=== PATIENT | male | born 1970 | race Caucasian/White ===

== ENCOUNTER 2020-02-28 10:30 | Outpatient (REF) | payer MEDICAID, SELFPAY ==
--- NOTE | 2020-02-28 10:35 | CT_ITS ---
EXAMINATION: CT HEAD WITHOUT CONTRAST CLINICAL INFORMATION: Dizziness and headaches. COMPARISON: None TECHNIQUE: Contiguous axial imaging was performed from the skull base to vertex without intravenous administration of contrast. This CT examination was performed using dose optimization techniques as appropriate, variously including the following: *Automated exposure control *Adjustment of mA and/or kV according to patient size (this includes techniques or standardized protocols for targeted exams where dose is matched to indication/reason for exam; i.e. extremities or head) *Use of iterative reconstruction technique DLP: 908 mGy-cm FINDINGS: There is no evidence of acute intra-axial or extra-axial hemorrhage. There is a 9 mm hypodensity right centrum semiovale image 19/2 of indeterminate age. There is no involvement mass effect. No other areas of acute infarction seen. There is no mass defect, edema or midline shift seen. Lopez to white matter differentiation is well preserved. No extra-axial fluid collections are identified. There is anterior falx calcification. The ventricles are normal in size. There is no abnormal attenuation within the brain parenchyma. The osseous structures and soft tissues are normal. There is a small polyp or retention cyst medial wall right maxillary sinus. IMPRESSION: No acute intracranial hemorrhage seen. There is a 9 mm hypodensity right centrum semiovale likely infarction of indeterminate age. No previous exam is available for comparison.
== END 2020-02-28 10:31 | disposition home or self-care (01) ==
LOC: HO.CT 10:30
PROVIDERS: PCP Nurse Practitioner Primary Care; Visit Provider Nurse Practitioner Primary Care
DX: R42 Dizziness and giddiness (principal); R51.9 Headache, unspecified
CPT/HCPCS: 70450

== ENCOUNTER 2020-04-25 17:10 | Inpatient (IN) | payer MEDICAID, SELFPAY ==
--- NOTE | 2020-04-25 17:14 | XR_ITS ---
EXAMINATION: PORTABLE CHEST 1 VIEW CLINICAL INFORMATION: ?pneumonia . COMPARISON: No recent pertinent prior studies are available for comparison. TECHNIQUE: Portable frontal view of the chest was obtained. FINDINGS: The lungs are well expanded. No focal infiltrate, effusion, edema, or pneumothorax. Cardiac and mediastinal silhouettes are within normal limits for technique. No acute bony abnormality seen. Likely chronic bony deformity to the distal right clavicle. XR/XR chest 1V IMPRESSION: No evidence of acute disease.
--- NOTE | 2020-04-25 17:15 | ECG_ITS ---
Test Reason : GENERAL Blood Pressure : / mmHG Vent. Rate : 091 BPM Atrial Rate : 091 BPM P-R Int : 140 ms QRS Dur : 088 ms QT Int : 372 ms P-R-T Axes : 031 -21 023 degrees QTc Int : 457 ms Normal sinus rhythm Possible Left atrial enlargement Left ventricular hypertrophy Inferior infarct , age undetermined Abnormal ECG No previous ECGs available Referred By: Rafael Silvestre Electronically Signed By:Glenn Thayer
[2020-04-25 17:21] VITALS: BP 123/98; PULSE 104; RESP 20; TEMP 36.9; O2SAT 94; BMI 26.2
--- NOTE | 2020-04-25 17:30 | PC.NURSE ---
patient woke to painful stimulus, and was able to state his name, , year, president and that he was at [facility], patient then was unable to participate in the triage process after that when questions were asked. patient had purposeful movement of all 4 extremities and retracts/moves with painful stimulus such as lab draws. failed swallow due to patient inability to participate at this time, iv inserted, some labs drawn, vitals obtained/stable, pt sinus tach low 100s on advertising copywriter, ivf started per order, will continue to monitor.
[2020-04-25] MEDS: 0.9 % Sodium Chloride 1,000 ML 999 ML IVCONT ×2 (18:04→23:01)
[2020-04-25 18:13] LABS: MANUAL DIFF FLAG NO
--- NOTE | 2020-04-25 18:14 | ED_ITS ---
HPI - General Adult General Chief complaint: General Medical Stated complaint: LETHARGY,WEAKNESS X 1 WEEK Time Seen by Provider: 04/25/20 17:14 Source: EMS Mode of arrival: EMS Limitations: altered mental status History of Present Illness HPI narrative: Patient with Limited history no family available per EMS la chavez's family are alcoholic but patient does not drink and patient being on couch for last 1 week , patient refusing to answer any questions .able to answer his name and date of Onset (ago): week(s) (1) Related Data Home Medications Medication Instructions Recorded Confirmed Unobtainable 04/25/20 04/25/20 Allergies Allergy/AdvReac Type Severity Reaction Status Date / Time No Known Allergies Allergy Verified 04/25/20 17:14 Review of Systems Review of Systems: Yes Unobtainable due to mental status Neurologic: Reports confusion Psychiatric: Psychiatric: Reports confusion [facility] Social History Social History Alcohol intake: unknown Smoking Status: Unknown if ever smoked Use of substances other than those prescribed or required for medical reasons: Unknown Advance Directives: No Advance Directives Information Provided: Yes Physical Exam Vital Signs: Vital Signs: Last Vital Signs Temp 97.8 F 04/25/20 22:00 Pulse 156 H 04/25/20 22:50 Resp 16 04/25/20 22:00 BP 144/128 H 04/25/20 22:50 Pulse Ox 95 04/25/20 22:00 Body Mass Index 26.2 Const: General: comfortable, no acute distress, confusion, ill appearing and patient obtunded Nutritional Appearance: malnourished Or ientation/consciousness: confusion and patient obtunded Limitations: altered mental status HENMT: Head: Yes normal to inspection Ears: hearing grossly normal bilaterally General nose exam: Normal external nose present Mouth: Normal oral and palatal mucosa present Eyes: General: appearance normal, both eyes and all related structures Conjunctivae: conjunctivae normal Sclerae: sclerae normal Pupils: Equal, round and reactive pupils present Neck: Neck: Yes normal visual inspection, Yes full ROM, Yes no lymphadenopathy, Yes no meningeal signs, Yes trachea midline and Yes supple Chest: Chest palpation & inspection: normal inspection of the chest and normal palpation of entire chest wall Resp: Effort & Inspection: normal respiratory effort, able to speak in complete sentences and no cough Auscultation: clear to auscultation bila terally Cardio: Jugular venous distension: no JVD Rate: regular rate Rhythm: regular rhythm Heart sounds: S1 normal heart sound present and S2 normal heart sound present GI: Inspection: Yes normal to inspection Palpation (GI): Soft to palpation, nontender and No hepatosplenomegaly present Percussion: Yes normal to percussion Auscultation: normal bowel sounds Back/Spine/Pelvis: Thoracic/Lumbar Spine: thoracic and lumbar spine normal to inspection Skin: General skin exam: no rashes or lesions noted Neuro: General: moves all extremities, no meningeal signs, confusion and patient obtunded Cranial nerves: Yes Equal, round and reactive pupils present Course Course Course Narrative: Patient ambulate in the ER in steady gait but his heart rate increased to 150 will give him some more IV fluids will get crisis consult Medical Decision Making MDM Narrative Medical decision making narrative: Patient with history of marijuana abuse came in with altered sensorium patient is awake alert does want to talk to us but had food in the ER no focal deficits head CT was done which showed low-density lesion in internal capsule patient was seen in p.o. CT scan on 02/28 this density has increased in size etiology is not very clear need MRI for further evaluation. Case discussed with patient ermelinda silvestre [phone], and mykel golden mother [phone] according to them patient is behaving differently for last 1 week talking without any sense denied any substance abuse, but has history of substance abuse previously, patient is sleeping most of the times and not eating much. One week prior to this patient was behaving normal according to patient's mother also was admitted in [place] for seizure in March details not available. Plan to admit patient for further evaluation of the brain space-occupying lesions in the right internal capsule plan for MRI in the morning and neurology consult Lab Data Lab results reviewed: Yes I reviewed the patient's lab results. Result diagrams: 04/25/20 17:58 04/25/20 18:59 Labs: Lab Results 04/25/20 04/25/20 04/25/20 Range/Units 17:57 17:57 17:58 WBC 10.8 (4.8-10.8) X10*3/uL RBC 6.00 H (4.60-5.80) X10*6/uL Hgb 16.8 (14.0-18.0) g/dl Hct 53.1 H (42-52) % MCV 88.5 (80-98) fL MCH 28.0 (27.0-33.0) pg MCHC 31.6 (31.0-36.0) g/dl RDW 13.9 (11.0-16.0) % Plt Count 479 H (160-400) X10*3/uL MPV 10.6 (9.4-12.4) fL Immature Gran % (Auto) 0.4 (0.0-0.4) % Neut % (Auto) 70.1 (45-73) % Lymph % (Auto) 18.6 L (20-40) % [place] % (Auto) 10.4 (2-11) % Eos % (Auto) 0.0 (0-4) % Baso % (Auto) 0.5 (0-2) % Lymph # (Auto) 2.0 (1.2-4.9) X10*3/uL [place] # (Auto) 1.1 (0.1-1.2) X10*3/uL Eos # (Auto) 0.0 (0.0-0.4) X10*3/uL Baso # (Auto) 0.1 (0.0-0.2) X10*3/uL Abs Immat Gran (auto) 0.04 H (0.00-0.03) X10*3/uL Absolute Neuts (auto) 7.6 (2.0-8.3) X10*3/uL Absolute Nucleated RBC 0.000 (0.0-0.012) X10*3/uL Nucleated RBC % (auto) 0.0 (0.0-0.2) /100WBC PT Cancelled INR Cancelled Sodium Potassium Chloride Carbon Dioxide Anion Gap BUN Creatinine Estim Creat Clear Calc Estimated GFR Random Glucose Lactic Acid (0.5-2.0) mmol/L Calcium Magnesium Cancelled Total Bilirubin Direct Bilirubin AST ALT Alkaline Phosphatase Total Protein Albumin Urine Color Urine Appearance Urine pH (5.0-8.0) Ur Specific [place] (1.005-1.025) Urine Protein (NEG-TRACE) MG/DL Urine Glucose (UA) (NEG) MG/DL Urine Ketones (NEG) MG/DL Urine Blood (NEG) Urine Nitrite (NEG) Ur Leukocyte Esterase (NEG) Urine RBC (0) /HPF Urine WBC (0-4) /HPF Ur Squamous Epith Cells /LPF Amorphous Sediment /LPF Urine Bacteria /LPF Urine Mucus /LPF Urine Opiates Screen (Not Detect) Ur Barbiturates Screen (Not Detect) Ur Phencyclidine Scrn (Not Detect) Ur Amphetamines Screen (Not Detect) U Benzodiazepines Scrn (Not Detect) Urine Cocaine Screen (Not Detect) U Marijuana (THC) Screen (Not Detect) Ethyl Alcohol Coronavirus (PCR) (Negative) Influenza Type A (PCR) (Negative) Influenza Type B (PCR) (Negative) RSV RNA Qual (PCR) (Negative) 04/25/20 04/25/20 04/25/20 Range/Units 17:58 17:58 18:09 WBC (4.8-10.8) X10*3/uL RBC (4.60-5.80) X10*6/uL Hgb (14.0-18.0) g/dl Hct (42-52) % MCV (80-98) fL MCH (27.0-33.0) pg MCHC (31.0-36.0) g/dl RDW (11.0-16.0) % Plt Count (160-400) X10*3/uL MPV (9.4-12.4) fL Immature Gran % (Auto) (0.0-0.4) % Neut % (Auto) (45-73) % Lymph % (Auto) (20-40) % [place] % (Auto) (2-11) % Eos % (Auto) (0-4) % Baso % (Auto) (0-2) % Lymph # (Auto) (1.2-4.9) X10*3/uL [place] # (Auto) (0.1-1.2) X10*3/uL Eos # (Auto) (0.0-0.4) X10*3/uL Baso # (Auto) (0.0-0.2) X10*3/uL Abs Immat Gran (auto) (0.00-0.03) X10*3/uL Absolute Neuts (auto) (2.0-8.3) X10*3/uL Absolute Nucleated RBC (0.0-0.012) X10*3/uL Nucleated RBC % (auto) (0.0-0.2) /100WBC PT INR Sodium Cancelled Potassium Cancelled Chloride Cancelled Carbon Dioxide Cancelled Anion Gap Cancelled BUN Cancelled Creatinine Cancelled Estim Creat Clear Calc Cancelled Estimated GFR Cancelled Random Glucose Cancelled Lactic Acid 1.4 (0.5-2.0) mmol/L Calcium Cancelled Magnesium Total Bilirubin Cancelled Direct Bilirubin Cancelled AST Cancelled ALT Cancelled Alkaline Phosphatase Cancelled Total Protein Cancelled Albumin Cancelled Urine Color Urine Appearance Urine pH (5.0-8.0) Ur Specific [place] (1.005-1.025) Urine Protein (NEG-TRACE) MG/DL Urine Glucose (UA) (NEG) MG/DL Urine Ketones (NEG) MG/DL Urine Blood (NEG) Urine Nitrite (NEG) Ur Leukocyte Esterase (NEG) Urine RBC (0) /HPF Urine WBC (0-4) /HPF Ur Squamous Epith Cells /LPF Amorphous Sediment /LPF Urine Bacteria /LPF Urine Mucus /LPF Urine Opiates Screen (Not Detect) Ur Barbiturates Screen (Not Detect) Ur Phencyclidine Scrn (Not Detect) Ur Amphetamines Screen (Not Detect) U Benzodiazepines Scrn (Not Detect) Urine Cocaine Screen (Not Detect) U Marijuana (THC) Screen (Not Detect) Ethyl Alcohol Cancelled Coronavirus (PCR) (Negative) Influenza Type A (PCR) (Negative) Influenza Type B (PCR) (Negative) RSV RNA Qual (PCR) (Negative) 04/25/20 04/25/20 04/25/20 Range/Units 18:09 18:59 18:59 WBC (4.8-10.8) X10*3/uL RBC (4.60-5.80) X10*6/uL Hgb (14.0-18.0) g/dl Hct (42-52) % MCV (80-98) fL MCH (27.0-33.0) pg MCHC (31.0-36.0) g/dl RDW (11.0-16.0) % Plt Count (160-400) X10*3/uL MPV (9.4-12.4) fL Immature Gran % (Auto) (0.0-0.4) % Neut % (Auto) (45-73) % Lymph % (Auto) (20-40) % [place] % (Auto) (2-11) % Eos % (Auto) (0-4) % Baso % (Auto) (0-2) % Lymph # (Auto) (1.2-4.9) X10*3/uL [place] # (Auto) (0.1-1.2) X10*3/uL Eos # (Auto) (0.0-0.4) X10*3/uL Baso # (Auto) (0.0-0.2) X10*3/uL Abs Immat Gran (auto) (0.00-0.03) X10*3/uL Absolute Neuts (auto) (2.0-8.3) X10*3/uL Absolute Nucleated RBC (0.0-0.012) X10*3/uL Nucleated RBC % (auto) (0.0-0.2) /100WBC PT INR Sodium Potassium Chloride Carbon Dioxide Anion Gap BUN Creatinine Estim Creat Clear Calc Estimated GFR Random Glucose Lactic Acid (0.5-2.0) mmol/L Calcium Magnesium 2.7 H Total Bilirubin Direct Bilirubin AST ALT Alkaline Phosphatase Total Protein Albumin Urine Color Urine Appearance Urine pH (5.0-8.0) Ur Specific [place] (1.005-1.025) Urine Protein (NEG-TRACE) MG/DL Urine Glucose (UA) (NEG) MG/DL Urine Ketones (NEG) MG/DL Urine Blood (NEG) Urine Nitrite (NEG) Ur Leukocyte Esterase (NEG) Urine RBC (0) /HPF Urine WBC (0-4) /HPF Ur Squamous Epith Cells /LPF Amorphous Sediment /LPF Urine Bacteria /LPF Urine Mucus /LPF Urine Opiates Screen (Not Detect) Ur Barbiturates Screen (Not Detect) Ur Phencyclidine Scrn (Not Detect) Ur Amphetamines Screen (Not Detect) U Benzodiazepines Scrn (Not Detect) Urine Cocaine Screen (Not Detect) U Marijuana (THC) Screen (Not Detect) Ethyl Alcohol < 10 Coronavirus (PCR) NEGATIVE (Negative) Influenza Type A (PCR) NEGATIVE (Negative) Influenza Type B (PCR) NEGATIVE (Negative) RSV RNA Qual (PCR) NEGATIVE (Negative) 04/25/20 04/25/20 04/25/20 Range/Units 18:59 18:59 20:44 WBC (4.8-10.8) X10*3/uL RBC (4.60-5.80) X10*6/uL Hgb (14.0-18.0) g/dl Hct (42-52) % MCV (80-98) fL MCH (27.0-33.0) pg MCHC (31.0-36.0) g/dl RDW (11.0-16.0) % Plt Count (160-400) X10*3/uL MPV (9.4-12.4) fL Immature Gran % (Auto) (0.0-0.4) % Neut % (Auto) (45-73) % Lymph % (Auto) (20-40) % [place] % (Auto) (2-11) % Eos % (Auto) (0-4) % Baso % (Auto) (0-2) % Lymph # (Auto) (1.2-4.9) X10*3/uL [place] # (Auto) (0.1-1.2) X10*3/uL Eos # (Auto) (0.0-0.4) X10*3/uL Baso # (Auto) (0.0-0.2) X10*3/uL Abs Immat Gran (auto) (0.00-0.03) X10*3/uL Absolute Neuts (auto) (2.0-8.3) X10*3/uL Absolute Nucleated RBC (0.0-0.012) X10*3/uL Nucleated RBC % (auto) (0.0-0.2) /100WBC PT 15.3 H INR 1.3 H Sodium 141 Potassium 5.0 Chloride 109 H Carbon Dioxide 17 L Anion Gap 20 BUN 16 Creatinine 1.27 Estim Creat Clear Calc 77.2 Estimated GFR > 60 Random Glucose 123 H Lactic Acid (0.5-2.0) mmol/L Calcium 8.2 L Magnesium Total Bilirubin 0.9 Direct Bilirubin 0.3 AST 21 ALT 19 Alkaline Phosphatase 69 Total Protein 7.9 Albumin 4.2 Urine Color JAN Urine Appearance HAZY Urine pH 5.0 (5.0-8.0) Ur Specific [place] >= 1.030 H (1.005-1.025) Urine Protein 2+ H (NEG-TRACE) MG/DL Urine Glucose (UA) NEG (NEG) MG/DL Urine Ketones NEG (NEG) MG/DL Urine Blood 1+ H (NEG) Urine Nitrite NEG (NEG) Ur Leukocyte Esterase NEG (NEG) Urine RBC 1-4 (0) /HPF Urine WBC 0 (0-4) /HPF Ur Squamous Epith Cells NONE /LPF Amorphous Sediment 2+ /LPF Urine Bacteria NONE /LPF Urine Mucus 2+ /LPF Urine Opiates Screen (Not Detect) Ur Barbiturates Screen (Not Detect) Ur Phencyclidine Scrn (Not Detect) Ur Amphetamines Screen (Not Detect) U Benzodiazepines Scrn (Not Detect) Urine Cocaine Screen (Not Detect) U Marijuana (THC) Screen (Not Detect) Ethyl Alcohol Coronavirus (PCR) (Negative) Influenza Type A (PCR) (Negative) Influenza Type B (PCR) (Negative) RSV RNA Qual (PCR) (Negative) 04/25/20 Range/Units 20:44 WBC (4.8-10.8) X10*3/uL RBC (4.60-5.80) X10*6/uL Hgb (14.0-18.0) g/dl Hct (42-52) % MCV (80-98) fL MCH (27.0-33.0) pg MCHC (31.0-36.0) g/dl RDW (11.0-16.0) % Plt Count (160-400) X10*3/uL MPV (9.4-12.4) fL Immature Gran % (Auto) (0.0-0.4) % Neut % (Auto) (45-73) % Lymph % (Auto) (20-40) % [place] % (Auto) (2-11) % Eos % (Auto) (0-4) % Baso % (Auto) (0-2) % Lymph # (Auto) (1.2-4.9) X10*3/uL [place] # (Auto) (0.1-1.2) X10*3/uL Eos # (Auto) (0.0-0.4) X10*3/uL Baso # (Auto) (0.0-0.2) X10*3/uL Abs Immat Gran (auto) (0.00-0.03) X10*3/uL Absolute Neuts (auto) (2.0-8.3) X10*3/uL Absolute Nucleated RBC (0.0-0.012) X10*3/uL Nucleated RBC % (auto) (0.0-0.2) /100WBC PT INR Sodium Potassium Chloride Carbon Dioxide Anion Gap BUN Creatinine Estim Creat Clear Calc Estimated GFR Random Glucose Lactic Acid (0.5-2.0) mmol/L Calcium Magnesium Total Bilirubin Direct Bilirubin AST ALT Alkaline Phosphatase Total Protein Albumin Urine Color Urine Appearance Urine pH (5.0-8.0) Ur Specific [place] (1.005-1.025) Urine Protein (NEG-TRACE) MG/DL Urine Glucose (UA) (NEG) MG/DL Urine Ketones (NEG) MG/DL Urine Blood (NEG) Urine Nitrite (NEG) Ur Leukocyte Esterase (NEG) Urine RBC (0) /HPF Urine WBC (0-4) /HPF Ur Squamous Epith Cells /LPF Amorphous Sediment /LPF Urine Bacteria /LPF Urine Mucus /LPF Urine Opiates Screen Not Detected (Not Detect) Ur Barbiturates Screen Not Detected (Not Detect) Ur Phencyclidine Scrn Not Detected (Not Detect) Ur Amphetamines Screen Not Detected (Not Detect) U Benzodiazepines Scrn Not Detected (Not Detect) Urine Cocaine Screen Not Detected (Not Detect) U Marijuana (THC) Screen POSITIVE H (Not Detect) Ethyl Alcohol Coronavirus (PCR) (Negative) Influenza Type A (PCR) (Negative) Influenza Type B (PCR) (Negative) RSV RNA Qual (PCR) (Negative) Imaging Data CT scan - head: Attestation: I personally reviewed and interpreted this imaging study as follows: Radiologist's impression: CT/CT head/brain wo con IMPRESSION: There is increasing ill-defined low density centered in the genu of the internal capsule extending cephalad to the centrum semiovale and inferiorly to the right thalamus. This could reflect an underlying mass lesion. Recommend MRI of the brain with and without contrast. ECG Data Attestation: I personally reviewed and interpreted this ECG as follows: Interpretation: Normal sinus rhythm with heart rate 91 beats per minute LVH normal axis normal intervals no acute ST T wave changes impression no acute ischemia Discharge Plan Discharge Clinical Impression: Brain mass Altered mental status Qualifiers: Altered mental status type: disorientation Qualified Code(s): R41.0 - Disorientation, unspecified Patient Disposition: Admitted As Inpatient
[2020-04-25 18:15] LABS: Basophils Absolute Auto 0.1 X10*3/uL (0.0-0.2); Basophils Percent Auto 0.5 % (0-2); Hematocrit 53.1 % (42-52); Hemoglobin 16.8 g/dl (14.0-18.0); Imm Gran Abs Auto 0.04 X10*3/uL (0.00-0.03); Imm Gran Pct Auto 0.4 % (0.0-0.4); Lymphocytes Percent Auto 18.6 % (20-40); Mean Corpuscular HGB Conc 31.6 g/dl (31.0-36.0); Mean Corpuscular Volume 88.5 fL (80-98); Mean Platelet Volume 10.6 fL (9.4-12.4); Monocytes Absolute Auto 1.1 X10*3/uL (0.1-1.2); Monocytes Percent Auto 10.4 % (2-11); Neutrophils Absolute Auto 7.6 X10*3/uL (2.0-8.3); Neutrophils Percent Auto 70.1 % (45-73); Platelet Count 479 X10*3/uL (160-400); Red Cell Distribution Width 13.9 % (11.0-16.0); White Blood Count 10.8 X10*3/uL (4.8-10.8)
--- NOTE | 2020-04-25 18:15 | PC.NURSE ---
additional labs drawn, pt to ct scan
--- NOTE | 2020-04-25 18:20 | CT_ITS ---
EXAMINATION: CT HEAD WITHOUT CONTRAST CLINICAL INFORMATION: Altered mental status COMPARISON: 02/28/2020 TECHNIQUE: Contiguous axial imaging was performed from the skull base to vertex without intravenous administration of contrast. This CT examination was performed using dose optimization techniques as appropriate, variously including the following: *Automated exposure control *Adjustment of mA and/or kV according to patient size (this includes techniques or standardized protocols for targeted exams where dose is matched to indication/reason for exam; i.e. extremities or head) *Use of iterative reconstruction technique DLP: 803 mGy-cm FINDINGS: There is increasing ill-defined low density centered in the genu of the internal capsule extending cephalad to the centrum semiovale and inferiorly to the right thalamus. This could reflect an underlying mass lesion. Lopez-white differentiation is maintained without evidence of acute large vessel territory ischemia. No midline shift. Ventricles and sulci are similar in configuration to the prior study. No acute intracranial hemorrhage. No acute sinusitis. Globes and orbits are normal. Right maxillary mucous retention cyst or polyps. CT/CT head/brain wo con IMPRESSION: There is increasing ill-defined low density centered in the genu of the internal capsule extending cephalad to the centrum semiovale and inferiorly to the right thalamus. This could reflect an underlying mass lesion. Recommend MRI of the brain with and without contrast.
[2020-04-25 18:46] LABS: Lactic Acid 1.4 mmol/L (0.5-2.0)
[2020-04-25 19:00] LABS: Influenza A PCR NEGATIVE (Negative); Influenza B PCR NEGATIVE (Negative); Resp Syncy Virus RNA Qual PCR NEGATIVE (Negative); SARS COV2 PCR INHOUSE NEGATIVE (Negative)
--- NOTE | 2020-04-25 19:00 | PC.NURSE ---
vss, pt occupational hygienist nsr, pt sleeping/wakes to painful stimulus,
[2020-04-25 19:01] VITALS: BP 139/96; PULSE 88; RESP 18; TEMP 36.9; O2SAT 95
[2020-04-25 19:12] LABS: INTERNATIONAL NORM RATIO 1.3 (0.9-1.1); Prothrombin Time 15.3 SEC (10.8-13.0)
[2020-04-25 19:34] LABS: Alanine Aminotransferase 19 U/L (0-40); Albumin Level 4.2 g/dL (3.5-5.0); Alkaline Phosphatase 69 U/L (39-117); Aspartate Amino Transferase 21 U/L (5-37); Bilirubin Direct 0.3 mg/dL (0.0-0.5); Bilirubin Total 0.9 mg/dL (0.0-1.0); Magnesium 2.7 mg/dL (1.6-2.6); Total Protein 7.9 g/dL (6.5-8.0)
[2020-04-25 19:41] LABS: Ethanol < 10 mg/dL
[2020-04-25 20:20] VITALS: BP 133/90; PULSE 87; RESP 15; TEMP 37.1; O2SAT 95
--- NOTE | 2020-04-25 20:20 | PC.NURSE ---
patient woke to painful stimulus, cardiac monitor technician nsr, vss, pt straight cath for urine, will continue to monitor.
[2020-04-25 20:36] LABS: Anion Gap 20 (12-20); Blood Urea Nitrogen 16 mg/dL (9-16); Calcium 8.2 mg/dL (8.4-10.2); Carbon Dioxide 17 mmol/L (22-29); Chloride 109 mmol/L (96-108); Creatinine Clr Calc Pharmacy 77.2; Estimated Glomerular Filt Rate > 60; Glucose Random 123 mg/dL (60-115); Sodium 141 mmol/L (135-145)
[2020-04-25 20:50] LABS: Glucose Urine UA NEG (NEG); Leukocyte Esterase Urine NEG (NEG); Nitrite Urine NEG (NEG); Specific Gravity - Urine >= 1.030 (1.005-1.025); Urine Blood 1+ (NEG); Urine Ketones NEG (NEG); Urine Protein 2+ MG/DL (NEG-TRACE)
[2020-04-25 20:52] LABS: Appearance Urine HAZY; Color Urine AMBER
[2020-04-25 20:56] LABS: Amorphous Sediment Urine 2+ /LPF; Mucus Urine 2+ /LPF; WBC Urine 0 /HPF (0-4)
--- NOTE | 2020-04-25 21:09 | PC.NURSE ---
repeat swallow, pt woke to stimulus, pt passed swallow and drank glass of water, provider wishes for the patient to eat
--- NOTE | 2020-04-25 21:17 | MHC.RECOVSUP ---
I was ask by doctor in charge to talk to patient but patient did not talk or any movement at all.
[2020-04-25 21:46] LABS: Amphetamine Screen Urine Not Detected (Not Detect); Barbiturates, Urine Not Detected (Not Detect); Benzodiazepines Screen Urine Not Detected (Not Detect); Cannabinoid Screen Urine POSITIVE (Not Detect); Cocaine Screen Urine Not Detected (Not Detect); Opiate Screen Urine Not Detected (Not Detect); Phencyclidine Screen Urine Not Detected (Not Detect)
[2020-04-25 22:00] VITALS: BP 127/96; PULSE 105; RESP 16; TEMP 36.6; O2SAT 95
[2020-04-25 22:50] VITALS: BP 144/128; PULSE 156
--- NOTE | 2020-04-25 22:55 | PC.NURSE ---
patient was woken up, and asked to ambulate with assist of nursing staff, upon patient standing and taking a few steps he stated he felt dizzy, bp and hr were assessed, he was hypertensive and tachy in 150s, patient was returned back to bed and provider was notified.
--- NOTE | 2020-04-25 23:10 | PC.NURSE ---
PATIENT IS ALERT, ABLE TO ANSWER, WHO HE IS, WHERE HE IS, AND DATE OF . DR. URIOSTEGUI ASKING TO ATTEMPT TO AMBULATE PATIENT. PATIENT ABLE TO STAND AND TAKE A FEW STEPS. PATIENT BECOMING TACHYCARDIAC TO 145. MD MADE AWARE, PATIENT WAS SINUS TACH. ONCE SEATED PATIENT HEART RATE WENT BACK TO BASELINE AT 106. PATIENT STATING LOWER BACK PAIN, ONLY TAKING ONE OR TWO STEPS WITH ASSIST OF 2. PLAN OF CARE FOR 1 LITER OF FLUID AND A EVALUATION FROM CRISIS. PATIENT HAS RETURNED TO NOT ANSWERING QUESTIONS ONCE BACK IN THE BED.
[2020-04-26] VITALS (10 sets, daily range): BP systolic 104–141; BP diastolic 67–99; PULSE 69–104; RESP 15–24; TEMP 36.6–39.6; O2SAT 94–100
--- NOTE | 2020-04-26 | MR_ITS ---
EXAMINATION: MR BRAIN WITHOUT AND WITH CONTRAST CLINICAL INFORMATION: Abnormal head CT. COMPARISON: Head CT 04/25/2020. TECHNIQUE: Multiplanar, multisequence MRI of the brain was obtained before and after the intravenous administration of 8 mL Gadavist. FINDINGS: Extensive expansile T2 signal changes involving the right basal ganglia, the internal capsules bilaterally, the thalami bilaterally, and the right greater than left subthalamic regions and right cerebral peduncle exhibiting heterogeneous enhancement. There is also enhancement involving the anterior aspect of the left hippocampus with surrounding T2 signal changes at the localizer at the end there is possible leptomeningeal enhancement along the periphery of the cervicomedullary junction and within the interpedicular fossa. Mixed diffusion characteristics within the deep gomez nuclei bilaterally. Small volume blood products within the upper medial right thalamus. There is mild to moderate lateral ventriculomegaly concerning for a component of hydrocephalus with transependymal CSF effusion. There is no extra-axial surface collection, or herniation. The major flow voids at the skull base are preserved. There is no acute infarct on diffusion-weighted imaging. There is no intracranial hemorrhage on the gradient recalled echo acquisition. The midline structures are normal. The cerebellar tonsils are normally positioned. The cerebellum and brainstem are normal. The craniocervical junction is normal. Osseous marrow signal intensity is homogenous. The visualized soft tissues are unremarkable. MR/MR head/brain wo/w con IMPRESSION: - There is extensive intraparenchymal enhancement associated with expansile T2 signal changes within the right basal ganglia, the right greater than left internal capsule, the thalami bilaterally, the right greater than left subthalamic region, and the right cerebral peduncle as well as the anterior aspect of the left hippocampus. 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 Small volume blood products within the upper medial right thalamus. Differential considerations include infectious, inflammatory, and neoplastic etiologies. CSF analysis is recommended for further assessment. - There is mild to moderate lateral ventriculomegaly concerning for a component of hydrocephalus with transependymal CSF effusion. The lesions described above result in significant effacement of the central aspect of the third ventricle.
--- NOTE | 2020-04-26 | XR_ITS ---
EXAMINATION: XR ABDOMEN KUB CLINICAL INDICATION: Needs MRI with question of metallic implants COMPARISON: None TECHNIQUE: AP view of the abdomen. FINDINGS: The bowel gas pattern is normal with no evidence of ileus or obstruction. No unusual soft tissue calcifications are noted. The bones are unremarkable. No metallic implants are seen. XR/XR KUB IMPRESSION: Unremarkable examination.
--- NOTE | 2020-04-26 01:01 | P.HPHOSP_ITS ---
History of Present Illness Date of Service: 04/26/20 Chief Complaint: AMS 49 y/o male with unknown PMHx who presented from home due to acute AMS. Per history provided by EMS/Family/Ed attending, for the past several days patient has been noted not to be himself . Per family recently the patient has been acting strange, sometimes pretending that is eating without even having any food in the plate and most of the time just laying down in bed on sitting on a chair for prolong period of time. On presentation to the ED patient is found to be hemodynamically stable, at some point tachycardic which improved without any intervention. Blood work unremarkable, Utox positive for Marijuana, imaging of the head showing ill defined low density centered in the genu of the internal capsule which might represent a mass. Decision for admission given per ED. Patient seen and examined in the ED, laying down in bed in no acute distress. Patient responsive to verbal and painful stimuli but not answering to any quest ions at present. ROS unable to be obtained. Physical exam unremarkable. PMHX; unknown PSX; unknown Toxic habits: marijuana abuser Review of Systems Review of Systems: Yes Other (unable to be obtained ) Neurologic: Reports confusion Psychiatric: Psychiatric: Reports confusion PMFSH Social History Alcohol intake: unknown Smoking Status: Unknown if ever smoked Use of substances other than those prescribed or required for medical reasons: Unknown Advance Directives: No Advance Directives Information Provided: Yes Meds Allergies Allergy/AdvReac Type Severity Reaction Status Date / Time No Known Allergies Allergy Verified 04/25/20 17:14 Home Medications Medication Instructions Recorded Confirmed Type Unobtainable 04/25/20 04/25/20 History Physical Exam Vital Signs and Narrative: Vital Signs: Last Vital Signs Temp 97.8 F 04/25/20 22:00 Pulse 87 04/26/20 00:51 Resp 15 04/26/20 00:51 BP 126/88 04/26/20 00:51 Pulse Ox 100 04/26/20 00:51 Body Mass Index 26.2 Const: General: confusion Orientation/consciousness: confusion Neuro: General: confusion Results Labs CBC and Chem 7: 04/25/20 17:58 04/25/20 18:59 Labs: Laboratory Results - last 24 hr 04/25/20 04/25/20 04/25/20 17:57 17:57 17:58 MCV 88.5 MCH 28.0 MCHC 31.6 RDW 13.9 Plt Count 479 H MPV 10.6 Immature Gran % (Auto) 0.4 Neut % (Auto) 70.1 Lymph % (Auto) 18.6 L [place] % (Auto) 10.4 Eos % (Auto) 0.0 Baso % (Auto) 0.5 Lymph # (Auto) 2.0 [place] # (Auto) 1.1 Eos # (Auto) 0.0 Baso # (Auto) 0.1 Abs Immat Gran (auto) 0.04 H Absolute Neuts (auto) 7.6 Absolute Nucleated RBC 0.000 Nucleated RBC % (auto) 0.0 PT Cancelled INR Cancelled Anion Gap Estim Creat Clear Calc Estimated GFR Random Glucose Lactic Acid Calcium Magnesium Cancelled Total Bilirubin Direct Bilirubin AST ALT Alkaline Phosphatase Total Protein Albumin Urine Color Urine Appearance Urine pH Ur Specific [place] Urine Protein Urine Glucose (UA) Urine Ketones Urine Blood Urine Nitrite Ur Leukocyte Esterase Urine RBC Urine WBC Ur Squamous Epith Cells Amorphous Sediment Urine Bacteria Urine Mucus Urine Opiates Screen Ur Barbiturates Screen Ur Phencyclidine Scrn Ur Amphetamines Screen U Benzodiazepines Scrn Urine Cocaine Screen U Marijuana (THC) Screen Ethyl Alcohol Coronavirus (PCR) Influenza Type A (PCR) Influenza Type B (PCR) RSV RNA Qual (PCR) 04/25/20 04/25/20 04/25/20 17:58 17:58 18:09 MCV MCH MCHC RDW Plt Count MPV Immature Gran % (Auto) Neut % (Auto) Lymph % (Auto) [place] % (Auto) Eos % (Auto) Baso % (Auto) Lymph # (Auto) [place] # (Auto) Eos # (Auto) Baso # (Auto) Abs Immat Gran (auto) Absolute Neuts (auto) Absolute Nucleated RBC Nucleated RBC % (auto) PT INR Anion Gap Cancelled Estim Creat Clear Calc Cancelled Estimated GFR Cancelled Random Glucose Cancelled Lactic Acid 1.4 Calcium Cancelled Magnesium Total Bilirubin Cancelled Direct Bilirubin Cancelled AST Cancelled ALT Cancelled Alkaline Phosphatase Cancelled Total Protein Cancelled Albumin Cancelled Urine Color Urine Appearance Urine pH Ur Specific [place] Urine Protein Urine Glucose (UA) Urine Ketones Urine Blood Urine Nitrite Ur Leukocyte Esterase Urine RBC Urine WBC Ur Squamous Epith Cells Amorphous Sediment Urine Bacteria Urine Mucus Urine Opiates Screen Ur Barbiturates Screen Ur Phencyclidine Scrn Ur Amphetamines Screen U Benzodiazepines Scrn Urine Cocaine Screen U Marijuana (THC) Screen Ethyl Alcohol Cancelled Coronavirus (PCR) Influenza Type A (PCR) Influenza Type B (PCR) RSV RNA Qual (PCR) 04/25/20 04/25/20 04/25/20 18:09 18:59 18:59 MCV MCH MCHC RDW Plt Count MPV Immature Gran % (Auto) Neut % (Auto) Lymph % (Auto) [place] % (Auto) Eos % (Auto) Baso % (Auto) Lymph # (Auto) [place] # (Auto) Eos # (Auto) Baso # (Auto) Abs Immat Gran (auto) Absolute Neuts (auto) Absolute Nucleated RBC Nucleated RBC % (auto) PT INR Anion Gap Estim Creat Clear Calc Estimated GFR Random Glucose Lactic Acid Calcium Magnesium 2.7 H Total Bilirubin Direct Bilirubin AST ALT Alkaline Phosphatase Total Protein Albumin Urine Color Urine Appearance Urine pH Ur Specific [place] Urine Protein Urine Glucose (UA) Urine Ketones Urine Blood Urine Nitrite Ur Leukocyte Esterase Urine RBC Urine WBC Ur Squamous Epith Cells Amorphous Sediment Urine Bacteria Urine Mucus Urine Opiates Screen Ur Barbiturates Screen Ur Phencyclidine Scrn Ur Amphetamines Screen U Benzodiazepines Scrn Urine Cocaine Screen U Marijuana (THC) Screen Ethyl Alcohol < 10 Coronavirus (PCR) NEGATIVE Influenza Type A (PCR) NEGATIVE Influenza Type B (PCR) NEGATIVE RSV RNA Qual (PCR) NEGATIVE 04/25/20 04/25/20 04/25/20 18:59 18:59 20:44 MCV MCH MCHC RDW Plt Count MPV Immature Gran % (Auto) Neut % (Auto) Lymph % (Auto) [place] % (Auto) Eos % (Auto) Baso % (Auto) Lymph # (Auto) [place] # (Auto) Eos # (Auto) Baso # (Auto) Abs Immat Gran (auto) Absolute Neuts (auto) Absolute Nucleated RBC Nucleated RBC % (auto) PT 15.3 H INR 1.3 H Anion Gap 20 Estim Creat Clear Calc 77.2 Estimated GFR > 60 Random Glucose 123 H Lactic Acid Calcium 8.2 L Magnesium Total Bilirubin 0.9 Direct Bilirubin 0.3 AST 21 ALT 19 Alkaline Phosphatase 69 Total Protein 7.9 Albumin 4.2 Urine Color JAN Urine Appearance HAZY Urine pH 5.0 Ur Specific [place] >= 1.030 H Urine Protein 2+ H Urine Glucose (UA) NEG Urine Ketones NEG Urine Blood 1+ H Urine Nitrite NEG Ur Leukocyte Esterase NEG Urine RBC 1-4 Urine WBC 0 Ur Squamous Epith Cells NONE Amorphous Sediment 2+ Urine Bacteria NONE Urine Mucus 2+ Urine Opiates Screen Ur Barbiturates Screen Ur Phencyclidine Scrn Ur Amphetamines Screen U Benzodiazepines Scrn Urine Cocaine Screen U Marijuana (THC) Screen Ethyl Alcohol Coronavirus (PCR) Influenza Type A (PCR) Influenza Type B (PCR) RSV RNA Qual (PCR) 04/25/20 20:44 MCV MCH MCHC RDW Plt Count MPV Immature Gran % (Auto) Neut % (Auto) Lymph % (Auto) [place] % (Auto) Eos % (Auto) Baso % (Auto) Lymph # (Auto) [place] # (Auto) Eos # (Auto) Baso # (Auto) Abs Immat Gran (auto) Absolute Neuts (auto) Absolute Nucleated RBC Nucleated RBC % (auto) PT INR Anion Gap Estim Creat Clear Calc Estimated GFR Random Glucose Lactic Acid Calcium Magnesium Total Bilirubin Direct Bilirubin AST ALT Alkaline Phosphatase Total Protein Albumin Urine Color Urine Appearance Urine pH Ur Specific [place] Urine Protein Urine Glucose (UA) Urine Ketones Urine Blood Urine Nitrite Ur Leukocyte Esterase Urine RBC Urine WBC Ur Squamous Epith Cells Amorphous Sediment Urine Bacteria Urine Mucus Urine Opiates Screen Not Detected Ur Barbiturates Screen Not Detected Ur Phencyclidine Scrn Not Detected Ur Amphetamines Screen Not Detected U Benzodiazepines Scrn Not Detected Urine Cocaine Screen Not Detected U Marijuana (THC) Screen POSITIVE H Ethyl Alcohol Coronavirus (PCR) Influenza Type A (PCR) Influenza Type B (PCR) RSV RNA Qual (PCR) Imaging Radiologist's Impressions: Impressions Chest X-Ray 04/25/20 17:14 IMPRESSION: No evidence of acute disease. Head CT 04/25/20 18:20 IMPRESSION: There is increasing ill-defined low density centered in the genu of the internal capsule extending cephalad to the centrum semiovale and inferiorly to the right thalamus. This could reflect an underlying mass lesion. Recommend MRI of the brain with and without contrast. Assessment and Plan (1) Altered mental status: Qualifiers: Altered mental status type: disorientation Qualified Code(s): R41.0 - Disorientation, unspecified Status: Acute No evidence of any infectious process at present There is evident of a suspected mass in the internal capsule Follow up MRI of the brain Tele monitor for now Neurology evaluation in the am (2) Brain mass: Status: Acute Plan as above Medication reconciliation unable to be obtained per the ED as the patient is not cooperative.
--- NOTE | 2020-04-26 06:18 | P.EN_ITS ---
Event Note Date of Service: 04/26/20 Event Note: GIven that MRI questionnaire cannot be answer at present given pat ient is not cooperative MRI to be on hold until further hx can be obtained from patient with family in the am and upon discussion with neurology.
[2020-04-26 08:09] LABS: Basophils Absolute Auto 0.1 X10*3/uL (0.0-0.2); Basophils Percent Auto 0.4 % (0-2); Hemoglobin 14.7 g/dl (14.0-18.0); Lymphocytes Absolute Auto 3.1 X10*3/uL (1.2-4.9); MANUAL DIFF FLAG SCAN; PLT CLUMP 1; Red Cell Distribution Width 13.2 % (11.0-16.0); SCAN SMEAR FLAG 1
[2020-04-26 08:11] LABS: Eosinophils Percent Auto 0.1 % (0-4); Hematocrit 46.1 % (42-52); Imm Gran Abs Auto 0.06 X10*3/uL (0.00-0.03); Imm Gran Pct Auto 0.5 % (0.0-0.4); Lymphocytes Percent Auto 25.7 % (20-40); Mean Corpuscular HGB Conc 31.9 g/dl (31.0-36.0); Mean Corpuscular Hemoglobin 28.3 pg (27.0-33.0); Mean Corpuscular Volume 88.7 fL (80-98); Mean Platelet Volume 11.3 fL (9.4-12.4); Monocytes Absolute Auto 1.4 X10*3/uL (0.1-1.2); Monocytes Percent Auto 11.2 % (2-11); Neutrophils Absolute Auto 7.5 X10*3/uL (2.0-8.3); Neutrophils Percent Auto 62.1 % (45-73); Platelet Count 242 X10*3/uL (160-400)
--- NOTE | 2020-04-26 08:30 | MHC.CM.PN ---
Patient here with Acute AMS and CM unable to reach either contact (MOTHER NOR BROTHER). It appears that Patient was independent [employer] and may now have a Brain Mass that is causing AMS and change in functional ability. Patient will need a PT eval and dc plan is likely to be home with new VNA VS STR. CM has initiated and will follow for dc planning. NO HCP on file.
[2020-04-26] MEDS: 0.9 % Sodium Chloride Flush 3 ML SYRINGE IVFLUSH ×3 (08:56→21:03)
[2020-04-26 09:13] LABS: Anion Gap 18 (12-20); Blood Urea Nitrogen 16 mg/dL (9-16); Calcium 8.3 mg/dL (8.4-10.2); Carbon Dioxide 19 mmol/L (22-29); Chloride 109 mmol/L (96-108); Creatinine Clr Calc Pharmacy 85.2; Estimated Glomerular Filt Rate > 60; Glucose Random 96 mg/dL (60-115); Potassium 4.6 mmol/l (3.3-5.1); Sodium 141 mmol/L (135-145)
[2020-04-26 10:33] LABS: SLIDE REVIEW VERIFIED
--- NOTE | 2020-04-26 13:46 | MHC.CM.PN ---
STAN received a return call from Patient's Brother/Pasquale @ [phone]. Patient is homeless, functionally independent when using a cane. Pasquale is unsure where Patient will go at time of d/c. STAN relayed Pasquale' # to .Pasquale is not aware of there being a HCP. STAN will follow.
--- NOTE | 2020-04-26 14:00 | PM.NEUROCN ---
History of Present Illness Data of Consult Service Date: 04/26/20 Primary Care Provider: Unknown Physician 49 years old man I was asked to see for abnormal CT scan. He came to hospital with change in mental status or odd behavior but when I asked him why he was in hospital he said that he could walk for few days. When I asking when was the last time he was walking, he could not give me a straight answer. He denied any pain. He denied any bowel bladder difficulties or trauma. Apparently he was noted to be either awake or confused or with change in mental status and was brought to hospital. A CT scan of brain reveal an abnormality in this consultation was requested. Review of Systems Review of Systems: No recent cold or fever chills or flu-like illness. No seizure or trauma. Neurologic: Reports confusion Psychiatric: Psychiatric: Reports confusion [facility] Social History Social History Household Members: None Housing: Unknown / Unable to assess Alcohol intake: unknown Smoking Status: Unknown if ever smoked Use of substances other than those prescribed or required for medical reasons: Unknown Substance Use Type: Unknown Currently Displaying Signs/Symptoms of Drug Intoxication Withdrawal: No Advance Directives: No Advance Directives Information Provided: Yes Recently lost weight without trying: Unsure service: No (unsure) Current occupational status: unemployed Meds Allergies Allergy/AdvReac Type Severity Reaction Status Date / Time No Known Allergies Allergy Verified 04/25/20 17:14 Home Medications Medication Instructions Recorded Confirmed Type Unobtainable 04/25/20 04/25/20 History Physical Exam Vital Signs: Vital Signs: Last Vital Signs Temp 98.0 F 04/26/20 11:13 Pulse 72 04/26/20 11:13 Resp 18 04/26/20 11:13 BP 132/79 04/26/20 11:13 Pulse Ox 97 04/26/20 11:13 Body Mass Index 26.2 He was alert and awake somewhat wake but following commands. Spontaneity and fluency of speech were somewhat diminished but he was able to answer questions. Pupils were round reactive to light. External ocular muscles were intact. Face was symmetrical. There was no pronator drift. There was no sensory or visual extinction. Deep tendon reflexes were absent with flexor plantars. He was able to raise his legs against gravity. He stood up on his own and was little bit unsteady when walking. Speech was normal. Const: General: confusion Orientation/consciousness: confusion Neuro: General: confusion Results Labs CBC & Chem 7: 04/26/20 07:39 04/26/20 07:39 Labs: Short CBC 04/25/20 04/26/20 Range/Units 17:58 07:39 WBC 10.8 12.0 H (4.8-10.8) X10*3/uL Hgb 16.8 14.7 (14.0-18.0) g/dl Hct 53.1 H 46.1 (42-52) % Plt Count 479 H 242 D (160-400) X10*3/uL BMP 04/25/20 04/25/20 04/26/20 17:58 18:59 07:39 Sodium Cancelled 141 141 Potassium Cancelled 5.0 4.6 Chloride Cancelled 109 H 109 H Carbon Dioxide Cancelled 17 L 19 L BUN Cancelled 16 16 Creatinine Cancelled 1.27 1.15 Calcium Cancelled 8.2 L 8.3 L Liver Function 04/25/20 04/25/20 Range/Units 17:58 18:59 Total Bilirubin Cancelled 0.9 Direct Bilirubin Cancelled 0.3 AST Cancelled 21 ALT Cancelled 19 Alkaline Phosphatase Cancelled 69 Albumin Cancelled 4.2 Urine 04/25/20 Range/Units 20:44 Urine Color JAN Urine Appearance HAZY Urine pH 5.0 (5.0-8.0) Ur Specific [place] >= 1.030 H (1.005-1.025) Urine Protein 2+ H (NEG-TRACE) MG/DL Urine Glucose (UA) NEG (NEG) MG/DL His noncontrast head CT revealed a right cárdenas radiata small relatively hypodense lesion suggestive of probably subacute ischemia. Assessment and Plan (1) Altered mental status: Qualifiers: Altered mental status type: disorientation Qualified Code(s): R41.0 - Disorientation, unspecified Status: Acute 49 years old man who came to hospital with change in mental status has right cárdenas radiata lesion that seemed subacute ischemia. This would not explain his mental status and would raise possibility that they might be more lesions. I would recommend an MRI of brain to rule out possibility of multiple ischemic infarcts.
[2020-04-26] MEDS: Acetaminophen 325 MG TABLET 650 MG PO (16:20)
[2020-04-26] MEDS: cefTRIAXone sodium 2 GM in 0.9 % Sodium Chloride 50 ML IV (17:00)
[2020-04-26 17:01] LABS: Lactic Acid 1.7 mmol/L (0.5-2.0)
--- NOTE | 2020-04-26 17:08 | PM.EVENT ---
Event Note Date of Service: 04/26/20 Event Note: Day Team Note S Seen this AM, minimally responsive. Later on, waking up and answering questions some what appropriately but still confused O Vitals - last documented, Febrile up to 103.1 Gen - NAD CVS - S1S2 Lungs - no distress Abd - soft, nt Neuro - intermittently disoriented. able to obey commands. speech normal A/P 49 yo with encephalopathy of unknown etiology. Spiked fever this afternoon -- d/w the IR re: LP and given possibility of mass, recommends at this time. Will check MRI with and without. repeat cultures Start rocephin/vancomcyin and acylovir. IVF. Re discussed above with neuro -- in agreement with antibiotics / antivirals Multiple calls to the patients family members attempted by me and patients RN/MRI team -- unable to be completed. Will attempt tomorrow. Hold subcut. heparin in case LP needed tomorrow
--- NOTE | 2020-04-26 18:26 | PC.NURSE ---
1530 PATIENT SPIKED A TEMP 103.1. TYLENOL 650MG ADMINISTERED AND ICE PACKS APPLIED. MD MADE AWARE. PATIENT HAS ORDER FOR MRI, NEEDS MRI FORM COMPLETED. GIVEN THAT PATIENT IS CONFUSED AND UNABLE TO ANSWER QUESTIONS APPROPRIATELY AT THIS TIME, MULTIPLE CALLS WERE MADE TO PATIENT'S FAMILY BUT NO ONE ANSWERED. MD IS AWARE. WILL CONTINUE TO MONITOR AND ASSESS.
[2020-04-26] MEDS: LORazepam 2 MG/ML VIAL 0.5 MG IVPUSH (19:15)
--- NOTE | 2020-04-26 23:32 | PC.NURSE ---
Addendum entered by Jordyn Pimentel RN 04/27/20 06:21: Rectal temp 104.0 at 0600. notified. 650 mg rectal tylenol administered, pt on cooling blanket. Addendum entered by Jordyn Pimentel RN 04/27/20 05:06: At 0400 pt had temp 104.0. Sinus tach on tele rate 110-120s. Dr Frye notified. Cooling blanket ordered and applied. No new orders for tylenol at this. Pt continues to be lethargic, unable to tolerate po meds. Original Note: Pt continues to have increased rectal temps, at 2300 temp 103.2. All other vss. Dr Frye made aware. Another 325 mg tylenol given rectally due to pt's lethargy and inability to swallow. Ice packs applied to pt. Antibiotics administered per jul. No new orders at this time.
[2020-04-27] VITALS (14 sets, daily range): BP systolic 97–138; BP diastolic 64–93; PULSE 86–114; RESP 16–18; TEMP 36.7–40; O2SAT 94–98; BMI 26.2
--- NOTE | 2020-04-27 | FL_ITS ---
EXAMINATION: Fluoroscopy-guided LUMBAR PUNCTURE CLINICAL INFORMATION: Confusion. Meningitis versus encephalitis COMPARISON: CT brain 04/25/2020 and MR brain 04/26/2020 TECHNIQUE: Urgent consent was obtained form the hospitalist as no immediate family members were available for consent. The form was cosigned by me. Patient was placed prone on fluoroscopy table and low back area was cleaned and draped in usual sterile manner. 1% lidocaine was injected overlying the L3-L4 disc level. A 22-gauge spinal needle was then inserted from a left-sided approach intrathecally at the L3-L4 disc level. CSF was then collected in 4 test tubes. Post CSF collection stylet was reintroduced and needle withdrawn. Complete hemostasis was achieved at puncture site. Opening pressure could not be obtained as patient was moving during the entire exam. Sterile dressing was applied postprocedure. FINDINGS: PA and lateral views obtained of lumbar spine there is maintained lumbar lordosis. The vertebral heights and alignment is normal. Approximately 9.5 mL of clear CSF was collected in 4 test tubes and sent to lab. FLUOROSCOPY TIME: 1.2 minutes DOSE AREA PRODUCT: 20.922 uGy-m2 (microgray-meter squared) FL/FL guided lumbar puncture LP IMPRESSION: Successful fluoroscopy lumbar puncture performed. CSF collected was sent to lab as per physician request.
[2020-04-27] MEDS: cefTRIAXone sodium 2 GM in 0.9 % Sodium Chloride 50 ML IV ×2 (05:24→17:39)
[2020-04-27] MEDS: Acetaminophen Supp 650 MG SUPP.RECT PR (06:10)
[2020-04-27 06:58] LABS: Hematocrit 50.9 % (42-52); Hemoglobin 15.7 g/dl (14.0-18.0); Mean Corpuscular HGB Conc 30.8 g/dl (31.0-36.0); Mean Corpuscular Hemoglobin 27.7 pg (27.0-33.0); Mean Corpuscular Volume 89.9 fL (80-98); Mean Platelet Volume 10.2 fL (9.4-12.4); Platelet Count 353 X10*3/uL (160-400); Red Blood Count 5.66 X10*6/uL (4.60-5.80); Red Cell Distribution Width 13.2 % (11.0-16.0); White Blood Count 14.3 X10*3/uL (4.8-10.8)
[2020-04-27 07:12] LABS: INTERNATIONAL NORM RATIO 1.4 (0.9-1.1); Prothrombin Time 16.7 SEC (10.8-13.0)
[2020-04-27] MEDS: Lactated Ringers 1,000 ML 100 ML IVCONT ×2 (08:05→23:02)
[2020-04-27] MEDS: 0.9 % Sodium Chloride Flush 3 ML SYRINGE IVFLUSH ×3 (08:10→19:49)
[2020-04-27 08:19] LABS: Anion Gap 22 (12-20); Blood Urea Nitrogen 17 mg/dL (9-16); Calcium 8.5 mg/dL (8.4-10.2); Carbon Dioxide 17 mmol/L (22-29); Chloride 107 mmol/L (96-108); Creatinine Clr Calc Pharmacy 73.7; Estimated Glomerular Filt Rate 57; Glucose Random 85 mg/dL (60-115); Potassium 4.7 mmol/l (3.3-5.1); Sodium 141 mmol/L (135-145)
[2020-04-27] MEDS: Ketorolac Tromethamine 15 MG/ML VIAL 30 MG IV (09:46)
[2020-04-27] MEDS: LORazepam 2 MG/ML VIAL 0.5 MG IVPUSH (14:28)
[2020-04-27 15:46] LABS: CSF Appearance Clear, Colorless
[2020-04-27 15:52] LABS: Glucose CSF 34 mg/dL; Total Protein CSF 152.4 mg/dL (15-45)
[2020-04-27 15:58] LABS: CSF Tube # 3
[2020-04-27 16:39] LABS: CSF Monos 3 %; Lymphocytes CSF 13 %; Neutrophils CSF 84 %
[2020-04-27 16:44] LABS: Appearance CSF CLEAR; CSF Tube # 4; Color CSF COLORLESS; Red Blood Cell CSF 14 MM*3; White Blood Cell CSF 359 MM*3
[2020-04-27 17:07] LABS: Oligoclonal Serum Yes
--- NOTE | 2020-04-27 17:30 | HO.PM.IMPN ---
Subjective Subjective Date of Service: 04/27/20 Interval History: seen and examined this AM minimally responsive, opens eyes unable to ROS Physical Exam Vital Signs: Vital Signs: Last Vital Signs Temp 98.1 F 04/27/20 15:21 Pulse 86 04/27/20 15:21 Resp 18 04/27/20 15:21 BP 122/71 04/27/20 15:21 Pulse Ox 98 04/27/20 15:21 Body Mass Index 26.2 Const: Other: General - minimally responsive Cardiovascular - RRR Lungs - no distress Abdomen - soft, non-tender, no rebound or guarding Extremities - no edema bilaterally Neuro - opens eyes to verbal stimuli Objective Data Current Medications Generic Name Dose Route Start Last Admin Trade Name Freq PRN Reason Stop Dose Admin Acetaminophen 650 mg 04/27/20 07:51 Acetaminophen Supp 650 Mg Supp.Rect AL Q6H PRN Fever Dexamethasone Sodium Phosphate 6 mg 04/28/20 01:00 Dexamethasone Sod Phosphate 4 Mg/Ml Vial IVPUSH Q8H SHIKHA Ceftriaxone Sodium 2 gm/ 50 mls @ 100 mls/hr 04/26/20 18:00 04/27/20 05:56 Sodium Chloride IV Infused Q12H SHIKHA Infusion Vancomycin HCl 750 mg/ 275 mls @ 183.333 mls/hr 04/26/20 20:00 04/27/20 09:49 Vancomycin HCl 500 mg/ Sodium IV Infused Chloride Q12H SHIKHA Infusion Acyclovir Sodium 876 mg/ 267.52 mls @ 267.52 mls/hr 04/26/20 20:00 04/27/20 13:59 Dextrose IV Infused Q8H SHIKHA Infusion Lactated Ringer's 1,000 mls @ 100 mls/hr 04/27/20 07:45 04/27/20 08:05 Lr IVCONT 100 mls/hr .Q10H SHIKHA Administration Lorazepam 0.5 mg 04/27/20 11:30 04/27/20 14:28 Lorazepam 2 Mg/Ml Vial IVPUSH 0.5 mg ONCE PRN Administration prior to LP if needed Pharmacy Consult 1 each 04/26/20 16:28 Consult Rx Vancomycin Dosing MISCELLANE DAILY PRN Consult order Sodium Chloride 3 ml 04/26/20 08:00 04/27/20 12:54 0.9 % Sodium Chloride Flush 3 Ml Syringe IVFLUSH 3 ml QSHIFT SHIKHA Administration Labs CBC & Chem 7: 04/27/20 05:57 04/27/20 05:57 Microbiology Microbiology Results: Microbiology 04/27/20 14:30 Cerebrospinal Fluid Gram Stain - Final 04/27/20 14:30 Cerebrospinal Fluid CSF Examination - Final 04/27/20 14:30 Cerebrospinal Fluid Gross Specimen Examination - Final 04/25/20 18:10 Blood - Venous Blood Culture - Preliminary No growth after 24 hours. 04/25/20 18:09 Blood - Venous Blood Culture - Preliminary No growth after 24 hours. Assessment and Plan (1) Meningitis: Status: Acute Assessment and Plan: This is a 49-year-old male who was brought in by family for altered mentation. 1.Meningitis / Encephalitis LP done, see results meningitis / encephalitis panel sent vancomcyin / rocephin / acyclovir IV ID and Nuerology inputs appreciated will add decadron keep npo, unsafe to eat start IVF called mother/brother earlier to get consent for LP -- attempted by multiple staff members, but unfortunately went answered. emergency consent signed by me. later, attempted to call mother -- she was able to answer and I informed her of his condition.
--- NOTE | 2020-04-27 18:38 | PC.NURSE ---
Patient drowsy, lethargic, unresponsive to verbal stimuli. Eyes fluttering opening to tactile stimuli. Not following commands or directions. Twitching noted in bilateral arms and legs. same mentation noted from previous shift. Fever 102.7 rectally, patient on cooling blanket. repeat temp 98.8 rectally. Repositioned q 2hrs. Patient kept NPO due to lethargy. Oral care given. IVF started LR at 100ml/hr. BP stable, HR 80s-low 100s, sinus, sinus tach on monitor. No respiratory distress noted, RR 18. Resting comfortably in bed.
[2020-04-28] MEDS: dexAMETHasone sod phosphate 4 MG/ML VIAL 6 MG IVPUSH ×3 (00:57→17:29)
[2020-04-28 02:14] VITALS: BP 99/60; PULSE 79; RESP 14; TEMP 36.3; O2SAT 95
[2020-04-28 04:00] VITALS: BP 117/76; PULSE 78; RESP 18; O2SAT 98
[2020-04-28] MEDS: cefTRIAXone sodium 2 GM in 0.9 % Sodium Chloride 50 ML IV ×2 (05:18→18:08)
--- NOTE | 2020-04-28 06:28 | PC.NURSE ---
Addendum entered by Jordyn Pimentel RN 04/28/20 06:39: Received call from [facility] that spinal profile sent to [facility] [place] [place] resulted negative, will pass on to day team. Original Note: Pt continues to be lethargic throughout the night. Responsive to name/light pain, non verbal. Vitals stable, afebrile, hr 70-80s sinus on tele. Pt unable to void during this shift, no incontinent episodes. Bladder scanned for 350 ml. notified, order for straight cath. Output of 300 ml tina urine at 0600.
[2020-04-28 07:36] LABS: Vancomycin Trough 31.9 mcg/mL (10.0-20.0)
[2020-04-28] MEDS: 0.9 % Sodium Chloride Flush 3 ML SYRINGE IVFLUSH (07:52)
[2020-04-28] MEDS: Lactated Ringers 1,000 ML 100 ML IVCONT (07:56)
[2020-04-28 07:59] VITALS: BP 112/69; PULSE 65; RESP 16; TEMP 36.5; O2SAT 95
[2020-04-28 08:10] LABS: MANUAL DIFF FLAG NO
[2020-04-28 08:11] LABS: Basophils Percent Auto 0.1 % (0-2); Hematocrit 40.6 % (42-52); Hemoglobin 13.1 g/dl (14.0-18.0); Imm Gran Abs Auto 0.06 X10*3/uL (0.00-0.03); Imm Gran Pct Auto 0.6 % (0.0-0.4); Lymphocytes Absolute Auto 0.8 X10*3/uL (1.2-4.9); Lymphocytes Percent Auto 8.4 % (20-40); Mean Corpuscular HGB Conc 32.3 g/dl (31.0-36.0); Mean Corpuscular Hemoglobin 28.4 pg (27.0-33.0); Mean Corpuscular Volume 88.1 fL (80-98); Mean Platelet Volume 10.2 fL (9.4-12.4); Monocytes Absolute Auto 0.5 X10*3/uL (0.1-1.2); Monocytes Percent Auto 4.8 % (2-11); Neutrophils Absolute Auto 8.3 X10*3/uL (2.0-8.3); Neutrophils Percent Auto 86.1 % (45-73); Platelet Count 309 X10*3/uL (160-400); Red Blood Count 4.61 X10*6/uL (4.60-5.80); Red Cell Distribution Width 12.8 % (11.0-16.0); White Blood Count 9.7 X10*3/uL (4.8-10.8)
[2020-04-28 10:14] LABS: Anion Gap 18 (12-20); Blood Urea Nitrogen 37 mg/dL (9-16); Calcium 8.3 mg/dL (8.4-10.2); Carbon Dioxide 20 mmol/L (22-29); Chloride 105 mmol/L (96-108); Creatinine Clr Calc Pharmacy 27.4; Estimated Glomerular Filt Rate 18; Glucose Random 140 mg/dL (60-115); Potassium 4.4 mmol/l (3.3-5.1); Sodium 139 mmol/L (135-145)
[2020-04-28 11:34] VITALS: BP 115/73; PULSE 71; RESP 16; TEMP 36.4; O2SAT 96
--- NOTE | 2020-04-28 13:16 | MHC.CM.PN ---
DC plan is still TBD but likely STR based on Patient's homeless status and impaired functional mobility. CM will continue to follow.
--- NOTE | 2020-04-28 15:32 | HO.PM.IMPN ---
Subjective Subjective Date of Service: 04/28/20 Interval History: seen and examined this AM, more responsive compared to yesterday. able to whisper his name and obey some commands -- lift R arm, L leg etc unable to keep eyes open tells me hes hungry Physical Exam Vital Signs: Vital Signs: Last Vital Signs Temp 97.6 F 04/28/20 11:34 Pulse 71 04/28/20 11:34 Resp 16 04/28/20 11:34 BP 115/73 04/28/20 11:34 Pulse Ox 96 04/28/20 11:34 Body Mass Index 26.2 Const: Other: General - minimally responsive Cardiovascular - RRR Lungs - no distress Abdomen - soft, non-tender, no rebound or guarding Extremities - no edema bilaterally Neuro - opens eyes to verbal stimuli Objective Data Current Medications Generic Name Dose Route Start Last Admin Trade Name Freq PRN Reason Stop Dose Admin Acetaminophen 650 mg 04/27/20 07:51 Acetaminophen Supp 650 Mg Supp.Rect PA Q6H PRN Fever Dexamethasone Sodium Phosphate 6 mg 04/28/20 01:00 04/28/20 07:51 Dexamethasone Sod Phosphate 4 Mg/Ml Vial IVPUSH 6 mg Q8H SHIKHA Administration Ceftriaxone Sodium 2 gm/ 50 mls @ 100 mls/hr 04/26/20 18:00 04/28/20 06:04 Sodium Chloride IV Infused Q12H SHIKHA Infusion Lactated Ringer's 1,000 mls @ 100 mls/hr 04/27/20 07:45 04/28/20 07:56 Lr IVCONT 100 mls/hr .Q10H SHIKHA Administration Metronidazole 500 mg in 100 mls @ 100 mls/hr 04/28/20 15:30 Flagyl IV Q8H SHIKHA Lorazepam 0.5 mg 04/27/20 11:30 04/27/20 14:28 Lorazepam 2 Mg/Ml Vial IVPUSH 0.5 mg ONCE PRN Administration prior to LP if needed Pharmacy Consult 1 each 04/26/20 16:28 Consult Rx Vancomycin Dosing MISCELLANE DAILY PRN Consult order Sodium Chloride 3 ml 04/26/20 08:00 04/28/20 07:52 0.9 % Sodium Chloride Flush 3 Ml Syringe IVFLUSH 3 ml QSHIFT SHIKHA Administration Labs CBC & Chem 7: 04/28/20 06:41 04/28/20 06:45 Microbiology Microbiology Results: Microbiology 04/27/20 14:30 Cerebrospinal Fluid Gram Stain - Final 04/27/20 14:30 Cerebrospinal Fluid CSF Examination - Final 04/27/20 14:30 Cerebrospinal Fluid Gross Specimen Examination - Final 04/27/20 14:30 Cerebrospinal Fluid CSF Culture - Preliminary No growth. 04/25/20 18:10 Blood - Venous Blood Culture - Preliminary No growth after 48 hours. 04/25/20 18:09 Blood - Venous Blood Culture - Preliminary No growth after 48 hours. 04/26/20 16:37 Blood - Venous Blood Culture - Preliminary No growth after 24 hours. 04/26/20 16:37 Blood - Venous Blood Culture - Preliminary No growth after 24 hours. Assessment and Plan (1) Meningitis: Status: Acute Assessment and Plan: This is a 49-year-old male who was brought in by family for altered mentation. 1.Meningitis / Encephalitis vs neoplastic process d/w Dr. Wall today -- recommends to Rx as brain abscess, but strong concern over his MRI findings being neoplastic in nature as well. Recommends to discuss with Neurosurgeon. LP showing elevated protein and wbc - but panel is negative; no growth on CSF analysis thus far stop vancomcyin and acyclovir; continue rocephin and add flagyl continue decadron for now IVF 2. NICKI suspect due to meds stop vancomcyin / acyclovir renal consult IV fluids Full Code DVT pptx, mechanical Call placed to [facility] -- accepted for transfer Will update family
--- NOTE | 2020-04-28 15:56 | P.CNID_ITS ---
History of Present Illness Data of Consult Service Date: 04/28/20 Requesting physician: Kelvin Rubi Primary Care Provider: Unknown Physician HPI Reason for consult: encephalopathy He has increasing confusion over last week No one else is ill He has no fever or chills He has supple neck but eyes rolling in head Review of Systems Neurologic: Reports confusion Psychiatric: Psychiatric: Reports confusion [facility] Family History Family history: reviewed and not pertinent Social History Social History Household Members: None Housing: Unknown / Unable to assess Alcohol intake: unknown Smoking Status: Unknown if ever smoked Use of substances other than those prescribed or required for medical reasons: Unknown Substance Use Type: Unknown Currently Displaying Signs/Symptoms of Drug Intoxication Withdrawal: No Advance Directives: No Advance Directives Information Provided: Yes Do you have thoughts of harming others: None Do you have a plan to hurt others: No Plan Recently lost weight without trying: Unsure service: No (unsure) Current occupational status: unemployed Meds Allergies Allergy/AdvReac Type Severity Reaction Status Date / Time No Known Allergies Allergy Verified 04/25/20 17:14 Home Medications Medication Instructions Recorded Confirmed Type Unobtainable 04/25/20 04/25/20 History Physical Exam Vital Signs: Vital Signs: Last Vital Signs Temp 97.6 F 04/28/20 11:34 Pulse 71 04/28/20 11:34 Resp 16 04/28/20 11:34 BP 115/73 04/28/20 11:34 Pulse Ox 96 04/28/20 11:34 Body Mass Index 26.2 Const: General: cooperative and confusion Orientation/consciousness: No oriented to person, No oriented to place, No oriented to time and confusion HENMT: Head: Yes normal to inspection Eyes: General: appearance normal, both eyes and all related structures Resp: Effort & Inspection: normal respiratory effort Cardio: Rate: regular rate Rhythm: regular rhythm GI: Palpation (GI): no hepatomegaly Auscultation: normoactive bowel sounds Skin: General skin exam: no rashes or lesions noted Neuro: General: No oriented to person, No oriented to place, No oriented to time and confusion Extrem: General: Yes normal to inspection Assessment and Plan (1) Meningitis: Status: Acute (2) Altered mental status: Qualifiers: Altered mental status type: disorientation Qualified Code(s): R41.0 - Disorientation, unspecified Problem details: Concern over infection ,brain abscess Concern over glioblastoma Status: Acute Ceftriaxone and Flagyl for now Will have patient follow with Neurology,Neurosurgery ? brain biopsy (3) Brain mass: Status: Acute Results Labs CBC & Chem 7: 04/28/20 06:41 04/28/20 06:45 Labs: Short CBC 04/28/20 Range/Units 06:41 WBC 9.7 (4.8-10.8) X10*3/uL Hgb 13.1 L (14.0-18.0) g/dl Hct 40.6 L D (42-52) % Plt Count 309 (160-400) X10*3/uL BMP 04/28/20 06:45 Sodium 139 Potassium 4.4 Chloride 105 Carbon Dioxide 20 L BUN 37 H D Creatinine 3.57 H Calcium 8.3 L Microbiology Microbiology Results: Microbiology 04/27/20 14:30 Cerebrospinal Fluid Gram Stain - Final 04/27/20 14:30 Cerebrospinal Fluid CSF Examination - Final 04/27/20 14:30 Cerebrospinal Fluid Gross Specimen Examination - Final 04/27/20 14:30 Cerebrospinal Fluid CSF Culture - Preliminary No growth. 04/25/20 18:10 Blood - Venous Blood Culture - Preliminary No growth after 48 hours. 04/25/20 18:09 Blood - Venous Blood Culture - Preliminary No growth after 48 hours. 04/26/20 16:37 Blood - Venous Blood Culture - Preliminary No growth after 24 hours. 04/26/20 16:37 Blood - Venous Blood Culture - Preliminary No growth after 24 hours.
[2020-04-28 16:00] VITALS: BP 102/60; PULSE 62; RESP 16; TEMP 35.8; O2SAT 95
--- NOTE | 2020-04-28 16:04 | PM.NEUROPN ---
Subjective Subjective Date of Service: 04/28/20 Interval History: seen and examined. He is arousable occasionally will follow simple commands. Does not verbalize. He has a facial droop and a flat affect. He seems to have some right-sided weakness but can move all 4 extremities against gravity. Physical Exam Vital Signs: Vital Signs: Last Vital Signs Temp 97.6 F 04/28/20 11:34 Pulse 71 04/28/20 11:34 Resp 16 04/28/20 11:34 BP 115/73 04/28/20 11:34 Pulse Ox 96 04/28/20 11:34 Body Mass Index 26.2 Const: Other: General - minimally responsive Cardiovascular - RRR Lungs - no distress Abdomen - soft, non-tender, no rebound or guarding Extremities - no edema bilaterally Neuro - opens eyes to verbal stimuli General: comfortable, no acute distress, confusion, ill appearing and patient obtunded Nutritional Appearance: malnourished Orientation/consciousness: confusion and patient obtunded Limitations: altered mental status HENMT: Head: Yes normal to inspection Ears: hearing grossly normal bilaterally General nose exam: Normal external nose present Mouth: Normal oral and palatal mucosa present Eyes: General: appearance normal, both eyes and all related structures Conjunctivae: conjunctivae normal Sclerae: sclerae normal Pupils: Equal, round and reactive pupils present Neck: Neck: Yes normal visual inspection, Yes full ROM, Yes no lymphadenopathy, Yes no meningeal signs, Yes trachea midline and Yes supple Chest: Chest palpation & inspection: normal inspection of the chest and normal palpation of entire chest wall Resp: Effort & Inspection: normal respiratory effort, able to speak in complete sentences and no cough Auscultation: clear to auscultation bilaterally Cardio: Other: General - minimally responsive Cardiovascular - RRR Lungs - no distress Abdomen - soft, non-tender, no rebound or guarding Extremities - no edema bilaterally Neuro - opens eyes to verbal stimuli Jugular venous distension: no JVD Rate: regular rate Rhythm: regular rhythm Heart sounds: S1 normal heart sound present and S2 normal heart sound present GI: Inspection: Yes normal to inspection Palpation (GI): Soft to palpation, nontender and No hepatosplenomegaly present Percussion: Yes normal to percussion Auscultation: normal bowel sounds Back/Spine/Pelvis: Thoracic/Lumbar Spine: thoracic and lumbar spine normal to inspection Skin: General skin exam: no rashes or lesions noted Neuro: General: moves all extremities, no meningeal signs, confusion and patient obtunded Cranial nerves: Yes Equal, round and reactive pupils present Objective Data Labs CBC & Chem 7: 04/28/20 06:41 04/28/20 06:45 Labs: Laboratory Results - last 24 hr 04/27/20 04/27/20 04/27/20 14:30 14:30 14:30 WBC RBC Hgb Hct MCV MCH MCHC RDW Plt Count MPV Immature Gran % (Auto) Neut % (Auto) Lymph % (Auto) [place] % (Auto) Eos % (Auto) Baso % (Auto) Lymph # (Auto) [place] # (Auto) Eos # (Auto) Baso # (Auto) Abs Immat Gran (auto) Absolute Neuts (auto) Absolute Nucleated RBC Nucleated RBC % (auto) Sodium Potassium Chloride Carbon Dioxide Anion Gap BUN Creatinine Estim Creat Clear Calc Estimated GFR Random Glucose Calcium Fl Pathologist Review Cancelled CSF Tube Number 4 CSF Volume 3.0 CSF Appearance CLEAR CSF Color COLORLESS CSF WBC 359 H* CSF RBC 14 CSF Neutrophils 84 CSF Lymphocytes 13 CSF Monocytes % 3 CSF Herpes I DNA (PCR) Cancelled CSF Herpes II DNA (PCR) Cancelled CSF Mening/Enceph PCR SEE NOTE Vancomycin Trough Body Source Cancelled 04/27/20 04/28/20 04/28/20 14:30 06:41 06:45 WBC 9.7 RBC 4.61 Hgb 13.1 L Hct 40.6 L D MCV 88.1 MCH 28.4 MCHC 32.3 RDW 12.8 Plt Count 309 MPV 10.2 Immature Gran % (Auto) 0.6 H Neut % (Auto) 86.1 H Lymph % (Auto) 8.4 L [place] % (Auto) 4.8 Eos % (Auto) 0.0 Baso % (Auto) 0.1 Lymph # (Auto) 0.8 L [place] # (Auto) 0.5 Eos # (Auto) 0.0 Baso # (Auto) 0.0 Abs Immat Gran (auto) 0.06 H Absolute Neuts (auto) 8.3 Absolute Nucleated RBC 0.000 Nucleated RBC % (auto) 0.0 Sodium Potassium Chloride Carbon Dioxide Anion Gap BUN Creatinine Estim Creat Clear Calc Estimated GFR Random Glucose Calcium Fl Pathologist Review SEE NOTE CSF Tube Number CSF Volume CSF Appearance CSF Color CSF WBC CSF RBC CSF Neutrophils CSF Lymphocytes CSF Monocytes % CSF Herpes I DNA (PCR) CSF Herpes II DNA (PCR) CSF Mening/Enceph PCR Vancomycin Trough 31.9 H* Body Source 04/28/20 06:45 WBC RBC Hgb Hct MCV MCH MCHC RDW Plt Count MPV Immature Gran % (Auto) Neut % (Auto) Lymph % (Auto) [place] % (Auto) Eos % (Auto) Baso % (Auto) Lymph # (Auto) [place] # (Auto) Eos # (Auto) Baso # (Auto) Abs Immat Gran (auto) Absolute Neuts (auto) Absolute Nucleated RBC Nucleated RBC % (auto) Sodium 139 Potassium 4.4 Chloride 105 Carbon Dioxide 20 L Anion Gap 18 BUN 37 H D Creatinine 3.57 H Estim Creat Clear Calc 27.4 Estimated GFR 18 Random Glucose 140 H D Calcium 8.3 L Fl Pathologist Review CSF Tube Number CSF Volume CSF Appearance CSF Color CSF WBC CSF RBC CSF Neutrophils CSF Lymphocytes CSF Monocytes % CSF Herpes I DNA (PCR) CSF Herpes II DNA (PCR) CSF Mening/Enceph PCR Vancomycin Trough Body Source Microbiology Microbiology Results: Microbiology 04/27/20 14:30 Cerebrospinal Fluid Gram Stain - Final 04/27/20 14:30 Cerebrospinal Fluid CSF Examination - Final 04/27/20 14:30 Cerebrospinal Fluid Gross Specimen Examination - Final 04/27/20 14:30 Cerebrospinal Fluid CSF Culture - Preliminary No growth. 04/25/20 18:10 Blood - Venous Blood Culture - Preliminary No growth after 48 hours. 04/25/20 18:09 Blood - Venous Blood Culture - Preliminary No growth after 48 hours. 04/26/20 16:37 Blood - Venous Blood Culture - Preliminary No growth after 24 hours. 04/26/20 16:37 Blood - Venous Blood Culture - Preliminary No growth after 24 hours. Progress Note: A&P Assessment and plan (1) Meningitis: Status: Acute Assessment and Plan: This is a 49-year-old male who was brought in by family for altered mentation. 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 My recommendation would be to continue coverage with broad spectrum antibacterial for abscess and obtain a neurosurgical consultation for a needle biopsy of the lesion at [facility]. Continue dexamethasone. Prognosis is guarded. Fall Risk Details Current Medications: Current Medications Generic Name Dose Route Start Last Admin Trade Name Freq PRN Reason Stop Dose Admin Acetaminophen 650 mg 04/27/20 07:51 Acetaminophen Supp 650 Mg Supp.Rect VA Q6H PRN Fever Dexamethasone Sodium Phosphate 6 mg 04/28/20 01:00 04/28/20 07:51 Dexamethasone Sod Phosphate 4 Mg/Ml Vial IVPUSH 6 mg Q8H SHIKHA Administration Ceftriaxone Sodium 2 gm/ 50 mls @ 100 mls/hr 04/26/20 18:00 04/28/20 06:04 Sodium Chloride IV Infused Q12H SHIKHA Infusion Lactated Ringer's 1,000 mls @ 100 mls/hr 04/27/20 07:45 04/28/20 07:56 Lr IVCONT 100 mls/hr .Q10H SHIKHA Administration Metronidazole 500 mg in 100 mls @ 100 mls/hr 04/28/20 16:00 Flagyl IV Q8H SHIKHA Lorazepam 0.5 mg 04/27/20 11:30 04/27/20 14:28 Lorazepam 2 Mg/Ml Vial IVPUSH 0.5 mg ONCE PRN Administration prior to LP if needed Pharmacy Consult 1 each 04/26/20 16:28 Consult Rx Vancomycin Dosing MISCELLANE DAILY PRN Consult order Sodium Chloride 3 ml 04/26/20 08:00 04/28/20 07:52 0.9 % Sodium Chloride Flush 3 Ml Syringe IVFLUSH 3 ml QSHIFT SHIKHA Administration Time Spent With Patient Time: Total time spent is greater than 50% in coordination of care (as documented) at patient's floor/unit and/or counseling patient: Time with patient: Greater than 35 minutes
--- NOTE | 2020-04-28 16:34 | P.DS_ITS ---
DS: Providers Provider Date of admission: 04/26/20 06:18 Primary care physician: Unknown Physician Consults: 04/25/20 22:57 Consult to Crisis Stat Reason for consultation: Substance abuse Has provider been notified: Yes 04/26/20 01:00 Consult to Neurology Routine Consulting Provider: Pennie Denise Reason for consultation: AMS / brain tumor Has provider been notified: No 04/26/20 06:17 Consult to Neurology Routine Consulting Provider: Neurology Radha jeong [facility] Reason for consultation: Brain mass Has provider been notified: No 04/27/20 07:26 Consult to Infectious Diseases Routine Consulting Provider: Pricila Anthony Reason for consultation: persistant fevers, ? meningitis/encephalitis 04/28/20 12:06 Consult to Nephrology Routine Consulting Provider: Regis Lawson Reason for consultation: NICKI DS: Diagnosis Discharge Diagnosis (1) Meningitis: Status: Acute (2) Altered mental status: Status: Acute (3) Brain mass: Status: Acute (4) Acute kidney failure: Status: Acute DS: Medications Discharge Medications Home Medications: Previous Rx's Medication Instructions Recorded acetaminophen 650 mg WI Q6H PRN #1 ea 04/28/20 ceftriaxone 2 g IV Q12H #1 ea 04/28/20 dexamethasone sodium phosphate 6 mg IVPUSH Q8H #1 ml 04/28/20 metronidazole in NaCl (iso-os) 500 mg IV Q8H #1 ml 04/28/20 DS: Summary Hospital Course Hospital Course: Patient presented to the hospital with 1 week of mental status changes. He underwent a CT the brain in the emergency room which was abnormal, see report below. While in the ED, patient's mental status was waxing and waning but he did not have anything to suggest infectious process. He was subsequently admitted to the hospital where the plan was for him to undergo neurology cons ultation and a MRI of the brain. On the floor, he started having persistent fevers and so meningitis/encephalitis was entertained. He underwent an LP which showed greater than 350 wbc's and greater than 150 protein. A meningitis/encephalitis panel was sent to [facility] which returned negative. In the interim he was empirically treated with IV acyclovir, Rocephin and vancomycin. Acyclovir and vancomycin working discontinued once the panel was negative. Infectious Disease saw the patient and recommended continuing ceftriaxone with the addition of Flagyl as there was the possibility of a brain abscess. Read discussion with Neurology, Dr. Wall was held on 04/28/2020 and he felt that the patient's imaging studies and clinical picture were most concerning for neoplastic process. He recommended also to treat as if the patient had a brain abscess but most importantly to get a neurosurgical consultation. [facility] surgery was contacted and they were able to review the imaging studies and recommended patient to be transferred to [facility] for further evaluation. Patient's hospital course has been further complicated by acute kidney injury, most likely secondary to medications. He has been on acyclovir as well as vancomycin. Vancomycin trough is 31.9. He is not oliguric. He has a Story catheter placed and should have Nephrology evaluated once there. Patients mother, Corie Ya @ [phone] and sister Francois @ [phone] were infomed of his condition and his transfer to [facility] Time Spent with Patient Time attestation: Total time spent providing and/or coordinating discharge services: Physical Exam Vital Signs: Vital Signs: Last Vital Signs Temp 97.6 F 04/28/20 11:34 Pulse 71 04/28/20 11:34 Resp 16 04/28/20 11:34 BP 115/73 04/28/20 11:34 Pulse Ox 96 04/28/20 11:34 Body Mass Index 26.2 Const: Other: Gen - NAD, somnolent but easily abusable CVS - S1S2 Lungs - no respiratory distress Abd - soft, NT Neuro - awakens with verbal stimuli, able to move all 4 extremities, able to obey basic commands, whispers his name and knows hes in the hospital, unable to keep eyes open DS: Data Data Completed and Pending Labs on day of discharge: MRI Brain IMPRESSION: - There is extensive intraparenchymal enhancement associated with expansile T2 signal changes within the right basal ganglia, the right greater than left internal capsule, the thalami bilaterally, the right greater than left subthalamic region, and the right cerebral peduncle as well as the anterior aspect of the left hippocampus. 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 Small volume blood products within the upper medial right thalamus. Differential considerations include infectious, inflammatory, and neoplastic etiologies. CSF analysis is recommended for further assessment. - There is mild to moderate lateral ventriculomegaly concerning for a component of hydrocephalus with transependymal CSF effusion. The lesions described above result in significant effacement of the central aspect of the third ventricle. Laboratory Last Values WBC 9.7 X10*3/uL (4.8-10.8) 04/28/20 06:41 RBC 4.61 X10*6/uL (4.60-5.80) 04/28/20 06:41 Hgb 13.1 g/dl (14.0-18.0) L 04/28/20 06:41 Hct 40.6 % (42-52) L D 04/28/20 06:41 MCV 88.1 fL (80-98) 04/28/20 06:41 MCH 28.4 pg (27.0-33.0) 04/28/20 06:41 MCHC 32.3 g/dl (31.0-36.0) 04/28/20 06:41 RDW 12.8 % (11.0-16.0) 04/28/20 06:41 Plt Count 309 X10*3/uL (160-400) 04/28/20 06:41 MPV 10.2 fL (9.4-12.4) 04/28/20 06:41 Immature Gran % (Auto) 0.6 % (0.0-0.4) H 04/28/20 06:41 Neut % (Auto) 86.1 % (45-73) H 04/28/20 06:41 Lymph % (Auto) 8.4 % (20-40) L 04/28/20 06:41 [place] % (Auto) 4.8 % (2-11) 04/28/20 06:41 Eos % (Auto) 0.0 % (0-4) 04/28/20 06:41 Baso % (Auto) 0.1 % (0-2) 04/28/20 06:41 Lymph # (Auto) 0.8 X10*3/uL (1.2-4.9) L 04/28/20 06:41 [place] # (Auto) 0.5 X10*3/uL (0.1-1.2) 04/28/20 06:41 Eos # (Auto) 0.0 X10*3/uL (0.0-0.4) 04/28/20 06:41 Baso # (Auto) 0.0 X10*3/uL (0.0-0.2) 04/28/20 06:41 Abs Immat Gran (auto) 0.06 X10*3/uL (0.00-0.03) H 04/28/20 06:41 Absolute Neuts (auto) 8.3 X10*3/uL (2.0-8.3) 04/28/20 06:41 Absolute Nucleated RBC 0.000 X10*3/uL (0.0-0.012) 04/28/20 06:41 Nucleated RBC % (auto) 0.0 /100WBC (0.0-0.2) 04/28/20 06:41 Smear Tech's Comments VERIFIED 04/26/20 07:39 PT 16.7 SEC (10.8-13.0) H 04/27/20 05:57 INR 1.4 (0.9-1.1) H 04/27/20 05:57 Sodium 139 mmol/L (135-145) 04/28/20 06:45 Potassium 4.4 mmol/l (3.3-5.1) 04/28/20 06:45 Chloride 105 mmol/L (96-108) 04/28/20 06:45 Carbon Dioxide 20 mmol/L (22-29) L 04/28/20 06:45 Anion Gap 18 (-20) 04/28/20 06:45 BUN 37 mg/dL (9-16) H D 04/28/20 06:45 Creatinine 3.57 mg/dL (0.5-1.4) H 04/28/20 06:45 Estim Creat Clear Calc 27.4 04/28/20 06:45 Estimated GFR 18 04/28/20 06:45 Random Glucose 140 mg/dL (60-115) H D 04/28/20 06:45 Lactic Acid 1.7 mmol/L (0.5-2.0) 04/26/20 16:37 Calcium 8.3 mg/dL (8.4-10.2) L 04/28/20 06:45 Magnesium 2.7 mg/dL (1.6-2.6) H 04/25/20 18:59 Total Bilirubin 0.9 mg/dL (0.0-1.0) 04/25/20 18:59 Direct Bilirubin 0.3 mg/dL (0.0-0.5) 04/25/20 18:59 AST 21 U/L (5-37) 04/25/20 18:59 ALT 19 U/L (0-40) 04/25/20 18:59 Alkaline Phosphatase 69 U/L (39-117) 04/25/20 18:59 Total Protein 7.9 g/dL (6.5-8.0) 04/25/20 18:59 Albumin 4.2 g/dL (3.5-5.0) 04/25/20 18:59 Urine Color JAN 04/25/20 20:44 Urine Appearance HAZY 04/25/20 20:44 Urine pH 5.0 (5.0-8.0) 04/25/20 20:44 Ur Specific [place] >= 1.030 (1.005-1.025) H 04/25/20 20:44 Urine Protein 2+ MG/DL (NEG-TRACE) H 04/25/20 20:44 Urine Glucose (UA) NEG MG/DL (NEG) 04/25/20 20:44 Urine Ketones NEG MG/DL (NEG) 04/25/20 20:44 Urine Blood 1+ (NEG) H 04/25/20 20:44 Urine Nitrite NEG (NEG) 04/25/20 20:44 Ur Leukocyte Esterase NEG (NEG) 04/25/20 20:44 Urine RBC 1-4 /HPF (0) 04/25/20 20:44 Urine WBC 0 /HPF (0-4) 04/25/20 20:44 Ur Squamous Epith Cells NONE /LPF 04/25/20 20:44 Amorphous Sediment 2+ /LPF 04/25/20 20:44 Urine Bacteria NONE /LPF 04/25/20 20:44 Urine Mucus 2+ /LPF 04/25/20 20:44 Fl Pathologist Review Cancelled 04/27/20 14:30 Fl Pathologist Review SEE NOTE 04/27/20 14:30 CSF Tube Number 3 04/27/20 14:30 CSF Tube Number 4 04/27/20 14:30 CSF Volume 3.0 ML 04/27/20 14:30 CSF Appearance CLEAR 04/27/20 14:30 CSF Color COLORLESS 04/27/20 14:30 CSF WBC 359 MM*3 H* 04/27/20 14:30 CSF RBC 14 MM*3 04/27/20 14:30 CSF Neutrophils 84 % 04/27/20 14:30 CSF Lymphocytes 13 % 04/27/20 14:30 CSF Monocytes % 3 % 04/27/20 14:30 CSF Appearance (b) Clear, Colorless 04/27/20 14:30 CSF Glucose 34 mg/dL 04/27/20 14:30 CSF Total Protein 152.4 mg/dL (15-45) H 04/27/20 14:30 CSF Herpes I DNA (PCR) Cancelled 04/27/20 14:30 CSF Herpes II DNA (PCR) Cancelled 04/27/20 14:30 CSF Mening/Enceph PCR SEE NOTE 04/27/20 14:30 Vancomycin Trough 31.9 mcg/mL (10.0-20.0) H* 04/28/20 06:45 Urine Opiates Screen Not Detected (Not Detect) 04/25/20 20:44 Ur Barbiturates Screen Not Detected (Not Detect) 04/25/20 20:44 Ur Phencyclidine Scrn Not Detected (Not Detect) 04/25/20 20:44 Ur Amphetamines Screen Not Detected (Not Detect) 04/25/20 20:44 U Benzodiazepines Scrn Not Detected (Not Detect) 04/25/20 20:44 Urine Cocaine Screen Not Detected (Not Detect) 04/25/20 20:44 U Marijuana (THC) Screen POSITIVE (Not Detect) H 04/25/20 20:44 Ethyl Alcohol < 10 mg/dL 04/25/20 18:59 Coronavirus (PCR) NEGATIVE (Negative) 04/25/20 18:09 Influenza Type A (PCR) NEGATIVE (Negative) 04/25/20 18:09 Influenza Type B (PCR) NEGATIVE (Negative) 04/25/20 18:09 RSV RNA Qual (PCR) NEGATIVE (Negative) 04/25/20 18:09 Body Source Cancelled 04/27/20 14:30 Preliminary micro results at discharge 04/27/20 14:30 CSF Culture - Preliminary Cerebrospinal Fluid No growth. 04/25/20 18:10 Blood Culture - Preliminary Blood - Venous No growth after 48 hours. 04/25/20 18:09 Blood Culture - Preliminary Blood - Venous No growth after 48 hours. 04/26/20 16:37 Blood Culture - Preliminary Blood - Venous No growth after 24 hours. 04/26/20 16:37 Blood Culture - Preliminary Blood - Venous No growth after 24 hours. Discharge Plan [facility] Referrals: Physician,Unknown [Primary Care Provider] - Discharge Medications: New acetaminophen 650 mg Suppository 650 mg WI Q6H PRN (Reason: Fever) Qty: 1 RF: 0 metronidazole in NaCl (iso-os) 500 mg/100 mL Piggyback 500 mg IV Q8H Qty: 1 RF: 0 dexamethasone sodium phosphate 4 mg/mL Solution 6 mg IVPUSH Q8H Qty: 1 RF: 0 ceftriaxone 2 gram Recon Soln 2 g IV Q12H Qty: 1 RF: 0 Discharge Orders: Discharge Order (Routine); Ordered 04/28/20 Ordered By: Kelvin Rubi Diet: other Activity on Discharge: As tolerated Visit Report Forms: Patient Portal Discharge page Care Plan Goals: To stay healthy and out of the hospital. Health Concerns: Brain abscess / cancer Plan of Treatment: Transfer to [facility] [place]
[2020-04-28] MEDS: metroNIDAZOLE/NS 500 MG/100 ML PIGGYBACK 100 MG IV (17:28)
[2020-04-28 19:28] VITALS: BP 125/77; PULSE 74; RESP 16; TEMP 35.8; O2SAT 97
[2020-04-28 21:11] LABS: Vancomycin Random 28.1 mcg/mL (15-20)
[2020-04-30 16:51] LABS: VDRL Qualitative CSF Nonreactive (Nonreactive)
[2020-04-30 23:22] LABS: CMV DNA PCR Qn Source Whole Blood; CMV DNA Qn PCR <2.30 log IU/mL (<2.30); CMV DNA Qn Real Time PCR <200 IU/mL (<200)
[2020-05-01 02:03] LABS: Albumin 3.6 g/dL (3.5-5.2); Albumin, CSF 98.7 mg/dL (8.0-42.0); IgG 1270 mg/dL (600-1640); IgG Synthesis Rate 21.8 mg/24 h (-9.9-3.3); IgG, CSF 20.4 mg/dL (0.8-7.7)
[2020-05-02 22:17] LABS: Lyme IgG CSF Immunoblot NO BANDS DETECTED; Lyme IgM CSF Immunoblot NO BANDS DETECTED
[2020-05-03 11:17] LABS: Prealbumin, CSF 2.5; Total Protein, CSF 155
[2020-05-03 11:18] LABS: Albumin, CSF 53.1
[2020-05-03 11:19] LABS: Alpha-2-Globulin,CSF 8.6; Beta Globulin, CSF 19.4
[2020-05-03 11:20] LABS: Gamma Globulin 10.4
== END 2020-04-28 22:14 | disposition short-term general hospital (02) | DRG 50 ==
LOC: HO.ED 04-26 06:17 → HO.IMC 04-26 06:19
PROVIDERS: Radiology Diagnostic Radiology; Admitting Provider Internal Medicine; Emergency Provider Internal Medicine; Visit Provider Family Medicine
PROC: 009U3ZZ Drainage of Spinal Canal, Percutaneous Approach (ICD-10-PCS; CPT 62270; principal; 2020-04-27 13:30)
DX: G03.9 Meningitis, unspecified (principal); N17.9 Acute kidney failure, unspecified; C71.9 Malignant neoplasm of brain, unspecified; F12.10 Cannabis abuse, uncomplicated; Z20.828 Contact with and (suspected) exposure to other viral communicable diseases; Z79.899 Other long term (current) drug therapy
CPT/HCPCS: 0241U; 36415; 62328; 70450; 70553; 71045; 74018; 80048; 80076; 80202; 80307; 80320; 81001; 82042; 82945; 83605; 83735; 83916; 84157; 84166; 85025; 85027; 85610; 86335; 86592; 86617; 87015; 87040; 87070; 87205; 87497; 87529; 88108; 89051; 93005; 96360; 96361; 99285; A9585; C1758; J0133; J0696; J1100; J1885; J2060; J3370

== ENCOUNTER 2020-05-30 18:50 | Inpatient (IN) | payer MEDICAID, SELFPAY ==
--- NOTE | 2020-05-30 | CT_ITS ---
EXAMINATION: CT HEAD WITHOUT CONTRAST CLINICAL INFORMATION: Confusion and dizziness COMPARISON: 04/25/2020 and 04/26/2020 TECHNIQUE: Contiguous axial imaging was performed from the skull base to vertex without intravenous contrast. This CT examination was performed using dose optimization techniques as appropriate, variously including the following: * Automated exposure control * Adjustment of mA and/or kV according to patient size (this includes techniques or standardized protocols for targeted exams where dose is matched to indication/reason for exam; i.e. extremities or head) Use of iterative reconstruction technique DLP: 725 mGy-cm. FINDINGS: There is no evidence of acute intracranial hemorrhage or territorial infarction. No abnormal mass effect or midline shift is seen. Lopez to white matter differentiation is well preserved. No extra-axial fluid collections are identified. No hydrocephalus. No significant volume loss. There is progressive hypoattenuation seen in the bilateral internal capsules, right greater than left. Hypoattenuation anteriorly in the bilateral thalami. This appearance corresponds with the areas of abnormal enhancement on the previous MRI. No acute osseous or soft tissue abnormality. Right frontal harry hole noted. The mastoid air cells and visualized portions of the paranasal sinuses are well aerated. CT/CT head/brain wo con IMPRESSION: Increased hypoattenuation bilaterally in the areas of abnormal enhancement on the prior MRI. This is more prominent than on the prior head CT from 04/25/2020. This appearance is nonspecific. No intracranial hemorrhage.
--- NOTE | 2020-05-30 | ECG_ITS ---
Test Reason : confusion/dizziness Blood Pressure : / mmHG Vent. Rate : 080 BPM Atrial Rate : 080 BPM P-R Int : 150 ms QRS Dur : 098 ms QT Int : 382 ms P-R-T Axes : 020 -26 012 degrees QTc Int : 440 ms Normal sinus rhythm Voltage criteria for left ventricular hypertrophy Abnormal ECG When compared to the previous EKG of 25 apr 2020, no significant change Referred By: Generic ED Physician Electronically Signed By:ELIGIO CASTELAN
--- NOTE | 2020-05-30 | XR_ITS ---
EXAMINATION: XR CHEST CLINICAL INFORMATION: Confusion COMPARISON: Chest radiograph 04/25/2020 TECHNIQUE: Frontal view of the chest was obtained. FINDINGS: No significant abnormality is noted involving the heart, lungs, mediastinum, bony thorax or soft tissues. XR/XR chest 1V IMPRESSION: Unremarkable examination.
[2020-05-30 18:54] VITALS: BP 114/84; PULSE 83; RESP 18; TEMP 37.1; O2SAT 98; BMI 27.3
[2020-05-30 19:09] LABS: Glucose, Whole Blood 109 mg/dL (60-115)
[2020-05-30 20:00] VITALS: BP 114/63; PULSE 68; RESP 18; TEMP 36.8; O2SAT 100
[2020-05-30 20:11] LABS: MANUAL DIFF FLAG NO
[2020-05-30 20:13] LABS: Basophils Percent Auto 0.2 % (0-2); Eosinophils Absolute Auto 0.1 X10*3/uL (0.0-0.4); Eosinophils Percent Auto 2.7 % (0-4); Hematocrit 36.8 % (42-52); Imm Gran Abs Auto 0.04 X10*3/uL (0.00-0.03); Imm Gran Pct Auto 0.8 % (0.0-0.4); Lymphocytes Percent Auto 38.1 % (20-40); Mean Corpuscular HGB Conc 32.6 g/dl (31.0-36.0); Mean Corpuscular Volume 88.9 fL (80-98); Mean Platelet Volume 9.2 fL (9.4-12.4); Monocytes Absolute Auto 0.5 X10*3/uL (0.1-1.2); Monocytes Percent Auto 10.2 % (2-11); Neutrophils Absolute Auto 2.5 X10*3/uL (2.0-8.3); Platelet Count 157 X10*3/uL (160-400); Red Blood Count 4.14 X10*6/uL (4.60-5.80); White Blood Count 5.2 X10*3/uL (4.8-10.8)
[2020-05-30 20:18] LABS: Prothrombin Time 11.7 SEC (10.8-13.0)
[2020-05-30 20:33] LABS: Ammonia 38 umol/L (13-55)
[2020-05-30 20:36] LABS: Ethanol < 10 mg/dL
[2020-05-30 20:43] LABS: Alanine Aminotransferase 46 U/L (0-40); Albumin Level 3.9 g/dL (3.5-5.0); Alkaline Phosphatase 77 U/L (39-117); Anion Gap 13 (12-20); Aspartate Amino Transferase 24 U/L (5-37); Bilirubin Direct 0.2 mg/dL (0.0-0.5); Bilirubin Total 0.4 mg/dL (0.0-1.0); Blood Urea Nitrogen 9 mg/dL (9-16); Calcium 8.3 mg/dL (8.4-10.2); Carbon Dioxide 27 mmol/L (22-29); Chloride 102 mmol/L (96-108); Estimated Glomerular Filt Rate > 60; Glucose Random 98 mg/dL (60-115); Lipase 129 U/L (8-78); Potassium 3.8 mmol/l (3.3-5.1); Sodium 138 mmol/L (135-145); Total Protein 6.6 g/dL (6.5-8.0)
[2020-05-30 20:45] LABS: Troponin-I High Sensitivity 6.8 ng/L (<3.5-35.0)
--- NOTE | 2020-05-30 21:21 | ED_ITS ---
HPI - Dizziness General Chief Complaint: Dizziness Stated Complaint: DIZNESS Time Seen by Provider: 05/30/20 20:00 Source: family Mode of arrival: EMS History of Present Illness HPI Narrative: This is a 49-year-old male who is brought in by EMS after they were called by family for intermittent dizziness and confusion. Although patient is arousable he struggles with recalling information and is a poor historian. However, patient denies any current feelings of shortness of breath, chest pain/discomfort, nausea/ vomiting, headache, dizziness. Related Data Previous Rx's Medication Instructions Recorded acetaminophen 650 mg MI Q6H PRN #1 ea 04/28/20 ceftriaxone 2 g IV Q12H #1 ea 04/28/20 dexamethasone sodium phosphate 6 mg IVPUSH Q8H #1 ml 04/28/20 metronidazole in NaCl (iso-os) 500 mg IV Q8H #1 ml 04/28/20 Allergies Allergy/AdvReac Type Severity Reaction Status Date / Time No Known Allergies Allergy Verified 04/25/20 17:14 Review of Systems Review of Systems: Pertinent positives and negatives as stated in HPI and remaining review of systems is unobtainable. [facility] Past Medical History Source: nursing notes reviewed Social History Social History Household Members: None Housing: Unknown / Unable to assess Alcohol intake: unknown Smoking Status: Current every day smoker Smoked in Last 30 Days: Yes Use of substances other than those prescribed or required for medical reasons: Yes Substance Use Type: Heroin Last Used Substance: Weeks (ago) Advance Directives: No Advance Directives Information Provided: Yes service: No (unsure) Current occupational status: unemployed Physical Exam Vital Signs: Vital Signs: Last Vital Signs Temp 98.0 F 05/31/20 05:59 Pulse 58 05/31/20 05:59 Resp 14 05/31/20 05:59 BP 123/77 05/31/20 05:59 Pulse Ox 100 05/31/20 05:59 Body Mass Index 27.3 VITAL SIGNS: Reviewed. GENERAL: Well developed, well nourished, in no acute distress. HEAD: Normocephalic/atraumatic, EYES: PERRLA, EOMI EARS: Ext canals without abnormality NOSE: Nares patent bilateral OROPHARYNX: no oral lesions noted, posterior pharynx clear NECK: Supple, no adenopathy LUNGS: Normal breath sounds. SpO2<98> CARDIOVASCULAR: Regular rate and rhythm without noted murmurs. ABDOMEN: Soft, non-tender, non-distended with bowel sounds. SKIN: Inspection of the skin reveals no rashes NEUROLOGIC: Drowsy but arousable and oriented x 2. Strength and sensation to light touch were grossly intact x 4, ability to recall abnormal and thinks it is April/2020, able to state location but unable to explain why he is here in the hospital. Course Course Course Narrative: BACKGROUND: This is a 49-year-old male with a history and clinical presentation of a complex course of treatment that started in April/2020. At that time patient was brought in by EMS for patient ?being on the couch for 1 week and refusing to answer any questions but patient at that time able answer his name and date of . Patient was evaluated at [facility] and admitted under the care of the hospitalists and CT scan had shown that there was possible brain abscess and had been being treated for meningitis/encephalitis. Due to concerns regarding the b rain abscess patient was transferred to [facility]. His stay at [facility] was a complicated course that involved further imaging studies as well as MRI which were concerning for possible mass versus abscess and continue treatment with antibiotics. A brain biopsy of the thalamic region has been resulted as negative for neoplastic findings and he is currently under the care of [facility] neurology awaiting antibody results on ADEM, NMO, MOG demyelination, tumefactive MS. Patient is supposed to f/u 10 days after discharge (06/04/2020). All investigations were reviewed and only significant findings were elevated CRP with CT significant for increase hypoattenuation bilaterally in the areas of abnormal enhancement on the prior MRI, the comparison CT is from 04/25/2020 . Case discussed with inpatient hospitalist team who is agreeable for admission and will order the MRI. Reevaluation(s) Reevaluation #1: Spoke with Neurology and recommend inpatient observation with MRI today for further evaluation of CT changes. Time: 06:28 Reevaluation #2: Nursing spoke with the sister who states that she does not live with her mother who is the primary care provider for the patient. The mother is concerned because the patient is persistently ?not making sense when he talks?. Time: 06:30 MDM - Dizziness Lab Data Result diagrams: 05/30/20 20:03 05/30/20 20:02 Labs: Lab Results 05/30/20 05/30/20 05/30/20 Range/Units 19:02 20:02 20:02 WBC (4.8-10.8) X10*3/uL RBC (4.60-5.80) X10*6/uL Hgb (14.0-18.0) g/dl Hct (42-52) % MCV (80-98) fL MCH (27.0-33.0) pg MCHC (31.0-36.0) g/dl RDW (11.0-16.0) % Plt Count (160-400) X10*3/uL MPV (9.4-12.4) fL Immature Gran % (Auto) (0.0-0.4) % Neut % (Auto) (45-73) % Lymph % (Auto) (20-40) % [place] % (Auto) (2-11) % Eos % (Auto) (0-4) % Baso % (Auto) (0-2) % Lymph # (Auto) (1.2-4.9) X10*3/uL [place] # (Auto) (0.1-1.2) X10*3/uL Eos # (Auto) (0.0-0.4) X10*3/uL Baso # (Auto) (0.0-0.2) X10*3/uL Abs Immat Gran (auto) (0.00-0.03) X10*3/uL Absolute Neuts (auto) (2.0-8.3) X10*3/uL Absolute Nucleated RBC (0.0-0.012) X10*3/uL Nucleated RBC % (auto) (0.0-0.2) /100WBC PT (10.8-13.0) SEC INR (0.9-1.1) Sodium 138 (135-145) mmol/L Potassium 3.8 (3.3-5.1) mmol/l Chloride 102 (96-108) mmol/L Carbon Dioxide 27 (22-29) mmol/L Anion Gap 13 (12-20) BUN 9 D (9-16) mg/dL Creatinine 0.77 (0.5-1.4) mg/dL Estim Creat Clear Calc 116.0 Estimated GFR > 60 POC Glucose 109 (60-115) mg/dL Random Glucose 98 (60-115) mg/dL Calcium 8.3 L (8.4-10.2) mg/dL Magnesium 2.0 (1.6-2.6) mg/dL Total Bilirubin 0.4 (0.0-1.0) mg/dL Direct Bilirubin 0.2 (0.0-0.5) mg/dL AST 24 (5-37) U/L ALT 46 H (0-40) U/L Alkaline Phosphatase 77 (39-117) U/L Ammonia (13-55) umol/L Troponin I High Sens 6.8 (<3.5-35.0) ng/L C-Reactive Protein 3.76 H (< or = 0.50) mg/dL Total Protein 6.6 (6.5-8.0) g/dL Albumin 3.9 (3.5-5.0) g/dL Lipase 129 H (8-78) U/L Urine Color Urine Appearance Urine pH (5.0-8.0) Ur Specific [place] (1.005-1.025) Urine Protein (NEG-TRACE) MG/DL Urine Glucose (UA) (NEG) MG/DL Urine Ketones (NEG) MG/DL Urine Blood (NEG) Urine Nitrite (NEG) Ur Leukocyte Esterase (NEG) Urine RBC (0) /HPF Urine WBC (0-4) /HPF Ur Squamous Epith Cells /LPF Urine Bacteria /LPF Urine Opiates Screen (Not Detect) Ur Phencyclidine Scrn (Not Detect) Ur Amphetamines Screen (Not Detect) U Benzodiazepines Scrn (Not Detect) Urine Cocaine Screen (Not Detect) U Marijuana (THC) Screen (Not Detect) Ethyl Alcohol mg/dL 05/30/20 05/30/20 05/30/20 Range/Units 20:02 20:02 20:03 WBC 5.2 (4.8-10.8) X10*3/uL RBC 4.14 L (4.60-5.80) X10*6/uL Hgb 12.0 L (14.0-18.0) g/dl Hct 36.8 L (42-52) % MCV 88.9 (80-98) fL MCH 29.0 (27.0-33.0) pg MCHC 32.6 (31.0-36.0) g/dl RDW 15.0 (11.0-16.0) % Plt Count 157 L D (160-400) X10*3/uL MPV 9.2 L (9.4-12.4) fL Immature Gran % (Auto) 0.8 H (0.0-0.4) % Neut % (Auto) 48.0 (45-73) % Lymph % (Auto) 38.1 (20-40) % [place] % (Auto) 10.2 (2-11) % Eos % (Auto) 2.7 (0-4) % Baso % (Auto) 0.2 (0-2) % Lymph # (Auto) 2.0 (1.2-4.9) X10*3/uL [place] # (Auto) 0.5 (0.1-1.2) X10*3/uL Eos # (Auto) 0.1 (0.0-0.4) X10*3/uL Baso # (Auto) 0.0 (0.0-0.2) X10*3/uL Abs Immat Gran (auto) 0.04 H (0.00-0.03) X10*3/uL Absolute Neuts (auto) 2.5 (2.0-8.3) X10*3/uL Absolute Nucleated RBC 0.000 (0.0-0.012) X10*3/uL Nucleated RBC % (auto) 0.0 (0.0-0.2) /100WBC PT (10.8-13.0) SEC INR (0.9-1.1) Sodium (135-145) mmol/L Potassium (3.3-5.1) mmol/l Chloride (96-108) mmol/L Carbon Dioxide (22-29) mmol/L Anion Gap (12-20) BUN (9-16) mg/dL Creatinine (0.5-1.4) mg/dL Estim Creat Clear Calc Estimated GFR POC Glucose (60-115) mg/dL Random Glucose (60-115) mg/dL Calcium (8.4-10.2) mg/dL Magnesium (1.6-2.6) mg/dL Total Bilirubin (0.0-1.0) mg/dL Direct Bilirubin (0.0-0.5) mg/dL AST (5-37) U/L ALT (0-40) U/L Alkaline Phosphatase (39-117) U/L Ammonia 38 (13-55) umol/L Troponin I High Sens (<3.5-35.0) ng/L C-Reactive Protein (< or = 0.50) mg/dL Total Protein (6.5-8.0) g/dL Albumin (3.5-5.0) g/dL Lipase (8-78) U/L Urine Color Urine Appearance Urine pH (5.0-8.0) Ur Specific [place] (1.005-1.025) Urine Protein (NEG-TRACE) MG/DL Urine Glucose (UA) (NEG) MG/DL Urine Ketones (NEG) MG/DL Urine Blood (NEG) Urine Nitrite (NEG) Ur Leukocyte Esterase (NEG) Urine RBC (0) /HPF Urine WBC (0-4) /HPF Ur Squamous Epith Cells /LPF Urine Bacteria /LPF Urine Opiates Screen (Not Detect) Ur Phencyclidine Scrn (Not Detect) Ur Amphetamines Screen (Not Detect) U Benzodiazepines Scrn (Not Detect) Urine Cocaine Screen (Not Detect) U Marijuana (THC) Screen (Not Detect) Ethyl Alcohol < 10 mg/dL 05/30/20 05/30/20 05/31/20 Range/Units 20:03 23:19 04:02 WBC (4.8-10.8) X10*3/uL RBC (4.60-5.80) X10*6/uL Hgb (14.0-18.0) g/dl Hct (42-52) % MCV (80-98) fL MCH (27.0-33.0) pg MCHC (31.0-36.0) g/dl RDW (11.0-16.0) % Plt Count (160-400) X10*3/uL MPV (9.4-12.4) fL Immature Gran % (Auto) (0.0-0.4) % Neut % (Auto) (45-73) % Lymph % (Auto) (20-40) % [place] % (Auto) (2-11) % Eos % (Auto) (0-4) % Baso % (Auto) (0-2) % Lymph # (Auto) (1.2-4.9) X10*3/uL [place] # (Auto) (0.1-1.2) X10*3/uL Eos # (Auto) (0.0-0.4) X10*3/uL Baso # (Auto) (0.0-0.2) X10*3/uL Abs Immat Gran (auto) (0.00-0.03) X10*3/uL Absolute Neuts (auto) (2.0-8.3) X10*3/uL Absolute Nucleated RBC (0.0-0.012) X10*3/uL Nucleated RBC % (auto) (0.0-0.2) /100WBC PT 11.7 D (10.8-13.0) SEC INR 1.0 (0.9-1.1) Sodium (135-145) mmol/L Potassium (3.3-5.1) mmol/l Chloride (96-108) mmol/L Carbon Dioxide (22-29) mmol/L Anion Gap (12-20) BUN (9-16) mg/dL Creatinine (0.5-1.4) mg/dL Estim Creat Clear Calc Estimated GFR POC Glucose (60-115) mg/dL Random Glucose (60-115) mg/dL Calcium (8.4-10.2) mg/dL Magnesium (1.6-2.6) mg/dL Total Bilirubin (0.0-1.0) mg/dL Direct Bilirubin (0.0-0.5) mg/dL AST (5-37) U/L ALT (0-40) U/L Alkaline Phosphatase (39-117) U/L Ammonia (13-55) umol/L Troponin I High Sens 6.1 (<3.5-35.0) ng/L C-Reactive Protein (< or = 0.50) mg/dL Total Protein (6.5-8.0) g/dL Albumin (3.5-5.0) g/dL Lipase (8-78) U/L Urine Color YELLOW Urine Appearance CLEAR Urine pH 6.0 (5.0-8.0) Ur Specific [place] 1.020 (1.005-1.025) Urine Protein NEG (NEG-TRACE) MG/DL Urine Glucose (UA) NEG (NEG) MG/DL Urine Ketones NEG (NEG) MG/DL Urine Blood TRACE (NEG) Urine Nitrite NEG (NEG) Ur Leukocyte Esterase NEG (NEG) Urine RBC 0-2 (0) /HPF Urine WBC 1-4 (0-4) /HPF Ur Squamous Epith Cells TRACE /LPF Urine Bacteria NONE /LPF Urine Opiates Screen (Not Detect) Ur Phencyclidine Scrn (Not Detect) Ur Amphetamines Screen (Not Detect) U Benzodiazepines Scrn (Not Detect) Urine Cocaine Screen (Not Detect) U Marijuana (THC) Screen (Not Detect) Ethyl Alcohol mg/dL 05/31/20 Range/Units 04:02 WBC (4.8-10.8) X10*3/uL RBC (4.60-5.80) X10*6/uL Hgb (14.0-18.0) g/dl Hct (42-52) % MCV (80-98) fL MCH (27.0-33.0) pg MCHC (31.0-36.0) g/dl RDW (11.0-16.0) % Plt Count (160-400) X10*3/uL MPV (9.4-12.4) fL Immature Gran % (Auto) (0.0-0.4) % Neut % (Auto) (45-73) % Lymph % (Auto) (20-40) % [place] % (Auto) (2-11) % Eos % (Auto) (0-4) % Baso % (Auto) (0-2) % Lymph # (Auto) (1.2-4.9) X10*3/uL [place] # (Auto) (0.1-1.2) X10*3/uL Eos # (Auto) (0.0-0.4) X10*3/uL Baso # (Auto) (0.0-0.2) X10*3/uL Abs Immat Gran (auto) (0.00-0.03) X10*3/uL Absolute Neuts (auto) (2.0-8.3) X10*3/uL Absolute Nucleated RBC (0.0-0.012) X10*3/uL Nucleated RBC % (auto) (0.0-0.2) /100WBC PT (10.8-13.0) SEC INR (0.9-1.1) Sodium (135-145) mmol/L Potassium (3.3-5.1) mmol/l Chloride (96-108) mmol/L Carbon Dioxide (22-29) mmol/L Anion Gap (12-20) BUN (9-16) mg/dL Creatinine (0.5-1.4) mg/dL Estim Creat Clear Calc Estimated GFR POC Glucose (60-115) mg/dL Random Glucose (60-115) mg/dL Calcium (8.4-10.2) mg/dL Magnesium (1.6-2.6) mg/dL Total Bilirubin (0.0-1.0) mg/dL Direct Bilirubin (0.0-0.5) mg/dL AST (5-37) U/L ALT (0-40) U/L Alkaline Phosphatase (39-117) U/L Ammonia (13-55) umol/L Troponin I High Sens (<3.5-35.0) ng/L C-Reactive Protein (< or = 0.50) mg/dL Total Protein (6.5-8.0) g/dL Albumin (3.5-5.0) g/dL Lipase (8-78) U/L Urine Color Urine Appearance Urine pH (5.0-8.0) Ur Specific [place] (1.005-1.025) Urine Protein (NEG-TRACE) MG/DL Urine Glucose (UA) (NEG) MG/DL Urine Ketones (NEG) MG/DL Urine Blood (NEG) Urine Nitrite (NEG) Ur Leukocyte Esterase (NEG) Urine RBC (0) /HPF Urine WBC (0-4) /HPF Ur Squamous Epith Cells /LPF Urine Bacteria /LPF Urine Opiates Screen Not Detected (Not Detect) Ur Phencyclidine Scrn Not Detected (Not Detect) Ur Amphetamines Screen Not Detected (Not Detect) U Benzodiazepines Scrn Not Detected (Not Detect) Urine Cocaine Screen Not Detected (Not Detect) U Marijuana (THC) Screen Not Detected (Not Detect) Ethyl Alcohol mg/dL Discharge Plan Discharge Clinical Impression: Confusion, Abnormal brain CT Patient Disposition: Admitted As Inpatient Prescriptions: No Action acetaminophen 650 mg Suppository 650 mg MI Q6H PRN (Reason: Fever) Qty: 1 RF: 0 metronidazole in NaCl (iso-os) 500 mg/100 mL Piggyback 500 mg IV Q8H Qty: 1 RF: 0 dexamethasone sodium phosphate 4 mg/mL Solution 6 mg IVPUSH Q8H Qty: 1 RF: 0 ceftriaxone 2 gram Recon Soln 2 g IV Q12H Qty: 1 RF: 0
--- NOTE | 2020-05-30 21:32 | PC.NURSE ---
: sister family hasn't been able to care for pt. pt has had no acute change in confusion or inability to do adls since d/c from [facility]. family requesting cm/snf placment.
[2020-05-30 23:52] LABS: Troponin-I High Sensitivity 6.1 ng/L (<3.5-35.0)
[2020-05-31] VITALS (13 sets, daily range): BP systolic 101–132; BP diastolic 59–94; PULSE 58–82; RESP 12–20; TEMP 36.1–37.2; O2SAT 94–100
--- NOTE | 2020-05-31 | MR_ITS ---
EXAMINATION: MR BRAIN WITHOUT AND WITH CONTRAST CLINICAL INFORMATION: Confusion. Recent falls. Recent brain biopsy. COMPARISON: CT head from 05/30/2020. Brain MRI from 04/26/2020. TECHNIQUE: Multiplanar, multisequence MRI of the brain was obtained before and after the intravenous administration of 8.5 mL Gadavist. FINDINGS: Changes of right frontal approach biopsy in the region of the right-sided deep nuclei. Minimal enhancement along the biopsy tract. Similar to prior exam, there are patchy, amorphous mixed diffusion signal characteristics within the right greater than left deep nuclei. No overt focal restricted diffusion is demonstrated to suggest acute or subacute cerebral ischemia. Small regions of susceptibility artifact in the site of recent biopsy near the genu of the right internal capsule and superiorly in the right cárdenas radiata/body of the corpus callosum. Otherwise, no evidence of acute hemorrhagic products on heme-sensitive imaging. The previously demonstrated extensive expansile T2 FLAIR hyperintensity centered in the right greater than left deep nuclei has significantly decreased compared to 04/26/2020. Similarly, the extensive patchy enhancement within the right greater than left deep nuclei has significantly decreased. Faint patchy T2 FLAIR hyperintensity and enhancement persists in the region of the right internal capsule and thalamus. The previously demonstrated edema and enhancement within the left mesial temporal lobe appears near completely resolved. Scattered periventricular and deep white matter T2 hyperintensities suggestive of moderate underlying microangiopathy. No new parenchymal signal abnormalities. The ventricles are normal in morphology and size. Reexpansion of the third ventricle. The third ventricle now measures 0.8 cm in diameter. Resolution of the previously demonstrated minimal midline shift. No extra-axial fluid collection. Normal appearance of the pituitary gland. The cerebellar tonsils are normally positioned. Normal arterial and venous vascular flow voids are present. Normal, homogeneous marrow signal. Mild mucosal thickening of the paranasal sinuses. No signal abnormalities within the mastoids. MR/MR head/brain wo/w con IMPRESSION: Changes of prior biopsy in the region of the right-sided deep nuclei. Compared to exam from 04/26/2020, there has been significant improvement in the previously demonstrated amorphous expansile T2 FLAIR hyperintensity and patchy enhancement throughout the right greater than left deep nuclei and left mesial temporal lobe. Minimal faint patchy T2 FLAIR hyperintensity and enhancement persists in the region of the right internal capsule and thalamus. No additional acute intracranial abnormalities.
[2020-05-31 03:33] LABS: C Reactive Protein 3.76 mg/dL (< or = 0.50)
[2020-05-31 04:09] LABS: Glucose Urine UA NEG (NEG); Leukocyte Esterase Urine NEG (NEG); Nitrite Urine NEG (NEG); Urine Blood TRACE (NEG); Urine Ketones NEG (NEG); Urine Protein NEG (NEG-TRACE)
[2020-05-31 04:10] LABS: Appearance Urine CLEAR; Color Urine YELLOW
[2020-05-31 04:15] LABS: RBC Urine 0-2 /HPF (0); Squamous Epithelial Cell Urine TRACE /LPF
[2020-05-31 04:35] LABS: Amphetamine Screen Urine Not Detected (Not Detect); Benzodiazepines Screen Urine Not Detected (Not Detect); Cannabinoid Screen Urine Not Detected (Not Detect); Cocaine Screen Urine Not Detected (Not Detect); Opiate Screen Urine Not Detected (Not Detect); Phencyclidine Screen Urine Not Detected (Not Detect)
[2020-05-31 07:22] LABS: Barbiturates, Urine Not Detected (Not Detect)
--- NOTE | 2020-05-31 08:11 | PC.NURSE ---
pt a/o x 3 no sob/amado noted skin pink warm dry speaks in full sentences. pt ate 100% of breakfast
[2020-05-31 09:12] LABS: COVID-19 Test Negative (Negative)
[2020-05-31 09:13] LABS: HIV AB/AG Nonreactive (Nonreactive); HIV Num 1 0.06 S/CO (0.00-0.99); ~HepC Num1 0.08 S/CO (0.00-0.79); ~Hepatitis C Antibody Nonreactive (Nonreactive)
--- NOTE | 2020-05-31 10:01 | PC.NURSE ---
pt seen by antelmo diallo, hosp), pt aware of plan of care for admission to hosp. pt is sitting up in bed watching sports on tv.
--- NOTE | 2020-05-31 11:05 | PM.IMHP ---
History of Present Illness Date of Service: 05/31/20 <SHARAN Cormier - Last Filed: 05/31/20 13:05> Chief Complaint: confusion <SHARAN Cormier - Last Filed: 05/31/20 13:05> Joe Gibson is a 49-year-old male with history of hypertension, GERD, childhood history of meningitis and seizures who was brought in by family reportedly for confusion. He was recently admitted for abnormal brain imaging and was subsequently transferred to [facility] for further workup. Please see d/c summary from [facility] 05/25 below for details. Today workup in the emergency department his brain CT showed increased hypoattenuation bilaterally in the areas of abnormal enhancement on the prior MRI which seemed to be more prominent than on the prior head CT from 04/25/2020. For this reason neurology recommended brain MRI. d/c summary from [facility] 05/25/2020: Joe Gibson is a 49-year-old male with history of hypertension, GERD, childhood history of meningitis and seizures who presented as a transfer from an outside hospital on 04/28/2020 for 1 week of altered mental status, failure to thrive, and fevers. He was admitted to an outside hospital where he was found to have an abnormal brain mass on CT prompting an MRI of the brain which confirmed mass/abscess. He was started on IV antibiotics including ceftriaxone, vancomycin, acyclovir. LP was done for meningitis work-up and was negative. Neurosurgical evaluation was recommended which prompted transfer to [facility]. On 05/02/2020, the patient underwent right frontal harry hole thalamic biopsy which he tolerated well. He was also seen by infectious disease who recommended 4 weeks of IV antibiotics for presumed infectious etiology and if malignancy is proven on biopsy antibiotics were recommended to be discontinued. On 05/05/2020 [id number] was performed and did not reveal any epileptiform activity but was notable for mild to moderate generalized slowing of the background. Biopsy results reviewed with a second opinion from [facility]. Biopsy found foci of active demyelination and variable axonal injury, extensive macrophage/microglial reaction, lymphocytic inflammation, and focal perivascular granulocytic inflammation? The histologic findings show a complex reactive/inflammatory process characterized by the presence of discrete and confluent foci of myelin loss (demyelination) and variable axonal loss/injury, extensive macrophage infiltration, microglial activation, and the presence of CD3 positive T cells and occasional plasma cells within the lesions and around vessels. In addition small collections of granulocytic cells (neutrophils, occasional eosinophils) are present around some lesional vessels. Vasculitis not present. No microorganisms are identified. No evidence of neoplasm in the specimen submitted for review. Repeat LP was performed on 05/22/2020 with 2 WBCs, cryptococcus negative, glucose 63, CSF negative improved from previous LP. An MRA/MRV of the head and neck was also performed to rule out thrombosis and was negative. Differential at this time includes Behcet's Syndrome, ADEM, NMO,MOG demyelination, Wernicke's Encephalopathy, cancer Patient's hospitalization was complicated by an NICKI with his creatinine going from 1.2-3.5. Renal service was consulted who believed NICKI secondary to ATN in the setting of renal hypoperfusion. Creatinine peaked at 7.4 on 04/30 with associated hypernatremia w/ a peak sodium of 162 both of which have resolved (last creatinine 0.9 on 05/22/2020). Hospitalization was also complicated by patient exhibiting impulsive behavior and getting out of bed. He had 3x unwitnessed mechanical falls. CT imaging negative. For a period of time required nino vest but this was able to be taken off without further issue. Seems that patient was trying to get to the bathroom by himself and once he was on a regular routine of supervised bathroom visits he had no further incidents. Last fall 05/16/2020 <SHARAN Cormier - Last Filed: 05/31/20 13:05> Review of Systems Review of Systems: Yes all other systems are reviewed and are negative <SHARAN Cormier Last Filed: 05/31/20 13:05> Constitutional: Constitutional: Denies chills and Denies fever(s) <SHARAN Cormier Last Filed: 05/31/20 13:05> Cardiovascular: Cardiovascular: Denies chest pain <SHARAN Cormier Last Filed: 05/31/20 13:05> Respiratory: Respiratory: Denies cough <SHARAN Cormier Last Filed: 05/31/20 13:05> Gastrointestinal: Gastrointestinal: Denies abdominal pain <SHARAN Cormier Last Filed: 05/31/20 13:05> [facility] Medical History: Medical History (Updated 06/02/20 @ 11:45 by Matteo Salinas MD) Abnormal brain CT Brain mass GERD (gastroesophageal reflux disease) HTN (hypertension) <SHARAN Cormier - Last Filed: 05/31/20 13:05> Family history: reviewed and not pertinent <SHARAN Cormier - Last Filed: 05/31/20 13:05> Social History: Social History (Updated 05/31/20 @ 11:15 by SHARAN Cormier) Household Members: Family Housing: Apartment Do you presently have visiting nurse or other home services: No Alcohol intake: current Smoking Status: Current every day smoker Tobacco Type: Cigarette Packs Per Day: 1 Cigarettes Per Day: 20.0 Years Smoked: 24 Smoked in Last 30 Days: Yes Patient Interested in Nicotine Replacement: Yes Patient Given Instructions on How to Stop Smoking: Yes Date Education Initiated: 06/01/20 Second Hand Smoke Exposure: No Use of substances other than those prescribed or required for medical reasons: Yes Substance Use Type: Crack/Cocaine and Marijuana Substance Use Frequency: Occasionally Last Used Substance: Weeks (ago) Last Used Substance Other:: 1 month ago Currently Displaying Signs/Symptoms of Drug Intoxication Withdrawal: No Any prior treatment program specific to substance use: Yes Have you been hit, kicked, punched, or otherwise hurt by someone within the past year? If so, by whom?: No Do you feel safe in your current relationship?: Yes Is there a partner from a previous relationship who is making you feel unsafe now?: No Are you made to feel afraid or neglected: No Advance Directives: No Advance Directives Information Provided: Yes Do you have thoughts of harming others: None Do you have a plan to hurt others: No Plan Recently lost weight without trying: No service: No Current occupational status: unemployed <SHARAN Cormier - Last Filed: 05/31/20 13:05> Meds Allergies/Adverse reactions: Allergies Allergy/AdvReac Type Severity Reaction Status Date / Time No Known Allergies Allergy Verified 04/25/20 17:14 <SHARAN Cormier - Last Filed: 05/31/20 13:05> Home medications: Home Medications Medication Instructions Recorded Confirmed Type acetaminophen 650 mg PO Q8H PRN 05/31/20 05/31/20 History allopurinol 100 mg PO DAILY 05/31/20 05/31/20 History amitriptyline 100 mg PO BEDTIME 05/31/20 05/31/20 History atorvastatin 40 mg PO DAILY 05/31/20 05/31/20 History cholecalciferol (vitamin D3) 25 mcg PO DAILY 05/31/20 05/31/20 History dexamethasone 2 mg PO DAILY 05/31/20 05/31/20 History ferrous sulfate 325 mg PO DAILY 05/31/20 05/31/20 History fluticasone propionate [Flonase] 1 - 2 spray INTRANASAL DAILY PRN 05/31/20 05/31/20 History hydroxyzine HCl 25 mg PO TID PRN 05/31/20 05/31/20 History levetiracetam 500 mg PO BID 05/31/20 05/31/20 History lisinopril 10 mg PO DAILY 05/31/20 05/31/20 History loratadine 10 mg PO DAILY 05/31/20 05/31/20 History meclizine 25 mg PO BID PRN 05/31/20 05/31/20 History omeprazole 40 mg PO BID 05/31/20 05/31/20 History sertraline 50 mg PO DAILY 05/31/20 05/31/20 History thiamine HCl (vitamin B1) 100 mg PO DAILY 05/31/20 05/31/20 History topiramate 50 mg PO BID 05/31/20 05/31/20 History <SHARAN Cormier - Last Filed: 05/31/20 13:05> Physical Exam Vital Signs and Narrative: Vital Signs: Last Vital Signs Temp 99.0 F 05/31/20 10:00 Pulse 60 05/31/20 10:00 Resp 16 05/31/20 10:00 BP 132/85 05/31/20 10:00 Pulse Ox 94 05/31/20 10:00 Body Mass Index 27.3 <SHARAN Cormier - Last Filed: 05/31/20 13:05> Const: Nutritional Appearance: well nourished <SHARAN Cormier - Last Filed: 05/31/20 13:05> Orientation/consciousness: oriented to person and oriented to place <SHARAN Cormier - Last Filed: 05/31/20 13:05> HENMT: Head: Yes normocephalic and Yes atraumatic <SHARAN Cormier - Last Filed: 05/31/20 13:05> Eyes: Sclerae: sclerae normal <SHARAN Cormier - Last Filed: 05/31/20 13:05> Chest: Chest palpation & inspection: normal inspection of the chest <SHARAN Cormier - Last Filed: 05/31/20 13:05> Resp: Effort & Inspection: normal respiratory effort and no respiratory distress <SHARAN Cormier - Last Filed: 05/31/20 13:05> Auscultation: clear to auscultation bilaterally <SHARAN Cormier - Last Filed: 05/31/20 13:05> Cardio: Rate: regular rate <SHARAN Cormier - Last Filed: 05/31/20 13:05> Rhythm: regular rhythm <SHARAN Cormier - Last Filed: 05/31/20 13:05> GI: Palpation (GI): Soft to palpation and nontender <SHARAN Cormier - Last Filed: 05/31/20 13:05> Skin: General skin exam: no rashes or lesions noted <SHARAN Cormier - Last Filed: 05/31/20 13:05> Neuro: Other: Awake, alert, able to follow commands. <SHARAN Cormier - Last Filed: 05/31/20 13:05> General: oriented to person and oriented to place <SHARAN Cormier - Last Filed: 05/31/20 13:05> Cranial nerves: Yes CN's II-XII intact bilaterally and Yes Bilaterally intact EOM present <SHARAN Cormier - Last Filed: 05/31/20 13:05> Extrem: General: Yes normal to inspection <SHARAN Cormier - Last Filed: 05/31/20 13:05> Results Labs CBC and Chem 7: : 06/01/20 06:14 06/01/20 06:14 <SHARAN Cormier - Last Filed: 05/31/20 13:05> Labs: Laboratory Results - last 24 hr 05/30/20 05/30/20 05/30/20 19:02 20:02 20:02 MCV MCH MCHC RDW Plt Count MPV Immature Gran % (Auto) Neut % (Auto) Lymph % (Auto) [place] % (Auto) Eos % (Auto) Baso % (Auto) Lymph # (Auto) [place] # (Auto) Eos # (Auto) Baso # (Auto) Abs Immat Gran (auto) Absolute Neuts (auto) Absolute Nucleated RBC Nucleated RBC % (auto) PT INR Anion Gap 13 Estim Creat Clear Calc 116.0 Estimated GFR > 60 POC Glucose 109 Random Glucose 98 Calcium 8.3 L Magnesium 2.0 Total Bilirubin 0.4 Direct Bilirubin 0.2 AST 24 ALT 46 H Alkaline Phosphatase 77 Ammonia Troponin I High Sens 6.8 C-Reactive Protein 3.76 H Total Protein 6.6 Albumin 3.9 Lipase 129 H Urine Color Urine Appearance Urine pH Ur Specific [place] Urine Protein Urine Glucose (UA) Urine Ketones Urine Blood Urine Nitrite Ur Leukocyte Esterase Urine RBC Urine WBC Ur Squamous Epith Cells Urine Bacteria Urine Opiates Screen Ur Barbiturates Screen Ur Phencyclidine Scrn Ur Amphetamines Screen U Benzodiazepines Scrn Urine Cocaine Screen U Marijuana (THC) Screen Ethyl Alcohol COVID-19 (MALINDA) COVID-19 Clin Com Hepatitis C Ab (EIA) HIV 1&2 Ab/P24 Ag 4thGn 05/30/20 05/30/20 05/30/20 20:02 20:02 20:03 MCV 88.9 MCH 29.0 MCHC 32.6 RDW 15.0 Plt Count 157 L D MPV 9.2 L Immature Gran % (Auto) 0.8 H Neut % (Auto) 48.0 Lymph % (Auto) 38.1 [place] % (Auto) 10.2 Eos % (Auto) 2.7 Baso % (Auto) 0.2 Lymph # (Auto) 2.0 [place] # (Auto) 0.5 Eos # (Auto) 0.1 Baso # (Auto) 0.0 Abs Immat Gran (auto) 0.04 H Absolute Neuts (auto) 2.5 Absolute Nucleated RBC 0.000 Nucleated RBC % (auto) 0.0 PT INR Anion Gap Estim Creat Clear Calc Estimated GFR POC Glucose Random Glucose Calcium Magnesium Total Bilirubin Direct Bilirubin AST ALT Alkaline Phosphatase Ammonia 38 Troponin I High Sens C-Reactive Protein Total Protein Albumin Lipase Urine Color Urine Appearance Urine pH Ur Specific [place] Urine Protein Urine Glucose (UA) Urine Ketones Urine Blood Urine Nitrite Ur Leukocyte Esterase Urine RBC Urine WBC Ur Squamous Epith Cells Urine Bacteria Urine Opiates Screen Ur Barbiturates Screen Ur Phencyclidine Scrn Ur Amphetamines Screen U Benzodiazepines Scrn Urine Cocaine Screen U Marijuana (THC) Screen Ethyl Alcohol < 10 COVID-19 (MALINDA) COVID-19 Clin Com Hepatitis C Ab (EIA) HIV 1&2 Ab/P24 Ag 4thGn 05/30/20 05/30/20 05/30/20 20:03 20:03 23:19 MCV MCH MCHC RDW Plt Count MPV Immature Gran % (Auto) Neut % (Auto) Lymph % (Auto) [place] % (Auto) Eos % (Auto) Baso % (Auto) Lymph # (Auto) [place] # (Auto) Eos # (Auto) Baso # (Auto) Abs Immat Gran (auto) Absolute Neuts (auto) Absolute Nucleated RBC Nucleated RBC % (auto) PT 11.7 D INR 1.0 Anion Gap Estim Creat Clear Calc Estimated GFR POC Glucose Random Glucose Calcium Magnesium Total Bilirubin Direct Bilirubin AST ALT Alkaline Phosphatase Ammonia Troponin I High Sens 6.1 C-Reactive Protein Total Protein Albumin Lipase Urine Color Urine Appearance Urine pH Ur Specific [place] Urine Protein Urine Glucose (UA) Urine Ketones Urine Blood Urine Nitrite Ur Leukocyte Esterase Urine RBC Urine WBC Ur Squamous Epith Cells Urine Bacteria Urine Opiates Screen Ur Barbiturates Screen Ur Phencyclidine Scrn Ur Amphetamines Screen U Benzodiazepines Scrn Urine Cocaine Screen U Marijuana (THC) Screen Ethyl Alcohol COVID-19 (MALINDA) COVID-19 Clin Com Hepatitis C Ab (EIA) Nonreactive HIV 1&2 Ab/P24 Ag 4thGn Nonreactive 05/31/20 05/31/20 05/31/20 04:02 04:02 08:44 MCV MCH MCHC RDW Plt Count MPV Immature Gran % (Auto) Neut % (Auto) Lymph % (Auto) [place] % (Auto) Eos % (Auto) Baso % (Auto) Lymph # (Auto) [place] # (Auto) Eos # (Auto) Baso # (Auto) Abs Immat Gran (auto) Absolute Neuts (auto) Absolute Nucleated RBC Nucleated RBC % (auto) PT INR Anion Gap Estim Creat Clear Calc Estimated GFR POC Glucose Random Glucose Calcium Magnesium Total Bilirubin Direct Bilirubin AST ALT Alkaline Phosphatase Ammonia Troponin I High Sens C-Reactive Protein Total Protein Albumin Lipase Urine Color YELLOW Urine Appearance CLEAR Urine pH 6.0 Ur Specific [place] 1.020 Urine Protein NEG Urine Glucose (UA) NEG Urine Ketones NEG Urine Blood TRACE Urine Nitrite NEG Ur Leukocyte Esterase NEG Urine RBC 0-2 Urine WBC 1-4 Ur Squamous Epith Cells TRACE Urine Bacteria NONE Urine Opiates Screen Not Detected Ur Barbiturates Screen Not Detected Ur Phencyclidine Scrn Not Detected Ur Amphetamines Screen Not Detected U Benzodiazepines Scrn Not Detected Urine Cocaine Screen Not Detected U Marijuana (THC) Screen Not Detected Ethyl Alcohol COVID-19 (MALINDA) Negative COVID-19 Clin Com See Note Hepatitis C Ab (EIA) HIV 1&2 Ab/P24 Ag 4thGn <SHARAN Cormier - Last Filed: 05/31/20 13:05> Imaging Radiologist's Impressions: Impressions Chest X-Ray 05/30/20 00:00 IMPRESSION: Unremarkable examination. Head CT 05/30/20 00:00 IMPRESSION: Increased hypoattenuation bilaterally in the areas of abnormal enhancement on the prior MRI. This is more prominent than on the prior head CT from 04/25/2020. This appearance is nonspecific. No intracranial hemorrhage. <SHARAN Cormier - Last Filed: 05/31/20 13:05> Assessment and Plan (1) Confusion: Status: Acute <SHARAN Cormier - Last Filed: 05/31/20 13:05> (2) Abnormal brain CT: Status: Acute <SHARAN Cormier - Last Filed: 05/31/20 13:05> Brain mass suspected demyelinating/ inflammatory process History of seizure disorder Pathology reviewed on 05/19 revealed brain with foci of active demyelination and variable axonal injury, extensive macrophage/microglial reaction, lymphocytic inflammation, and focal perivascular granulocytic inflammation Differential dx from [facility]: ADEM vs. NMO vs. MOG demyelination vs Wernicke's Encephalopathy....NMO/AQP4 FACS <1.5, MOG FACS negative -Continue levetiracetam 500 mg every 12 hours -Dexamethasone 2 mg daily indefinitely -Thiamine 100 mg daily -neurology consult, brain MRI Hypertension Lisinopril discontinued at [facility] Unclear patient taking at home Hold for now and continue to follow blood pressure Thrombocytopenia Follow CBC Mechanical falls-documented at [facility] -PT eval for safe disposition GERD-continue omeprazole Hyperlipidemia-continue statin Mood-hold sertraline, amitriptyline h/o seizures-topiramate d/c at [facility], continue Keppra; seizure precautions Dispo-discharge summary from [facility], however patient went home with PT/OT. Will likely need rehab placement code status - full This case was discussed with Dr. Cooper <SHARAN Cormier - Last Filed: 05/31/20 13:05>
[2020-05-31] MEDS: levETIRAcetam 500 MG TABLET PO ×2 (11:27→20:50)
[2020-05-31] MEDS: dexAMETHasone 2 MG TABLET PO (11:27)
--- NOTE | 2020-05-31 12:00 | PC.NURSE ---
pt at mri via stretcher.
--- NOTE | 2020-05-31 14:06 | PC.NURSE ---
pt ate 100% of lunch. pt was found oob at the foot of bed trying to amb to bathroom. pt amb (I) with slight unsteady to br. pt was incontinent of urine. pt void small amt of yellow urine in the toilet. hosp garment changed and pt assisted to bed/room.
--- NOTE | 2020-05-31 17:52 | PM.EVENT ---
Event Note Date of Service: 05/31/20 Event Note: Patient seen examined case discussed with APC [facility] discharge summary reviewed 49-year-old gentleman with history of hypertension GERD chart would history of meningitis in seizure was recently discharged from [facility] after undergoing brain a biopsy that was concerning for demyelination and inflammatory process patient was treated with IV antibiotics and was subsequently discharged home patient has been continued on dexamethasone 2 mg daily independently has been on Keppra 500 b.i.d. thiamine 100 mg daily patient was brought into [facility] today due to confusion Patient is resting comfortably unable to provide a detailed history awake and alert following commands Assessment and plan Brain mass suspected for demyelinating and inflammatory process with persistent confusion unsteady gait and fall case discussed with Dr. Wall he recommended an MRI study with and without gadolinium and to continue current medication Due to recurrent fall will obtain a PT evaluation Agree with assessment and plan as per APC
--- NOTE | 2020-05-31 19:08 | PC.NURSE ---
Report taken from karely Chandler RN at bedside. Per previous RN, plan for admission due to recent confusion and unsteady gait following a brain biopsy due to brain abscess, brain mass and meningitis. Pt found to be sleeping in bed at this time, dinner at bedside when pt wakes. VSS. Continue to monitor.
[2020-05-31] MEDS: 0.9 % Sodium Chloride Flush 3 ML SYRINGE IVFLUSH (19:54)
--- NOTE | 2020-05-31 20:00 | PC.NURSE ---
Pt found standing in room without clothes, urinating on the floor. Pt awake and alert to baseline, assisted back into bed. Pt ate 100% of his dinner, offers no complaints. VSS. Pt medicated per MAR. Continue to monitor.
[2020-05-31] MEDS: Omeprazole 40 MG CAPSULE.DR PO (20:50)
--- NOTE | 2020-05-31 21:34 | MHC.CM.PN ---
CM attempted to meet with pt and unable to wake. Will try again
--- NOTE | 2020-05-31 21:35 | MHC.CM.PN ---
Pt awake. Met with pt. Pt cooperative but seems confused at times and is unsure why he is in the hospital. Does remember falling. Told CM he lived with his mother and then told CM he lives with his Veronica and his 5 children. Medical record states he lives with mother and she is his primary caregiver. Pt thinks his PCP is at [facility], but cannot remember the name. Thinks he has a HCP and it is his mother, but unsure. Will need to reach out to family in am. Pt denies any drugs or ETOH, but medical record states crack cocaine. Family states unable to care for him and he needs STR. PT evaluation pending in am. Pt pending transfer to [facility]. No referrals placed at this time. Will follow for d/c needs
[2020-06-01] VITALS (9 sets, daily range): BP systolic 96–130; BP diastolic 56–80; PULSE 52–76; RESP 10–19; TEMP 36.2–37.1; O2SAT 96–98
[2020-06-01 00:10] LABS: Glucose, Whole Blood 109 mg/dL (60-115)
[2020-06-01] MEDS: 0.9 % Sodium Chloride Flush 3 ML SYRINGE IVFLUSH ×4 (00:35→23:39)
--- NOTE | 2020-06-01 01:45 | PC.NURSE ---
Pt asleep in bed at this time, VSS. Continue to monitor.
[2020-06-01 06:19] LABS: MANUAL DIFF FLAG NO
[2020-06-01 06:19] LABS: Glucose, Whole Blood 120 mg/dL (60-115)
[2020-06-01 06:26] LABS: Eosinophils Percent Auto 0.4 % (0-4); Hematocrit 34.9 % (42-52); Hemoglobin 11.1 g/dl (14.0-18.0); Imm Gran Abs Auto 0.06 X10*3/uL (0.00-0.03); Imm Gran Pct Auto 1.1 % (0.0-0.4); Lymphocytes Absolute Auto 1.5 X10*3/uL (1.2-4.9); Lymphocytes Percent Auto 27.3 % (20-40); Mean Corpuscular HGB Conc 31.8 g/dl (31.0-36.0); Mean Corpuscular Hemoglobin 28.4 pg (27.0-33.0); Mean Corpuscular Volume 89.3 fL (80-98); Mean Platelet Volume 9.2 fL (9.4-12.4); Monocytes Absolute Auto 0.5 X10*3/uL (0.1-1.2); Monocytes Percent Auto 9.5 % (2-11); Neutrophils Absolute Auto 3.5 X10*3/uL (2.0-8.3); Neutrophils Percent Auto 61.7 % (45-73); Platelet Count 168 X10*3/uL (160-400); Red Blood Count 3.91 X10*6/uL (4.60-5.80); Red Cell Distribution Width 14.9 % (11.0-16.0); White Blood Count 5.6 X10*3/uL (4.8-10.8)
[2020-06-01 06:50] LABS: Anion Gap 15 (12-20); Blood Urea Nitrogen 13 mg/dL (9-16); Calcium 8.9 mg/dL (8.4-10.2); Carbon Dioxide 23 mmol/L (22-29); Chloride 104 mmol/L (96-108); Creatinine Clr Calc Pharmacy 120.7; Estimated Glomerular Filt Rate > 60; Glucose Random 118 mg/dL (60-115); Potassium 3.8 mmol/l (3.3-5.1); Sodium 138 mmol/L (135-145)
[2020-06-01] MEDS: Atorvastatin Calcium 40 MG TABLET PO (10:25)
[2020-06-01] MEDS: Loratadine 10 MG TABLET PO (10:25)
[2020-06-01] MEDS: levETIRAcetam 500 MG TABLET PO ×2 (10:25→22:14)
[2020-06-01] MEDS: Thiamine HCL 100 MG TABLET PO (10:25)
[2020-06-01] MEDS: allopurinoL 100 MG TABLET PO (10:25)
[2020-06-01] MEDS: dexAMETHasone 2 MG TABLET PO (10:26)
[2020-06-01] MEDS: Cholecalciferol (Vitamin D3) 25 MCG TABLET PO (10:26)
[2020-06-01] MEDS: Omeprazole 40 MG CAPSULE.DR PO ×2 (10:26→22:14)
[2020-06-01] MEDS: Ferrous Sulfate 324 MG TABLET.DR PO (10:26)
--- NOTE | 2020-06-01 10:41 | PC.NURSE ---
Pt seen by PT and given morning medications. He was found to be urinating on the floor by PT. He was cleaned up at that time. He is cooperative with care and follows directions. Alert and oriented x3.
--- NOTE | 2020-06-01 11:31 | PC.NURSE ---
Spoke with sister with permission from patient for an update on his care/treatment.
--- NOTE | 2020-06-01 12:33 | HO.PM.IMPN ---
Subjective Subjective Date of Service: 06/01/20 Interval History: Patient admitted for confusion and falls, at present patient is awake alert denies any headache, no dizziness, denies any visual symptoms had an uneventful night. Review of Systems General no headache, no dizziness, no fever chills. CVS no chest pain, no palpitation. Respiratory no cough, no shortness of breath Gastrointestinal no nausea, no vomiting, no abdominal pain Physical Exam Vital Signs: Vital Signs: Last Vital Signs Temp 97.1 F 06/01/20 10:32 Pulse 60 06/01/20 11:27 Resp 12 06/01/20 10:32 BP 106/78 06/01/20 11:27 Pulse Ox 96 06/01/20 11:27 Body Mass Index 27.3 Const: Other: General patient resting comfortably in no acute distress. Neck supple CVS regular rate rhythm, Respiratory lungs clear to auscultation, no respiratory distress Gastrointestinal abdomen soft, nontender, bowel sounds audible Extremities no edema. Neuro speech clear, responding appropriately, aware of place and person, gait not assessed. Skin no rash Objective Data Current Medications Generic Name Dose Route Start Last Admin Trade Name Freq PRN Reason Stop Dose Admin Acetaminophen 650 mg 05/31/20 19:47 Acetaminophen 325 Mg Tablet PO Q6H PRN Pain, Mild (Pain Scale 1-3) Allopurinol 100 mg 06/01/20 09:00 06/01/20 10:25 Allopurinol 100 Mg Tablet PO 100 mg DAILY SHIKHA Administration Allopurinol 300 mg 06/01/20 09:00 06/01/20 10:28 Allopurinol 300 Mg Tablet PO Not Given DAILY SHIKHA Atorvastatin Calcium 40 mg 06/01/20 09:00 06/01/20 10:25 Atorvastatin Calcium 40 Mg Tablet PO 40 mg DAILY SHIKHA Administration Dexamethasone 2 mg 05/31/20 10:56 06/01/20 10:26 Dexamethasone 2 Mg Tablet PO 2 mg DAILY SHIKHA Administration Docusate Sodium 100 mg 05/31/20 19:47 Docusate Sodium 100 Mg Capsule PO DAILY PRN Constipation Ferrous Sulfate 324 mg 06/01/20 09:00 06/01/20 10:26 Ferrous Sulfate 324 Mg Tablet.Dr PO 324 mg DAILY SHIKHA Administration Hydroxyzine HCl 25 mg 05/31/20 10:56 Hydroxyzine Hcl 25 Mg Tablet PO TID PRN Itching Levetiracetam 500 mg 05/31/20 10:56 06/01/20 10:25 Levetiracetam 500 Mg Tablet PO 500 mg BID SHIKHA Administration Loratadine 10 mg 06/01/20 09:00 06/01/20 10:25 Loratadine 10 Mg Tablet PO 10 mg DAILY SHIKHA Administration Omeprazole 40 mg 05/31/20 21:00 06/01/20 10:26 Omeprazole 40 Mg Capsule. PO 40 mg BID SHIKHA Administration Ondansetron HCl 4 mg 05/31/20 19:47 Ondansetron Hcl 4 Mg/2 Ml Vial IVPUSH Q8H PRN Nausea and Vomiting Pharmacy Consult 1 each 05/31/20 06:43 Consult Rx Perform Med Rec MISCELLANE ONCE PRN Consult order Sodium Chloride 3 ml 05/31/20 19:47 06/01/20 10:29 0.9 % Sodium Chloride Flush 3 Ml Syringe IVFLUSH 3 ml QSHIFT SHIKHA Administration Thiamine HCl 100 mg 06/01/20 09:00 06/01/20 10:25 Thiamine Hcl 100 Mg Tablet PO 100 mg DAILY SHIKHA Administration Vitamin D 25 mcg 06/01/20 09:00 06/01/20 10:26 Cholecalciferol (Vitamin D3) 25 Mcg Tablet PO 25 mcg DAILY SHIKHA Administration Labs CBC & Chem 7: 06/01/20 06:14 06/01/20 06:14 Assessment and Plan (1) Abnormal brain CT: Status: Acute (2) Confusion: Status: Acute (3) Unsteady gait: Status: Acute Assessment and Plan: Brain mass suspected demyelinating/ inflammatory process/History of seizure disorder Patient due to confusion and fall, patient is answering questions appropriately, offers no acute complaints noted to be dizzy with sitting and standing A repeat MRI study shows significant improvement in the previously demonstrated amorphous hyperintensity and patchy enhancement throughout the right greater than left deep nuclei and left temporal lobe, persistent abnormality in the region of right internal capsule and thalamus. Case discussed with Dr. Wall he he does not recommend any further treatment,await PT eval for safe discharge Reviewed old records from [facility] where patient underwent brain biopsy Pathology revealed brain with foci of active demyelination and variable axonal injury, extensive macrophage/microglial reaction, lymphocytic inflammation, and focal perivascular granulocytic inflammation Differential dx from [facility]: ADEM vs. NMO vs. MOG demyelination vs Wernicke's Encephalopathy....NMO/AQP4 FACS <1.5, MOG FACS negative Continue levetiracetam 500 mg every 12 hours Dexamethasone 2 mg daily indefinitely Thiamine 100 mg daily Hypertension Blood pressure is stable, Lisinopril discontinued at [facility] continue to follow blood pressure Thrombocytopenia Repeat CBC shows stable platelet count Mechanical falls-documented at [facility] Patient seen by Physical therapy, need to assess gait prior to decision of home versus rehab GERD-continue omeprazole Hyperlipidemia-continue statin Mood-hold sertraline, amitriptyline h/o seizures-topiramate d/c at [facility] [place], continue Keppra and seizure precautions
--- NOTE | 2020-06-01 13:57 | MHC.CM.PN ---
Dr Cooper is looking to discharge patient today. Physical therapy is recommending home therapy. Per mother on , patient can't safely return home to her. Referrals broadcasted in [employer]. However, patient had behavior issues while admitting at [facility]. No bed offers have been made yet. Dr Cooper is aware. Continue to monitor for d/c needs.
--- NOTE | 2020-06-01 16:05 | PC.NURSE ---
Pt cleaned of urine incontinence. He had the call perez in reach and a urinal in reach as well. He was asked why he did not call or use the urinal and told me that it was not urine and that it was food. The patient smelled of urine and was wet in the groin area and the linens below. He was cleaned and new linens were replaced.
--- NOTE | 2020-06-01 21:26 | MHC.CM.ED ---
Spoke with sister/HCP, Mckayla ([phone]) with update of pt condition and STR. Explained that referrals have gone out in 20 mile radius without bed offer. Will refer out 30 miles. No bed acceptances yet. Sister is aware that CM will keep trying to find a safe placement for her brother. She states her mother cannot care for him the way he is, very confused. States the doctors told her he had some kind of inflammation in his brain at [facility]. Pt will remain in ED. Has been quiet and cooperative, watching TV. Will follow for d/c needs
--- NOTE | 2020-06-01 22:00 | MHC.CM.PN ---
Pt has been transferred to room 443. CM will continue to follow for d/c needs
[2020-06-02] VITALS (7 sets, daily range): BP systolic 112–133; BP diastolic 68–79; PULSE 52–76; RESP 14–20; TEMP 36.6–36.8; O2SAT 94–99
[2020-06-02] MEDS: dexAMETHasone 2 MG TABLET PO (08:25)
[2020-06-02] MEDS: allopurinoL 300 MG TABLET PO (08:25)
[2020-06-02] MEDS: Thiamine HCL 100 MG TABLET PO (08:25)
[2020-06-02] MEDS: Omeprazole 40 MG CAPSULE.DR PO ×2 (08:25→20:08)
[2020-06-02] MEDS: levETIRAcetam 500 MG TABLET PO ×2 (08:25→20:08)
[2020-06-02] MEDS: Atorvastatin Calcium 40 MG TABLET PO (08:25)
[2020-06-02] MEDS: Ferrous Sulfate 324 MG TABLET.DR PO (08:25)
[2020-06-02] MEDS: 0.9 % Sodium Chloride Flush 3 ML SYRINGE IVFLUSH ×2 (08:25→17:50)
[2020-06-02] MEDS: Cholecalciferol (Vitamin D3) 25 MCG TABLET PO (08:25)
[2020-06-02] MEDS: Loratadine 10 MG TABLET PO (08:25)
--- NOTE | 2020-06-02 11:13 | P.CDIC_ITS ---
CDI Concurrent Query Service Date: 06/02/20 Documentation Clarification: Please clarify if you are treating a proba ble/suspected/likely or confirmed: Wernicke's encephalopathy, POA, txt, rule out Please specify if known Provider Response: Other Other Diagnosis: not wernickes PLEASE DO NOT DELETE/MODIFY EXISTING CONTENT Additional information is needed in order to code to the highest accuracy and appropriate Severity of Illness (SOI). Please clarify the information noted below in your progress notes and discharge summary. Risk Factors/Clinical Indicators/Treatments H&P: DD: ADEM vs NMO vs MOG demyelination vs. Wernicke's encephalopathy. Confusion, dizzy, struggling with recalling information, not making sense when talking, abnormal brain CT, substance abuse. CDS: Sylvia Garcia CCS, CDIS Contact Number: [phone] Please Review the information above and exercise your independent professional judgment in responding to the query. If you concur, pleas document in the PROGRESS NOTES and DISCHARGE SUMMARY. If you do not agree with the query, please document in the query above. THIS QUERY IS PART OF THE PERMANENT MEDICAL RECORD
--- NOTE | 2020-06-02 11:41 | PM.NEUROCN ---
History of Present Illness Data of Consult Service Date: 06/02/20 Primary Care Provider: Unknown Physician 49 years old man with significant brain pathology I was asked to see. He was seen by my partner during last hospitalization. Details of that as well documented in HPI. In brief, he presented with extensive bilateral subcortical pathology diagnosed on MRI of brain with enhancement suggestive of an inflammatory/infectious process. He was treated with multiple antibiotics with suspicion of infection as his lumbar puncture reveal significantly high to white cell count with low blood glucose. At this time use complaining of moderate headache. There was no evidence of seizure. There was no complaint of double vision or blurred vision or loss of vision. There was no change in his speech or language. There was no focal weakness. Review of Systems Review of Systems: Complain of moderate left-sided headache. [facility] Past Medical History Medical History (Updated 06/02/20 @ 11:45 by Matteo Salinas MD) Abnormal brain CT Brain mass GERD (gastroesophageal reflux disease) HTN (hypertension) Family History Family history: reviewed and not pertinent Social History Social History (Updated 05/31/20 @ 11:15 by SHARAN Cormier) Household Members: Family Housing: Apartment Do you presently have visiting nurse or other home services: No Alcohol intake: current Smoking Status: Current every day smoker Tobacco Type: Cigarette Packs Per Day: 1 Cigarettes Per Day: 20.0 Years Smoked: 24 Smoked in Last 30 Days: Yes Patient Interested in Nicotine Replacement: Yes Patient Given Instructions on How to Stop Smoking: Yes Date Education Initiated: 06/01/20 Second Hand Smoke Exposure: No Use of substances other than those prescribed or required for medical reasons: Yes Substance Use Type: Crack/Cocaine and Marijuana Substance Use Frequency: Occasionally Last Used Substance: Weeks (ago) Last Used Substance Other:: 1 month ago Currently Displaying Signs/Symptoms of Drug Intoxication Withdrawal: No Any prior treatment program specific to substance use: Yes Have you been hit, kicked, punched, or otherwise hurt by someone within the past year? If so, by whom?: No Do you feel safe in your current relationship?: Yes Is there a partner from a previous relationship who is making you feel unsafe now?: No Are you made to feel afraid or neglected: No Advance Directives: No Advance Directives Information Provided: Yes Do you have thoughts of harming others: None Do you have a plan to hurt others: No Plan Recently lost weight without trying: No service: No Current occupational status: unemployed Meds Allergies Allergy/AdvReac Type Severity Reaction Status Date / Time No Known Allergies Allergy Verified 04/25/20 17:14 Home Medications Medication Instructions Recorded Confirmed Type acetaminophen 650 mg PO Q8H PRN 05/31/20 05/31/20 History allopurinol 100 mg PO DAILY 05/31/20 05/31/20 History amitriptyline 100 mg PO BEDTIME 05/31/20 05/31/20 History atorvastatin 40 mg PO DAILY 05/31/20 05/31/20 History cholecalciferol (vitamin D3) 25 mcg PO DAILY 05/31/20 05/31/20 History dexamethasone 2 mg PO DAILY 05/31/20 05/31/20 History ferrous sulfate 325 mg PO DAILY 05/31/20 05/31/20 History fluticasone propionate [Flonase] 1 - 2 spray INTRANASAL DAILY PRN 05/31/20 05/31/20 History hydroxyzine HCl 25 mg PO TID PRN 05/31/20 05/31/20 History levetiracetam 500 mg PO BID 05/31/20 05/31/20 History lisinopril 10 mg PO DAILY 05/31/20 05/31/20 History loratadine 10 mg PO DAILY 05/31/20 05/31/20 History meclizine 25 mg PO BID PRN 05/31/20 05/31/20 History omeprazole 40 mg PO BID 05/31/20 05/31/20 History sertraline 50 mg PO DAILY 05/31/20 05/31/20 History thiamine HCl (vitamin B1) 100 mg PO DAILY 05/31/20 05/31/20 History topiramate 50 mg PO BID 05/31/20 05/31/20 History Physical Exam Vital Signs: Vital Signs: Last Vital Signs Temp 97.8 F 06/02/20 11:00 Pulse 52 06/02/20 11:00 Resp 18 06/02/20 11:00 BP 133/70 06/02/20 11:00 Pulse Ox 96 06/02/20 11:00 Body Mass Index 27.3 He was drowsy but was able to open eyes and make a conversation. He told me his name. He knew where he was. He was following simple commands. Spontaneity and fluency of speech were intact. Comprehension was intact. Pupils were round reactive to light. External ocular muscles were intact. Visual hardy are full to confrontation. Face was symmetrical. There was no focal weakness. Deep tendon reflexes were flexor. Results Labs CBC & Chem 7: 06/01/20 06:14 06/01/20 06:14 Labs: His MRI of brain done last time and this time reviewed. There was significant improvement with evidence of a stereotactic biopsy. No abnormality in the orbits or optic nerve was noted. No definite brainstem pathology was noted. Assessment and Plan (1) Encephalitis: Status: Acute His overall presentation was suggestive more of an infectious process affecting his brain, mostly subcortical structures but not brainstem or optic nerves. With antibiotic treatment he was significantly better though he still had some headache. There was no focal finding on his neuro exam. His brain MRI was much better than last time. As for his possibility of Behect's disease, there was no significant brainstem lesion, which typically happen in this condition. Lack of optic nerve pathology suggest against possibility of neuromyelitis optica type of pathology. His spinal fluid picture was very remarkable and would not be explained based upon malignancy. It was also atypical for vasculitis and beside no vasculitic process was noted on biopsy. Most likely etiology was an infectious process for which she was already significantly better. My recommendation is conservative management at this time. As far as headache is concerned, I would consider starting him on Depakote 250 mg once or twice a day for headache control. Otherwise PT OT consultation and rehab are recommended.
--- NOTE | 2020-06-02 13:27 | MHC.CM.PN ---
per multi dis rounds pt ready for dc additional referrals made
--- NOTE | 2020-06-02 15:38 | P.PNIM_ITS ---
Subjective Subjective Date of Service: 06/02/20 Interval History: Patient admitted for confusion and falls, at present patient is awake alert denies any headache, no dizziness, denies any visual symptoms had an uneventful night. Review of Systems General no headache, no dizziness, no fever chills. CVS no chest pain, no palpitation. Respiratory no cough, no shortness of breath Gastrointestinal no nausea, no vomiting, no abdominal pain Physical Exam Vital Signs: Vital Signs: Last Vital Signs Temp 98.2 F 06/02/20 15:27 Pulse 59 06/02/20 15:27 Resp 18 06/02/20 15:27 BP 120/74 06/02/20 15:27 Pulse Ox 98 06/02/20 15:27 Body Mass Index 27.3 Const: Other: General resting comfortably no acute distress. Neck supple CVS regular rate rhythm, Respiratory lungs clear to auscultation, no respiratory distress Gastrointestinal abdomen soft, nontender, bowel sounds audible Extremities no edema. Neuro speech clear, responding appropriately, good motor strength, unsteady gait Skin no rash Objective Data Current Medications Generic Name Dose Route Start Last Admin Trade Name Freq PRN Reason Stop Dose Admin Acetaminophen 650 mg 05/31/20 19:47 Acetaminophen 325 Mg Tablet PO Q6H PRN Pain, Mild (Pain Scale 1-3) Allopurinol 300 mg 06/01/20 09:00 06/02/20 08:25 Allopurinol 300 Mg Tablet PO 300 mg DAILY SHIKHA Administration Atorvastatin Calcium 40 mg 06/01/20 09:00 06/02/20 08:25 Atorvastatin Calcium 40 Mg Tablet PO 40 mg DAILY SHIKHA Administration Dexamethasone 2 mg 05/31/20 10:56 06/02/20 08:25 Dexamethasone 2 Mg Tablet PO 2 mg DAILY SHIKHA Administration Docusate Sodium 100 mg 05/31/20 19:47 Docusate Sodium 100 Mg Capsule PO DAILY PRN Constipation Ferrous Sulfate 324 mg 06/01/20 09:00 06/02/20 08:25 Ferrous Sulfate 324 Mg Tablet. PO 324 mg DAILY SHIKHA Administration Hydroxyzine HCl 25 mg 05/31/20 10:56 Hydroxyzine Hcl 25 Mg Tablet PO TID PRN Itching Levetiracetam 500 mg 05/31/20 10:56 06/02/20 08:25 Levetiracetam 500 Mg Tablet PO 500 mg BID SHIKHA Administration Loratadine 10 mg 06/01/20 09:00 06/02/20 08:25 Loratadine 10 Mg Tablet PO 10 mg DAILY SHIKHA Administration Omeprazole 40 mg 05/31/20 21:00 06/02/20 08:25 Omeprazole 40 Mg Capsule. PO 40 mg BID SHIKHA Administration Ondansetron HCl 4 mg 05/31/20 19:47 Ondansetron Hcl 4 Mg/2 Ml Vial IVPUSH Q8H PRN Nausea and Vomiting Pharmacy Consult 1 each 05/31/20 06:43 Consult Rx Perform Med Rec MISCELLANE ONCE PRN Consult order Sodium Chloride 3 ml 05/31/20 19:47 06/02/20 08:25 0.9 % Sodium Chloride Flush 3 Ml Syringe IVFLUSH 3 ml QSHIFT SHIKHA Administration Thiamine HCl 100 mg 06/01/20 09:00 06/02/20 08:25 Thiamine Hcl 100 Mg Tablet PO 100 mg DAILY SHIKHA Administration Vitamin D 25 mcg 06/01/20 09:00 06/02/20 08:25 Cholecalciferol (Vitamin D3) 25 Mcg Tablet PO 25 mcg DAILY SHIKHA Administration Labs CBC & Chem 7: 06/01/20 06:14 06/01/20 06:14 Assessment and Plan (1) Abnormal brain CT: Status: Acute (2) Confusion: Status: Acute (3) Unsteady gait: Status: Acute Assessment and Plan: Brain mass suspected demyelinating/ inflammatory process/History of seizure disorder no acute complaints , denies headache or dizziness repeat MRI study shows significant improvement in the previously demonstrated amorphous hyperintensity and patchy enhancement throughout the right greater than left deep nuclei and left temporal lobe, persistent abnormality in the region of right internal capsule and thalamus. Patient seen by Dr. Salinas he feels patient's symptoms were related to infection for which she has already been treated at [facility], he recommend no further treatment He recommend Depakote 250 mg by mouth once with twice a day for headache Reviewed old records from [facility] where patient underwent brain biopsy Pathology revealed brain with foci of active demyelination and variable axonal injury, extensive macrophage/microglial reaction, lymphocytic inflammation, and focal perivascular granulocytic inflammation Differential dx from [facility]: ADEM vs. NMO vs. MOG demyelination vs Wernicke's Encephalopathy....NMO/AQP4 FACS <1.5, MOG FACS negative Dr. Salinas feels patient does not have best that is disease, no vasculitis and no definite diagnosis of Wernicke's encephalopathy. Plan Continue levetiracetam 500 mg every 12 hours Dexamethasone 2 mg daily indefinitely Thiamine 100 mg daily Patient seen by Physical therapy and they are recommending short-term rehab due to unsteady gait, since patient has no headache will hold off on Depakote Hypertension Blood pressure is stable, not on any antihypertensives Thrombocytopenia Repeat CBC shows stable platelet count Mechanical falls-documented at [facility] Patient seen by Physical therapy, and they are recommending short-term rehab awaiting placement. GERD-continue omeprazole Hyperlipidemia-continue statin Mood-hold sertraline, amitriptyline since patient is not taking these medications at home and does not wish to take them. h/o seizures-topiramate d/c at [facility] [place], continue Keppra and seizure precautions
[2020-06-03] MEDS: 0.9 % Sodium Chloride Flush 3 ML SYRINGE IVFLUSH ×3 (00:03→17:16)
[2020-06-03 03:18] VITALS: BP 122/65; PULSE 58; RESP 16; TEMP 36.7; O2SAT 94
[2020-06-03 07:22] VITALS: BP 107/62; PULSE 58; RESP 17; TEMP 36.6; O2SAT 98
--- NOTE | 2020-06-03 07:54 | PC.NURSE ---
pt wandering in hallway. Directed pt back to room, he used bathroom and is having breakfast. Camera at bedside, bed alarm on.
[2020-06-03] MEDS: Atorvastatin Calcium 40 MG TABLET PO (09:36)
[2020-06-03] MEDS: Loratadine 10 MG TABLET PO (09:36)
[2020-06-03] MEDS: dexAMETHasone 2 MG TABLET PO (09:36)
[2020-06-03] MEDS: levETIRAcetam 500 MG TABLET PO ×2 (09:36→20:57)
[2020-06-03] MEDS: Omeprazole 40 MG CAPSULE.DR PO ×2 (09:36→20:57)
[2020-06-03] MEDS: Thiamine HCL 100 MG TABLET PO (09:36)
[2020-06-03] MEDS: Cholecalciferol (Vitamin D3) 25 MCG TABLET PO (09:36)
[2020-06-03] MEDS: allopurinoL 300 MG TABLET PO (09:36)
[2020-06-03] MEDS: Ferrous Sulfate 324 MG TABLET.DR PO (09:36)
[2020-06-03 11:25] VITALS: BP 101/55; PULSE 63; RESP 18; TEMP 36.7; O2SAT 95
[2020-06-03 15:26] VITALS: BP 93/61; PULSE 89; RESP 18; TEMP 36.9; O2SAT 98
--- NOTE | 2020-06-03 15:35 | HO.PM.IMPN ---
Subjective Subjective Date of Service: 06/03/20 Interval History: Patient this morning was noted to be walking out of the room, while looking for the bathroom and was a little confused, but at present patient is awake alert answering questions appropriately denies any headache, denies any weakness no speech or visual impairment. Review of Systems General no headache, no dizziness, no fever chills. CVS no chest pain, no palpitation. Respiratory no cough, no shortness of breath Gastrointestinal no nausea, no vomiting, no abdominal pain Physical Exam Vital Signs: Vital Signs: Last Vital Signs Temp 98.4 F 06/03/20 15:26 Pulse 89 06/03/20 15:26 Resp 18 06/03/20 15:26 BP 93/61 06/03/20 15:26 Pulse Ox 98 06/03/20 15:26 Body Mass Index 27.3 General resting comfortably no acute distress. Neck supple CVS regular rate rhythm, Respiratory lungs clear to auscultation, no respiratory distress Gastrointestinal abdomen soft, nontender, bowel sounds audible Extremities no edema. Neuro speech clear, responding appropriately, good motor strength, unsteady gait Skin no rash Objective Data Current Medications Generic Name Dose Route Start Last Admin Trade Name Freq PRN Reason Stop Dose Admin Acetaminophen 650 mg 05/31/20 19:47 Acetaminophen 325 Mg Tablet PO Q6H PRN Pain, Mild (Pain Scale 1-3) Allopurinol 300 mg 06/01/20 09:00 06/03/20 09:36 Allopurinol 300 Mg Tablet PO 300 mg DAILY SHIKHA Administration Atorvastatin Calcium 40 mg 06/01/20 09:00 06/03/20 09:36 Atorvastatin Calcium 40 Mg Tablet PO 40 mg DAILY SHIKHA Administration Dexamethasone 2 mg 05/31/20 10:56 06/03/20 09:36 Dexamethasone 2 Mg Tablet PO 2 mg DAILY SHIKHA Administration Docusate Sodium 100 mg 05/31/20 19:47 Docusate Sodium 100 Mg Capsule PO DAILY PRN Constipation Ferrous Sulfate 324 mg 06/01/20 09:00 06/03/20 09:36 Ferrous Sulfate 324 Mg Tablet.Dr PO 324 mg DAILY SHIKHA Administration Hydroxyzine HCl 25 mg 05/31/20 10:56 Hydroxyzine Hcl 25 Mg Tablet PO TID PRN Itching Levetiracetam 500 mg 05/31/20 10:56 06/03/20 09:36 Levetiracetam 500 Mg Tablet PO 500 mg BID SHIKHA Administration Loratadine 10 mg 06/01/20 09:00 06/03/20 09:36 Loratadine 10 Mg Tablet PO 10 mg DAILY SHIKHA Administration Omeprazole 40 mg 05/31/20 21:00 06/03/20 09:36 Omeprazole 40 Mg Capsule. PO 40 mg BID SHIKHA Administration Ondansetron HCl 4 mg 05/31/20 19:47 Ondansetron Hcl 4 Mg/2 Ml Vial IVPUSH Q8H PRN Nausea and Vomiting Pharmacy Consult 1 each 05/31/20 06:43 Consult Rx Perform Med Rec MISCELLANE ONCE PRN Consult order Sodium Chloride 3 ml 05/31/20 19:47 06/03/20 07:53 0.9 % Sodium Chloride Flush 3 Ml Syringe IVFLUSH 3 ml QSHIFT SHIKHA Administration Thiamine HCl 100 mg 06/01/20 09:00 06/03/20 09:36 Thiamine Hcl 100 Mg Tablet PO 100 mg DAILY SHIKHA Administration Vitamin D 25 mcg 06/01/20 09:00 06/03/20 09:36 Cholecalciferol (Vitamin D3) 25 Mcg Tablet PO 25 mcg DAILY SHIKHA Administration Labs CBC & Chem 7: 06/01/20 06:14 06/01/20 06:14 Assessment and Plan (1) Abnormal brain CT: Status: Acute (2) Confusion: Status: Acute (3) Unsteady gait: Status: Acute Assessment and Plan: Brain mass suspected demyelinating/ inflammatory process/History of seizure disorder Noted to be confused this morning since just woke up, at present seems to be at baseline answering questions appropriately no acute complaints , denies headache or dizziness repeat MRI study shows significant improvement in the previously demonstrated amorphous hyperintensity and patchy enhancement throughout the right greater than left deep nuclei and left temporal lobe, persistent abnormality in the region of right internal capsule and thalamus. Patient seen by Dr. Salinas he feels patient's symptoms were related to infection for which she has already been treated at [facility], he recommend no further treatment He recommend Depakote 250 mg by mouth once with twice a day for headache Reviewed old records from [facility] where patient underwent brain biopsy Pathology revealed brain with foci of active demyelination and variable axonal injury, extensive macrophage/microglial reaction, lymphocytic inflammation, and focal perivascular granulocytic inflammation Differential dx from [facility]: ADEM vs. NMO vs. MOG demyelination vs Wernicke's Encephalopathy....NMO/AQP4 FACS <1.5, MOG FACS negative Dr. Salinas feels patient does not have best that is disease, no vasculitis and no definite diagnosis of Wernicke's encephalopathy. Plan Continue levetiracetam 500 mg every 12 hours Dexamethasone 2 mg daily indefinitely Thiamine 100 mg daily Patient seen by Physical therapy and they are recommending short-term rehab due to unsteady gait, since patient has no headache will hold off on Depakote Hypertension Blood pressure is stable, not on any antihypertensives Thrombocytopenia Repeat CBC shows stable platelet count Mechanical falls-documented at [facility] Patient seen by Physical therapy, and they are recommending short-term rehab awaiting placement. GERD-continue omeprazole Hyperlipidemia-continue statin Mood-hold sertraline, amitriptyline since patient is not taking these medications at home and does not wish to take them. h/o seizures-continue Keppra and seizure precautions
--- NOTE | 2020-06-03 15:58 | PC.NURSE ---
pt removed his monitor. Staff has been unable to lacate the monitor, it was not in the bathroom, in the bed or in any drawers in the room. Pt states he does not know where it went. New monitor applied.
[2020-06-03 18:56] VITALS: BP 114/73; PULSE 66; RESP 21; TEMP 36.8; O2SAT 98
[2020-06-03 23:35] VITALS: BP 121/71; PULSE 61; RESP 18; TEMP 530; TEMP 986; O2SAT 95
[2020-06-04] MEDS: 0.9 % Sodium Chloride Flush 3 ML SYRINGE IVFLUSH ×3 (00:24→15:31)
[2020-06-04 03:06] VITALS: BP 100/52; PULSE 50; RESP 18; TEMP 36.2; O2SAT 97
[2020-06-04 07:11] VITALS: BP 142/75; PULSE 59; RESP 17; TEMP 36.6; O2SAT 100
[2020-06-04] MEDS: Thiamine HCL 100 MG TABLET PO (08:43)
[2020-06-04] MEDS: Cholecalciferol (Vitamin D3) 25 MCG TABLET PO (08:43)
[2020-06-04] MEDS: Ferrous Sulfate 324 MG TABLET.DR PO (08:43)
[2020-06-04] MEDS: levETIRAcetam 500 MG TABLET PO ×2 (08:43→21:33)
[2020-06-04] MEDS: allopurinoL 300 MG TABLET PO (08:43)
[2020-06-04] MEDS: Atorvastatin Calcium 40 MG TABLET PO (08:43)
[2020-06-04] MEDS: Loratadine 10 MG TABLET PO (08:43)
[2020-06-04] MEDS: Omeprazole 40 MG CAPSULE.DR PO ×2 (08:43→21:33)
[2020-06-04] MEDS: dexAMETHasone 2 MG TABLET PO (08:44)
[2020-06-04 12:00] VITALS: BP 94/62; PULSE 55; RESP 17; TEMP 36.6; O2SAT 100
--- NOTE | 2020-06-04 13:36 | HO.PM.IMPN ---
Subjective Subjective Date of Service: 06/05/20 Interval History: Patient resting in bed comfortably complaining of headache but refusing medications, patient was found on the floor next to his bed in his own urine this morning with no head injury no loss of consciousness vitals was stable, patient able to answer simple questions . Review of Systems General headache, no dizziness, no fever chills. CVS no chest pain, no palpitation. Respiratory no cough, no shortness of breath Gastrointestinal no nausea, no vomiting, no abdominal pain Physical Exam Vital Signs: Vital Signs: Last Vital Signs Temp 98 F 06/04/20 07:11 Pulse 59 06/04/20 07:11 Resp 17 06/04/20 07:11 BP 142/75 H 06/04/20 07:11 Pulse Ox 100 06/04/20 07:11 Body Mass Index 27.3 General resting comfortably, no acute distress. Neck supple CVS regular rate rhythm, Respiratory lungs clear to auscultation, no respiratory distress Gastrointestinal abdomen soft, nontender, bowel sounds audible Extremities no edema. Neuro speech clear, responding appropriately, good motor strength, unsteady gait Skin no rash Objective Data Current Medications Generic Name Dose Route Start Last Admin Trade Name Freq PRN Reason Stop Dose Admin Acetaminophen 650 mg 05/31/20 19:47 Acetaminophen 325 Mg Tablet PO Q6H PRN Pain, Mild (Pain Scale 1-3) Allopurinol 300 mg 06/01/20 09:00 06/04/20 08:43 Allopurinol 300 Mg Tablet PO 300 mg DAILY SHIKHA Administration Atorvastatin Calcium 40 mg 06/01/20 09:00 06/04/20 08:43 Atorvastatin Calcium 40 Mg Tablet PO 40 mg DAILY SHIKHA Administration Dexamethasone 2 mg 05/31/20 10:56 06/04/20 08:44 Dexamethasone 2 Mg Tablet PO 2 mg DAILY SHIKHA Administration Docusate Sodium 100 mg 05/31/20 19:47 Docusate Sodium 100 Mg Capsule PO DAILY PRN Constipation Ferrous Sulfate 324 mg 06/01/20 09:00 06/04/20 08:43 Ferrous Sulfate 324 Mg Tablet.Dr PO 324 mg DAILY SHIKHA Administration Hydroxyzine HCl 25 mg 05/31/20 10:56 Hydroxyzine Hcl 25 Mg Tablet PO TID PRN Itching Levetiracetam 500 mg 05/31/20 10:56 06/04/20 08:43 Levetiracetam 500 Mg Tablet PO 500 mg BID SHIKHA Administration Loratadine 10 mg 06/01/20 09:00 06/04/20 08:43 Loratadine 10 Mg Tablet PO 10 mg DAILY SHIKHA Administration Omeprazole 40 mg 05/31/20 21:00 06/04/20 08:43 Omeprazole 40 Mg Capsule. PO 40 mg BID SHIKHA Administration Ondansetron HCl 4 mg 05/31/20 19:47 Ondansetron Hcl 4 Mg/2 Ml Vial IVPUSH Q8H PRN Nausea and Vomiting Pharmacy Consult 1 each 05/31/20 06:43 Consult Rx Perform Med Rec MISCELLANE ONCE PRN Consult order Sodium Chloride 3 ml 05/31/20 19:47 06/04/20 08:49 0.9 % Sodium Chloride Flush 3 Ml Syringe IVFLUSH 3 ml QSHIFT SHIKHA Administration Thiamine HCl 100 mg 06/01/20 09:00 06/04/20 08:43 Thiamine Hcl 100 Mg Tablet PO 100 mg DAILY SHIKHA Administration Vitamin D 25 mcg 06/01/20 09:00 06/04/20 08:43 Cholecalciferol (Vitamin D3) 25 Mcg Tablet PO 25 mcg DAILY SHIKHA Administration Labs CBC & Chem 7: 06/01/20 06:14 06/01/20 06:14 Assessment and Plan (1) Unsteady gait: Status: Acute (2) Abnormal brain CT: Status: Acute (3) Confusion: Status: Acute (4) Acute kidney failure: Status: Acute (5) Meningitis: Status: Acute (6) Altered mental status: Status: Acute Assessment and Plan: Unsteady gait/confusion Patient had a fall this morning likely due to unsteady gait and confusion, able to answer simple questions appropriately. Brain mass s/p biopsy that showed suspected demyelinating/ inflammatory process/History of seizure disorder no acute complaints , gets on and off headache no dizziness repeat MRI study shows significant improvement in the previously demonstrated amorphous hyperintensity and patchy enhancement throughout the right greater than left deep nuclei and left temporal lobe, persistent abnormality in the region of right internal capsule and thalamus. Patient seen by Dr. Salinas he feels patient's symptoms were related to infection for which he has already been treated at [facility], he recommend no further treatment He recommend Depakote 250 mg by mouth once with twice a day for headache Reviewed old records from [facility] where patient underwent brain biopsy Pathology revealed brain with foci of active demyelination and variable axonal injury, extensive macrophage/microglial reaction, lymphocytic inflammation, and focal perivascular granulocytic inflammation Differential dx from [facility]: ADEM vs. NMO vs. MOG demyelination vs Wernicke's Encephalopathy....NMO/AQP4 FACS <1.5, MOG FACS negative Dr. Salinas feels patient does not have behcets disease, no vasculitis and no definite diagnosis of Wernicke's encephalopathy. Plan Continue levetiracetam 500 mg every 12 hours Dexamethasone 2 mg daily indefinitely Thiamine 100 mg daily Patient seen by Physical therapy and they are recommending short-term rehab due to unsteady gait, due to headache will start Depakote 250 mg bid as per neuro recommendation Patient will require close outpatient neurological follow-up upon discharge. Hypertension Blood pressure is stable, not on any antihypertensives Thrombocytopenia Repeat CBC shows stable platelet count GERD-continue omeprazole Hyperlipidemia-continue statin Mood-hold sertraline, amitriptyline since patient is not taking these medications at home and does not wish to take them. h/o seizures-continue Keppra and seizure precautions
[2020-06-04 15:58] VITALS: BP 103/53; PULSE 50; RESP 18; TEMP 36.6; O2SAT 99
--- NOTE | 2020-06-04 16:38 | PC.NURSE ---
telesitter stat alarm this am during shift change. found on floor by supervisor electronics processing next to bed in a large puddle of urine. pt was still urinating. did not appear to hit head. was sitting on floor.right knee with previous scarred abrasion noted to have some skin peeling without any bleeding present. pt assisted into a standing positon and placed back in bed and washed up per two rns. vss. nursing residential supervisor made aware. hospitalist also made aware. incident report filed.pt moved to other room and assigned a sitter present at the bedside to assist with need for frequent redirection.
[2020-06-04 19:46] VITALS: BP 100/58; PULSE 72; RESP 11; TEMP 36.8; O2SAT 97
[2020-06-04] MEDS: Divalproex Sodium 250 MG TABLET.DR PO (21:33)
[2020-06-05] VITALS (7 sets, daily range): BP systolic 102–119; BP diastolic 56–84; PULSE 53–83; RESP 13–20; TEMP 36.2–37.2; O2SAT 93–100
[2020-06-05] MEDS: dexAMETHasone 2 MG TABLET PO (09:45)
[2020-06-05] MEDS: Divalproex Sodium 250 MG TABLET.DR PO ×2 (09:45→20:37)
[2020-06-05] MEDS: Thiamine HCL 100 MG TABLET PO (09:45)
[2020-06-05] MEDS: Loratadine 10 MG TABLET PO (09:45)
[2020-06-05] MEDS: Atorvastatin Calcium 40 MG TABLET PO (09:45)
[2020-06-05] MEDS: allopurinoL 300 MG TABLET PO (09:45)
[2020-06-05] MEDS: Cholecalciferol (Vitamin D3) 25 MCG TABLET PO (09:45)
[2020-06-05] MEDS: Omeprazole 40 MG CAPSULE.DR PO ×2 (09:45→20:37)
[2020-06-05] MEDS: 0.9 % Sodium Chloride Flush 3 ML SYRINGE IVFLUSH ×4 (09:45→20:37)
[2020-06-05] MEDS: Ferrous Sulfate 324 MG TABLET.DR PO (09:45)
[2020-06-05] MEDS: levETIRAcetam 500 MG TABLET PO ×2 (09:46→20:37)
--- NOTE | 2020-06-05 15:16 | P.PNIM_ITS ---
Subjective Subjective Date of Service: 06/05/20 Interval History: Patient sitting on edge of bed eating breakfast, has sitter in room due to 2 recent falls, patient denies headache today, offers no acute complaints but unable to answer name of current president, or place. Review of Systems General no headache, no dizziness, no fever chills. CVS no chest pain, no palpitation. Respiratory no cough, no shortness of breath Gastrointestinal no nausea, no vomiting, no abdominal pain Physical Exam Vital Signs: Vital Signs: Last Vital Signs Temp 98.1 F 06/05/20 14:56 Pulse 76 06/05/20 14:56 Resp 20 06/05/20 14:56 BP 102/56 L 06/05/20 14:56 Pulse Ox 98 06/05/20 14:56 Body Mass Index 27.3 General resting comfortably, no acute distress. Neck supple CVS regular rate rhythm, Respiratory lungs clear to auscultation, no respiratory distress Gastrointestinal abdomen soft, nontender, bowel sounds audible Extremities no edema. Neuro speech clear, responding appropriately, good motor strength, unsteady gait Skin no rash Objective Data Current Medications Generic Name Dose Route Start Last Admin Trade Name Freq PRN Reason Stop Dose Admin Acetaminophen 650 mg 05/31/20 19:47 Acetaminophen 325 Mg Tablet PO Q6H PRN Pain, Mild (Pain Scale 1-3) Allopurinol 300 mg 06/01/20 09:00 06/05/20 09:45 Allopurinol 300 Mg Tablet PO 300 mg DAILY SHIKHA Administration Atorvastatin Calcium 40 mg 06/01/20 09:00 06/05/20 09:45 Atorvastatin Calcium 40 Mg Tablet PO 40 mg DAILY SHIKHA Administration Dexamethasone 2 mg 05/31/20 10:56 06/05/20 09:45 Dexamethasone 2 Mg Tablet PO 2 mg DAILY SHIKHA Administration Divalproex Sodium 250 mg 06/04/20 21:00 06/05/20 09:45 Divalproex Sodium 250 Mg Tablet. PO 250 mg BID SHIKHA Administration Docusate Sodium 100 mg 05/31/20 19:47 Docusate Sodium 100 Mg Capsule PO DAILY PRN Constipation Ferrous Sulfate 324 mg 06/01/20 09:00 06/05/20 09:45 Ferrous Sulfate 324 Mg Tablet. PO 324 mg DAILY SHIKHA Administration Hydroxyzine HCl 25 mg 05/31/20 10:56 Hydroxyzine Hcl 25 Mg Tablet PO TID PRN Itching Levetiracetam 500 mg 05/31/20 10:56 06/05/20 09:46 Levetiracetam 500 Mg Tablet PO 500 mg BID SHIKHA Administration Loratadine 10 mg 06/01/20 09:00 06/05/20 09:45 Loratadine 10 Mg Tablet PO 10 mg DAILY SHIKHA Administration Omeprazole 40 mg 05/31/20 21:00 06/05/20 09:45 Omeprazole 40 Mg Capsule. PO 40 mg BID SHIKHA Administration Ondansetron HCl 4 mg 05/31/20 19:47 Ondansetron Hcl 4 Mg/2 Ml Vial IVPUSH Q8H PRN Nausea and Vomiting Pharmacy Consult 1 each 05/31/20 06:43 Consult Rx Perform Med Rec MISCELLANE ONCE PRN Consult order Sodium Chloride 3 ml 05/31/20 19:47 06/05/20 09:45 0.9 % Sodium Chloride Flush 3 Ml Syringe IVFLUSH 3 ml QSHIFT SHIKHA Administration Thiamine HCl 100 mg 06/01/20 09:00 06/05/20 09:45 Thiamine Hcl 100 Mg Tablet PO 100 mg DAILY SHIKHA Administration Vitamin D 25 mcg 06/01/20 09:00 06/05/20 09:45 Cholecalciferol (Vitamin D3) 25 Mcg Tablet PO 25 mcg DAILY SHIKHA Administration Labs CBC & Chem 7: 06/01/20 06:14 06/01/20 06:14 Assessment and Plan (1) Abnormal brain CT: Status: Acute (2) Confusion: Status: Acute (3) Unsteady gait: Status: Acute (4) Seizure disorder: Status: Acute Assessment and Plan: Unsteady gait/confusion awake alert, able to answer simple questions appropriately, is forgetful but when given clues able to answer appropriately, sitter at bedside noted to have persistent unsteady gait. Brain mass s/p biopsy that showed suspected demyelinating/ inflammatory process/History of seizure disorder no acute complaints , gets on and off headache, no dizziness repeat MRI study shows significant improvement in the previously demonstrated amorphous hyperintensity and patchy enhancement throughout the right greater than left deep nuclei and left temporal lobe, persistent abnormality in the region of right internal capsule and thalamus. Patient seen by Dr. Salinas he feels patient's symptoms were related to infection for which he has already been treated at [facility], he recommend no further treatment He recommend Depakote 250 mg by mouth once with twice a day for headache Reviewed old records from [facility] where patient underwent brain biopsy Pathology revealed brain with foci of active demyelination and variable axonal injury, extensive macrophage/microglial reaction, lymphocytic inflammation, and focal perivascular granulocytic inflammation Differential dx from [facility]: ADEM vs. NMO vs. MOG demyelination vs Wernicke's Encep halopathy....NMO/AQP4 FACS <1.5, MOG FACS negative Dr. Salinas feels patient does not have behcets disease, no vasculitis and no definite diagnosis of Wernicke's encephalopathy. Plan Continue levetiracetam 500 mg every 12 hours Dexamethasone 2 mg daily indefinitely Thiamine 100 mg daily Started on Depakote 250mg bid due to headache Patient seen by Physical therapy and they are recommending short-term rehab due to unsteady gait, Patient will require close outpatient neurological follow-up upon discharge. Hypertension Blood pressure is stable, not on any antihypertensives Thrombocytopenia Repeat CBC shows stable platelet count GERD-continue omeprazole Hyperlipidemia-continue statin Mood-hold sertraline, amitriptyline since patient is not taking these medications at home and does not wish to take them. h/o seizures-continue Keppra and seizure precautions Disposition awaiting placement
[2020-06-05 17:02] LABS: COVID-19 Test Negative (Negative); IDNOW Serial# 9DD0AD1C
[2020-06-06 05:39] VITALS: BP 107/66; PULSE 60; RESP 18; TEMP 36.7; O2SAT 97
[2020-06-06 08:00] VITALS: BP 130/72; PULSE 53; RESP 19; TEMP 36.6; O2SAT 98
[2020-06-06] MEDS: 0.9 % Sodium Chloride Flush 3 ML SYRINGE IVFLUSH ×3 (09:10→21:20)
[2020-06-06] MEDS: Omeprazole 40 MG CAPSULE.DR PO ×2 (09:11→21:19)
[2020-06-06] MEDS: Thiamine HCL 100 MG TABLET PO (09:12)
[2020-06-06] MEDS: Atorvastatin Calcium 40 MG TABLET PO (09:12)
[2020-06-06] MEDS: Cholecalciferol (Vitamin D3) 25 MCG TABLET PO (09:12)
[2020-06-06] MEDS: dexAMETHasone 2 MG TABLET PO (09:12)
[2020-06-06] MEDS: levETIRAcetam 500 MG TABLET PO ×2 (09:12→21:19)
[2020-06-06] MEDS: allopurinoL 300 MG TABLET PO (09:12)
[2020-06-06] MEDS: Divalproex Sodium 250 MG TABLET.DR PO ×2 (09:12→21:19)
[2020-06-06] MEDS: Ferrous Sulfate 324 MG TABLET.DR PO (09:12)
[2020-06-06] MEDS: Loratadine 10 MG TABLET PO (09:12)
[2020-06-06 12:00] VITALS: BP 111/53; PULSE 81; RESP 18; TEMP 36.5; O2SAT 99
--- NOTE | 2020-06-06 14:52 | P.PNIM_ITS ---
Subjective Subjective Date of Service: 06/06/20 Interval History: Patient awake alert remains pleasantly confused no behavioral issues noted. No GI bleeding noted no nausea , no vomiting Review of Systems General no headache, no dizziness, no fever chills. CVS no chest pain, no palpitation. Respiratory no cough, no shortness of breath Gastrointestinal no nausea, no vomiting, no abdominal pain Physical Exam Vital Signs: Vital Signs: Last Vital Signs Temp 97.7 F 06/06/20 12:00 Pulse 81 06/06/20 12:00 Resp 18 06/06/20 12:00 BP 111/53 L 06/06/20 12:00 Pulse Ox 99 06/06/20 12:00 Body Mass Index 27.3 General resting comfortably, no acute distress. Neck supple CVS regular rate rhythm, Respiratory lungs clear to auscultation, no respiratory distress Gastrointestinal abdomen soft, nontender, bowel sounds audible Extremities no edema. Neuro speech clear, responding appropriately, good motor strength, unsteady gait, poor short-term memory Skin no rash Objective Data Current Medications Generic Name Dose Route Start Last Admin Trade Name Freq PRN Reason Stop Dose Admin Acetaminophen 650 mg 05/31/20 19:47 Acetaminophen 325 Mg Tablet PO Q6H PRN Pain, Mild (Pain Scale 1-3) Allopurinol 300 mg 06/01/20 09:00 06/06/20 09:12 Allopurinol 300 Mg Tablet PO 300 mg DAILY SHIKHA Administration Atorvastatin Calcium 40 mg 06/01/20 09:00 06/06/20 09:12 Atorvastatin Calcium 40 Mg Tablet PO 40 mg DAILY SHIKHA Administration Dexamethasone 2 mg 05/31/20 10:56 06/06/20 09:12 Dexamethasone 2 Mg Tablet PO 2 mg DAILY SHIKHA Administration Divalproex Sodium 250 mg 06/04/20 21:00 06/06/20 09:12 Divalproex Sodium 250 Mg Tablet. PO 250 mg BID SHIKHA Administration Docusate Sodium 100 mg 05/31/20 19:47 Docusate Sodium 100 Mg Capsule PO DAILY PRN Constipation Ferrous Sulfate 324 mg 06/01/20 09:00 06/06/20 09:12 Ferrous Sulfate 324 Mg Tablet. PO 324 mg DAILY SHIKHA Administration Hydroxyzine HCl 25 mg 05/31/20 10:56 Hydroxyzine Hcl 25 Mg Tablet PO TID PRN Itching Levetiracetam 500 mg 05/31/20 10:56 06/06/20 09:12 Levetiracetam 500 Mg Tablet PO 500 mg BID SHIKHA Administration Loratadine 10 mg 06/01/20 09:00 06/06/20 09:12 Loratadine 10 Mg Tablet PO 10 mg DAILY SHIKHA Administration Omeprazole 40 mg 05/31/20 21:00 06/06/20 09:11 Omeprazole 40 Mg Capsule. PO 40 mg BID SHIKHA Administration Ondansetron HCl 4 mg 05/31/20 19:47 Ondansetron Hcl 4 Mg/2 Ml Vial IVPUSH Q8H PRN Nausea and Vomiting Pharmacy Consult 1 each 05/31/20 06:43 Consult Rx Perform Med Rec MISCELLANE ONCE PRN Consult order Sodium Chloride 3 ml 05/31/20 19:47 06/06/20 09:10 0.9 % Sodium Chloride Flush 3 Ml Syringe IVFLUSH 3 ml QSHIFT SHIKHA Administration Thiamine HCl 100 mg 06/01/20 09:00 06/06/20 09:12 Thiamine Hcl 100 Mg Tablet PO 100 mg DAILY SHIKHA Administration Vitamin D 25 mcg 06/01/20 09:00 06/06/20 09:12 Cholecalciferol (Vitamin D3) 25 Mcg Tablet PO 25 mcg DAILY SHIKHA Administration Labs CBC & Chem 7: 06/01/20 06:14 06/01/20 06:14 Assessment and Plan (1) Seizure disorder: Status: Acute (2) Unsteady gait: Status: Acute (3) Abnormal brain CT: Status: Acute (4) Confusion: Status: Acute (5) Acute kidney failure: Status: Acute Assessment and Plan: Unsteady gait/confusion due to abnormal MRI awake alert, able to answer simple questions appropriately, is forgetful poor short-term memory but when given clues able to answer some questions appropriately, sitter at bedside noted to have persistent unsteady gait. No headache this morning Brain mass s/p biopsy that showed suspected demyelinating/ inflammatory process/History of seizure disorder no acute complaints , gets on and off headache, no dizziness repeat MRI study shows significant improvement in the previously demonstrated amorphous hyperintensity and patchy enhancement throughout the right greater than left deep nuclei and left temporal lobe, persistent abnormality in the region of right internal capsule and thalamus. Patient seen by Dr. Salinas he feels patient's symptoms were related to infection for which he has already been treated at [facility], he recommend no further treatment He recommend Depakote 250 mg by mouth once with twice a day for headache Reviewed old records from [facility] where patient underwent brain biopsy Pathology revealed brain with foci of active demyelination and variable axonal injury, extensive macrophage/microglial reaction, lymphocytic inflammation, and focal perivascular granulocytic inflammation Differential dx from [facility]: ADEM vs. NMO vs. MOG demyelination vs Wernicke's Encephalopathy....NMO/AQP4 FACS <1.5, MOG FACS negative Dr. Salinas feels patient does not have behcets disease, no vasculitis and no definite diagnosis of Wernicke's encephalopathy. Plan Continue levetiracetam 500 mg every 12 hours Dexamethasone 2 mg daily indefinitely Thiamine 100 mg daily Started on Depakote 250mg bid due to headache Patient seen by Physical therapy and they are recommending short-term rehab due to unsteady gait, Patient will require close outpatient neurological follow-up upon discharge, patient's confusion is related to abnormal brain process. Anemia Hematocrit 34.9, no active bleeding noted will repeat hematocrit Hypertension Blood pressure is stable, not on any antihypertensives Thrombocytopenia stable platelet count GERD-continue omeprazole Hyperlipidemia-continue statin Mood-hold sertraline, amitriptyline since patient is not taking these medications at home and does not wish to take them. h/o seizures-continue Keppra and seizure precautions Disposition awaiting placement
[2020-06-06 15:44] VITALS: BP 113/73; PULSE 77; RESP 17; TEMP 36.7; O2SAT 97
--- NOTE | 2020-06-06 18:03 | PC.NURSE ---
Patient has been OOB and amb to BR frequently today with standby assist from sitter and RN. Continues to be occasionally impulsive with actions; with frequent falls and moderate weakness, still requires sitter in my opinion. Enc C+DB frequently. Good appetite-ate 100% of meals today. Skin intact with no breakdown. +PPx3 krupa with no edema. Patient alert and occasionally disoriented to time/place. Plan for patient to go to rehab/[facility] tomorrow at 11am. Reaet CBC w/ Diff tomm. Will continue to monitor.
[2020-06-06 19:52] VITALS: BP 120/64; PULSE 90; RESP 18; TEMP 36.9; O2SAT 95
[2020-06-06 23:35] VITALS: BP 149/59; PULSE 68; RESP 18; TEMP 36.8; O2SAT 94
[2020-06-07 04:00] VITALS: BP 110/64; PULSE 64; RESP 18; TEMP 36.8; O2SAT 97
[2020-06-07 06:26] LABS: MANUAL DIFF FLAG NO
[2020-06-07 06:54] LABS: Basophils Percent Auto 0.2 % (0-2); Eosinophils Percent Auto 0.2 % (0-4); Hematocrit 34.3 % (42-52); Hemoglobin 10.9 g/dl (14.0-18.0); Imm Gran Abs Auto 0.18 X10*3/uL (0.00-0.03); Lymphocytes Absolute Auto 1.9 X10*3/uL (1.2-4.9); Lymphocytes Percent Auto 31.7 % (20-40); Mean Corpuscular HGB Conc 31.8 g/dl (31.0-36.0); Mean Corpuscular Hemoglobin 28.5 pg (27.0-33.0); Mean Corpuscular Volume 89.6 fL (80-98); Mean Platelet Volume 9.4 fL (9.4-12.4); Monocytes Absolute Auto 0.7 X10*3/uL (0.1-1.2); Monocytes Percent Auto 12.2 % (2-11); Neutrophils Absolute Auto 3.2 X10*3/uL (2.0-8.3); Neutrophils Percent Auto 52.7 % (45-73); Platelet Count 200 X10*3/uL (160-400); Red Blood Count 3.83 X10*6/uL (4.60-5.80); Red Cell Distribution Width 15.9 % (11.0-16.0); White Blood Count 6.1 X10*3/uL (4.8-10.8)
[2020-06-07 07:33] VITALS: BP 118/66; PULSE 68; RESP 18; TEMP 36.7; O2SAT 98
--- NOTE | 2020-06-07 08:35 | PM.DS ---
DS: Providers Provider Date of Service: 06/07/20 Date of admission: 05/31/20 10:56 Primary care physician: Unknown Physician Consults: 05/31/20 10:12 Consult to Neurology Routine Consulting Provider: [facility] Reason for consultation: confusion; recent brain [place] [facility] DS: Diagnosis Discharge Diagnosis (1) Seizure disorder: Status: Acute (2) Unsteady gait: Status: Acute (3) Abnormal brain CT: Status: Acute (4) Confusion: Status: Acute (5) Acute kidney failure: Status: Acute DS: Medications Discharge Medications Home Medications: Home Medications Medication Instructions Recorded Confirmed acetaminophen 650 mg PO Q8H PRN 05/31/20 05/31/20 allopurinol 100 mg PO DAILY 05/31/20 05/31/20 amitriptyline 100 mg PO BEDTIME 05/31/20 05/31/20 atorvastatin 40 mg PO DAILY 05/31/20 05/31/20 cholecalciferol (vitamin D3) 25 mcg PO DAILY 05/31/20 05/31/20 dexamethasone 2 mg PO DAILY 05/31/20 05/31/20 ferrous sulfate 325 mg PO DAILY 05/31/20 05/31/20 fluticasone propionate [Flonase] 1 - 2 spray INTRANASAL DAILY PRN 05/31/20 05/31/20 hydroxyzine HCl 25 mg PO TID PRN 05/31/20 05/31/20 levetiracetam 500 mg PO BID 05/31/20 05/31/20 lisinopril 10 mg PO DAILY 05/31/20 05/31/20 loratadine 10 mg PO DAILY 05/31/20 05/31/20 meclizine 25 mg PO BID PRN 05/31/20 05/31/20 omeprazole 40 mg PO BID 05/31/20 05/31/20 sertraline 50 mg PO DAILY 05/31/20 05/31/20 thiamine HCl (vitamin B1) 100 mg PO DAILY 05/31/20 05/31/20 topiramate 50 mg PO BID 05/31/20 05/31/20 DS: Summary Hospital Course Hospital Course: History of presenting illness Chief complaint confusion Joe Gibson is a 49-year-old male with history of hypertension, GERD, childhood history of meningitis and seizures who was brought in by family reportedly for confusion and falls. He was recently admitted for abnormal brain imaging and was subsequently transferred to [facility] for further workup. Please see d/c summary from [facility]/[place] below for details. Today workup in the emergency department his brain CT showed increased hypoattenuation bilaterally in the areas of abnormal enhancement on the prior MRI which seemed to be more prominent than on the prior head CT from 04/25/2020. For this reason neurology recommended brain MRI. d/c summary from [facility]/2020: Joe Gibson is a 49-year-old male with history of hypertension, GERD, childhood history of meningitis and seizures who presented as a transfer from an outside hospital on 04/28/2020 for 1 week of altered mental status, failure to thrive, and fevers. He was admitted to an outside hospital where he was found to have an abnormal brain mass on CT prompting an MRI of the brain which confirmed mass/abscess. He was started on IV antibiotics including ceftriaxone, vancomycin, acyclovir. LP was done for meningitis work-up and was negative. Neurosurgical evaluation was recommended which prompted transfer to [facility]. On 05/02/2020, the patient underwent right frontal harry hole thalamic biopsy which he tolerated well. He was also seen by infectious disease who recommended 4 weeks of IV antibiotics for presumed infectious etiology and if malignancy is proven on biopsy antibiotics were recommended to be discontinued. On 05/05/2020 [id number] was performed and did not reveal any epileptiform activity but was notable for mild to moderate generalized slowing of the background. Biopsy results reviewed with a second opinion from [facility]. Biopsy found foci of active demyelination and variable axonal injury, extensive macrophage/microglial reaction, lymphocytic inflammation, and focal perivascular granulocytic inflammation? The histologic findings show a complex reactive/inflammatory process characterized by the presence of discrete and confluent foci of myelin loss (demyelination) and variable axonal loss/injury, extensive macrophage infiltration, microglial activation, and the presence of CD3 positive T cells and occasional plasma cells within the lesions and around vessels. In addition small collections of granulocytic cells (neutrophils, occasional eosinophils) are present around some lesional vessels. Vasculitis not present. No microorganisms are identified. No evidence of neoplasm in the specimen submitted for review. Repeat LP was performed on 05/22/2020 with 2 WBCs, cryptococcus negative, glucose 63, CSF negative improved from previous LP. An MRA/MRV of the head and neck was also performed to rule out thrombosis and was negative. Differential at this time includes Behcet's Syndrome, ADEM, NMO,MOG demyelination, Wernicke's Encephalopathy, cancer Patient's hospitalization was complicated by an NICKI with his creatinine going from 1.2-3.5. Renal service was consulted who believed NICKI secondary to ATN in the setting of renal hypoperfusion. Creatinine peaked at 7.4 on 04/30 with associated hypernatremia w/ a peak sodium of 162 both of which have resolved (last creatinine 0.9 on 05/22/2020). Hospitalization was also complicated by patient exhibiting impulsive behavior and getting out of bed. He had 3x unwitnessed mechanical falls. CT imaging negative. For a period of time required nino vest but this was able to be taken off without further issue. Seems that patient was trying to get to the bathroom by himself and once he was on a regular routine of supervised bathroom visits he had no further incidents. Last fall 05/16/2020 Past medical history Abnormal brain CT Brain mass GERD (gastroesophageal reflux disease) HTN (hypertension) Unsteady gait/confusion due to abnormal MRI and recent bout of infection, no acute encephalopathy awake alert, able to answer simple questions appropriately, is forgetful, poor short-term memory but when given clues able to answer some questions appropriately, due to unsteady gait and confusion patient is being transferred to rehab facility, a repeat MRI brain showed significant improvement in the previously demonstrated amorphous hyperintensity and patchy enhancement throughout the right greater than left deep nuclei and left temporal lobe, persistent abnormality in the region of right internal capsule and thalamus was noted. During the course of hospitalization patient had no acute complaints , except for on and off front headache, no dizziness no fever no chills Patient seen by Dr. Salinas from Neurology he feels patient's symptoms in April were related to infection for which he has already been treated at [facility], he recommend no further treatment at this time, but recommend Depakote 250 mg b.i.d. due to headaches. Will continue levetiracetam 500 mg every 12 hours,Dexamethasone 2 mg daily indefinitely,Thiamine 100 mg daily Patient seen by Physical therapy and they are recommending short-term rehab due to unsteady gait,Patient will require close outpatient neurological follow-up upon discharge. Anemia Hematocrit 34.3, no active bleeding noted , hematocrit remains stable. Hypertension Blood pressure is stable, not on any antihypertensives. Thrombocytopenia stable platelet count GERD-continue omeprazole Hyperlipidemia-continue statin Mood-hold sertraline, amitriptyline since patient is not taking these medications at home and does not wish to take them. h/o seizures-continue Keppra and seizure precautions Time Spent with Patient Time attestation: Total time spent providing and/or coordinating discharge services: Discharge coordination time: Greater than 30 minutes Physical Exam Vital Signs: Vital Signs: Last Vital Signs Temp 98.1 F 06/07/20 07:33 Pulse 68 06/07/20 07:33 Resp 18 06/07/20 07:33 BP 118/66 06/07/20 07:33 Pulse Ox 98 06/07/20 07:33 Body Mass Index 27.3 General resting comfortably, no acute distress. Neck supple CVS regular rate rhythm, Respiratory lungs clear to auscultation, no respiratory distress Gastrointestinal abdomen soft, nontender, bowel sounds audible Extremities no edema. Neuro speech clear, responding appropriately, good motor strength, unsteady gait, poor short-term memory Skin no rash DS: Data Data Completed and Pending Completed studies during hospitalization [Text1]: Procedures Drainage of Spinal Canal, Percutaneous Approach, Diagnostic (04/26/20) Labs on day of discharge: Laboratory Tests 05/30/20 05/30/20 05/30/20 19:02 20:02 20:02 WBC RBC Hgb Hct MCV MCH MCHC RDW Plt Count MPV Immature Gran % (Auto) Neut % (Auto) Lymph % (Auto) Gentry % (Auto) Eos % (Auto) Baso % (Auto) Lymph # (Auto) Gentry # (Auto) Eos # (Auto) Baso # (Auto) Abs Immat Gran (auto) Absolute Neuts (auto) Absolute Nucleated RBC Nucleated RBC % (auto) PT INR Sodium 138 Potassium 3.8 Chloride 102 Carbon Dioxide 27 Anion Gap 13 BUN 9 D Creatinine 0.77 Estim Creat Clear Calc 116.0 Estimated GFR > 60 POC Glucose 109 Random Glucose 98 Calcium 8.3 L Magnesium 2.0 Total Bilirubin 0.4 Direct Bilirubin 0.2 AST 24 ALT 46 H Alkaline Phosphatase 77 Ammonia Troponin I High Sens 6.8 C-Reactive Protein 3.76 H Total Protein 6.6 Albumin 3.9 Lipase 129 H Urine Color Urine Appearance Urine pH Ur Specific [place] Urine Protein Urine Glucose (UA) Urine Ketones Urine Blood Urine Nitrite Ur Leukocyte Esterase Urine RBC Urine WBC Ur Squamous Epith Cells Urine Bacteria Urine Opiates Screen Ur Barbiturates Screen Ur Phencyclidine Scrn Ur Amphetamines Screen U Benzodiazepines Scrn Urine Cocaine Screen U Marijuana (THC) Screen Ethyl Alcohol COVID-19 (MALINDA) COVID-19 Clin Com Hepatitis C Ab (EIA) HIV 1&2 Ab/P24 Ag 4thGn 05/30/20 05/30/20 05/30/20 20:02 20:02 20:03 WBC 5.2 RBC 4.14 L Hgb 12.0 L Hct 36.8 L MCV 88.9 MCH 29.0 MCHC 32.6 RDW 15.0 Plt Count 157 L D MPV 9.2 L Immature Gran % (Auto) 0.8 H Neut % (Auto) 48.0 Lymph % (Auto) 38.1 Gentry % (Auto) 10.2 Eos % (Auto) 2.7 Baso % (Auto) 0.2 Lymph # (Auto) 2.0 Gentry # (Auto) 0.5 Eos # (Auto) 0.1 Baso # (Auto) 0.0 Abs Immat Gran (auto) 0.04 H Absolute Neuts (auto) 2.5 Absolute Nucleated RBC 0.000 Nucleated RBC % (auto) 0.0 PT INR Sodium Potassium Chloride Carbon Dioxide Anion Gap BUN Creatinine Estim Creat Clear Calc Estimated GFR POC Glucose Random Glucose Calcium Magnesium Total Bilirubin Direct Bilirubin AST ALT Alkaline Phosphatase Ammonia 38 Troponin I High Sens C-Reactive Protein Total Protein Albumin Lipase Urine Color Urine Appearance Urine pH Ur Specific [place] Urine Protein Urine Glucose (UA) Urine Ketones Urine Blood Urine Nitrite Ur Leukocyte Esterase Urine RBC Urine WBC Ur Squamous Epith Cells Urine Bacteria Urine Opiates Screen Ur Barbiturates Screen Ur Phencyclidine Scrn Ur Amphetamines Screen U Benzodiazepines Scrn Urine Cocaine Screen U Marijuana (THC) Screen Ethyl Alcohol < 10 COVID-19 (MALINDA) COVID-19 Clin Com Hepatitis C Ab (EIA) HIV 1&2 Ab/P24 Ag 4thGn 05/30/20 05/30/20 05/30/20 20:03 20:03 23:19 WBC RBC Hgb Hct MCV MCH MCHC RDW Plt Count MPV Immature Gran % (Auto) Neut % (Auto) Lymph % (Auto) Gentry % (Auto) Eos % (Auto) Baso % (Auto) Lymph # (Auto) Gentry # (Auto) Eos # (Auto) Baso # (Auto) Abs Immat Gran (auto) Absolute Neuts (auto) Absolute Nucleated RBC Nucleated RBC % (auto) PT 11.7 D INR 1.0 Sodium Potassium Chloride Carbon Dioxide Anion Gap BUN Creatinine Estim Creat Clear Calc Estimated GFR POC Glucose Random Glucose Calcium Magnesium Total Bilirubin Direct Bilirubin AST ALT Alkaline Phosphatase Ammonia Troponin I High Sens 6.1 C-Reactive Protein Total Protein Albumin Lipase Urine Color Urine Appearance Urine pH Ur Specific [place] Urine Protein Urine Glucose (UA) Urine Ketones Urine Blood Urine Nitrite Ur Leukocyte Esterase Urine RBC Urine WBC Ur Squamous Epith Cells Urine Bacteria Urine Opiates Screen Ur Barbiturates Screen Ur Phencyclidine Scrn Ur Amphetamines Screen U Benzodiazepines Scrn Urine Cocaine Screen U Marijuana (THC) Screen Ethyl Alcohol COVID-19 (MALINDA) COVID-19 Clin Com Hepatitis C Ab (EIA) Nonreactive HIV 1&2 Ab/P24 Ag 4thGn Nonreactive 05/31/20 05/31/20 05/31/20 04:02 04:02 08:44 WBC RBC Hgb Hct MCV MCH MCHC RDW Plt Count MPV Immature Gran % (Auto) Neut % (Auto) Lymph % (Auto) Gentry % (Auto) Eos % (Auto) Baso % (Auto) Lymph # (Auto) Gentry # (Auto) Eos # (Auto) Baso # (Auto) Abs Immat Gran (auto) Absolute Neuts (auto) Absolute Nucleated RBC Nucleated RBC % (auto) PT INR Sodium Potassium Chloride Carbon Dioxide Anion Gap BUN Creatinine Estim Creat Clear Calc Estimated GFR POC Glucose Random Glucose Calcium Magnesium Total Bilirubin Direct Bilirubin AST ALT Alkaline Phosphatase Ammonia Troponin I High Sens C-Reactive Protein Total Protein Albumin Lipase Urine Color YELLOW Urine Appearance CLEAR Urine pH 6.0 Ur Specific [place] 1.020 Urine Protein NEG Urine Glucose (UA) NEG Urine Ketones NEG Urine Blood TRACE Urine Nitrite NEG Ur Leukocyte Esterase NEG Urine RBC 0-2 Urine WBC 1-4 Ur Squamous Epith Cells TRACE Urine Bacteria NONE Urine Opiates Screen Not Detected Ur Barbiturates Screen Not Detected Ur Phencyclidine Scrn Not Detected Ur Amphetamines Screen Not Detected U Benzodiazepines Scrn Not Detected Urine Cocaine Screen Not Detected U Marijuana (THC) Screen Not Detected Ethyl Alcohol COVID-19 (MALINDA) Negative COVID-19 Clin Com See Note Hepatitis C Ab (EIA) HIV 1&2 Ab/P24 Ag 4thGn 05/31/20 06/01/20 06/01/20 23:54 06:01 06:14 WBC 5.6 RBC 3.91 L Hgb 11.1 L Hct 34.9 L MCV 89.3 MCH 28.4 MCHC 31.8 RDW 14.9 Plt Count 168 MPV 9.2 L Immature Gran % (Auto) 1.1 H Neut % (Auto) 61.7 Lymph % (Auto) 27.3 Gentry % (Auto) 9.5 Eos % (Auto) 0.4 Baso % (Auto) 0.0 Lymph # (Auto) 1.5 Gentry # (Auto) 0.5 Eos # (Auto) 0.0 Baso # (Auto) 0.0 Abs Immat Gran (auto) 0.06 H Absolute Neuts (auto) 3.5 Absolute Nucleated RBC 0.000 Nucleated RBC % (auto) 0.0 PT INR Sodium Potassium Chloride Carbon Dioxide Anion Gap BUN Creatinine Estim Creat Clear Calc Estimated GFR POC Glucose 109 120 H Random Glucose Calcium Magnesium Total Bilirubin Direct Bilirubin AST ALT Alkaline Phosphatase Ammonia Troponin I High Sens C-Reactive Protein Total Protein Albumin Lipase Urine Color Urine Appearance Urine pH Ur Specific [place] Urine Protein Urine Glucose (UA) Urine Ketones Urine Blood Urine Nitrite Ur Leukocyte Esterase Urine RBC Urine WBC Ur Squamous Epith Cells Urine Bacteria Urine Opiates Screen Ur Barbiturates Screen Ur Phencyclidine Scrn Ur Amphetamines Screen U Benzodiazepines Scrn Urine Cocaine Screen U Marijuana (THC) Screen Ethyl Alcohol COVID-19 (MALINDA) COVID-19 Clin Com Hepatitis C Ab (EIA) HIV 1&2 Ab/P24 Ag 4thGn 06/01/20 06/05/20 06/07/20 06:14 16:30 05:17 WBC 6.1 RBC 3.83 L Hgb 10.9 L Hct 34.3 L MCV 89.6 MCH 28.5 MCHC 31.8 RDW 15.9 Plt Count 200 MPV 9.4 Immature Gran % (Auto) 3.0 H Neut % (Auto) 52.7 Lymph % (Auto) 31.7 Gentry % (Auto) 12.2 H Eos % (Auto) 0.2 Baso % (Auto) 0.2 Lymph # (Auto) 1.9 Gentry # (Auto) 0.7 Eos # (Auto) 0.0 Baso # (Auto) 0.0 Abs Immat Gran (auto) 0.18 H Absolute Neuts (auto) 3.2 Absolute Nucleated RBC 0.000 Nucleated RBC % (auto) 0.0 PT INR Sodium 138 Potassium 3.8 Chloride 104 Carbon Dioxide 23 Anion Gap 15 BUN 13 Creatinine 0.74 Estim Creat Clear Calc 120.7 Estimated GFR > 60 POC Glucose Random Glucose 118 H Calcium 8.9 D Magnesium Total Bilirubin Direct Bilirubin AST ALT Alkaline Phosphatase Ammonia Troponin I High Sens C-Reactive Protein Total Protein Albumin Lipase Urine Color Urine Appearance Urine pH Ur Specific [place] Urine Protein Urine Glucose (UA) Urine Ketones Urine Blood Urine Nitrite Ur Leukocyte Esterase Urine RBC Urine WBC Ur Squamous Epith Cells Urine Bacteria Urine Opiates Screen Ur Barbiturates Screen Ur Phencyclidine Scrn Ur Amphetamines Screen U Benzodiazepines Scrn Urine Cocaine Screen U Marijuana (THC) Screen Ethyl Alcohol COVID-19 (MALINDA) Negative COVID-19 Clin Com See Note Hepatitis C Ab (EIA) HIV 1&2 Ab/P24 Ag 4thGn Discharge Plan Discharge Patient Disposition: Xfer SNF Referrals: [facility] [Outside] Asad Steiner MD [Physician] - Discharge Medications: New divalproex 250 mg Tablet,Delayed Release (Dr/Ec) 250 mg PO BID Qty: 60 RF: 0 Continued atorvastatin 40 mg Tablet 40 mg PO DAILY RF: 0 ferrous sulfate 325 mg (65 mg iron) Tablet 325 mg PO DAILY RF: 0 cholecalciferol (vitamin D3) 25 mcg (1,000 unit) Tablet 25 mcg PO DAILY RF: 0 omeprazole 40 mg Capsule,Delayed Release(Dr/Ec) 40 mg PO BID RF: 0 hydroxyzine HCl 25 mg Tablet 25 mg PO TID PRN (Reason: Itching) RF: 0 loratadine 10 mg Tablet 10 mg PO DAILY RF: 0 levetiracetam 500 mg Tablet 500 mg PO BID RF: 0 dexamethasone 2 mg Tablet 2 mg PO DAILY RF: 0 thiamine HCl (vitamin B1) 100 mg Tablet 100 mg PO DAILY RF: 0 acetaminophen 325 mg Tablet 650 mg PO Q8H PRN (Reason: Pain) RF: 0 fluticasone propionate 50 mcg/actuation [place],Suspension 1 - 2 spray INTRANASAL DAILY PRN (Reason: Allergy Symptoms) RF: 0 Changed allopurinol 100 mg Tablet 300 mg PO DAILY Qty: 0 RF: 0 Discontinued meclizine 25 mg Tablet 25 mg PO BID PRN (Reason: Dizziness) RF: 0 lisinopril 10 mg Tablet 10 mg PO DAILY RF: 0 sertraline 50 mg Tablet 50 mg PO DAILY RF: 0 amitriptyline 100 mg Tablet 100 mg PO BEDTIME RF: 0 topiramate 50 mg Tablet 50 mg PO BID RF: 0 Discharge Orders: Discharge Order (Routine); Ordered 06/07/20 Ordered By: Douglas Cooper Diet: low fat, low cholesterol Activity on Discharge: As tolerated Stand Alone Forms: Patient Portal Discharge page Care Plan Goals: Continue physical therapy Health Concerns: Steady gait and confusion Plan of Treatment: Patient follow-up with primary care physician and Neurology in 2 weeks
--- NOTE | 2020-06-07 08:37 | MHC.CM.PN ---
Patient has been medically cleared for dc to SNF today. Patient will be dc to the only accepting SNF-[facility] today at 11:00 AM, via [facility]. With the assistance of the Health Associate, over the phone, STAN has informed Patient's Mother/Corie @ [phone] of the details of the dc plan, via leaving a detailed message that includes this CM contact information should there be any questions.
--- NOTE | 2020-06-07 11:20 | PM.DS ---
DS: Providers Provider Date of Service: 06/07/20 Date of admission: 05/31/20 10:56 Primary care physician: Unknown Physician Consults: 05/31/20 10:12 Consult to Neurology Routine Consulting Provider: [facility] Reason for consultation: confusion; recent brain bx at [facility] DS: Diagnosis Discharge Diagnosis (1) Seizure disorder: Status: Acute (2) Unsteady gait: Status: Acute (3) Abnormal brain CT: Status: Acute (4) Confusion: Status: Acute (5) Acute kidney failure: Status: Acute DS: Medications Discharge Medications Home Medications: Home Medications Medication Instructions Recorded Confirmed acetaminophen 650 mg PO Q8H PRN 05/31/20 05/31/20 atorvastatin 40 mg PO DAILY 05/31/20 05/31/20 cholecalciferol (vitamin D3) 25 mcg PO DAILY 05/31/20 05/31/20 dexamethasone 2 mg PO DAILY 05/31/20 05/31/20 ferrous sulfate 325 mg PO DAILY 05/31/20 05/31/20 fluticasone propionate 1 - 2 spray INTRANASAL DAILY PRN 05/31/20 05/31/20 hydroxyzine HCl 25 mg PO TID PRN 05/31/20 05/31/20 levetiracetam 500 mg PO BID 05/31/20 05/31/20 loratadine 10 mg PO DAILY 05/31/20 05/31/20 omeprazole 40 mg PO BID 05/31/20 05/31/20 thiamine HCl (vitamin B1) 100 mg PO DAILY 05/31/20 05/31/20 Previous Rx's Medication Instructions Recorded allopurinol 300 mg PO DAILY #0 tab 06/07/20 divalproex 250 mg PO BID #60 tab 06/07/20 DS: Summary Hospital Course Hospital Course: History of presenting illness Chief complaint confusion Joe Gibson is a 49-year-old male with history of hypertension, GERD, childhood history of meningitis and seizures who was brought in by family reportedly for confusion and falls. He was recently admitted for abnormal brain imaging and was subsequently transferred to [facility] for further workup. Please see d/c summary from [facility] 05/25 below for details. Today workup in the emergency department his brain CT showed increased hypoattenuation bilaterally in the areas of abnormal enhancement on the prior MRI which seemed to be more prominent than on the prior head CT from 04/25/2020. For this reason neurology recommended brain MRI. d/c summary from [facility] 05/25/2020: Joe Gibson is a 49-year-old male with history of hypertension, GERD, childhood history of meningitis and seizures who presented as a transfer from an outside hospital on 04/28/2020 for 1 week of altered mental status, failure to thrive, and fevers. He was admitted to an outside hospital where he was found to have an abnormal brain mass on CT prompting an MRI of the brain which confirmed mass/abscess. He was started on IV antibiotics including ceftriaxone, vancomycin, acyclovir. LP was done for meningitis work-up and was negative. Neurosurgical evaluation was recommended which prompted transfer to [facility]. On 05/02/2020, the patient underwent right frontal harry hole thalamic biopsy which he tolerated well. He was also seen by infectious disease who recommended 4 weeks of IV antibiotics for presumed infectious etiology and if malignancy is proven on biopsy antibiotics were recommended to be discontinued. On 05/05/2020 [id number] was performed and did not reveal any epileptiform activity but was notable for mild to moderate generalized slowing of the background. Biopsy results reviewed with a second opinion from [facility]. Biopsy found foci of active demyelination and variable axonal injury, extensive macrophage/microglial reaction, lymphocytic inflammation, and focal perivascular granulocytic inflammation? The histologic findings show a complex reactive/inflammatory process characterized by the presence of discrete and confluent foci of myelin loss (demyelination) and variable axonal loss/injury, extensive macrophage infiltration, microglial activation, and the presence of CD3 positive T cells and occasional plasma cells within the lesions and around vessels. In addition small collections of granulocytic cells (neutrophils, occasional eosinophils) are present around some lesional vessels. Vasculitis not present. No microorganisms are identified. No evidence of neoplasm in the specimen submitted for review. Repeat LP was performed on 05/22/2020 with 2 WBCs, cryptococcus negative, glucose 63, CSF negative improved from previous LP. An MRA/MRV of the head and neck was also performed to rule out thrombosis and was negative. Differential at this time includes Behcet's Syndrome, ADEM, NMO,MOG demyelination, Wernicke's Encephalopathy, cancer Patient's hospitalization was complicated by an NICKI with his creatinine going from 1.2-3.5. Renal service was consulted who believed NICKI secondary to ATN in the setting of renal hypoperfusion. Creatinine peaked at 7.4 on 04/30 with associated hypernatremia w/ a peak sodium of 162 both of which have resolved (last creatinine 0.9 on 05/22/2020). Hospitalization was also complicated by patient exhibiting impulsive behavior and getting out of bed. He had 3x unwitnessed mechanical falls. CT imaging negative. For a period of time required nino vest but this was able to be taken off without further issue. Seems that patient was trying to get to the bathroom by himself and once he was on a regular routine of supervised bathroom visits he had no further incidents. Last fall 05/16/2020 Past medical history Abnormal brain CT Brain mass GERD (gastroesophageal reflux disease) HTN (hypertension) Unsteady gait/confusion due to abnormal MRI and recent bout of infection, no acute encephalopathy awake alert, able to answer simple questions appropriately, is forgetful, poor short-term memory but when given clues able to answer some questions appropriately, due to unsteady gait and confusion patient is being transferred to rehab facility, a repeat MRI brain showed significant improvement in the previously demonstrated amorphous hyperintensity and patchy enhancement throughout the right greater than left deep nuclei and left temporal lobe, persistent abnormality in the region of right internal capsule and thalamus was noted. During the course of hospitalization patient had no acute complaints , except for on and off front headache, no dizziness no fever no chills Patient seen by Dr. Salinas from Neurology he feels patient's symptoms in April were related to infection for which he has already been treated at [facility], he recommend no further treatment at this time, but recommend Depakote 250 mg b.i.d. due to headaches. Will continue levetiracetam 500 mg every 12 hours,Dexamethasone 2 mg daily indefinitely,Thiamine 100 mg daily Patient seen by Physical therapy and they are recommending short-term rehab due to unsteady gait,Patient will require close outpatient neurological follow-up upon discharge. Anemia Hematocrit 34.3, no active bleeding noted , hematocrit remains stable. Hypertension Blood pressure is stable, not on any antihypertensives. Thrombocytopenia stable platelet count GERD-continue omeprazole Hyperlipidemia-continue statin Mood-hold sertraline, amitriptyline since patient is not taking these medications at home and does not wish to take them. h/o seizures-continue Keppra and seizure precautions Patient being discharged to rehab for less than 30 days Time Spent with Patient Time attestation: Total time spent providing and/or coordinating discharge services: Discharge coordination time: Greater than 30 minutes Physical Exam Vital Signs: Vital Signs: Last Vital Signs Temp 98.1 F 06/07/20 07:33 Pulse 68 06/07/20 07:33 Resp 18 06/07/20 07:33 BP 118/66 06/07/20 07:33 Pulse Ox 98 06/07/20 07:33 Body Mass Index 27.3 DS: Data Data Completed and Pending Completed studies during hospitalization [Text1]: Procedures Drainage of Spinal Canal, Percutaneous Approach, Diagnostic (04/26/20) Labs on day of discharge: Laboratory Tests 05/30/20 05/30/20 05/30/20 19:02 20:02 20:02 WBC RBC Hgb Hct MCV MCH MCHC RDW Plt Count MPV Immature Gran % (Auto) Neut % (Auto) Lymph % (Auto) [place] % (Auto) Eos % (Auto) Baso % (Auto) Lymph # (Auto) [place] # (Auto) Eos # (Auto) Baso # (Auto) Abs Immat Gran (auto) Absolute Neuts (auto) Absolute Nucleated RBC Nucleated RBC % (auto) PT INR Sodium 138 Potassium 3.8 Chloride 102 Carbon Dioxide 27 Anion Gap 13 BUN 9 D Creatinine 0.77 Estim Creat Clear Calc 116.0 Estimated GFR > 60 POC Glucose 109 Random Glucose 98 Calcium 8.3 L Magnesium 2.0 Total Bilirubin 0.4 Direct Bilirubin 0.2 AST 24 ALT 46 H Alkaline Phosphatase 77 Ammonia Troponin I High Sens 6.8 C-Reactive Protein 3.76 H Total Protein 6.6 Albumin 3.9 Lipase 129 H Urine Color Urine Appearance Urine pH Ur Specific [place] Urine Protein Urine Glucose (UA) Urine Ketones Urine Blood Urine Nitrite Ur Leukocyte Esterase Urine RBC Urine WBC Ur Squamous Epith Cells Urine Bacteria Urine Opiates Screen Ur Barbiturates Screen Ur Phencyclidine Scrn Ur Amphetamines Screen U Benzodiazepines Scrn Urine Cocaine Screen U Marijuana (THC) Screen Ethyl Alcohol COVID-19 (MALINDA) COVID-19 Clin Com Hepatitis C Ab (EIA) HIV 1&2 Ab/P24 Ag 4thGn 05/30/20 05/30/20 05/30/20 20:02 20:02 20:03 WBC 5.2 RBC 4.14 L Hgb 12.0 L Hct 36.8 L MCV 88.9 MCH 29.0 MCHC 32.6 RDW 15.0 Plt Count 157 L D MPV 9.2 L Immature Gran % (Auto) 0.8 H Neut % (Auto) 48.0 Lymph % (Auto) 38.1 [place] % (Auto) 10.2 Eos % (Auto) 2.7 Baso % (Auto) 0.2 Lymph # (Auto) 2.0 [place] # (Auto) 0.5 Eos # (Auto) 0.1 Baso # (Auto) 0.0 Abs Immat Gran (auto) 0.04 H Absolute Neuts (auto) 2.5 Absolute Nucleated RBC 0.000 Nucleated RBC % (auto) 0.0 PT INR Sodium Potassium Chloride Carbon Dioxide Anion Gap BUN Creatinine Estim Creat Clear Calc Estimated GFR POC Glucose Random Glucose Calcium Magnesium Total Bilirubin Direct Bilirubin AST ALT Alkaline Phosphatase Ammonia 38 Troponin I High Sens C-Reactive Protein Total Protein Albumin Lipase Urine Color Urine Appearance Urine pH Ur Specific [place] Urine Protein Urine Glucose (UA) Urine Ketones Urine Blood Urine Nitrite Ur Leukocyte Esterase Urine RBC Urine WBC Ur Squamous Epith Cells Urine Bacteria Urine Opiates Screen Ur Barbiturates Screen Ur Phencyclidine Scrn Ur Amphetamines Screen U Benzodiazepines Scrn Urine Cocaine Screen U Marijuana (THC) Screen Ethyl Alcohol < 10 COVID-19 (MALINDA) COVID-19 Clin Com Hepatitis C Ab (EIA) HIV 1&2 Ab/P24 Ag 4thGn 05/30/20 05/30/20 05/30/20 20:03 20:03 23:19 WBC RBC Hgb Hct MCV MCH MCHC RDW Plt Count MPV Immature Gran % (Auto) Neut % (Auto) Lymph % (Auto) [place] % (Auto) Eos % (Auto) Baso % (Auto) Lymph # (Auto) [place] # (Auto) Eos # (Auto) Baso # (Auto) Abs Immat Gran (auto) Absolute Neuts (auto) Absolute Nucleated RBC Nucleated RBC % (auto) PT 11.7 D INR 1.0 Sodium Potassium Chloride Carbon Dioxide Anion Gap BUN Creatinine Estim Creat Clear Calc Estimated GFR POC Glucose Random Glucose Calcium Magnesium Total Bilirubin Direct Bilirubin AST ALT Alkaline Phosphatase Ammonia Troponin I High Sens 6.1 C-Reactive Protein Total Protein Albumin Lipase Urine Color Urine Appearance Urine pH Ur Specific [place] Urine Protein Urine Glucose (UA) Urine Ketones Urine Blood Urine Nitrite Ur Leukocyte Esterase Urine RBC Urine WBC Ur Squamous Epith Cells Urine Bacteria Urine Opiates Screen Ur Barbiturates Screen Ur Phencyclidine Scrn Ur Amphetamines Screen U Benzodiazepines Scrn Urine Cocaine Screen U Marijuana (THC) Screen Ethyl Alcohol COVID-19 (MALINDA) COVID-19 Clin Com Hepatitis C Ab (EIA) Nonreactive HIV 1&2 Ab/P24 Ag 4thGn Nonreactive 05/31/20 05/31/20 05/31/20 04:02 04:02 08:44 WBC RBC Hgb Hct MCV MCH MCHC RDW Plt Count MPV Immature Gran % (Auto) Neut % (Auto) Lymph % (Auto) [place] % (Auto) Eos % (Auto) Baso % (Auto) Lymph # (Auto) [place] # (Auto) Eos # (Auto) Baso # (Auto) Abs Immat Gran (auto) Absolute Neuts (auto) Absolute Nucleated RBC Nucleated RBC % (auto) PT INR Sodium Potassium Chloride Carbon Dioxide Anion Gap BUN Creatinine Estim Creat Clear Calc Estimated GFR POC Glucose Random Glucose Calcium Magnesium Total Bilirubin Direct Bilirubin AST ALT Alkaline Phosphatase Ammonia Troponin I High Sens C-Reactive Protein Total Protein Albumin Lipase Urine Color YELLOW Urine Appearance CLEAR Urine pH 6.0 Ur Specific [place] 1.020 Urine Protein NEG Urine Glucose (UA) NEG Urine Ketones NEG Urine Blood TRACE Urine Nitrite NEG Ur Leukocyte Esterase NEG Urine RBC 0-2 Urine WBC 1-4 Ur Squamous Epith Cells TRACE Urine Bacteria NONE Urine Opiates Screen Not Detected Ur Barbiturates Screen Not Detected Ur Phencyclidine Scrn Not Detected Ur Amphetamines Screen Not Detected U Benzodiazepines Scrn Not Detected Urine Cocaine Screen Not Detected U Marijuana (THC) Screen Not Detected Ethyl Alcohol COVID-19 (MALINDA) Negative COVID-19 Clin Com See Note Hepatitis C Ab (EIA) HIV 1&2 Ab/P24 Ag 4thGn 05/31/20 06/01/20 06/01/20 23:54 06:01 06:14 WBC 5.6 RBC 3.91 L Hgb 11.1 L Hct 34.9 L MCV 89.3 MCH 28.4 MCHC 31.8 RDW 14.9 Plt Count 168 MPV 9.2 L Immature Gran % (Auto) 1.1 H Neut % (Auto) 61.7 Lymph % (Auto) 27.3 [place] % (Auto) 9.5 Eos % (Auto) 0.4 Baso % (Auto) 0.0 Lymph # (Auto) 1.5 [place] # (Auto) 0.5 Eos # (Auto) 0.0 Baso # (Auto) 0.0 Abs Immat Gran (auto) 0.06 H Absolute Neuts (auto) 3.5 Absolute Nucleated RBC 0.000 Nucleated RBC % (auto) 0.0 PT INR Sodium Potassium Chloride Carbon Dioxide Anion Gap BUN Creatinine Estim Creat Clear Calc Estimated GFR POC Glucose 109 120 H Random Glucose Calcium Magnesium Total Bilirubin Direct Bilirubin AST ALT Alkaline Phosphatase Ammonia Troponin I High Sens C-Reactive Protein Total Protein Albumin Lipase Urine Color Urine Appearance Urine pH Ur Specific [place] Urine Protein Urine Glucose (UA) Urine Ketones Urine Blood Urine Nitrite Ur Leukocyte Esterase Urine RBC Urine WBC Ur Squamous Epith Cells Urine Bacteria Urine Opiates Screen Ur Barbiturates Screen Ur Phencyclidine Scrn Ur Amphetamines Screen U Benzodiazepines Scrn Urine Cocaine Screen U Marijuana (THC) Screen Ethyl Alcohol COVID-19 (MALINDA) COVID-19 Clin Com Hepatitis C Ab (EIA) HIV 1&2 Ab/P24 Ag 4thGn 06/01/20 06/05/20 06/07/20 06:14 16:30 05:17 WBC 6.1 RBC 3.83 L Hgb 10.9 L Hct 34.3 L MCV 89.6 MCH 28.5 MCHC 31.8 RDW 15.9 Plt Count 200 MPV 9.4 Immature Gran % (Auto) 3.0 H Neut % (Auto) 52.7 Lymph % (Auto) 31.7 [place] % (Auto) 12.2 H Eos % (Auto) 0.2 Baso % (Auto) 0.2 Lymph # (Auto) 1.9 [place] # (Auto) 0.7 Eos # (Auto) 0.0 Baso # (Auto) 0.0 Abs Immat Gran (auto) 0.18 H Absolute Neuts (auto) 3.2 Absolute Nucleated RBC 0.000 Nucleated RBC % (auto) 0.0 PT INR Sodium 138 Potassium 3.8 Chloride 104 Carbon Dioxide 23 Anion Gap 15 BUN 13 Creatinine 0.74 Estim Creat Clear Calc 120.7 Estimated GFR > 60 POC Glucose Random Glucose 118 H Calcium 8.9 D Magnesium Total Bilirubin Direct Bilirubin AST ALT Alkaline Phosphatase Ammonia Troponin I High Sens C-Reactive Protein Total Protein Albumin Lipase Urine Color Urine Appearance Urine pH Ur Specific [place] Urine Protein Urine Glucose (UA) Urine Ketones Urine Blood Urine Nitrite Ur Leukocyte Esterase Urine RBC Urine WBC Ur Squamous Epith Cells Urine Bacteria Urine Opiates Screen Ur Barbiturates Screen Ur Phencyclidine Scrn Ur Amphetamines Screen U Benzodiazepines Scrn Urine Cocaine Screen U Marijuana (THC) Screen Ethyl Alcohol COVID-19 (MALINDA) Negative COVID-19 Clin Com See Note Hepatitis C Ab (EIA) HIV 1&2 Ab/P24 Ag 4thGn Discharge Plan Discharge Patient Disposition: Xfer SNF Referrals: [facility] [Outside] Asad Steiner MD [Physician] - Discharge Medications: New divalproex 250 mg Tablet,Delayed Release (Dr/Ec) 250 mg PO BID Qty: 60 RF: 0 Continued atorvastatin 40 mg Tablet 40 mg PO DAILY RF: 0 ferrous sulfate 325 mg (65 mg iron) Tablet 325 mg PO DAILY RF: 0 cholecalciferol (vitamin D3) 25 mcg (1,000 unit) Tablet 25 mcg PO DAILY RF: 0 omeprazole 40 mg Capsule,Delayed Release(Dr/Ec) 40 mg PO BID RF: 0 hydroxyzine HCl 25 mg Tablet 25 mg PO TID PRN (Reason: Itching) RF: 0 loratadine 10 mg Tablet 10 mg PO DAILY RF: 0 levetiracetam 500 mg Tablet 500 mg PO BID RF: 0 dexamethasone 2 mg Tablet 2 mg PO DAILY RF: 0 thiamine HCl (vitamin B1) 100 mg Tablet 100 mg PO DAILY RF: 0 acetaminophen 325 mg Tablet 650 mg PO Q8H PRN (Reason: Pain) RF: 0 fluticasone propionate 50 mcg/actuation [place],Suspension 1 - 2 spray INTRANASAL DAILY PRN (Reason: Allergy Symptoms) RF: 0 Changed allopurinol 100 mg Tablet 300 mg PO DAILY Qty: 0 RF: 0 Discontinued meclizine 25 mg Tablet 25 mg PO BID PRN (Reason: Dizziness) RF: 0 lisinopril 10 mg Tablet 10 mg PO DAILY RF: 0 sertraline 50 mg Tablet 50 mg PO DAILY RF: 0 amitriptyline 100 mg Tablet 100 mg PO BEDTIME RF: 0 topiramate 50 mg Tablet 50 mg PO BID RF: 0 Discharge Orders: Discharge Order (Routine); Ordered 06/07/20 Ordered By: Douglas Cooper Diet: low fat, low cholesterol Activity on Discharge: As tolerated Stand Alone Forms: Patient Portal Discharge page Care Plan Goals: Continue physical therapy Health Concerns: Steady gait and confusion Plan of Treatment: Patient follow-up with primary care physician and Neurology in 2 weeks
--- NOTE | 2020-06-07 12:28 | MHC.CM.PN ---
Per [facility], Patient will be returning to [facility]; [facility] is now not able to accept Patient r/t pending criminal investigation.CM MANAGEMENT is aware of this situation.
== END 2020-06-07 11:31 | disposition skilled nursing facility (03) | DRG 469 ==
LOC: HO.ED 05-31 08:33 → HO.EDOVER 05-31 21:53 → HO.IMC 06-01 19:19
PROVIDERS: Emergency Medicine; Physician Assistant Medical; Admitting Provider Hospitalist; Emergency Provider Student in an Organized Health Care Education/Training Program; PCP Internal Medicine; Visit Provider Hospitalist
DX: N17.0 Acute kidney failure with tubular necrosis (principal); D69.6 Thrombocytopenia, unspecified; D64.9 Anemia, unspecified; K21.9 Gastro-esophageal reflux disease without esophagitis; R29.6 Repeated falls; E78.5 Hyperlipidemia, unspecified; Z91.81 History of falling; Z20.822 Contact with and (suspected) exposure to COVID-19; Z79.899 Other long term (current) drug therapy
CPT/HCPCS: 36415; 70450; 70553; 71045; 80048; 80053; 80076; 80307; 80320; 81001; 82140; 82947; 83690; 83735; 84484; 85025; 85610; 86140; 86803; 87389; 87635; 93005; 97116; 97162; 99285; A9585; J3411; J8540

== ENCOUNTER 2020-06-07 13:00 | Emergency (ER) | payer MEDICAID, SELFPAY ==
--- NOTE | ~2020-06-07 | XR_ITS ---
EXAMINATION: XR HIP, LEFT CLINICAL INFORMATION: Fall with hip pain COMPARISON: None TECHNIQUE: Single view pelvis with 2 additional views left hip of the left hip. FINDINGS: Bones and soft tissues are normal. No fracture. Alignment is anatomic. Hip joint space is maintained. XR/XR hip LT w PEL1V IMPRESSION: Normal left hip.
--- NOTE | ~2020-06-07 | MR_ITS ---
MR BRAIN WITHOUT AND WITH CONTRAST CLINICAL INFORMATION: Brain mass, unsteady gait. COMPARISON: Brain MRI 05/31/2020. TECHNIQUE: Multiplanar, multisequence MRI of the brain was obtained before and after the intravenous administration of 8.5 mL Gadavist. FINDINGS: There is chronic encephalomalacia and gliosis as well as intrinsic T1 shortening without true enhancement within the deep gomez nuclei bilaterally at sites of previously seen heterogeneous enhancement. There is volume loss in these areas without expansion. Mild nonspecific T2 signal changes within the background supratentorial white matter. Biopsy tract again noted. Chronic hemosiderin staining within the right deep gomez nuclei. There is no hydrocephalus, extra-axial surface collection, or herniation. The major flow voids at the skull base are preserved. There is no acute infarct on diffusion-weighted imaging. There is no intracranial hemorrhage on the gradient recalled echo acquisition. The midline structures are normal. The cerebellar tonsils are normally positioned. The cerebellum and brainstem are normal. The craniocervical junction is normal. Osseous marrow signal intensity is homogenous. The visualized soft tissues are unremarkable. Retention cysts within the maxillary sinuses bilaterally. MR/MR head/brain wo/w con IMPRESSION: - No acute findings. There is chronic encephalomalacia and gliosis as well as intrinsic T1 shortening without true enhancement within the deep gomez nuclei bilaterally at sites of previously seen heterogeneous enhancement. There is volume loss in these areas without expansion. Biopsy tract again noted. Chronic hemosiderin staining within the right deep gomez nuclei. - Mild nonspecific T2 signal changes within the background supratentorial white matter. - No definite pathologic enhancement intracranially though assessment is limited by the degree of motion artifact.
[2020-06-07 13:25] VITALS: BP 105/78; BP 118/76; PULSE 72; PULSE 74; RESP 18; TEMP 36.3; O2SAT 94; BMI 26.5
--- NOTE | 2020-06-07 13:33 | PC.NURSE ---
patient a&o, returned to facility by ems due to placement issue upon getting to facility, case management aware, pt awaiting new placement, will continue to monitor.
--- NOTE | 2020-06-07 13:50 | ED_ITS ---
HPI - General Adult General Chief complaint: General Medical <SHARAN Red - Last Filed: 06/07/20 17:07> Stated complaint: MEDICAL CLEARANCE <SHARAN Red - Last Filed: 06/07/20 17:07> Time Seen by Provider: 06/07/20 13:17 <SHARAN Red - Last Filed: 06/07/20 17:07> Source: patient <SHARAN Red - Last Filed: 06/07/20 17:07> Mode of arrival: ambulatory <SHARAN Red - Last Filed: 06/07/20 17:07> Limitations: altered mental status <SHARAN Red - Last Filed: 06/07/20 17:07> History of Present Illness HPI narrative: 49 y/o male presenting by ambulance after he was denied admission to [facility] due to records showing he is a level 2 sex offender. He was admitted here on 05/31 - today for unsteady gait and confusion due to brain mass. He had extensive workup earlier this month at [facility] including biopsy on 05/19 revealed brain with foci of active demyelination and variable axonal injury, extensive macrophage/microglial reaction, lymphocytic inflammation, and focal perivascular granulocytic inflammation. He was started on Decadron 2 mg daily & Keppra. He was under the observation of EMS the entire time upon discharge. He arrives confused and states he was at a hospital in [place]. He states he did cocaine at his house earlier today. <SHARAN Red - Last Filed: 06/07/20 17:07> MD complaint: placement to SNF <SHARAN Red - Last Filed: 06/07/20 17:07> Onset (ago): minute(s) <SHARAN Red - Last Filed: 06/07/20 17:07> Related Data Home medications: Home Medications Medication Instructions Recorded Confirmed acetaminophen 650 mg PO Q8H PRN 05/31/20 06/07/20 atorvastatin 40 mg PO DAILY 05/31/20 06/07/20 cholecalciferol (vitamin D3) 25 mcg PO DAILY 05/31/20 06/07/20 ferrous sulfate 325 mg PO DAILY 05/31/20 06/07/20 fluticasone propionate 1 - 2 spray INTRANASAL DAILY PRN 05/31/20 06/07/20 hydroxyzine HCl 25 mg PO TID PRN 05/31/20 06/07/20 loratadine 10 mg PO DAILY 05/31/20 06/07/20 omeprazole 40 mg PO BID 05/31/20 06/07/20 amitriptyline 100 mg PO BEDTIME 06/07/20 06/07/20 lisinopril 10 mg PO DAILY 06/07/20 06/07/20 meclizine 25 mg PO BID PRN 06/07/20 06/07/20 nicotine (polacrilex) 2 mg BUCCAL Q2H PRN 06/07/20 06/07/20 ondansetron HCl [Zofran] 4 mg PO BID PRN 06/07/20 06/07/20 sertraline [Zoloft] 150 mg PO DAILY 06/07/20 06/07/20 topiramate 50 mg PO BID 06/07/20 06/07/20 Previous Rx's Medication Instructions Recorded allopurinol 300 mg PO DAILY #0 tab 06/07/20 <SHARAN Red - Last Filed: 06/07/20 17:07> Allergies/adverse reactions: Allergies Allergy/AdvReac Type Severity Reaction Status Date / Time No Known Allergies Allergy Verified 04/25/20 17:14 <SHARAN Red - Last Filed: 06/07/20 17:07> Review of Systems Review of Systems: Yes all other systems are reviewed and are negative <SHARAN Red - Last Filed: 06/07/20 17:07> [facility] Past Medical History Attestation statement: The following information was validated with the patient. <SHARAN Red - Last Filed: 06/07/20 17:07> Medical History: Medical History Abnormal brain CT Brain mass GERD (gastroesophageal reflux disease) HTN (hypertension) <SHARAN Red - Last Filed: 06/07/20 17:07> Social History Social History: Social History (Updated 05/31/20 @ 11:15 by SHARAN Cormier) Household Members: Family Housing: Apartment Alcohol intake: current Alcohol type: beer Smoking Status: Current every day smoker Tobacco Type: Cigarette Packs Per Day: 1 Cigarettes Per Day: 20.0 Years Smoked: 24 Smoked in Last 30 Days: Yes Second Hand Smoke Exposure: No Use of substances other than those prescribed or required for medical reasons: Yes Substance Use Type: Crack/Cocaine Advance Directives: No Advance Directives Information Provided: Yes service: No Current occupational status: unemployed <SHARAN Red - Last Filed: 06/07/20 17:07> Physical Exam Vital Signs: Vital Signs: Last Vital Signs Temp 98.4 F 06/13/20 20:04 Pulse 85 06/14/20 00:00 Resp 16 06/14/20 00:00 BP 99/65 06/14/20 00:00 Pulse Ox 97 06/14/20 00:00 Body Mass Index 26.5 Appearance: Alert. Oriented X2. No acute distress. Confused, slow to respond at times. Eyes: Pupils equal, round and reactive to light. ENT: Pharynx normal. Neck: Normal inspection. Neck supple. CVS: Normal heart rate and rhythm. Pulses normal. Respiratory: No respiratory distress. Breath sounds normal. Abdomen: Soft and nontender. +BS x4 Skin: Skin warm and dry. Normal skin color. Normal skin turgor. No rashes. Extremities: No lower extremity edema. Neuro: Oriented X 2. Can answer simple questions, forgetful. Gait not tested. <SHARAN Red - Last Filed: 06/07/20 17:07> Vital Signs: Last Vital Signs Temp 98.4 F 06/13/20 20:04 Pulse 85 06/14/20 00:00 Resp 06/14/20 00:00 BP 99/65 06/14/20 00:00 Pulse Ox 97 06/14/20 00:00 Body Mass Index 26.5 <Theresa Modi DO - Last Filed: 06/13/20 06:36> Vital Signs: Last Vital Signs Temp 98.4 F 06/13/20 20:04 Pulse 85 06/14/20 00:00 Resp 06/14/20 00:00 BP 99/65 06/14/20 00:00 Pulse Ox 97 06/14/20 00:00 Body Mass Index 26.5 <La Castrejon MD - Last Filed: 06/10/20 06:04> Vital Signs: Last Vital Signs Temp 98.4 F 06/13/20 20:04 Pulse 85 06/14/20 00:00 Resp 16 06/14/20 00:00 BP 99/65 06/14/20 00:00 Pulse Ox 97 06/14/20 00:00 Body Mass Index 26.5 <Barry Briceño MD - Last Filed: 06/14/20 07:11> Course Course Course Narrative: 49 y/o male with history of a brain mass causing confusion and unsteady gait brought back to the ER when rehab facility would now accept due to sex offender status. CM consulted for placement to SNF that will accept his status. <SHARAN Red - Last Filed: 06/07/20 17:07> still awaiting placement had an uneventful night. <Barry Briceño MD - Last Filed: 06/14/20 07:11> Reevaluation(s) Reevaluation #1: Patient reportedly had a COVID positive roommate while hospitalized - rapid COVID sent and found to be POSITIVE. CM informed. He will be moved to [facility] <SHARAN Red - Last Filed: 06/07/20 17:07> Notified that patient was found sitting on his buttocks at the end of his bed, unwitnessed, but concern for possible fall. Physical exam from head to toe was negative for any evidence of pain on palpation, deformities, abrasions, or ecchymoses. There is no evidence of acute injury or indication for CT/XR. Nursing will be obtaining a hospital bed and utilizing the bed alarm for further control of incidence. Of note, patient has been known to climb out of bed and sit at the end of it prior to this event. <La Castrejon MD - Last Filed: 06/10/20 06:04> Time: 06:00 <La Castrejon MD - Last Filed: 06/10/20 06:04> Medical Decision Making Lab Data Labs: Lab Results 06/07/20 Range/Units 15:21 COVID-19 (MALINDA) Positive A (Negative) COVID-19 Clin Com See Note <SHARAN Red - Last Filed: 06/07/20 17:07> Lab Results 01/27/21 Range/Units 15:21 COVID-19 (MALINDA) Positive A (Negative) COVID-19 Clin Com See Note <Theresa Modi DO - Last Filed: 06/13/20 06:36> Lab Results 06/07/20 Range/Units 15:21 COVID-19 (MALINDA) Positive A (Negative) COVID-19 Clin Com See Note <La Castrejon MD - Last Filed: 06/10/20 06:04> Lab Results 06/07/20 Range/Units 15:21 COVID-19 (MALINDA) Positive A (Negative) COVID-19 Clin Com See Note <Barry Briceño MD - Last Filed: 06/14/20 07:11> Discharge Plan Discharge Clinical Impression: COVID-19, Brain mass <SHARAN Red - Last Filed: 06/07/20 17:07> Prescriptions: No Action atorvastatin 40 mg Tablet 40 mg PO DAILY RF: 0 ferrous sulfate 325 mg (65 mg iron) Tablet 325 mg PO DAILY RF: 0 cholecalciferol (vitamin D3) 25 mcg (1,000 unit) Tablet 25 mcg PO DAILY RF: 0 omeprazole 40 mg Capsule,Delayed Release(Dr/Ec) 40 mg PO BID RF: 0 hydroxyzine HCl 25 mg Tablet 25 mg PO TID PRN (Reason: Itching) RF: 0 loratadine 10 mg Tablet 10 mg PO DAILY RF: 0 acetaminophen 325 mg Tablet 650 mg PO Q8H PRN (Reason: Pain) RF: 0 fluticasone propionate 50 mcg/actuation [place],Suspension 1 - 2 spray INTRANASAL DAILY PRN (Reason: Allergy Symptoms) RF: 0 allopurinol 100 mg Tablet 300 mg PO DAILY Qty: 0 RF: 0 nicotine (polacrilex) 2 mg Gum 2 mg BUCCAL Q2H PRN (Reason: Nicotine Cravings) RF: 0 ondansetron HCl [Zofran] 4 mg Tablet 4 mg PO BID PRN (Reason: Nausea) RF: 0 meclizine 25 mg Tablet 25 mg PO BID PRN (Reason: nausea/dizziness) RF: 0 lisinopril 10 mg Tablet 10 mg PO DAILY RF: 0 sertraline [Zoloft] 50 mg Tablet 150 mg PO DAILY RF: 0 amitriptyline 100 mg Tablet 100 mg PO BEDTIME RF: 0 topiramate 50 mg Tablet 50 mg PO BID RF: 0 <Awa Renschler, PA - Last Filed: 06/07/20 17:07>
--- NOTE | 2020-06-07 14:25 | MHC.CM.ED ---
Patient was discharged from [facility] today to [facility]. Patient [facility] from [facility] after they were not able to accept him. Referral broadcasted to all facilities in the [facility] that are contracted with [employer]. 219 referrals were made. Continue to monitor for d/c needs.
--- NOTE | 2020-06-07 15:19 | MHC.CM.ED ---
Spoke with Freya at [facility] via telephone at [phone]. Demographic information provided via telephone. Clinical info faxed to [phone]. Freya will forward this info to the returned case inspector. assistant food service manager should reach out to [facility] case management tomorrow, . Continue to monitor for d/c needs.
--- NOTE | 2020-06-07 15:24 | PC.NURSE ---
COVID SWAB OBTAINED
[2020-06-07 15:37] VITALS: BP 109/76; PULSE 74; RESP 18; TEMP 36.6; O2SAT 94
--- NOTE | 2020-06-07 15:38 | PC.NURSE ---
patient a&ox3, calm/compliant, awaiting placement, vss, will continue to monitor.
[2020-06-07 15:46] LABS: COVID-19 Test Positive (Negative); IDNOW Serial# 9DD0AD1C
--- NOTE | 2020-06-07 16:12 | PC.NURSE ---
patient transferred to EM due to the patient being covid positive, case management aware.
--- NOTE | 2020-06-07 17:39 | PC.NURSE ---
PT CONFUSED HE HAS VOIDED AND HAD A BM ON THE FLOOR HE IS ATTEMPTING TO LOG ON TO THE COMPUTER IN HIS ROOM
[2020-06-07 18:00] VITALS: BP 111/74; PULSE 64; RESP 16; TEMP 36.6; O2SAT 99
--- NOTE | 2020-06-07 21:27 | PC.NURSE ---
PATIENT CONTINUE TO URINATE AND DEFICATED OF FLOOR .
[2020-06-07 21:49] VITALS: BP 115/72; PULSE 74; RESP 16; TEMP 36.9; O2SAT 99
[2020-06-07] MEDS: Omeprazole 40 MG CAPSULE.DR PO (21:50)
[2020-06-07] MEDS: Topiramate 25 MG TABLET 50 MG PO (21:59)
--- NOTE | 2020-06-07 22:01 | PC.NURSE ---
pharmacy called for amitriptyline 100mg not available in pyxis
[2020-06-07] MEDS: Amitriptyline HCl 50 MG TABLET 100 MG PO (22:07)
--- NOTE | 2020-06-07 22:58 | MHC.CM.ED ---
Per nursing, pt remains confused and is urinating and defecating on the floor. Covid positive. Pending placement. CM following for d/c needs
[2020-06-08] VITALS (9 sets, daily range): BP systolic 83–121; BP diastolic 51–73; PULSE 67–86; RESP 14–20; TEMP 36.7–37.6; O2SAT 94–99
--- NOTE | 2020-06-08 05:11 | PC.NURSE ---
pt bp 90/53 manual. pt encouraged to drink water given at bedside. pt has had no beverages in his room through the night, pt was incon a large amount of urine. pt changed bed linen changed.
--- NOTE | 2020-06-08 05:15 | PC.NURSE ---
provider made aware of soft bp and no po intack thur the night plan is to treat with po fluids and monitor bp closly
[2020-06-08] MEDS: 0.9 % Sodium Chloride 1,000 ML 999 ML IVCONT (09:16)
[2020-06-08] MEDS: Sertraline HCL 50 MG TABLET 150 MG PO (11:37)
[2020-06-08] MEDS: Cholecalciferol (Vitamin D3) 25 MCG TABLET PO (11:38)
[2020-06-08] MEDS: allopurinoL 100 MG TABLET 300 MG PO (11:38)
[2020-06-08] MEDS: Loratadine 10 MG TABLET PO (11:38)
[2020-06-08] MEDS: Topiramate 25 MG TABLET 50 MG PO ×2 (11:38→22:06)
[2020-06-08] MEDS: Omeprazole 40 MG CAPSULE.DR PO ×2 (11:38→22:05)
[2020-06-08] MEDS: Atorvastatin Calcium 40 MG TABLET PO (11:38)
[2020-06-08] MEDS: Ferrous Sulfate 324 MG TABLET.DR PO (11:39)
--- NOTE | 2020-06-08 11:42 | PC.NURSE ---
patient sleeping, woke to verbal stimulus, pt medicated per order, cardiac exercise physiologist nsr 80s, will continue to monitor
--- NOTE | 2020-06-08 12:23 | MHC.CM.ED ---
Patient remains in ER. Received message from Freya at [facility] that they can accept positive covid patients. Freya has sent clinicals to the rn case manager hospice. Their rn case manager hospice will reach out to our case management. Continue to monitor for d/c needs.
--- NOTE | 2020-06-08 16:04 | PC.NURSE ---
patient wakes to verbal stimulus, pt was offered lunch but refused, bp has been soft, provider is aware, bleacher lard has been nsr 60s, pt offers no c/o pain or discomfort, will continue to monitor.
--- NOTE | 2020-06-08 17:03 | PC.NURSE ---
patient incontinent of large amount of urine- complete bed change performed, pt currently eating his dinner
--- NOTE | 2020-06-08 20:21 | PC.NURSE ---
patient a&o, patient continues to get oob and urinate/defecate on the floor despite being re-educated on the use of the call perez as well as education on use of the urinal at bedside, vitals continue to be stable, patient is nsr 60s-70s on monitor, will continue to monitor.
--- NOTE | 2020-06-08 21:02 | PC.NURSE ---
patient currently sleeping, air sampling and monitoring nsr 70s, will continue to monitor.
--- NOTE | 2020-06-08 21:33 | PC.NURSE ---
called pharmacy for missing meds
[2020-06-08] MEDS: Amitriptyline HCl 50 MG TABLET 100 MG PO (22:06)
--- NOTE | 2020-06-08 22:08 | PC.NURSE ---
patient sleeping, woke to verbal stimulus, medicated per order, vss, registered nurse cardiac nsr 80s, will continue to monitor.
[2020-06-09 02:20] VITALS: BP 121/58; PULSE 68; RESP 14; TEMP 36.8; O2SAT 98
--- NOTE | 2020-06-09 09:20 | MHC.CM.ED ---
Patient remains in ER. Spoke with Chuckie at [facility]. She needs positive Covid result and a new physical therapy note. Covid faxed to [phone]. Dr Modi will order a physical therapy eval. Continue to monitor for d/c needs.
[2020-06-09 10:27] VITALS: BP 103/70; PULSE 63; RESP 18; O2SAT 99
[2020-06-09] MEDS: Topiramate 25 MG TABLET 50 MG PO ×2 (10:31→20:43)
[2020-06-09] MEDS: Atorvastatin Calcium 40 MG TABLET PO (10:31)
[2020-06-09] MEDS: Ferrous Sulfate 324 MG TABLET.DR PO (10:31)
[2020-06-09] MEDS: allopurinoL 100 MG TABLET 300 MG PO (10:31)
[2020-06-09] MEDS: Loratadine 10 MG TABLET PO (10:31)
[2020-06-09] MEDS: Cholecalciferol (Vitamin D3) 25 MCG TABLET PO (10:32)
[2020-06-09] MEDS: Sertraline HCL 50 MG TABLET 150 MG PO (10:32)
[2020-06-09] MEDS: Omeprazole 40 MG CAPSULE.DR PO ×2 (10:32→20:43)
[2020-06-09 10:33] VITALS: BP 103/70; PULSE 63; O2SAT 99
--- NOTE | 2020-06-09 10:35 | MHC.MBSS ---
Pt offers no complaints, resting quietly. Medicated with morning meds, and seen by PT. Awaiting snf placement.
--- NOTE | 2020-06-09 12:36 | MHC.CM.ED ---
Physical therapy eval faxed to [facility] as reqeusted. Continue to monitor for discharge needs.
--- NOTE | 2020-06-09 12:38 | MHC.CM.PN ---
Attempted to meet with patient in regards to discharge planning. Nursing care currently being provided to patient. Will attempt to meet again. Continue to monitor for d/c needs.
[2020-06-09 14:16] VITALS: BP 90/63; PULSE 81; RESP 11; O2SAT 98
[2020-06-09 17:18] VITALS: BP 105/71; PULSE 66; RESP 20; O2SAT 97
--- NOTE | 2020-06-09 20:07 | PC.NURSE ---
Pt found to be urinating on floor at bedside. Pt assisted back to bed, changed linen/ gown/socks, floor cleaned. Pt requested and given sandwich and gingerale.
[2020-06-09] MEDS: Amitriptyline HCl 50 MG TABLET 100 MG PO (20:43)
[2020-06-09 20:44] VITALS: BP 99/61; PULSE 88; RESP 16; TEMP 37.2; O2SAT 98
--- NOTE | 2020-06-09 22:10 | MHC.CM.ED ---
Pt remains confused but cooperative per nurses. Continues to urinate on the floor and himself. Attempted to meet with pt. Pt was sleeping. Did not wake. Placement pending. [facility] interested. CM at follow for d/c needs
[2020-06-10] VITALS (7 sets, daily range): BP systolic 91–145; BP diastolic 50–86; PULSE 58–75; RESP 16–18; TEMP 36.5–36.8; O2SAT 96–99
--- NOTE | 2020-06-10 | PC.NURSE ---
Pt able to cue rn for bathroom needs. patient still urine incontinent. patient curtain left open in view of desk. call perez in reach. plan to obtain hospital bed when floor acuity dies down.
--- NOTE | 2020-06-10 06:29 | PC.NURSE ---
patient rounded on q 1hr with open curtain. Patient resting through out night. patient denies needs. call perez in reach. at approximately 0550, this writer technical publications was in another room. Patient called out I fell . patient found sitting on buttocks; urine incontinent. Patient assisted to standing and back to bed. Clothing and socks changed. Patient orientated to baseline of a and o x 1. No injuries (DCAP-BTLS, bleeding, or pain) noted. Neuros intact.MD and rn charge to bedside. patient found to be hemodynamically stable.Neuros intact. Per md no need for radiological studies or lab work. Nursing supervisor housecleaner contacted. Pt moved to alarmed hospital bed. call perez in reach. patient denies injuries to this writer technical publications or any needs such as toileting, pain management or oral intake. pt lying on left side. sleeping.
--- NOTE | 2020-06-10 08:15 | PC.NURSE ---
pt eat breakfast at this time
[2020-06-10] MEDS: Cholecalciferol (Vitamin D3) 25 MCG TABLET PO (09:09)
[2020-06-10] MEDS: Ferrous Sulfate 324 MG TABLET.DR PO (09:09)
[2020-06-10] MEDS: Topiramate 25 MG TABLET 50 MG PO ×2 (09:09→21:27)
[2020-06-10] MEDS: Atorvastatin Calcium 40 MG TABLET PO (09:09)
[2020-06-10] MEDS: Omeprazole 40 MG CAPSULE.DR PO ×2 (09:09→21:27)
[2020-06-10] MEDS: Loratadine 10 MG TABLET PO (09:09)
[2020-06-10] MEDS: Sertraline HCL 50 MG TABLET 150 MG PO (09:10)
[2020-06-10] MEDS: allopurinoL 100 MG TABLET 300 MG PO (09:40)
--- NOTE | 2020-06-10 13:21 | PC.NURSE ---
pt calm and cooperative pt provided with lunch kenny, vs stable
--- NOTE | 2020-06-10 15:20 | PC.NURSE ---
pt ambulated to the bathroom with steady gait, voided small amount of urine,
[2020-06-10] MEDS: Amitriptyline HCl 50 MG TABLET 100 MG PO (21:26)
[2020-06-10] MEDS: hydrOXYzine HCL 25 MG TABLET PO (22:36)
[2020-06-11 06:25] VITALS: BP 93/61; PULSE 60; RESP 14; O2SAT 98
--- NOTE | 2020-06-11 06:35 | PC.NURSE ---
PT SLEPT MOST OF THE OVERNIGHT. PT WAS AMBULATORY TO BATHROOM 2-3 TIMES. PT HYDRATING WELL, JUICE WATER AND JELLO. PT HAS BEEN COOPERATIVE. BED ALARM ON FOR SAFETY, PT IS A FALL RISK.
[2020-06-11 07:37] VITALS: BP 92/57; PULSE 63; RESP 16; TEMP 36.8; O2SAT 96
--- NOTE | 2020-06-11 08:21 | PC.NURSE ---
Report taken from Laura Rn this morning. pt sleeping upon assessment. vitals updated. pt got up from bed by himself to use urinal, not steady on his feet. redirected pt back to bed. pt again got up from bed and stated he needed to use bathroom. rn walked with pt, unsteady gait and walked with pt back to bed. pt resting at this time. will call to case management today for update.
[2020-06-11] MEDS: Loratadine 10 MG TABLET PO (08:32)
[2020-06-11] MEDS: Omeprazole 40 MG CAPSULE.DR PO ×2 (08:32→20:46)
[2020-06-11] MEDS: Ferrous Sulfate 324 MG TABLET.DR PO (08:32)
[2020-06-11] MEDS: Atorvastatin Calcium 40 MG TABLET PO (08:32)
[2020-06-11] MEDS: Cholecalciferol (Vitamin D3) 25 MCG TABLET PO (08:32)
[2020-06-11] MEDS: Topiramate 25 MG TABLET 50 MG PO ×2 (08:32→20:46)
[2020-06-11] MEDS: allopurinoL 100 MG TABLET 300 MG PO (08:32)
[2020-06-11] MEDS: Sertraline HCL 50 MG TABLET 150 MG PO (08:32)
[2020-06-11 08:33] VITALS: BP 137/84; PULSE 62
--- NOTE | 2020-06-11 10:17 | MHC.CM.ED ---
Review of RN notes: pt has been cooperative and pleasant: ambulating with impaired balance and unsteady gait. SNF search updated and extended to include 40+ additional COVID + / Medicaid accepting facilities: (of note, pt has a hx of Level 2 sex offender status which will likely be the barrier for placement denial) Msg left with admissions dept at [facility] at [phone] inquiring about admission status and offering new clinical updates. Admissions office is open M-F 8am - 6pm. CM will follow up on 06/12.
[2020-06-11 15:54] VITALS: BP 120/83; PULSE 61; RESP 18; TEMP 36.8; O2SAT 98
[2020-06-11 19:45] VITALS: BP 112/85; PULSE 83; RESP 16; TEMP 36.7; O2SAT 99
--- NOTE | 2020-06-11 19:48 | PC.NURSE ---
PATEINT AMBULATED BACK FROM BATHROOM. UNSTEADY ON FEET. GRABBED ONTO WALL. REPORTS FEELING DIZZY. ASSISTED BACK TO BED. VITALS TAKEN. BED ALARM ON.
[2020-06-11] MEDS: Amitriptyline HCl 50 MG TABLET 100 MG PO (20:46)
--- NOTE | 2020-06-11 21:08 | PC.NURSE ---
PATIENT CONTINUES TO GET OUT OF BED DESPITE REQUESTING HIM NOT TO DO SO. BED ALARM ON. PATIENT HAS RED SOCKS. USES BED AND WALL FOR SUPPORT WHEN OUT OF BED.
--- NOTE | 2020-06-11 23:56 | PC.NURSE ---
CONTINUES TO GET OUT OF BED WITHOUT USING CALL JAMISON. REDIRECTED BACK TO BED. ARGUED WITH THIS NURSE FOR 5 MINUTE THAT HE HAD A PACK OF CHOCOLATE COOKIES HE BOUGHT AT THE STORE TODAY. PATIENT AGREED TO HAVE [employer] INSTEAD. IN BED WITH BED ALARM ON.
--- NOTE | 2020-06-12 01:57 | PC.NURSE ---
SLEEPING IN BED A THIS TIME. BREATHING EVEN, NON-LABORED. NO APPARENT DISTRESS. BED ALARM ON.
[2020-06-12 08:30] VITALS: BP 111/73; PULSE 65; RESP 16; TEMP 36.7; O2SAT 97
--- NOTE | 2020-06-12 08:35 | MHC.CM.ED ---
Patient remains in ER. Left voicemail for bruna at [facility]. Continue to monitor for d/c needs.
--- NOTE | 2020-06-12 10:13 | MHC.CM.ED ---
Per Flower at [facility], they do not have a neurologist on site and will not be able to accept patient. Clinical information faxed to [facility] at [phone]. Kellie Saravia aware and will file [facility] escalation. Continue to monitor for d/c needs.
[2020-06-12] MEDS: Omeprazole 40 MG CAPSULE.DR PO ×2 (11:27→21:12)
[2020-06-12] MEDS: Atorvastatin Calcium 40 MG TABLET PO (11:27)
[2020-06-12] MEDS: Sertraline HCL 50 MG TABLET 150 MG PO (11:27)
[2020-06-12] MEDS: Topiramate 25 MG TABLET 50 MG PO ×2 (11:28→21:12)
[2020-06-12] MEDS: Cholecalciferol (Vitamin D3) 25 MCG TABLET PO (11:28)
[2020-06-12] MEDS: Loratadine 10 MG TABLET PO (11:28)
[2020-06-12] MEDS: Ferrous Sulfate 324 MG TABLET.DR PO (11:28)
[2020-06-12] MEDS: allopurinoL 100 MG TABLET 300 MG PO (11:28)
--- NOTE | 2020-06-12 13:56 | PC.NURSE ---
sleeping. sitter states that patient should be left sleeping. This rn will assess when awake. Skin pwd. Good chest rise.
--- NOTE | 2020-06-12 14:12 | MHC.CM.ED ---
Called [facility] at [phone]. The admission screener is out today but will review clinical tomorrow. Continue to monitor for d/c needs.
--- NOTE | 2020-06-12 18:12 | PC.NURSE ---
woke for dinner, urinated on floor
--- NOTE | 2020-06-12 20:17 | MHC.CM.ED ---
RN spoke with CM requesting PT while pt on bed hold. Spoke with MD. PT ordered daily. CM following for d/c needs
--- NOTE | 2020-06-12 20:18 | PC.NURSE ---
resting in bed. has needed frequent redirection to stay in his room. does usually keep a mask on. unlabored resp. slightly unsteady on feet but seems able to manage. bed alarm is set. pt last urinated in toilet across from his room. pt is confusedas to place and time. oriented to person.
[2020-06-12] MEDS: Amitriptyline HCl 50 MG TABLET 100 MG PO (21:12)
[2020-06-12 21:13] VITALS: BP 95/80; PULSE 76; RESP 16; TEMP 36.8; O2SAT 97
--- NOTE | 2020-06-12 21:44 | PC.NURSE ---
20g R AC removed for pt comfort.
--- NOTE | 2020-06-12 22:15 | PC.NURSE ---
Pt up and walking - slightly unsteady gait, pt walked with this rn for a short amount of time and re directed back into bed.
[2020-06-13 01:05] VITALS: RESP 16
[2020-06-13] MEDS: Atorvastatin Calcium 40 MG TABLET PO (09:16)
[2020-06-13] MEDS: Topiramate 25 MG TABLET 50 MG PO ×2 (09:16→20:47)
[2020-06-13] MEDS: Sertraline HCL 50 MG TABLET 150 MG PO (09:16)
[2020-06-13] MEDS: Loratadine 10 MG TABLET PO (09:16)
[2020-06-13] MEDS: Ferrous Sulfate 324 MG TABLET.DR PO (09:16)
[2020-06-13] MEDS: Cholecalciferol (Vitamin D3) 25 MCG TABLET PO (09:16)
[2020-06-13] MEDS: Omeprazole 40 MG CAPSULE.DR PO ×2 (09:16→20:47)
[2020-06-13] MEDS: allopurinoL 100 MG TABLET 300 MG PO (09:16)
--- NOTE | 2020-06-13 09:17 | MHC.CM.ED ---
Patient remains in ER. Clinical info faxed to [facility] on 06/12. Attempted to call La in admissions via telephone at [phone] Ext [phone]. Left voicemail for return call. Continue to monitor for d/c needs.
--- NOTE | 2020-06-13 11:55 | MHC.CM.ED ---
[facility] has a waiting list. So they will not have a bed for patient. Kellie Saravia, director of case management aware.
[2020-06-13 14:25] VITALS: BP 103/59; PULSE 62; RESP 12; O2SAT 98
--- NOTE | 2020-06-13 14:26 | PC.NURSE ---
Pt in nad, sleeping at this time. Continues to await case management snf placement.
[2020-06-13 20:04] VITALS: BP 100/65; PULSE 78; RESP 18; TEMP 36.9; O2SAT 97
[2020-06-13] MEDS: Amitriptyline HCl 50 MG TABLET 100 MG PO (20:47)
[2020-06-14] VITALS: BP 99/65; PULSE 85; RESP 16; O2SAT 97
--- NOTE | 2020-06-14 08:55 | MHC.CM.ED ---
Patient remains in ER. 220 [facility]ci facility referrals made. No bed offers. 7 Acute rehab referrals made. No bed offers. 8 LTAC referrals made this morning. Kellie Saravia has already escalated patient's placement issue with [facility]. Continue to monitor for d/c needs.
[2020-06-14 09:26] VITALS: BP 116/80; PULSE 95; RESP 17; O2SAT 97
[2020-06-14 10:05] VITALS: TEMP 37
[2020-06-14] MEDS: Loratadine 10 MG TABLET PO (10:05)
[2020-06-14] MEDS: Cholecalciferol (Vitamin D3) 25 MCG TABLET PO (10:05)
[2020-06-14] MEDS: Omeprazole 40 MG CAPSULE.DR PO ×2 (10:05→20:07)
[2020-06-14] MEDS: allopurinoL 100 MG TABLET 300 MG PO (10:06)
[2020-06-14] MEDS: Topiramate 25 MG TABLET 50 MG PO ×2 (10:07→20:07)
[2020-06-14] MEDS: Atorvastatin Calcium 40 MG TABLET PO (10:07)
[2020-06-14] MEDS: Sertraline HCL 50 MG TABLET 150 MG PO (10:07)
[2020-06-14] MEDS: Ferrous Sulfate 324 MG TABLET.DR PO (10:07)
--- NOTE | 2020-06-14 10:11 | PC.NURSE ---
At 0925 pt was found sitting on the floor near his bed. I t is unclear if the patient had a fall or sat on the ground. Due to confusion and hallucinations at times he is unable to provide a reliable history. He had no apparent injuries and denies pain. VSS at that time and and monorail charger operator aware. Bed alarm on and sitter now at bedside.
[2020-06-14 12:20] VITALS: BP 91/58; PULSE 95; RESP 12; TEMP 37.1
[2020-06-14 19:21] VITALS: BP 104/73; PULSE 85; RESP 18; O2SAT 98
[2020-06-14] MEDS: Amitriptyline HCl 50 MG TABLET 100 MG PO (20:07)
[2020-06-15] VITALS (8 sets, daily range): BP systolic 89–140; BP diastolic 53–93; PULSE 68–92; RESP 16–18; TEMP 36.5–37.1; O2SAT 92–98
[2020-06-15] MEDS: Loratadine 10 MG TABLET PO (08:40)
[2020-06-15] MEDS: Cholecalciferol (Vitamin D3) 25 MCG TABLET PO (08:40)
[2020-06-15] MEDS: Sertraline HCL 50 MG TABLET 150 MG PO (08:40)
[2020-06-15] MEDS: Ferrous Sulfate 324 MG TABLET.DR PO (08:40)
[2020-06-15] MEDS: allopurinoL 100 MG TABLET 300 MG PO (08:40)
[2020-06-15] MEDS: Atorvastatin Calcium 40 MG TABLET PO (08:41)
[2020-06-15] MEDS: Omeprazole 40 MG CAPSULE.DR PO ×2 (08:41→20:31)
[2020-06-15] MEDS: Topiramate 25 MG TABLET 50 MG PO ×2 (09:15→20:31)
--- NOTE | 2020-06-15 09:28 | MHC.CM.ED ---
Patient remains in ER. No intermediate, acute rehab or shelter acute care beds have been offered. Kellie Saravia, director of case management is aware and has escalated his placement with [facility]. Continue to monitor for discharge needs.
--- NOTE | 2020-06-15 15:00 | MHC.CM.PN ---
Placed call to pt's HCP (Deirdre-sister) and provided update regarding placement. She had questions regarding medical treatment plan. This sports writer sent message to SHARAN Billings who will place call and update HCP.
--- NOTE | 2020-06-15 19:31 | PC.NURSE ---
Report taken from karely Valentin RN resuming care. Pt found laying in bed watching TV in NAD. Sitter at bedside as pt has been found sitting upright on the floor multiple times throughout the last week. Continue to monitor.
[2020-06-15] MEDS: Amitriptyline HCl 50 MG TABLET 100 MG PO (20:30)
[2020-06-15] MEDS: hydrOXYzine HCL 25 MG TABLET PO (20:31)
--- NOTE | 2020-06-15 20:43 | PC.NURSE ---
Pt medicated with PM medications. Pt anxious, pulling at all cords and wires within room. Pt medicated with PRN Hydroxyzine. Pt assisted back into bed into POC. Lights dim for comfort. VSS. Sitter at bedside. Continue to monitor.
[2020-06-16] MEDS: LORazepam 1 MG TABLET 2 MG PO (01:45)
--- NOTE | 2020-06-16 01:48 | PC.NURSE ---
Pt wakes in bed, found standing in room, puling at all computers cords, trying to pull labels out of printer. This RN and sitter at bedside explaining to pt that he cannot play with the computer cords. Pt states I just have to finish what I was doing! Pt medicated with PO Ativan per JUL. Pt provided with a sandwich and gingerale. Continue to monitor.
[2020-06-16 01:51] VITALS: RESP 20
--- NOTE | 2020-06-16 02:37 | PC.NURSE ---
Repeat Covid swab obtained and sent.
--- NOTE | 2020-06-16 03:00 | PC.NURSE ---
Addendum entered by Carolina Morris 06/16/20 03:06: manager organizational aware. Original Note: As this RN was walking by pts room @ 0250. Pt found on floor, sitter assisting pt upright and into bed. Per sitter at bedside, pt was sitting on the edge of the bed pulling up his hospital pants when he slowly slipped downward, sitting on the floor. Per sitter, pt did not hurt himself or hit his head. Pt was assisted up and into bed into POC, lights dim, provided with warm blankets for comfort. Bed alarm on.
[2020-06-16 03:22] LABS: Influenza A PCR NEGATIVE (Negative); Influenza B PCR NEGATIVE (Negative); Resp Syncy Virus RNA Qual PCR NEGATIVE (Negative)
[2020-06-16 03:27] LABS: SARS COV2 PCR INHOUSE POSITIVE (Negative)
--- NOTE | 2020-06-16 04:01 | PC.NURSE ---
Pt medicated with PO Ativan for restlessness. No relief noted with Ativan. Pt having a difficult time remaining in room, constantly in and out of bed. Pt requesting to use the bathroom repeatedly. Pt unable to follow commands when advised by this RN and sitter to remain in room and/or in bed with mask on. Bed alarm remains activated at this time.
[2020-06-16 06:00] VITALS: BP 136/67; PULSE 78; RESP 19; O2SAT 96
--- NOTE | 2020-06-16 06:22 | PC.NURSE ---
Pt ambulating to the bathroom with an unsteady gait, assisted back into bed into POC. Pt resting in bed at this time, sitter at bedside. Continue to monitor.
--- NOTE | 2020-06-16 10:54 | PC.NURSE ---
pt has been sleeping, he has not been woken for AM meds.
--- NOTE | 2020-06-16 13:03 | MHC.CM.ED ---
Received telephone call from Ivana at [address] [place] [address]. It is a detention facility in [place], [place]. Ivana can be reached via telephone at [phone]. Ivana received the referral from [facility]. Clinical information faxed to [phone]. Kellie lindsey. Continue to monitor for d/c neds.
--- NOTE | 2020-06-16 14:10 | PC.NURSE ---
pt has been sleeping. Meds and VS deferred until pt awake.
[2020-06-16] MEDS: Omeprazole 40 MG CAPSULE.DR PO (22:28)
[2020-06-16] MEDS: Topiramate 25 MG TABLET 50 MG PO (22:28)
[2020-06-16] MEDS: Amitriptyline HCl 50 MG TABLET 100 MG PO (22:29)
[2020-06-17] VITALS: BP 108/65; PULSE 93; RESP 16; TEMP 36.8; O2SAT 96
[2020-06-17 05:00] VITALS: BP 110/64; PULSE 91; RESP 16; O2SAT 96
--- NOTE | 2020-06-17 07:09 | PC.NURSE ---
report taken from michael harmon pt here for case mgmt snf placement, bed search continuing through case mgmt. pt appears to be sleeping in hospital bed at this time, rr even/unlabored. bed alarm set, 1:1 sitter maintained for safety. vee.
--- NOTE | 2020-06-17 11:08 | PC.NURSE ---
allowing pt to continue sleeping, rr even/unlabored. 1:1 sitter maintained for safety.
[2020-06-17] MEDS: allopurinoL 100 MG TABLET 300 MG PO (12:14)
[2020-06-17] MEDS: Sertraline HCL 50 MG TABLET 150 MG PO (12:15)
[2020-06-17] MEDS: Omeprazole 40 MG CAPSULE.DR PO ×2 (12:15→22:58)
[2020-06-17] MEDS: Topiramate 25 MG TABLET 50 MG PO ×2 (12:15→22:58)
[2020-06-17] MEDS: Atorvastatin Calcium 40 MG TABLET PO (12:15)
[2020-06-17] MEDS: Loratadine 10 MG TABLET PO (12:16)
[2020-06-17] MEDS: Ferrous Sulfate 324 MG TABLET.DR PO (12:16)
[2020-06-17] MEDS: Cholecalciferol (Vitamin D3) 25 MCG TABLET PO (12:16)
--- NOTE | 2020-06-17 12:19 | PC.NURSE ---
pt now awake, eating breakfast. took all of morning medications. wctm.
[2020-06-17 12:20] VITALS: BP 114/77; PULSE 83; RESP 16; TEMP 37.1; O2SAT 98
[2020-06-17 16:18] VITALS: BP 122/81; PULSE 74; RESP 18; TEMP 36.8; O2SAT 97
--- NOTE | 2020-06-17 19:29 | PC.NURSE ---
PATIENT AMBULATES WITH STEADY GAIT AT THIS TIME WITHIN ROOM. REPORT RECEIVED FROM PREVIOUS RN (JOON Andersen. SITTER AT BEDSIDE. PT ABLE TO MAKE NEEDS KNOWN AT THIS TIME, WILL CONTINUE TO MONITOR. PT/CASE MANAGEMENT, AWAITING NEW PLACEMENT STATED IN RN TO RN REPORT.
--- NOTE | 2020-06-17 22:39 | PC.NURSE ---
PATIENT IS CALM/COOPERATIVE AT THIS TIME. SITTER REMAINS AT BEDSIDE. PT ABLE TO MAKE NEEDS KNOWN, PREVIOUSLY GIVEN VANILLA ICE CREAM REQUESTED. AMBULATES WITH STEADY GAIT IN ROOM. WATCHING TV AT THIS TIME. WILL CONTINUE TO MONITOR.
[2020-06-17] MEDS: Amitriptyline HCl 50 MG TABLET 100 MG PO (22:58)
--- NOTE | 2020-06-18 00:45 | PC.NURSE ---
REPORT TAKEN FROM CASSIDY VIVAR, FIRST CONTACT WITH PT. RESTING IN BED EYES CLOSED, SKIN PWD RESPIRATIONS EVEN UNLABORED. CONTINUED CM BEDSERACH. WILL CONTINUE TO MONITOR.
--- NOTE | 2020-06-18 04:52 | PC.NURSE ---
PT SLEEPING, APPEARS COMFORTABLE NO DISTRESS NOTED. CM BEDSEARCH CONTINUES.
[2020-06-18] MEDS: Topiramate 25 MG TABLET 50 MG PO ×2 (08:32→23:10)
[2020-06-18] MEDS: Cholecalciferol (Vitamin D3) 25 MCG TABLET PO (08:32)
[2020-06-18] MEDS: Loratadine 10 MG TABLET PO (08:33)
[2020-06-18] MEDS: Atorvastatin Calcium 40 MG TABLET PO (08:33)
[2020-06-18] MEDS: Omeprazole 40 MG CAPSULE.DR PO ×2 (08:33→23:10)
[2020-06-18] MEDS: allopurinoL 100 MG TABLET 300 MG PO (08:33)
[2020-06-18] MEDS: Sertraline HCL 50 MG TABLET 150 MG PO (08:33)
[2020-06-18] MEDS: Ferrous Sulfate 324 MG TABLET.DR PO (08:33)
--- NOTE | 2020-06-18 14:08 | PC.NURSE ---
up out of bed to uriniate. has been incontient of urine x 3 according to sitter/pct. pt upright eating lunch. confused but behaviour controlled.
--- NOTE | 2020-06-18 16:14 | PC.NURSE ---
resting in bed. sitter remains outside of door. nad.
[2020-06-18 16:39] VITALS: BP 140/88; PULSE 69; RESP 18; TEMP 36.6; O2SAT 99
--- NOTE | 2020-06-18 16:40 | PC.NURSE ---
sleeping soundly. opens eyes for vs but back to sleep. still awaits placement
[2020-06-18 22:32] VITALS: BP 148/90; PULSE 72; RESP 20; TEMP 36.4; O2SAT 97
[2020-06-18] MEDS: Amitriptyline HCl 50 MG TABLET 100 MG PO (23:09)
--- NOTE | 2020-06-18 23:11 | PC.NURSE ---
awake, alert, skin pwd. oriented to person only. redirectable.
--- NOTE | 2020-06-19 06:08 | PC.NURSE ---
pt resting quietly in bed at thsi time, nad. Awaiting case management placement.
[2020-06-19 08:43] LABS: COVID-19 Test Positive (Negative); IDNOW Serial# 9DD0AD1C
[2020-06-19 09:09] VITALS: BP 114/84; PULSE 68; RESP 18; O2SAT 96
[2020-06-19] MEDS: Topiramate 25 MG TABLET 50 MG PO ×2 (09:10→23:28)
[2020-06-19] MEDS: Loratadine 10 MG TABLET PO (09:10)
[2020-06-19] MEDS: Cholecalciferol (Vitamin D3) 25 MCG TABLET PO (09:10)
[2020-06-19] MEDS: Omeprazole 40 MG CAPSULE.DR PO ×2 (09:10→23:29)
[2020-06-19] MEDS: Sertraline HCL 50 MG TABLET 150 MG PO (09:10)
--- NOTE | 2020-06-19 09:10 | PC.NURSE ---
PT RESTING IN THE STRETCHER, PT INCONTINENT OF URINE, CHANGED OVER INTO CLEAN HOSPITAL ATTIRE, AND BEDDING CHANGED OVER. PT DENIES PAIN, MEDICATED WITH HIS MORNING MEDS AND GIVEN HIS BREAKFAST.
[2020-06-19] MEDS: Ferrous Sulfate 324 MG TABLET.DR PO (09:11)
[2020-06-19] MEDS: allopurinoL 100 MG TABLET 300 MG PO (09:11)
[2020-06-19] MEDS: Atorvastatin Calcium 40 MG TABLET PO (09:11)
[2020-06-19 12:00] VITALS: BP 130/77; PULSE 78; RESP 18; O2SAT 97
--- NOTE | 2020-06-19 12:18 | MHC.CM.PN ---
Patient remains in ER. SPoke with Ivana of [facility]. Patient would need to be sitter free to 7-10 days in order for their facility to accept. Also, none of their rooms are private. Patient will not be accepted if he is exhibiting any behaviors, including urinating and deficating on the floor. Clinical updates faxed as promsied. T/W will call [facility] tomorrow to discuss clinical information that was sent today. Kellie Saravia aware. Continue to monitor for d/c needs.
--- NOTE | 2020-06-19 13:59 | PC.NURSE ---
PT IS CURRENTLY EATING LUNCH, IN NO APPARENT DISTRESS AT THIS TIME
--- NOTE | 2020-06-19 14:59 | PC.NURSE ---
PT KEEPS WANDERING OUT OF HIS ROOM, CONFUSED AT TIMES THINKS THAT SOMEONE STOLE HIS SHOES AND WAS TRYING TO FIND THEM, BUT RE-DIRECTABLE
--- NOTE | 2020-06-19 20:26 | PC.NURSE ---
PATIENT WANTING TO GO HOME AND CLOTHES. EXPLAINED THIS ISN'T POSSIBLE. GIVEN NEW KEN AND WARM BLANKET. CONTENT WITH THIS OPTION AT THIS TIME.
[2020-06-19 22:14] VITALS: BP 147/87; PULSE 77; RESP 18; TEMP 36.8; O2SAT 99
--- NOTE | 2020-06-19 22:59 | MHC.CM.ED ---
CM attempted to meet with patient, but he was sleeping. According to nurses notes, he has been confused at times, but re-directable. No sitter. Continuing to wait on placement. [facility] involved. CM continuing to follow for d/c needs.
[2020-06-19 23:18] VITALS: RESP 18
[2020-06-19] MEDS: Amitriptyline HCl 50 MG TABLET 100 MG PO (23:28)
--- NOTE | 2020-06-20 00:06 | PC.NURSE ---
PATIENT PEED ON THE FLOOR, STRIPPED CLOTHES AND WALKING AROUND ROOM NAKED. GIVEN NEW KEN, PANTS AND SOCKS. OFFERED TEA TO HELP RELAX HIM TO SLEEP. PREFERS [facility]. GIVEN GINGERALE. ENVIRONMENTAL CLEANING FLOOR AT THIS TIME.
[2020-06-20 02:00] VITALS: BP 135/81; PULSE 69; RESP 18; TEMP 37; O2SAT 98
--- NOTE | 2020-06-20 02:25 | PC.NURSE ---
LAYING IN BED, AWAKE, WATCHING TV. NO APPARENT DISTRESS. CLOTHES ARE ON AT THIS TIME. BREATHING EVEN, NON-LABORED.
[2020-06-20 05:45] VITALS: RESP 18
--- NOTE | 2020-06-20 08:30 | PC.NURSE ---
PT SLEEPING AT PRESENT. PLACEMENT SEARCH CONTINUES
[2020-06-20] MEDS: Sertraline HCL 50 MG TABLET 150 MG PO (09:38)
[2020-06-20] MEDS: Cholecalciferol (Vitamin D3) 25 MCG TABLET PO (09:38)
[2020-06-20] MEDS: Omeprazole 40 MG CAPSULE.DR PO ×2 (09:38→21:14)
[2020-06-20] MEDS: allopurinoL 100 MG TABLET 300 MG PO (09:38)
[2020-06-20] MEDS: Atorvastatin Calcium 40 MG TABLET PO (09:38)
[2020-06-20] MEDS: Topiramate 25 MG TABLET 50 MG PO ×2 (09:38→21:14)
[2020-06-20] MEDS: Ferrous Sulfate 324 MG TABLET.DR PO (09:38)
[2020-06-20] MEDS: Loratadine 10 MG TABLET PO (09:38)
--- NOTE | 2020-06-20 13:11 | MHC.CM.ED ---
Patient remains in ER. Per ESE Villanueva, it is now 14 days since patient tested positive for Covid. He could be moved to the behavioral health pod if needed for wandering. CB Masters aware and will transfer him if there is a bed available. Spoke with Ernestina via telephone at [phone] [place] [address] in [facility]. She has received the updated clinical but has not been able to review it. Continue to monitor for d/c needs.
--- NOTE | 2020-06-20 13:16 | PC.NURSE ---
PT ATE LUNCH. COOPERATIVE AT THIS TIME. FORGETFUL BUT REDIRECTABLE. WATCHING TV
[2020-06-20] MEDS: Amitriptyline HCl 50 MG TABLET 100 MG PO (21:14)
[2020-06-21] VITALS: RESP 18
[2020-06-21 01:58] VITALS: BP 123/81; PULSE 99; RESP 18; O2SAT 98
--- NOTE | 2020-06-21 05:10 | PC.NURSE ---
Patient just got transferred from main ED, per report patient wandering behavior but [id number] at time, patient is a case management patient pending bed search, currently in his sitting in his chair, will continue to monitor.
[2020-06-21 05:59] VITALS: BP 103/84; PULSE 112; RESP 20; TEMP 36.3; O2SAT 99
[2020-06-21 09:16] VITALS: BP 115/72; PULSE 90; TEMP 36.3; O2SAT 98
[2020-06-21] MEDS: Topiramate 25 MG TABLET 50 MG PO ×2 (09:39→20:08)
[2020-06-21] MEDS: Omeprazole 40 MG CAPSULE.DR PO ×2 (09:39→20:08)
[2020-06-21] MEDS: allopurinoL 100 MG TABLET 300 MG PO (09:40)
[2020-06-21] MEDS: Ferrous Sulfate 324 MG TABLET.DR PO (09:40)
[2020-06-21] MEDS: Sertraline HCL 50 MG TABLET 150 MG PO (09:40)
[2020-06-21] MEDS: Cholecalciferol (Vitamin D3) 25 MCG TABLET PO (09:41)
[2020-06-21] MEDS: Loratadine 10 MG TABLET PO (09:41)
[2020-06-21] MEDS: Atorvastatin Calcium 40 MG TABLET PO (09:42)
--- NOTE | 2020-06-21 10:03 | MHC.CM.CNN ---
Patient remains in ER. Was transferred to behavioral health pod, only because of wandering risk. Spoke with Ivana at [facility]. She is requesting clinical information be sent on 06/28 for review. Their facility will require patient be sitter free for 7 days and not exhibit behaviors. Kellie Saravia aware. Continue to monitor for d/c needs.
--- NOTE | 2020-06-21 10:39 | PC.NURSE ---
resting quietly in bed, took morning meds
--- NOTE | 2020-06-21 17:08 | PC.NURSE ---
Pt currently standing at the nurses station, no complaints at this time, calm and cooperative.
[2020-06-21] MEDS: Amitriptyline HCl 50 MG TABLET 100 MG PO (20:08)
--- NOTE | 2020-06-21 20:15 | PC.NURSE ---
Patient in bed resting, compliant with HS PO medication, no distress reported, will continue to monitor.
[2020-06-22 06:00] VITALS: BP 124/81; PULSE 98; RESP 20; TEMP 36.5; O2SAT 100
--- NOTE | 2020-06-22 06:54 | PC.NURSE ---
Report received. PT currently watching tv, calm and cooperative. PT is case management bedsearch.
[2020-06-22 09:00] VITALS: BP 100/51; PULSE 86; RESP 15; TEMP 36.5; O2SAT 95
[2020-06-22] MEDS: Cholecalciferol (Vitamin D3) 25 MCG TABLET PO (09:42)
[2020-06-22] MEDS: Loratadine 10 MG TABLET PO (09:42)
[2020-06-22] MEDS: Atorvastatin Calcium 40 MG TABLET PO (09:42)
[2020-06-22] MEDS: Sertraline HCL 50 MG TABLET 150 MG PO (09:42)
[2020-06-22] MEDS: allopurinoL 100 MG TABLET 300 MG PO (09:42)
[2020-06-22] MEDS: Topiramate 25 MG TABLET 50 MG PO ×2 (09:42→20:03)
[2020-06-22] MEDS: Omeprazole 40 MG CAPSULE.DR PO ×2 (09:43→20:00)
[2020-06-22] MEDS: Ferrous Sulfate 324 MG TABLET.DR PO (09:43)
[2020-06-22 10:17] LABS: Basophils Percent Auto 0.2 % (0-2); Eosinophils Absolute Auto 0.1 X10*3/uL (0.0-0.4); Eosinophils Percent Auto 0.9 % (0-4); Hematocrit 30.2 % (42-52); Hemoglobin 9.8 g/dl (14.0-18.0); Imm Gran Abs Auto 0.08 X10*3/uL (0.00-0.03); Imm Gran Pct Auto 1.3 % (0.0-0.4); Lymphocytes Absolute Auto 2.2 X10*3/uL (1.2-4.9); Lymphocytes Percent Auto 33.9 % (20-40); Mean Corpuscular HGB Conc 32.5 g/dl (31.0-36.0); Mean Corpuscular Hemoglobin 29.5 pg (27.0-33.0); Mean Platelet Volume 9.8 fL (9.4-12.4); Monocytes Absolute Auto 0.7 X10*3/uL (0.1-1.2); Monocytes Percent Auto 10.7 % (2-11); Neutrophils Absolute Auto 3.4 X10*3/uL (2.0-8.3); Platelet Count 215 X10*3/uL (160-400); Red Blood Count 3.32 X10*6/uL (4.60-5.80); Red Cell Distribution Width 15.9 % (11.0-16.0); White Blood Count 6.3 X10*3/uL (4.8-10.8)
[2020-06-22 10:22] LABS: Alanine Aminotransferase 18 U/L (0-40); Albumin Level 3.5 g/dL (3.5-5.0); Alkaline Phosphatase 93 U/L (39-117); Anion Gap 11 (12-20); Aspartate Amino Transferase 17 U/L (5-37); Bilirubin Total 0.3 mg/dL (0.0-1.0); Blood Urea Nitrogen 15 mg/dL (9-16); Calcium 8.2 mg/dL (8.4-10.2); Carbon Dioxide 24 mmol/L (22-29); Chloride 114 mmol/L (96-108); Creatinine Clr Calc Pharmacy 119.8; Estimated Glomerular Filt Rate > 60; Glucose Random 107 mg/dL (60-115); Potassium 3.7 mmol/L (3.3-5.1); Sodium 145 mmol/L (135-145)
[2020-06-22 14:19] LABS: MANUAL DIFF FLAG NO
--- NOTE | 2020-06-22 16:28 | PC.NURSE ---
Pt currently resting, calm and cooperative. Some confusion, pt asking to leave, pt reoriented, plan of care explained.
--- NOTE | 2020-06-22 19:03 | PC.NURSE ---
Report received. PT is sleeping in bed. Respirations are even and unlabored. PT is being helped by case management.
[2020-06-22] MEDS: Amitriptyline HCl 50 MG TABLET 100 MG PO (20:03)
[2020-06-22 20:33] VITALS: BP 112/76; PULSE 112; RESP 18; TEMP 36.3; O2SAT 98
--- NOTE | 2020-06-23 01:38 | PC.NURSE ---
PT is coming out of his room without a mask on and trying to enter other PT rooms. PT can be redirected to his own room but he continues to come back out and exhibit the same behavior. PT is being monitored on a one to one.
[2020-06-23] MEDS: hydrOXYzine HCL 25 MG TABLET PO (01:54)
[2020-06-23] MEDS: Acetaminophen 325 MG TABLET 650 MG PO (01:54)
--- NOTE | 2020-06-23 06:54 | PC.NURSE ---
Report received. Pt currently sleeping, respirations even and unlabored, in no apparent distress. PT is case management bedsearch.
[2020-06-23 06:56] VITALS: RESP 16
[2020-06-23] MEDS: allopurinoL 100 MG TABLET 300 MG PO (09:06)
[2020-06-23] MEDS: Topiramate 25 MG TABLET 50 MG PO ×2 (09:06→20:19)
[2020-06-23] MEDS: Omeprazole 40 MG CAPSULE.DR PO ×2 (09:06→20:19)
[2020-06-23] MEDS: Cholecalciferol (Vitamin D3) 25 MCG TABLET PO (09:06)
[2020-06-23] MEDS: Ferrous Sulfate 324 MG TABLET.DR PO (09:06)
[2020-06-23] MEDS: Atorvastatin Calcium 40 MG TABLET PO (09:06)
[2020-06-23] MEDS: Loratadine 10 MG TABLET PO (09:06)
[2020-06-23] MEDS: Sertraline HCL 50 MG TABLET 150 MG PO (09:06)
[2020-06-23 09:57] VITALS: BP 126/78; PULSE 87; RESP 18; TEMP 35.7; O2SAT 99
--- NOTE | 2020-06-23 13:42 | MHC.CM.ED ---
Patient remains in ER. [facility] in [address] is following patient. They will need updated clinical faxed on 06/28. Patient must be sitter and behavior free. Kellie Saravia aware. Continue to monitor for d/c needs.
[2020-06-23 16:54] VITALS: BP 130/85; PULSE 92; RESP 17; TEMP 36.6; O2SAT 100
--- NOTE | 2020-06-23 17:43 | PC.NURSE ---
PT wandering around unit, asking frequently to go upstairs , confused, redirectible.
[2020-06-23] MEDS: Amitriptyline HCl 50 MG TABLET 100 MG PO (20:19)
--- NOTE | 2020-06-23 21:22 | PC.NURSE ---
Patient in bed appears sleeping, no distress observed/reported, compliant with his HS PO medication Will continue to monitor.
[2020-06-23 22:20] VITALS: BP 122/86; PULSE 104; RESP 17; TEMP 36.6; O2SAT 99
[2020-06-24 07:03] LABS: COVID-19 Test Negative (Negative)
--- NOTE | 2020-06-24 07:16 | PC.NURSE ---
Report received from CB Mcmillan. Pt awake, affect eating. Pt eating breakfast.
[2020-06-24] MEDS: Omeprazole 40 MG CAPSULE.DR PO ×2 (08:06→20:01)
[2020-06-24] MEDS: allopurinoL 100 MG TABLET 300 MG PO (08:06)
[2020-06-24] MEDS: Atorvastatin Calcium 40 MG TABLET PO (08:06)
[2020-06-24] MEDS: Cholecalciferol (Vitamin D3) 25 MCG TABLET PO (08:06)
[2020-06-24] MEDS: Topiramate 25 MG TABLET 50 MG PO ×2 (08:07→20:01)
[2020-06-24] MEDS: Loratadine 10 MG TABLET PO (08:07)
[2020-06-24] MEDS: Sertraline HCL 50 MG TABLET 150 MG PO (08:07)
[2020-06-24] MEDS: Ferrous Sulfate 324 MG TABLET.DR PO (08:07)
--- NOTE | 2020-06-24 08:16 | PC.NURSE ---
Pt awake, resting in bed, cooperative with meds. Pt denies any symptoms at this time, oriented to place but not time, thinking it is 2019. No concerns reported.
--- NOTE | 2020-06-24 08:51 | PC.NURSE ---
reviewed current medications w/ provider and search status.
--- NOTE | 2020-06-24 09:47 | PC.NURSE ---
[facility] in to evaluate. Per provider, pt is being followed by neurology, medications are up to date. Pt voided in room x1, unable to state why he continues to void in room.
[2020-06-24 09:55] VITALS: BP 126/74; PULSE 74; TEMP 36.1
--- NOTE | 2020-06-24 12:19 | PC.NURSE ---
Pt currently in room. Required redirection x 2 to remind him of where his room is- pt accepted redirection easily. Pt incontinent of urine x2 requiring assistance with cleaning.
--- NOTE | 2020-06-24 13:22 | PC.NURSE ---
active in department. calm. easily redirected to wear mask, leave space. watching tv.
[2020-06-24 14:00] VITALS: RESP 20
--- NOTE | 2020-06-24 14:10 | PC.NURSE ---
Pt awake, restless, believes he ''needs to go upstairs' - pt re-oriented to place and situation and redirected. Pt able to accept re-direction.
[2020-06-24 16:52] VITALS: BP 123/82; PULSE 96; RESP 18; TEMP 36.4; O2SAT 99
--- NOTE | 2020-06-24 17:18 | PC.NURSE ---
Pt continues to be restless, disoriented, attempting to leave, pushing on doors. Pt requiring redirection, continues to take redirection but appears increasingly impatient, stating he needs to go home now, to see his mother.
--- NOTE | 2020-06-24 18:22 | PC.NURSE ---
Pt out on unit without pants. Redirected to room, given pants to put on- did so. Intercepted pt before he attempted to defecate in room. pt directed to bathroom which he used appropriately.
[2020-06-24] MEDS: Amitriptyline HCl 50 MG TABLET 100 MG PO (20:02)
[2020-06-24] MEDS: LORazepam 1 MG TABLET PO (20:02)
--- NOTE | 2020-06-24 20:33 | PC.NURSE ---
Patient compliant with HS PO medication, patient needs constant redirection d/t confusion from brain pathology, intrusive, denied distress at this time, will continue to monitor.
[2020-06-25 05:23] VITALS: BP 156/97; PULSE 90; RESP 17; TEMP 36.8; O2SAT 98
[2020-06-25 07:20] VITALS: BP 137/93; PULSE 103; RESP 20; O2SAT 99
--- NOTE | 2020-06-25 07:30 | PC.NURSE ---
called general house worker to notify that the pt had a fall and for pt's safety this pt requires a one to one sitter, and currently this rn does not have the staff on the ed floor to be able to provided that. this rn spoke to gina general house worker and requested a sitter to be sent down.
--- NOTE | 2020-06-25 07:46 | PC.NURSE ---
Late entry: 714- per shift engineer report from CB Mcmillan pt has been reporting dizziness through the night and has fallen once. On arrival, 1:1 assigned by this RN, pt went to thr bathroom, gait unsteady, then while in the bathroom pt fell on the toilet, striking his head. No injury noted, pt denies pain. notified, in to evaluate. canvas goods maker notified, supervisor offset plate preparation notified. Pt now on 1:1 status after fall x2.
--- NOTE | 2020-06-25 07:55 | PC.NURSE ---
Late entry: 714- after the fall, pt reported continued dizziness, which he states has been happening all night. Pt continues to be confused, not oriented to place or time.
[2020-06-25] MEDS: Ferrous Sulfate 324 MG TABLET.DR PO (08:16)
[2020-06-25] MEDS: Omeprazole 40 MG CAPSULE.DR PO ×2 (08:16→21:00)
[2020-06-25] MEDS: Topiramate 25 MG TABLET 50 MG PO ×2 (08:16→21:00)
[2020-06-25] MEDS: Sertraline HCL 50 MG TABLET 150 MG PO (08:17)
[2020-06-25] MEDS: Loratadine 10 MG TABLET PO (08:18)
[2020-06-25] MEDS: Atorvastatin Calcium 40 MG TABLET PO (08:19)
[2020-06-25] MEDS: Cholecalciferol (Vitamin D3) 25 MCG TABLET PO (08:19)
[2020-06-25] MEDS: allopurinoL 100 MG TABLET 300 MG PO (08:19)
--- NOTE | 2020-06-25 08:57 | PC.NURSE ---
Pt resting in room, 1:1 monitoring pt.
[2020-06-25 09:01] VITALS: BP 123/72; PULSE 88; RESP 18; TEMP 36.6; O2SAT 98
--- NOTE | 2020-06-25 10:35 | PC.NURSE ---
Pt awake, restless briefly, offered toileting, pt declined. Offered warm blanket, now resting. 1:1 w/ pt.
--- NOTE | 2020-06-25 10:59 | PC.NURSE ---
Pt resting, resp unlabored
--- NOTE | 2020-06-25 12:52 | PC.NURSE ---
Pt awoke, was incontinent of urine. Pt had been offered toileting previously and declined. Pt now ambulated to bathroom - gait unsteady, requiring assistance ambulating.
[2020-06-25 14:00] VITALS: RESP 20
--- NOTE | 2020-06-25 15:16 | PC.NURSE ---
Pt resting, resp unlabored
--- NOTE | 2020-06-25 15:18 | PC.NURSE ---
Report received from Joanna. Pt remains on 1:1. In the bathroom at current.
[2020-06-25 16:07] VITALS: BP 136/93; PULSE 89; RESP 20; TEMP 36.6; O2SAT 99
--- NOTE | 2020-06-25 16:36 | PC.NURSE ---
Increasing agitation, attempting to go into another pt's room, my sneakers are in there', posturing at 1:1, redirected back to room with much encouragement.
--- NOTE | 2020-06-25 17:28 | PC.NURSE ---
Pt resting in room at current, calm, redirectable. Continues to be on 1:1.
--- NOTE | 2020-06-25 18:26 | PC.NURSE ---
Pt attempting to enter another pt's room, agitating the other pt, increasing agitation, loose stool coming from pant legs. Security called to assist.
[2020-06-25] MEDS: Amitriptyline HCl 50 MG TABLET 100 MG PO (21:00)
--- NOTE | 2020-06-26 06:55 | PC.NURSE ---
Report received. Pt currently sleeping, respirations even and unlabored, in no apparent distress. Pt is case management bedsearch.
[2020-06-26 09:04] VITALS: BP 136/89; PULSE 92; RESP 18; TEMP 35.8; O2SAT 98
[2020-06-26] MEDS: Sertraline HCL 50 MG TABLET 150 MG PO (09:27)
[2020-06-26] MEDS: Cholecalciferol (Vitamin D3) 25 MCG TABLET PO (09:27)
[2020-06-26] MEDS: Topiramate 25 MG TABLET 50 MG PO ×2 (09:27→20:15)
[2020-06-26] MEDS: Omeprazole 40 MG CAPSULE.DR PO ×2 (09:27→20:15)
[2020-06-26] MEDS: Atorvastatin Calcium 40 MG TABLET PO (09:27)
[2020-06-26] MEDS: allopurinoL 100 MG TABLET 300 MG PO (09:27)
[2020-06-26] MEDS: Ferrous Sulfate 324 MG TABLET.DR PO (09:27)
[2020-06-26] MEDS: Loratadine 10 MG TABLET PO (09:27)
[2020-06-26] MEDS: hydrOXYzine HCL 25 MG TABLET PO ×2 (13:27→22:53)
[2020-06-26 16:22] VITALS: BP 106/71; PULSE 118; RESP 18; TEMP 36.8; O2SAT 95
--- NOTE | 2020-06-26 19:05 | PC.NURSE ---
Report received. PT is in his room watching TV. Calm and cooperative. Being supervised on a 1:1. Case management is taking care of this PT.
[2020-06-26] MEDS: Amitriptyline HCl 50 MG TABLET 100 MG PO (20:16)
[2020-06-27 06:00] VITALS: BP 115/74; PULSE 99; RESP 18; TEMP 36.9; O2SAT 96
--- NOTE | 2020-06-27 06:58 | PC.NURSE ---
Report received. Pt currently walking around the unit, calm and cooperative. Pt is case management bedsearch.
[2020-06-27] MEDS: Ferrous Sulfate 324 MG TABLET.DR PO (08:43)
[2020-06-27] MEDS: Cholecalciferol (Vitamin D3) 25 MCG TABLET PO (08:43)
[2020-06-27] MEDS: Atorvastatin Calcium 40 MG TABLET PO (08:43)
[2020-06-27] MEDS: Omeprazole 40 MG CAPSULE.DR PO ×2 (08:43→20:00)
[2020-06-27] MEDS: allopurinoL 100 MG TABLET 300 MG PO (08:43)
[2020-06-27] MEDS: Sertraline HCL 50 MG TABLET 150 MG PO (08:43)
[2020-06-27] MEDS: Topiramate 25 MG TABLET 50 MG PO ×2 (08:43→20:00)
[2020-06-27] MEDS: Loratadine 10 MG TABLET PO (08:43)
[2020-06-27 09:07] VITALS: BP 105/87; PULSE 98; RESP 14; TEMP 36.2; O2SAT 97
--- NOTE | 2020-06-27 10:27 | MHC.CM.ED ---
Patient remains in ER. [facility] will want updated clinicals sent on 06/28. They will want patient to be sitter free and behavior free. Kellie Saravia aware. She has escalated case with [facility] and [place], [facility] medical officer. Continue to monitor for d/c needs.
[2020-06-27] MEDS: hydrOXYzine HCL 25 MG TABLET PO (14:33)
[2020-06-27 17:49] VITALS: BP 121/80; PULSE 80; RESP 16; TEMP 36.6; O2SAT 97
--- NOTE | 2020-06-27 18:19 | PC.NURSE ---
When PT woke up he was noted to urinate on the floor. Pt assisted to clean up, was given new clothes and linens. Pt encouraged to use the urinal or the bathroom. PT unsteady on his feet upon waking, 1:[address] due to fall risk.
[2020-06-27] MEDS: traZODone HCL 25 MG HALFTAB 12.5 MG PO (19:57)
[2020-06-27] MEDS: Amitriptyline HCl 50 MG TABLET 100 MG PO (20:00)
--- NOTE | 2020-06-27 23:41 | PC.NURSE ---
Patient in bed appears sleeping, no distress observed/reported, will continue to monitor.
[2020-06-28 06:00] VITALS: RESP 16
--- NOTE | 2020-06-28 07:04 | PC.NURSE ---
Report received from CB Mcmillan. Pt asleep at current. No signs of distress. Respirations even and unlabored.
--- NOTE | 2020-06-28 07:54 | PC.NURSE ---
Pt in the shower, refusing to sit in the shower chair, and fell to the floor, landing on buttock. Assisted to feet by RN and MHT, no complaints of pain, no apparent injuries. Refused vital signs. Pt dressed on own, and walked back to room. Pt currently sitting in his chair in room. Remains on 1:1. ingrid Raymond RN and SHARAN Bocanegra aware.
[2020-06-28] MEDS: Atorvastatin Calcium 40 MG TABLET PO (09:43)
[2020-06-28] MEDS: Topiramate 25 MG TABLET 50 MG PO ×2 (09:43→21:28)
[2020-06-28] MEDS: Sertraline HCL 50 MG TABLET 150 MG PO (09:43)
[2020-06-28] MEDS: Cholecalciferol (Vitamin D3) 25 MCG TABLET PO (09:43)
[2020-06-28] MEDS: allopurinoL 100 MG TABLET 300 MG PO (09:43)
[2020-06-28] MEDS: Omeprazole 40 MG CAPSULE.DR PO ×2 (09:43→21:28)
[2020-06-28] MEDS: Loratadine 10 MG TABLET PO (09:44)
[2020-06-28] MEDS: Ferrous Sulfate 324 MG TABLET.DR PO (09:44)
--- NOTE | 2020-06-28 11:37 | MHC.CM.ED ---
Patient remains in ER. Updated clinical sent to [address] [place] [address] in [place], [place]. Continue to monitor for d/c needs.
[2020-06-28 18:03] VITALS: PULSE 80; RESP 20; TEMP 37.2; O2SAT 95
[2020-06-28] MEDS: traZODone HCL 25 MG HALFTAB 12.5 MG PO (21:28)
[2020-06-28] MEDS: Amitriptyline HCl 50 MG TABLET 100 MG PO (21:28)
--- NOTE | 2020-06-28 21:30 | PC.NURSE ---
Patient is in his room, compliant with HS PO medication, will continue to monitor.
[2020-06-29 00:19] VITALS: BP 110/86; PULSE 101; RESP 17; TEMP 37.1; O2SAT 98
--- NOTE | 2020-06-29 07:10 | PC.NURSE ---
Report received from CB Mcmillan. Pt resting, resp unlabored.
[2020-06-29 08:51] VITALS: BP 127/86; PULSE 105; TEMP 36.4; O2SAT 100
[2020-06-29] MEDS: Sertraline HCL 50 MG TABLET 150 MG PO (09:25)
[2020-06-29] MEDS: Cholecalciferol (Vitamin D3) 25 MCG TABLET PO (09:26)
[2020-06-29] MEDS: Ferrous Sulfate 324 MG TABLET.DR PO (09:27)
[2020-06-29] MEDS: Loratadine 10 MG TABLET PO (09:27)
[2020-06-29] MEDS: Omeprazole 40 MG CAPSULE.DR PO ×2 (09:27→21:34)
[2020-06-29] MEDS: allopurinoL 100 MG TABLET 300 MG PO (09:27)
[2020-06-29] MEDS: Atorvastatin Calcium 40 MG TABLET PO (09:27)
[2020-06-29] MEDS: Topiramate 25 MG TABLET 50 MG PO ×2 (09:28→21:34)
--- NOTE | 2020-06-29 09:54 | PC.NURSE ---
Pt alert, sitting in chair in room. No concerns reported, affect even
--- NOTE | 2020-06-29 10:33 | PC.NURSE ---
Pt in room, watching television- pt offered opportunity to toilet but declined.
--- NOTE | 2020-06-29 12:07 | PC.NURSE ---
Pt resting, resp unlabored.
--- NOTE | 2020-06-29 14:00 | PC.NURSE ---
Pt alert, restless, redirectable at this time.
--- NOTE | 2020-06-29 15:06 | MHC.CM.ED ---
Clinical updates faxed to [address] [place] [address] on 06/28. Attempted to call Ivana at [facility]. She is out of the office today. Will attempt to call again tomorrow. Continue to monitor for d/c needs.
--- NOTE | 2020-06-29 15:25 | PC.NURSE ---
Pt awake, alert, sitting on bed in room.
--- NOTE | 2020-06-29 16:53 | PC.NURSE ---
Late entry: pt out of room after 1500, began to attempt to leave, attempted to drink his own urine. Pt on 1:1 as ordered.
[2020-06-29 17:44] VITALS: BP 121/92; PULSE 94; RESP 20; TEMP 36.6; O2SAT 95
[2020-06-29] MEDS: traZODone HCL 25 MG HALFTAB 12.5 MG PO (18:05)
--- NOTE | 2020-06-29 18:06 | PC.NURSE ---
Pt increasingly loud, agitated, attempting to leave, raising voice to 1:1. Medicated for agitation as ordered.
--- NOTE | 2020-06-29 18:15 | PC.NURSE ---
Pt in behavioral control at this time watching television in common area. 1:1 maintained.
--- NOTE | 2020-06-29 19:18 | PC.NURSE ---
Patient wandering, often standing in front of doors requesting to let him go to his own room, confused, alert, no distress reported, patient observed on 1:1 for safety and fall, will continue to monitor.
[2020-06-29 21:33] VITALS: BP 140/82; PULSE 90; RESP 17; TEMP 36.6; O2SAT 98
[2020-06-29] MEDS: Amitriptyline HCl 50 MG TABLET 100 MG PO (21:35)
[2020-06-30] MEDS: traZODone HCL 25 MG HALFTAB 12.5 MG PO ×3 (02:22→20:55)
[2020-06-30] MEDS: hydrOXYzine HCL 25 MG TABLET PO (02:22)
[2020-06-30 05:15] VITALS: BP 143/101; PULSE 98; RESP 17; TEMP 36.9; O2SAT 100
--- NOTE | 2020-06-30 07:16 | PC.NURSE ---
Report received from CB Mcmillan. Pt awake, agitated. supervisor files aware pt is 1:1, awaiting staffing.
--- NOTE | 2020-06-30 07:50 | PC.NURSE ---
Pt continues to wander into other people's rooms, requiring re-direction. Then began tilt furniture, looking for shoes under the chair though there are no shoes on the unit. Unable to convince pt otherwise, pt confused, not oriented to place or time, [facility].
--- NOTE | 2020-06-30 08:27 | PC.NURSE ---
Pt currently less restless, sitting in room, 1:[address] to monitor behavior. Toileting offered previously.
[2020-06-30] MEDS: Omeprazole 40 MG CAPSULE.DR PO ×2 (08:35→20:56)
[2020-06-30] MEDS: Sertraline HCL 50 MG TABLET 150 MG PO (08:35)
[2020-06-30] MEDS: allopurinoL 100 MG TABLET 300 MG PO (08:36)
[2020-06-30] MEDS: Ferrous Sulfate 324 MG TABLET.DR PO (08:36)
[2020-06-30] MEDS: Cholecalciferol (Vitamin D3) 25 MCG TABLET PO (08:36)
[2020-06-30] MEDS: Topiramate 25 MG TABLET 50 MG PO ×2 (08:37→20:55)
[2020-06-30] MEDS: Atorvastatin Calcium 40 MG TABLET PO (08:37)
[2020-06-30] MEDS: Loratadine 10 MG TABLET PO (08:37)
[2020-06-30 08:51] VITALS: BP 125/73; PULSE 92; TEMP 36.4; O2SAT 98
--- NOTE | 2020-06-30 10:22 | PC.NURSE ---
Pt resting in room, resp unlabored.
--- NOTE | 2020-06-30 11:24 | PC.NURSE ---
Pt resting, resp unlabored
--- NOTE | 2020-06-30 12:53 | PC.NURSE ---
Pt awake, restless, 1:[address] w/ pt.
[2020-06-30 14:00] VITALS: RESP 20
--- NOTE | 2020-06-30 14:26 | PC.NURSE ---
Pt resting, resp unlabored
--- NOTE | 2020-06-30 15:16 | PC.NURSE ---
Pt resting, resp unlabored
[2020-06-30 17:12] VITALS: BP 120/82; PULSE 94; TEMP 37.2; O2SAT 97
--- NOTE | 2020-06-30 17:17 | PC.NURSE ---
Pt awakened, was incontinent of urine in his room. Pt escorted to bathroom, briefly unsteady of his feet reporting dizziness but then appeared to recover. Pt toileted, cleaned himself, now in room conversing w/ 1:1.
--- NOTE | 2020-06-30 19:03 | PC.NURSE ---
Report received. PT is watching TV in his room. Calm and cooperative. Case management is looking for placement.
[2020-06-30] MEDS: Amitriptyline HCl 50 MG TABLET 100 MG PO (20:56)
[2020-06-30 23:54] VITALS: RESP 18
[2020-07-01 06:57] VITALS: BP 137/83; PULSE 83; RESP 18; TEMP 37.2; O2SAT 98
--- NOTE | 2020-07-01 07:14 | PC.NURSE ---
Report received. Pt currently laying in bed, calm and cooperative. Pt ambulated to bathroom with steady gait. PT is case management bedsearch.
[2020-07-01 08:57] VITALS: RESP 18
[2020-07-01] MEDS: Cholecalciferol (Vitamin D3) 25 MCG TABLET PO (09:34)
[2020-07-01] MEDS: Ferrous Sulfate 324 MG TABLET.DR PO (09:34)
[2020-07-01] MEDS: allopurinoL 100 MG TABLET 300 MG PO (09:34)
[2020-07-01] MEDS: Atorvastatin Calcium 40 MG TABLET PO (09:34)
[2020-07-01] MEDS: Topiramate 25 MG TABLET 50 MG PO ×2 (09:34→21:01)
[2020-07-01] MEDS: Loratadine 10 MG TABLET PO (09:34)
[2020-07-01] MEDS: Omeprazole 40 MG CAPSULE.DR PO ×2 (09:34→21:01)
[2020-07-01] MEDS: Sertraline HCL 50 MG TABLET 150 MG PO (09:34)
[2020-07-01 09:45] VITALS: BP 132/94; PULSE 77; RESP 20; TEMP 37.1; O2SAT 96
[2020-07-01] MEDS: traZODone HCL 25 MG HALFTAB 12.5 MG PO ×2 (10:37→21:02)
[2020-07-01 17:41] VITALS: BP 122/77; PULSE 99; RESP 20; TEMP 36.9; O2SAT 100
--- NOTE | 2020-07-01 19:43 | PC.NURSE ---
Report received. When this nurse came on shift the PT was using the bathroom after an episode of incontinence. This nurse then assisted the PT to the shower to help him clean up and get changed. PT is now sitting in the common area watching TV. Calm and cooperative. Case management is working to find placement.
[2020-07-01] MEDS: Amitriptyline HCl 50 MG TABLET 100 MG PO (21:01)
[2020-07-02 00:24] VITALS: RESP 16
[2020-07-02 06:00] VITALS: RESP 16
--- NOTE | 2020-07-02 07:13 | PC.NURSE ---
Report received. PT currently sleeping, respirations even and unlabored, in no apparent distress. PT is case management bedsearch.
[2020-07-02] MEDS: Loratadine 10 MG TABLET PO (09:33)
[2020-07-02] MEDS: Omeprazole 40 MG CAPSULE.DR PO ×2 (09:33→21:09)
[2020-07-02] MEDS: allopurinoL 100 MG TABLET 300 MG PO (09:33)
[2020-07-02] MEDS: Atorvastatin Calcium 40 MG TABLET PO (09:34)
[2020-07-02] MEDS: Cholecalciferol (Vitamin D3) 25 MCG TABLET PO (09:34)
[2020-07-02] MEDS: Sertraline HCL 50 MG TABLET 150 MG PO (09:34)
[2020-07-02] MEDS: Ferrous Sulfate 324 MG TABLET.DR PO (09:34)
[2020-07-02] MEDS: Topiramate 25 MG TABLET 50 MG PO ×2 (09:34→21:09)
[2020-07-02 09:38] VITALS: RESP 17
--- NOTE | 2020-07-02 14:02 | PC.NURSE ---
PT has been resting throughout the morning, denies complaints, calm and cooperative.
[2020-07-02 14:43] VITALS: BP 141/88; PULSE 97; RESP 20; TEMP 36.5; O2SAT 99
[2020-07-02 20:44] VITALS: BP 99/59; PULSE 96; RESP 20; TEMP 36.9; O2SAT 97
[2020-07-02] MEDS: Amitriptyline HCl 50 MG TABLET 100 MG PO (21:09)
[2020-07-02 22:00] VITALS: RESP 14
[2020-07-03 06:00] VITALS: BP 107/65; PULSE 84; RESP 16; TEMP 36.4; O2SAT 97
--- NOTE | 2020-07-03 07:39 | PC.NURSE ---
Report received from CB Dutta. Pt awake, alert. No concerns reported. Pt maintained on 1:1.
[2020-07-03 09:13] VITALS: BP 106/57; PULSE 80; RESP 20; TEMP 36.9; O2SAT 97
[2020-07-03] MEDS: Topiramate 25 MG TABLET 50 MG PO ×2 (09:21→20:23)
[2020-07-03] MEDS: Atorvastatin Calcium 40 MG TABLET PO (09:21)
[2020-07-03] MEDS: Cholecalciferol (Vitamin D3) 25 MCG TABLET PO (09:21)
[2020-07-03] MEDS: Omeprazole 40 MG CAPSULE.DR PO ×2 (09:21→20:23)
[2020-07-03] MEDS: Ferrous Sulfate 324 MG TABLET.DR PO (09:22)
[2020-07-03] MEDS: Loratadine 10 MG TABLET PO (09:22)
[2020-07-03] MEDS: allopurinoL 100 MG TABLET 300 MG PO (09:22)
[2020-07-03] MEDS: Sertraline HCL 50 MG TABLET 150 MG PO (09:23)
--- NOTE | 2020-07-03 09:26 | PC.NURSE ---
Pt resting, awakened for medications, cooperative w/ care at this time. No concerns reported.
--- NOTE | 2020-07-03 09:28 | MHC.CM.ED ---
Patient remains in ER. Attempted to call Ivana at [facility] in [place]. There was no answer. Will attempt to contact again. Continue to monitor for d/c needs.
[2020-07-03] MEDS: traZODone HCL 25 MG HALFTAB 12.5 MG PO ×2 (10:12→20:23)
[2020-07-03] MEDS: Meclizine HCl 25 MG TABLET PO (10:12)
--- NOTE | 2020-07-03 10:17 | MHC.CM.ED ---
Spoke with Ivana at [address] [place] [address] in [facility]. She does not feel that their facility can accept patient because he is too high risk due to falls and having a sitter. Kellie Saravia aware. Continue to monitor for d/c needs.
--- NOTE | 2020-07-03 10:27 | PC.NURSE ---
Pt toileted, then became irritable, angry- attempted to eave. Pt then requested medication for dizziness- pt medicated as requested, and for agitation.
--- NOTE | 2020-07-03 11:15 | PC.NURSE ---
Pt out in common area, sitting with staff, assisting w/ puzzle.
--- NOTE | 2020-07-03 12:06 | PC.NURSE ---
Pt continues to be restless, irritable at times. No further report of dizziness. 1:1 w/ pt.
[2020-07-03 14:00] VITALS: RESP 18
--- NOTE | 2020-07-03 14:25 | PC.NURSE ---
Pt out in common area, w/ 1:1- currently calm though when he nicholas he was incontinent of significant amount of stool, which he smeared over the toilet and on his hands. Pt became irritable, initially refused to shower, but then agreed to.
--- NOTE | 2020-07-03 15:29 | PC.NURSE ---
1:1 w/ pt. Pt continues to be restless, difficult to redirect at times.
--- NOTE | 2020-07-03 16:41 | PC.NURSE ---
Pt resting, resp unlabored.
--- NOTE | 2020-07-03 18:07 | PC.NURSE ---
Pt awake, toileted, now eating supper
[2020-07-03] MEDS: hydrOXYzine HCL 25 MG TABLET PO (20:23)
[2020-07-03] MEDS: Amitriptyline HCl 50 MG TABLET 100 MG PO (20:23)
--- NOTE | 2020-07-03 20:48 | PC.NURSE ---
Patient in his room lying in hid bed watching TV and talking to 1:1 assigned staff member, patient compliant with his HS Po medication, will continue to monitor.
[2020-07-04 06:01] VITALS: BP 129/85; PULSE 85; RESP 17; TEMP 36.9; O2SAT 98
--- NOTE | 2020-07-04 07:16 | PC.NURSE ---
Report received from CB Mcmillan. Pt resting, resp unlabored, 1:[address]
[2020-07-04] MEDS: Topiramate 25 MG TABLET 50 MG PO ×2 (08:07→20:43)
[2020-07-04] MEDS: Sertraline HCL 50 MG TABLET 150 MG PO (08:07)
[2020-07-04] MEDS: allopurinoL 100 MG TABLET 300 MG PO (08:08)
[2020-07-04] MEDS: Ferrous Sulfate 324 MG TABLET.DR PO (08:08)
[2020-07-04] MEDS: Loratadine 10 MG TABLET PO (08:09)
[2020-07-04] MEDS: Cholecalciferol (Vitamin D3) 25 MCG TABLET PO (08:09)
[2020-07-04] MEDS: Atorvastatin Calcium 40 MG TABLET PO (08:09)
[2020-07-04] MEDS: Omeprazole 40 MG CAPSULE.DR PO ×2 (08:10→20:43)
[2020-07-04 09:32] VITALS: RESP 16
--- NOTE | 2020-07-04 10:56 | PC.NURSE ---
Pt awake, pacing through unit, toileted x1. No concerns reported at this time. Continues to be disoriented. Pt oriented to [facility], states he is in a hospital but not aware of which one, believes the year is 2020.
[2020-07-04 11:19] VITALS: BP 105/75; PULSE 89; RESP 20; TEMP 36.6; O2SAT 100
--- NOTE | 2020-07-04 12:12 | PC.NURSE ---
Pt resting in room, no concerns reported at this time.
--- NOTE | 2020-07-04 13:48 | PC.NURSE ---
Pt resting, resp unlabored, 1:[address]
[2020-07-04 14:00] VITALS: RESP 20
--- NOTE | 2020-07-04 15:46 | PC.NURSE ---
Pt resting, resp unlabored, 1:1 maintained.
--- NOTE | 2020-07-04 18:25 | PC.NURSE ---
Pt awoke, easily directed to the bathroom but unable to hold urine in route. Pt changed clothes, cleaned self without significant prompting.
[2020-07-04 19:00] VITALS: BP 111/62; PULSE 88; RESP 16; TEMP 36.8; O2SAT 97
--- NOTE | 2020-07-04 19:13 | PC.NURSE ---
Per report patient was in bed whole day, check in with patient, patient awake, alert and responsive, vital signs assessed were WNL, patient denied distress, mood pleasant, continue on 1:1 for safety, will continue to monitor.
[2020-07-04 20:39] LABS: MANUAL DIFF FLAG NO
[2020-07-04 20:41] LABS: Basophils Percent Auto 0.2 % (0-2); Eosinophils Absolute Auto 0.2 X10*3/uL (0.0-0.4); Eosinophils Percent Auto 3.1 % (0-4); Hemoglobin 10.7 g/dl (14.0-18.0); Imm Gran Abs Auto 0.04 X10*3/uL (0.00-0.03); Imm Gran Pct Auto 0.7 % (0.0-0.4); Lymphocytes Absolute Auto 1.9 X10*3/uL (1.2-4.9); Lymphocytes Percent Auto 34.7 % (20-40); Mean Corpuscular HGB Conc 31.5 g/dl (31.0-36.0); Mean Corpuscular Hemoglobin 29.7 pg (27.0-33.0); Mean Corpuscular Volume 94.4 fL (80-98); Mean Platelet Volume 9.7 fL (9.4-12.4); Monocytes Absolute Auto 0.7 X10*3/uL (0.1-1.2); Monocytes Percent Auto 12.2 % (2-11); NRBC Pct Auto 0.4 /100WBC (0.0-0.2); Neutrophils Absolute Auto 2.7 X10*3/uL (2.0-8.3); Neutrophils Percent Auto 49.1 % (45-73); Platelet Count 312 X10*3/uL (160-400); Red Cell Distribution Width 18.9 % (11.0-16.0); White Blood Count 5.6 X10*3/uL (4.8-10.8)
[2020-07-04 20:42] LABS: COVID-19 Test Negative (Negative)
[2020-07-04] MEDS: Acetaminophen 325 MG TABLET 650 MG PO (20:43)
[2020-07-04] MEDS: hydrOXYzine HCL 25 MG TABLET PO (20:43)
[2020-07-04] MEDS: Amitriptyline HCl 50 MG TABLET 100 MG PO (20:43)
[2020-07-04 20:46] LABS: INTERNATIONAL NORM RATIO 1.1 (0.9-1.1); Prothrombin Time 12.9 SEC (10.8-13.0)
[2020-07-04 20:49] LABS: Partial Thromboplastin Time 34.5 SEC (24.1-38.0)
[2020-07-04 21:03] LABS: Alanine Aminotransferase 25 U/L (0-40); Albumin Level 3.9 g/dL (3.5-5.0); Alkaline Phosphatase 97 U/L (39-117); Anion Gap 13 (12-20); Aspartate Amino Transferase 22 U/L (5-37); Bilirubin Direct < 0.2 mg/dL (0.0-0.5); Bilirubin Total 0.3 mg/dL (0.0-1.0); Blood Urea Nitrogen 13 mg/dL (9-16); Calcium 8.7 mg/dL (8.4-10.2); Carbon Dioxide 24 mmol/L (22-29); Chloride 112 mmol/L (96-108); Creatinine Clr Calc Pharmacy 112.5; Estimated Glomerular Filt Rate > 60; Glucose Random 111 mg/dL (60-115); Lipase 38 U/L (8-78); Magnesium 1.8 mg/dL (1.6-2.6); Sodium 145 mmol/L (135-145); Total Protein 6.5 g/dL (6.5-8.0)
[2020-07-04 21:54] VITALS: BP 138/87; PULSE 86; RESP 17; TEMP 36.9; O2SAT 99
[2020-07-04 22:14] LABS: Glucose Urine UA NEG (NEG); Leukocyte Esterase Urine NEG (NEG); Nitrite Urine NEG (NEG); Urine Blood NEG (NEG); Urine Ketones NEG (NEG); Urine Protein NEG (NEG-TRACE)
[2020-07-04 22:16] LABS: Appearance Urine CLEAR; Color Urine YELLOW
--- NOTE | 2020-07-05 07:16 | PC.NURSE ---
report from gabe harmon PT RESTING QUIETLY IN BED AT THSI TIME, PROVIDED BREAKFAST TRAY
--- NOTE | 2020-07-05 07:59 | MHC.CM.ED ---
Patient remains in ER. No facility has offered a bed for patient as of yet. Kellie Saravia aware and has escalated patient placement with [facility]. Continue to monitor for d/c needs.
[2020-07-05] MEDS: Atorvastatin Calcium 40 MG TABLET PO (09:25)
[2020-07-05] MEDS: Ferrous Sulfate 324 MG TABLET.DR PO (09:25)
[2020-07-05] MEDS: Omeprazole 40 MG CAPSULE.DR PO ×2 (09:25→20:01)
[2020-07-05] MEDS: Cholecalciferol (Vitamin D3) 25 MCG TABLET PO (09:28)
[2020-07-05] MEDS: Sertraline HCL 50 MG TABLET 150 MG PO (09:28)
[2020-07-05] MEDS: Topiramate 25 MG TABLET 50 MG PO ×2 (09:28→20:01)
[2020-07-05] MEDS: allopurinoL 100 MG TABLET 300 MG PO (09:28)
[2020-07-05] MEDS: Loratadine 10 MG TABLET PO (09:28)
[2020-07-05 09:32] VITALS: BP 147/82; PULSE 78; RESP 16; TEMP 36.7; O2SAT 97
--- NOTE | 2020-07-05 10:17 | PM.NEUROCN ---
History of Present Illness Data of Consult Service Date: 07/05/20 Primary Care Provider: [facility] 49 years old man I was asked to see from emergency room for behavioral change. I have seen in the past for possible encephalitis of unknown nature, probably bacterial. He was admitted and was on psych side of emergency room. He was behaving in an odd way and was urinating in his room, which was new type of behavior. There was no sign of any epilepsy or focal weakness or any distress or pain. [facility] Past Medical History Medical History Abnormal brain CT Brain mass GERD (gastroesophageal reflux disease) HTN (hypertension) Social History Social History (Updated 05/31/20 @ 11:15 by SHARAN Cormier) Household Members: Family Housing: Apartment Alcohol intake: current Alcohol type: beer Smoking Status: Current every day smoker Tobacco Type: Cigarette Packs Per Day: 1 Cigarettes Per Day: 20.0 Years Smoked: 24 Smoked in Last 30 Days: Yes Second Hand Smoke Exposure: No Use of substances other than those prescribed or required for medical reasons: Yes Substance Use Type: Crack/Cocaine Advance Directives: No Advance Directives Information Provided: Yes service: No Current occupational status: unemployed Meds Allergies Allergy/AdvReac Type Severity Reaction Status Date / Time No Known Allergies Allergy Verified 04/25/20 17:14 Active Medications: Current Medications Generic Name Dose Route Start Last Admin Trade Name Freq PRN Reason Stop Dose Admin Acetaminophen 650 mg 06/07/20 17:42 07/04/20 20:43 Acetaminophen 325 Mg Tablet PO 650 mg Q8H PRN Administration Pain Allopurinol 300 mg 06/08/20 09:00 07/05/20 09:28 Allopurinol 100 Mg Tablet PO 300 mg DAILY SHIKHA Administration Amitriptyline HCl 100 mg 06/07/20 21:00 07/04/20 20:43 Amitriptyline Hcl 50 Mg Tablet PO 100 mg BEDTIME SHIKHA Administration Atorvastatin Calcium 40 mg 06/08/20 09:00 07/05/20 09:25 Atorvastatin Calcium 40 Mg Tablet PO 40 mg DAILY SHIKHA Administration Ferrous Sulfate 324 mg 06/08/20 09:00 07/05/20 09:25 Ferrous Sulfate 324 Mg Tablet. PO 324 mg DAILY SHIKHA Administration Fluticasone Propionate 1 - 2 spray 06/07/20 17:42 Fluticasone Propionate Nasal 16 Gm [place] NOSTRIL-B DAILY PRN Allergy Symptoms Hydroxyzine HCl 25 mg 06/07/20 17:42 07/04/20 20:43 Hydroxyzine Hcl 25 Mg Tablet PO 25 mg TID PRN Administration Itching Loratadine 10 mg 06/08/20 09:00 07/05/20 09:28 Loratadine 10 Mg Tablet PO 10 mg DAILY SHIKHA Administration Meclizine HCl 25 mg 06/07/20 17:42 07/03/20 10:12 Meclizine Hcl 25 Mg Tablet PO 25 mg BID PRN Administration nausea/dizziness Nicotine Polacrilex 2 mg 06/07/20 17:42 Nicotine Polacrilex 2 Mg Gum BUCCAL Q2H PRN Nicotine Cravings Omeprazole 40 mg 06/07/20 21:00 07/05/20 09:25 Omeprazole 40 Mg Capsule.Dr PO 40 mg BID SHIKHA Administration Ondansetron HCl 4 mg 06/07/20 17:42 Ondansetron Odt 4 Mg Tab.Rapdis TRANSLINGU BID PRN Nausea Pharmacy Consult 1 each 06/07/20 14:09 Consult Rx Perform Med Rec MISCELLANE ONCE PRN Consult order Sertraline HCl 150 mg 06/08/20 09:00 07/05/20 09:28 Sertraline Hcl 50 Mg Tablet PO 150 mg DAILY SHIKHA Administration Topiramate 50 mg 06/07/20 21:00 07/05/20 09:28 Topiramate 25 Mg Tablet PO 50 mg BID SHIKHA Administration Trazodone HCl 12.5 mg 06/25/20 07:37 07/03/20 20:23 Trazodone Hcl 25 Mg Halftab PO 12.5 mg QID PRN Administration Anxiety, agitation Vitamin D 25 mcg 06/08/20 09:00 07/05/20 09:28 Cholecalciferol (Vitamin D3) 25 Mcg Tablet PO 25 mcg DAILY SHIKHA Administration Home Medications Medication Instructions Recorded Confirmed Last Taken Type acetaminophen 650 mg PO Q8H PRN 05/31/20 06/07/20 Unknown History atorvastatin 40 mg PO DAILY 05/31/20 06/07/20 Unknown History cholecalciferol (vitamin D3) 25 mcg PO DAILY 05/31/20 06/07/20 Unknown History ferrous sulfate 325 mg PO DAILY 05/31/20 06/07/20 Unknown History fluticasone propionate 1 - 2 spray INTRANASAL DAILY PRN 05/31/20 06/07/20 Unknown History hydroxyzine HCl 25 mg PO TID PRN 05/31/20 06/07/20 Unknown History loratadine 10 mg PO DAILY 05/31/20 06/07/20 Unknown History omeprazole 40 mg PO BID 05/31/20 06/07/20 Unknown History amitriptyline 100 mg PO BEDTIME 06/07/20 06/07/20 Unknown History lisinopril 10 mg PO DAILY 06/07/20 06/07/20 Unknown History meclizine 25 mg PO BID PRN 06/07/20 06/07/20 Unknown History nicotine (polacrilex) 2 mg BUCCAL Q2H PRN 06/07/20 06/07/20 Unknown History ondansetron HCl [Zofran] 4 mg PO BID PRN 06/07/20 06/07/20 Unknown History sertraline [Zoloft] 150 mg PO DAILY 06/07/20 06/07/20 Unknown History topiramate 50 mg PO BID 06/07/20 06/07/20 Unknown History Physical Exam Vital Signs: Vital Signs: Last Vital Signs Temp 98.1 F 07/05/20 09:32 Pulse 78 07/05/20 09:32 Resp 16 07/05/20 09:32 BP 147/82 H 07/05/20 09:32 Pulse Ox 97 07/05/20 09:32 Body Mass Index 26.5 he was alert and awake with normal spontaneity of speech fluency comprehension and wake affect. External ocular muscles were intact. Visual hardy are full. There was mild left-sided facial flatness. There was no pronator drift. Deep tendon reflexes were trace to 1+ with flexor plantars. He was able to get up and walk around without difficulty. Results Labs CBC & Chem 7: 07/04/20 20:34 07/04/20 20:33 Labs: Short CBC 07/04/20 Range/Units 20:34 WBC 5.6 (4.8-10.8) X10*3/uL Hgb 10.7 L (14.0-18.0) g/dl Hct 34.0 L (42-52) % Plt Count 312 D (160-400) X10*3/uL BMP 07/04/20 20:33 Sodium 145 Potassium 4.0 Chloride 112 H Carbon Dioxide 24 BUN 13 Creatinine 0.82 Calcium 8.7 D Liver Function 07/04/20 Range/Units 20:33 Total Bilirubin 0.3 (0.0-1.0) mg/dL Direct Bilirubin < 0.2 (0.0-0.5) mg/dL AST 22 (5-37) U/L ALT 25 (0-40) U/L Alkaline Phosphatase 97 (39-117) U/L Albumin 3.9 (3.5-5.0) g/dL Urine 07/04/20 Range/Units 22:04 Urine Color YELLOW Urine Appearance CLEAR Urine pH 8.0 (5.0-8.0) Ur Specific [place] 1.020 (1.005-1.025) Urine Protein NEG (NEG-TRACE) MG/DL Urine Glucose (UA) NEG (NEG) MG/DL Assessment and Plan (1) Confusion: Status: Acute 49 years old man with recent admissions for complex brain condition 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 Multiple tests to define nature of the inciting agent or pathogen were negative. He was in emergency room with behavioral symptomatology that was difficult to explain. My recommendation would be to obtain an MRI of brain again to see if there was any change or especially if there was any problem with his frontal lobes. MRI of brain should be done with and without contrast. Procedures Date of Service Date of Service: 07/05/20
--- NOTE | 2020-07-05 10:45 | MHC.CM.ED ---
Patient seen by neurology. MRI with and without contrast of the brain is recommended. Awa TSANG aware and will order. Continue to monitor for d/c needs.
--- NOTE | 2020-07-05 15:26 | MHC.CM.ED ---
Patient has been found to be stable from Neuro's perspective. T/W spoke with intake at [facility]. Clinical information faxed to [phone]. They will forward it to the facility screener. Continue to monitor for d/c needs.
--- NOTE | 2020-07-05 15:37 | PC.NURSE ---
Patient remains in a one to one watch. Easily redirected. No distress. Will monitor for changes.
[2020-07-05 17:04] VITALS: BP 118/79; PULSE 103; RESP 18; TEMP 36.8; O2SAT 99
--- NOTE | 2020-07-05 19:28 | PC.NURSE ---
Patient in his room, socializing with staff member, confused, ate his supper, no distress reported, per MRI report patient has no organic changes to his brain, will continue to monitor on 1:1 level for safety.
[2020-07-05] MEDS: hydrOXYzine HCL 25 MG TABLET PO (20:01)
[2020-07-05] MEDS: Amitriptyline HCl 50 MG TABLET 100 MG PO (20:01)
[2020-07-06] MEDS: traZODone HCL 25 MG HALFTAB 12.5 MG PO ×3 (01:35→21:37)
[2020-07-06 06:00] VITALS: BP 132/83; PULSE 85; RESP 18; TEMP 36.2
--- NOTE | 2020-07-06 06:58 | PC.NURSE ---
Report received. PT currently in his room, calm and cooperative. PT is case management bedsearch.
--- NOTE | 2020-07-06 08:15 | MHC.CM.ED ---
Patient remains in the ER. Received request to return Brenda's call at [facility]. Attempted to reach Brenda via telephone at [phone]. Left message requesting return telephone call. Continue to monitor for d/c needs.
[2020-07-06 09:14] VITALS: BP 157/93; PULSE 81; RESP 16; TEMP 36.9; O2SAT 100
[2020-07-06] MEDS: Sertraline HCL 50 MG TABLET 150 MG PO (09:36)
[2020-07-06] MEDS: Cholecalciferol (Vitamin D3) 25 MCG TABLET PO (09:36)
[2020-07-06] MEDS: Ferrous Sulfate 324 MG TABLET.DR PO (09:37)
[2020-07-06] MEDS: Omeprazole 40 MG CAPSULE.DR PO ×2 (09:37→21:35)
[2020-07-06] MEDS: Atorvastatin Calcium 40 MG TABLET PO (09:37)
[2020-07-06] MEDS: allopurinoL 100 MG TABLET 300 MG PO (09:37)
[2020-07-06] MEDS: Loratadine 10 MG TABLET PO (09:37)
[2020-07-06] MEDS: Topiramate 25 MG TABLET 50 MG PO ×2 (09:37→21:35)
--- NOTE | 2020-07-06 09:47 | MHC.CM.ED ---
Received telephone call from Brenda at [facility]. Clinicall information is under review by their therapeutic case manager. Kellie lindsey. Continue to monitor for d/c needs.
--- NOTE | 2020-07-06 10:05 | PC.NURSE ---
PT noted to have soiled linen and was naked in his room. PT given new clothing, room cleaned. PT irritable with staff, easily redirected.
--- NOTE | 2020-07-06 14:21 | MHC.CM.ED ---
Received telephone call from Rekha at [facility]. They are unable to offer a bed because he doesn't appear to have a medical need. He has behavior needs that they will not be able to provide for. Kellie Saravia aware. Continue to monitor for discharge needs.
--- NOTE | 2020-07-06 14:35 | MHC.CM.ED ---
Spoke with Sabrina Pinedo at [facility]. They still have a waiting list but will be willing to review clinicals. It must be faxed to [phone] and can't be more than 20 pages. Sabrina Pinedo requesting fax wait until Psych consult is complete.
--- NOTE | 2020-07-06 17:12 | P.CNPS_ITS ---
History of Present Illness Date of Service: 07/06/2020 Chief Complaint: MEDICAL CLEARANCE Reason for Consult: medication recommendations Requesting physician: Awa Huston Discussed with referring provider: No Sources of Information: patient interviewed and chart reviewed HPI Narrative: Patient is a 49 year old male with history of brain mass awaiting SNF placement. Consult requested as patient has reportedly been increasingly confused and urinating in his room. Chart reviewed, patient has been seen by neurology. Documentation shows that patient has been in behavioral control during his entire stay in the ED. He has been consistently confused about where he is or why he is here, but he has been very overall pleasant and easily redirectable. Frequently thinks he needs to leave and be somewhere else, but once reminded by staff that he has to stay, he is agreeable. When seen by this telegraphic typewriter operator, patient was napping, but woke easily. Pleasant and willing to engage with this telegraphic typewriter operator. No meaningful history gathered from patient as he is disoriented to place, date, or situation. Main issue identified by clinical team is that patient continuously uses the bathroom in his room, but once redirected by staff he willfully walks to the bathroom. Currently prescribed Trazodone 12.5mg 4x per day for anxiety, which has been helpful. [facility] Medical History Abnormal brain CT Brain mass GERD (gastroesophageal reflux disease) HTN (hypertension) Diagnostics Vital Signs (24Hr): Vital Signs - 24 hr 07/06/20 06:00 07/06/20 09:14 Temperature 97.2 F 98.4 F Pulse Rate 85 81 Respiratory Rate 18 16 Blood Pressure 132/83 157/93 H Pulse Oximetry 100 Body Mass Index 26.5 Labs Results: 07/04/20 20:34 07/04/20 20:33 Labs: Laboratory Results - last 48 hr 07/04/20 07/04/20 07/04/20 20:15 20:33 20:34 WBC 5.6 RBC 3.60 L Hgb 10.7 L Hct 34.0 L MCV 94.4 MCH 29.7 MCHC 31.5 RDW 18.9 H Plt Count 312 D MPV 9.7 Immature Gran % (Auto) 0.7 H Neut % (Auto) 49.1 Lymph % (Auto) 34.7 Lake % (Auto) 12.2 H Eos % (Auto) 3.1 Baso % (Auto) 0.2 Lymph # (Auto) 1.9 Lake # (Auto) 0.7 Eos # (Auto) 0.2 Baso # (Auto) 0.0 Abs Immat Gran (auto) 0.04 H Absolute Neuts (auto) 2.7 Absolute Nucleated RBC 0.020 H Nucleated RBC % (auto) 0.4 H PT INR APTT Sodium 145 Potassium 4.0 Chloride 112 H Carbon Dioxide 24 Anion Gap 13 BUN 13 Creatinine 0.82 Estim Creat Clear Calc 112.5 Estimated GFR > 60 Random Glucose 111 Calcium 8.7 D Magnesium 1.8 Total Bilirubin 0.3 Direct Bilirubin < 0.2 AST 22 ALT 25 Alkaline Phosphatase 97 Total Protein 6.5 Albumin 3.9 Lipase 38 Urine Color Urine Appearance Urine pH Ur Specific [place] Urine Protein Urine Glucose (UA) Urine Ketones Urine Blood Urine Nitrite Ur Leukocyte Esterase COVID-19 (MALINDA) Negative COVID-19 Clin Com See Note 07/04/20 07/04/20 20:34 22:04 WBC RBC Hgb Hct MCV MCH MCHC RDW Plt Count MPV Immature Gran % (Auto) Neut % (Auto) Lymph % (Auto) Lake % (Auto) Eos % (Auto) Baso % (Auto) Lymph # (Auto) Lake # (Auto) Eos # (Auto) Baso # (Auto) Abs Immat Gran (auto) Absolute Neuts (auto) Absolute Nucleated RBC Nucleated RBC % (auto) PT 12.9 INR 1.1 APTT 34.5 Sodium Potassium Chloride Carbon Dioxide Anion Gap BUN Creatinine Estim Creat Clear Calc Estimated GFR Random Glucose Calcium Magnesium Total Bilirubin Direct Bilirubin AST ALT Alkaline Phosphatase Total Protein Albumin Lipase Urine Color YELLOW Urine Appearance CLEAR Urine pH 8.0 Ur Specific [place] 1.020 Urine Protein NEG Urine Glucose (UA) NEG Urine Ketones NEG Urine Blood NEG Urine Nitrite NEG Ur Leukocyte Esterase NEG COVID-19 (MALINDA) COVID-19 Clin Com Imaging Radiology Impressions: ITS Impressions Hip/Pelvis X-Ray 06/21/20 00:20 IMPRESSION: Normal left hip. Brain MRI 07/05/20 11:00 IMPRESSION: - No acute findings. There is chronic encephalomalacia and gliosis as well as intrinsic T1 shortening without true enhancement within the deep gomez nuclei bilaterally at sites of previously seen heterogeneous enhancement. There is volume loss in these areas without expansion. Biopsy tract again noted. Chronic hemosiderin staining within the right deep gomez nuclei. - Mild nonspecific T2 signal changes within the background supratentorial white matter. - No definite pathologic enhancement intracranially though assessment is limited by the degree of motion artifact. Mental Status Exam Mental Status Exam Patient Appearance: Disheveled and Appropriate Patient Orientation: Person Level of Consciousness: Awake, Appropriate and Disoriented Patient Behavior: Cooperative, Wandering and Confused Mood Description: Apprehensive Affect Description: Apprehensive Patient Cognition Impaired: Yes Ability to Follow Directions: Good Speech Pattern: Clear Memory Description: Immediate Impaired Thought Process: Disoriented Thought Content: positive for Disoriented and positive for [place] Judgement: Poor Medications Medications Current Medications Generic Name Dose Route Start Last Admin Trade Name Freq PRN Reason Stop Dose Admin Acetaminophen 650 mg 06/07/20 17:42 07/04/20 20:43 Acetaminophen 325 Mg Tablet PO 650 mg Q8H PRN Administration Pain Allopurinol 300 mg 06/08/20 09:00 07/06/20 09:37 Allopurinol 100 Mg Tablet PO 300 mg DAILY SHIKHA Administration Amitriptyline HCl 100 mg 06/07/20 21:00 07/05/20 20:01 Amitriptyline Hcl 50 Mg Tablet PO 100 mg BEDTIME SHIKHA Administration Atorvastatin Calcium 40 mg 06/08/20 09:00 07/06/20 09:37 Atorvastatin Calcium 40 Mg Tablet PO 40 mg DAILY SHIKHA Administration Ferrous Sulfate 324 mg 06/08/20 09:00 07/06/20 09:37 Ferrous Sulfate 324 Mg Tablet.Dr PO 324 mg DAILY SHIKHA Administration Fluticasone Propionate 1 - 2 spray 06/07/20 17:42 Fluticasone Propionate Nasal 16 Gm [place] NOSTRIL-B DAILY PRN Allergy Symptoms Hydroxyzine HCl 25 mg 06/07/20 17:42 07/05/20 20:01 Hydroxyzine Hcl 25 Mg Tablet PO 25 mg TID PRN Administration Itching Loratadine 10 mg 06/08/20 09:00 07/06/20 09:37 Loratadine 10 Mg Tablet PO 10 mg DAILY SHIKHA Administration Meclizine HCl 25 mg 06/07/20 17:42 07/03/20 10:12 Meclizine Hcl 25 Mg Tablet PO 25 mg BID PRN Administration nausea/dizziness Nicotine Polacrilex 2 mg 06/07/20 17:42 Nicotine Polacrilex 2 Mg Gum BUCCAL Q2H PRN Nicotine Cravings Omeprazole 40 mg 06/07/20 21:00 07/06/20 09:37 Omeprazole 40 Mg Capsule.Dr PO 40 mg BID SHIKHA Administration Ondansetron HCl 4 mg 06/07/20 17:42 Ondansetron Odt 4 Mg Tab.Rapdis TRANSLINGU BID PRN Nausea Pharmacy Consult 1 each 06/07/20 14:09 Consult Rx Perform Med Rec MISCELLANE ONCE PRN Consult order Sertraline HCl 150 mg 06/08/20 09:00 07/06/20 09:36 Sertraline Hcl 50 Mg Tablet PO 150 mg DAILY SHIKHA Administration Topiramate 50 mg 06/07/20 21:00 07/06/20 09:37 Topiramate 25 Mg Tablet PO 50 mg BID SHIKHA Administration Trazodone HCl 12.5 mg 06/25/20 07:37 07/06/20 09:37 Trazodone Hcl 25 Mg Halftab PO 12.5 mg QID PRN Administration Anxiety, agitation Vitamin D 25 mcg 06/08/20 09:00 07/06/20 09:36 Cholecalciferol (Vitamin D3) 25 Mcg Tablet PO 25 mcg DAILY SHIKHA Administration Allergies Allergies Allergy/AdvReac Type Severity Reaction Status Date / Time No Known Allergies Allergy Verified 04/25/20 17:14 Assessment & Plan Assessment & Plan (1) Confusion: Status: Acute Code(s): R41.0 - Disorientation, unspecified Recommendations: no additional medication recommendations at this time continue to remind patient to use the bathroom, if possible try and encourage briefs or regular bathroom breaks. continue to use trazodone as necessary for anxiety or agitation Greater than 50% of the session was spent on counseling and/or coordination of care
--- NOTE | 2020-07-06 19:01 | PC.NURSE ---
Report received. PT is using the shower after and episode of incontinence. Calm and cooperative. Case management is working to find placement.
[2020-07-06] MEDS: Amitriptyline HCl 50 MG TABLET 100 MG PO (21:36)
[2020-07-06 23:57] VITALS: BP 138/77; PULSE 77; RESP 18; TEMP 37.1; O2SAT 100
--- NOTE | 2020-07-07 07:02 | PC.NURSE ---
Report received. Pt currently resting, calm and cooperative. PT is case management bedsearch.
[2020-07-07 07:35] VITALS: BP 145/90; PULSE 78; RESP 16; TEMP 36.4; O2SAT 100
[2020-07-07] MEDS: allopurinoL 100 MG TABLET 300 MG PO (09:34)
[2020-07-07] MEDS: Omeprazole 40 MG CAPSULE.DR PO ×2 (09:34→20:13)
[2020-07-07] MEDS: Cholecalciferol (Vitamin D3) 25 MCG TABLET PO (09:34)
[2020-07-07] MEDS: Loratadine 10 MG TABLET PO (09:34)
[2020-07-07] MEDS: Ferrous Sulfate 324 MG TABLET.DR PO (09:34)
[2020-07-07] MEDS: Topiramate 25 MG TABLET 50 MG PO ×2 (09:34→20:13)
[2020-07-07] MEDS: Atorvastatin Calcium 40 MG TABLET PO (09:34)
[2020-07-07] MEDS: Sertraline HCL 50 MG TABLET 150 MG PO (09:34)
--- NOTE | 2020-07-07 13:59 | PC.NURSE ---
Upon waking PT immediately stood up and urinated in his room, pt stated he didn't mean to urinate. Pt redirected into the shower, pt cooperative with shower.
[2020-07-07 14:03] VITALS: RESP 16
[2020-07-07] MEDS: traZODone HCL 25 MG HALFTAB 12.5 MG PO (15:28)
--- NOTE | 2020-07-07 17:43 | PC.NURSE ---
PT currently resting, calm and cooperative.
--- NOTE | 2020-07-07 19:32 | PC.NURSE ---
Patient in bed appears sleeping currently, no distress observed at this time, will continue to monitor.
[2020-07-07] MEDS: hydrOXYzine HCL 25 MG TABLET PO (20:13)
[2020-07-07] MEDS: Amitriptyline HCl 50 MG TABLET 100 MG PO (20:13)
[2020-07-07 22:00] VITALS: BP 126/91; PULSE 101; RESP 18; TEMP 36.6; O2SAT 99
--- NOTE | 2020-07-08 07:29 | PC.NURSE ---
Report received from CB Mcmillan. Pt resting, resp unlabored.
--- NOTE | 2020-07-08 08:52 | MHC.CM.ED ---
Patient remains in ER. Clinical information faxed to [facility]. They still have a waiting list but are willing to review patient for admission. Continue to monitor for d/c needs.
[2020-07-08] MEDS: Topiramate 25 MG TABLET 50 MG PO ×2 (10:31→20:51)
[2020-07-08] MEDS: Cholecalciferol (Vitamin D3) 25 MCG TABLET PO (10:33)
[2020-07-08] MEDS: Loratadine 10 MG TABLET PO (10:33)
[2020-07-08] MEDS: allopurinoL 100 MG TABLET 300 MG PO (10:33)
[2020-07-08] MEDS: Ferrous Sulfate 324 MG TABLET.DR PO (10:34)
[2020-07-08] MEDS: Sertraline HCL 50 MG TABLET 150 MG PO (10:34)
[2020-07-08] MEDS: Omeprazole 40 MG CAPSULE.DR PO ×2 (10:34→20:51)
[2020-07-08] MEDS: Atorvastatin Calcium 40 MG TABLET PO (10:35)
--- NOTE | 2020-07-08 11:23 | PC.NURSE ---
Pt resting in room, cooperative w/ medications, pleasant, using bathroom appropriately when reminded.
[2020-07-08 11:26] VITALS: BP 108/60; PULSE 95; RESP 16; TEMP 36.3; O2SAT 95
[2020-07-08 14:00] VITALS: RESP 20
--- NOTE | 2020-07-08 14:21 | PC.NURSE ---
Pt resting, resp unlabored. Pt maintained on 1:1
--- NOTE | 2020-07-08 14:49 | PC.NURSE ---
Pt resting, resp unlabored
--- NOTE | 2020-07-08 16:25 | PC.NURSE ---
Pt awake, directed to toilet, pleasant w/ staff; ate lunch, no concerns reported.
[2020-07-08 16:53] VITALS: BP 112/75; PULSE 96; RESP 16; TEMP 36.3; O2SAT 99
--- NOTE | 2020-07-08 18:11 | PC.NURSE ---
Pt lying in room, watching television, affect even.
[2020-07-08] MEDS: hydrOXYzine HCL 25 MG TABLET PO (20:51)
[2020-07-08] MEDS: Amitriptyline HCl 50 MG TABLET 100 MG PO (20:51)
[2020-07-09 06:41] VITALS: BP 131/84; PULSE 86; RESP 17; TEMP 37; O2SAT 100
--- NOTE | 2020-07-09 07:19 | PC.NURSE ---
Report receieved from CB Mcmillan. Pt laying in bed at current, calm and cooperative.
[2020-07-09] MEDS: Atorvastatin Calcium 40 MG TABLET PO (09:10)
[2020-07-09] MEDS: Cholecalciferol (Vitamin D3) 25 MCG TABLET PO (09:10)
[2020-07-09] MEDS: traZODone HCL 25 MG HALFTAB 12.5 MG PO (09:10)
[2020-07-09] MEDS: Omeprazole 40 MG CAPSULE.DR PO ×3 (09:11→20:33)
[2020-07-09] MEDS: Topiramate 25 MG TABLET 50 MG PO ×2 (09:11→20:34)
[2020-07-09] MEDS: allopurinoL 100 MG TABLET 300 MG PO (09:11)
[2020-07-09] MEDS: Ferrous Sulfate 324 MG TABLET.DR PO (09:11)
[2020-07-09] MEDS: Sertraline HCL 50 MG TABLET 150 MG PO (09:11)
[2020-07-09] MEDS: Loratadine 10 MG TABLET PO (09:11)
[2020-07-09 09:12] VITALS: BP 119/79; PULSE 84; RESP 20; TEMP 37.1; O2SAT 98
--- NOTE | 2020-07-09 09:27 | MHC.CM.ED ---
Patient remains in ER. Still attempting to find placement for patient. Continue to monitor for d/c needs.
--- NOTE | 2020-07-09 10:14 | PC.NURSE ---
Pt asleep at current. No signs of distress. Respirations even and unlabored.
--- NOTE | 2020-07-09 11:51 | PC.NURSE ---
Pt sleeping at current. No signs of distress. Respirations even and unlabored.
--- NOTE | 2020-07-09 16:23 | PC.NURSE ---
Pt resting, resp unlabored.
--- NOTE | 2020-07-09 18:06 | PC.NURSE ---
Pt resting, resp unlabored, 1:1 at bedside.
[2020-07-09] MEDS: hydrOXYzine HCL 25 MG TABLET PO (20:33)
[2020-07-09] MEDS: Amitriptyline HCl 50 MG TABLET 100 MG PO (20:34)
--- NOTE | 2020-07-09 21:54 | PC.NURSE ---
Patient in bed lying, eyes closed, resting quietly, compliant with HS PO medication, will continue to monitor on 1:1 for safety.
[2020-07-10 06:00] VITALS: BP 145/91; PULSE 85; RESP 18; TEMP 36.2; O2SAT 99
--- NOTE | 2020-07-10 06:51 | PC.NURSE ---
Report received. PT currently sitting in bed, calm and cooperative, pleasantly confused. PT is case management bedsearch.
[2020-07-10 09:03] VITALS: BP 112/73; PULSE 85; RESP 16; TEMP 36.6; O2SAT 100
[2020-07-10] MEDS: Cholecalciferol (Vitamin D3) 25 MCG TABLET PO (09:28)
[2020-07-10] MEDS: Loratadine 10 MG TABLET PO (09:28)
[2020-07-10] MEDS: Sertraline HCL 50 MG TABLET 150 MG PO (09:28)
[2020-07-10] MEDS: Topiramate 25 MG TABLET 50 MG PO ×2 (09:28→21:04)
[2020-07-10] MEDS: allopurinoL 100 MG TABLET 300 MG PO (09:28)
[2020-07-10] MEDS: Ferrous Sulfate 324 MG TABLET.DR PO (09:28)
[2020-07-10] MEDS: Atorvastatin Calcium 40 MG TABLET PO (09:29)
[2020-07-10 16:45] VITALS: BP 136/88; PULSE 110; RESP 18; TEMP 36.8; O2SAT 97
--- NOTE | 2020-07-10 19:11 | PC.NURSE ---
Report received. PT is resting in bed quietly. Calm and cooperative. Case management working to find placement.
[2020-07-10] MEDS: Omeprazole 40 MG CAPSULE.DR PO (21:04)
[2020-07-10] MEDS: Amitriptyline HCl 50 MG TABLET 100 MG PO (21:04)
--- NOTE | 2020-07-11 07:03 | PC.NURSE ---
Report received. PT just out of the shower, calm and cooperative, pleasantly confused. PT remains case management bedsearch.
[2020-07-11] MEDS: Loratadine 10 MG TABLET PO (08:35)
[2020-07-11] MEDS: Ferrous Sulfate 324 MG TABLET.DR PO (08:35)
[2020-07-11] MEDS: Sertraline HCL 50 MG TABLET 150 MG PO (08:35)
[2020-07-11] MEDS: Cholecalciferol (Vitamin D3) 25 MCG TABLET PO (08:35)
[2020-07-11] MEDS: Omeprazole 40 MG CAPSULE.DR PO ×2 (08:35→22:04)
[2020-07-11] MEDS: Atorvastatin Calcium 40 MG TABLET PO (08:35)
[2020-07-11] MEDS: allopurinoL 100 MG TABLET 300 MG PO (08:35)
[2020-07-11] MEDS: Topiramate 25 MG TABLET 50 MG PO ×2 (08:36→22:04)
[2020-07-11 08:58] VITALS: BP 137/92; PULSE 84; RESP 16; TEMP 36.8; O2SAT 100
--- NOTE | 2020-07-11 09:44 | MHC.CM.ED ---
Patient remains in ER. Clinical info faxed to [facility] over the weekend. They have received the clinical but still have a waiting list. They are not sure when a bed will be available. Kellie Saravia aware. Continue to monitor for d/c needs.
[2020-07-11 18:13] VITALS: PULSE 76; RESP 20; O2SAT 97
--- NOTE | 2020-07-11 19:53 | PC.NURSE ---
Report received. PT is sleeping in his room. Respirations even and unlabored. Case management is looking for placement.
[2020-07-11] MEDS: Amitriptyline HCl 50 MG TABLET 100 MG PO (22:05)
[2020-07-11 23:31] VITALS: BP 108/70; PULSE 94; RESP 17; TEMP 36.9; O2SAT 99
[2020-07-12] MEDS: Atorvastatin Calcium 40 MG TABLET PO (08:09)
[2020-07-12] MEDS: Cholecalciferol (Vitamin D3) 25 MCG TABLET PO (08:09)
[2020-07-12] MEDS: Omeprazole 40 MG CAPSULE.DR PO ×2 (08:09→20:37)
[2020-07-12] MEDS: Ferrous Sulfate 324 MG TABLET.DR PO (08:09)
[2020-07-12] MEDS: Sertraline HCL 50 MG TABLET 150 MG PO (08:09)
[2020-07-12] MEDS: allopurinoL 100 MG TABLET 300 MG PO (08:10)
[2020-07-12] MEDS: Topiramate 25 MG TABLET 50 MG PO ×2 (08:10→20:37)
[2020-07-12] MEDS: Loratadine 10 MG TABLET PO (08:10)
[2020-07-12 08:30] VITALS: BP 117/84; PULSE 91; RESP 17; TEMP 36.8; O2SAT 100
--- NOTE | 2020-07-12 09:45 | MHC.CM.ED ---
Patient remains in ER. [facility] received clinical info, but they currently have a wait list. Kellie Saravia aware. Continue to monitor for d/c needs.
--- NOTE | 2020-07-12 15:00 | PC.NURSE ---
Report received. Pt sitting in chair in room, calm, no complaints at this time.
--- NOTE | 2020-07-12 17:13 | PC.NURSE ---
Pt defecated on floor in room. Cooperative with self care.
[2020-07-12] MEDS: Amitriptyline HCl 50 MG TABLET 100 MG PO (20:37)
--- NOTE | 2020-07-12 21:48 | PC.NURSE ---
Patient compliant with his HS po medication, calm and quiet, watching TV, no distress reported, will continue to monitor.
[2020-07-13 02:21] VITALS: BP 146/91; PULSE 93; RESP 17; TEMP 36.7; O2SAT 99
--- NOTE | 2020-07-13 07:11 | PC.NURSE ---
Report received from BC Mcmillan. Pt resting, resp unlabored.
[2020-07-13] MEDS: allopurinoL 100 MG TABLET 300 MG PO (08:56)
[2020-07-13] MEDS: Cholecalciferol (Vitamin D3) 25 MCG TABLET PO (08:56)
[2020-07-13] MEDS: Atorvastatin Calcium 40 MG TABLET PO (08:57)
[2020-07-13] MEDS: Omeprazole 40 MG CAPSULE.DR PO ×2 (08:57→21:08)
[2020-07-13] MEDS: Ferrous Sulfate 324 MG TABLET.DR PO (08:57)
[2020-07-13] MEDS: Loratadine 10 MG TABLET PO (08:57)
[2020-07-13] MEDS: Topiramate 25 MG TABLET 50 MG PO ×2 (08:58→21:09)
[2020-07-13] MEDS: Sertraline HCL 50 MG TABLET 150 MG PO (08:58)
[2020-07-13 09:27] VITALS: BP 134/88; PULSE 87; RESP 18; TEMP 36.8; O2SAT 98
--- NOTE | 2020-07-13 10:19 | PC.NURSE ---
Pt awake, ate breakfast, denies any concerns at this time. 1:[address], pt accepted direction to bathroom, continent at this time.
--- NOTE | 2020-07-13 11:58 | PC.NURSE ---
Pt resting, resp unlabored.
--- NOTE | 2020-07-13 12:59 | MHC.CM.ED ---
Patient remains in ER. Finding placement has been difficult. Continue to monitor for d/c needs.
[2020-07-13 14:00] VITALS: RESP 18
--- NOTE | 2020-07-13 18:32 | PC.NURSE ---
Pt resting, resp unlabored
[2020-07-13 20:35] VITALS: BP 122/84; PULSE 95; RESP 17; TEMP 36.8; O2SAT 100
[2020-07-13] MEDS: hydrOXYzine HCL 25 MG TABLET PO (21:09)
[2020-07-13] MEDS: Amitriptyline HCl 50 MG TABLET 100 MG PO (21:09)
--- NOTE | 2020-07-14 07:10 | PC.NURSE ---
Report received from CB Mcmillan. Pt resting, resp unlabored.
[2020-07-14 08:00] VITALS: BP 128/72; PULSE 85; RESP 20; TEMP 36.6; O2SAT 98
[2020-07-14] MEDS: Sertraline HCL 50 MG TABLET 150 MG PO (08:22)
[2020-07-14] MEDS: Cholecalciferol (Vitamin D3) 25 MCG TABLET PO (08:22)
[2020-07-14] MEDS: allopurinoL 100 MG TABLET 300 MG PO (08:22)
[2020-07-14] MEDS: Omeprazole 40 MG CAPSULE.DR PO ×2 (08:23→20:22)
[2020-07-14] MEDS: Loratadine 10 MG TABLET PO (08:23)
[2020-07-14] MEDS: Topiramate 25 MG TABLET 50 MG PO ×2 (08:24→20:23)
[2020-07-14] MEDS: Ferrous Sulfate 324 MG TABLET.DR PO (08:24)
[2020-07-14] MEDS: Atorvastatin Calcium 40 MG TABLET PO (08:24)
--- NOTE | 2020-07-14 10:52 | PC.NURSE ---
Pt awake briefly currently resting in room, 1:1 w/ pt; pt redirectable, prompted to use bathroom as needed.
--- NOTE | 2020-07-14 12:09 | PC.NURSE ---
Pt resting, watching television.
--- NOTE | 2020-07-14 12:41 | PC.NURSE ---
Pt resting, resp unlabored.
[2020-07-14 14:00] VITALS: RESP 20
--- NOTE | 2020-07-14 15:55 | PC.NURSE ---
Late entry:1430- pt resting, resp unlabored
--- NOTE | 2020-07-14 16:40 | PC.NURSE ---
Pt asleep at current. No signs of distress. Respirations even and unlabored.
--- NOTE | 2020-07-14 18:25 | PC.NURSE ---
Pt watching TV in room at current. Calm and cooperative. No complaints at this time.
--- NOTE | 2020-07-14 19:04 | PC.NURSE ---
Report received. PT is resting quietly in bed. Calm and cooperative. Case management is looking for placement.
[2020-07-14] MEDS: Amitriptyline HCl 50 MG TABLET 100 MG PO (20:22)
[2020-07-15 00:47] VITALS: RESP 18
[2020-07-15] MEDS: Acetaminophen 325 MG TABLET 650 MG PO (01:37)
[2020-07-15 06:20] VITALS: BP 126/93; PULSE 94; RESP 17; TEMP 36.8; O2SAT 95
--- NOTE | 2020-07-15 06:53 | PC.NURSE ---
Report received. PT currently eating breakfast, calm and cooperative. Pt is case management bedsearch.
[2020-07-15] MEDS: Loratadine 10 MG TABLET PO (08:39)
[2020-07-15] MEDS: Topiramate 25 MG TABLET 50 MG PO ×2 (08:39→21:06)
[2020-07-15] MEDS: Ferrous Sulfate 324 MG TABLET.DR PO (08:39)
[2020-07-15] MEDS: Atorvastatin Calcium 40 MG TABLET PO (08:39)
[2020-07-15] MEDS: Cholecalciferol (Vitamin D3) 25 MCG TABLET PO (08:39)
[2020-07-15] MEDS: allopurinoL 100 MG TABLET 300 MG PO (08:39)
[2020-07-15] MEDS: Omeprazole 40 MG CAPSULE.DR PO ×2 (08:39→21:06)
[2020-07-15] MEDS: Sertraline HCL 50 MG TABLET 150 MG PO (08:39)
[2020-07-15 08:41] VITALS: BP 119/80; PULSE 92; RESP 18; TEMP 36.7; O2SAT 98
--- NOTE | 2020-07-15 10:56 | PC.NURSE ---
Report received. Pt resting in bed at current, calm and cooperative, no complaints at this time.
--- NOTE | 2020-07-15 12:55 | PC.NURSE ---
Pt asleep at current. No signs of distress. Respirations even and unlabored.
--- NOTE | 2020-07-15 15:05 | PC.NURSE ---
Pt sleeping at current. No signs of distress. Respirations even and unlabored.
--- NOTE | 2020-07-15 16:54 | PC.NURSE ---
Pt resting in bed at current. Calm and cooperative. No complaints at this time.
--- NOTE | 2020-07-15 18:40 | PC.NURSE ---
Pt currently using the bathroom. Calm and cooperative. No complaints at this time.
[2020-07-15 20:00] VITALS: BP 118/74; PULSE 98; RESP 16; O2SAT 99
[2020-07-15] MEDS: Amitriptyline HCl 50 MG TABLET 100 MG PO (21:06)
[2020-07-16 06:00] VITALS: BP 117/85; PULSE 99; RESP 18; TEMP 37.2; O2SAT 100
--- NOTE | 2020-07-16 07:02 | PC.NURSE ---
Report received. PT currently watching tv, calm and cooperative. PT is case management bedsearch.
[2020-07-16 09:00] VITALS: RESP 16
[2020-07-16] MEDS: Omeprazole 40 MG CAPSULE.DR PO ×2 (09:00→20:16)
[2020-07-16] MEDS: Sertraline HCL 50 MG TABLET 150 MG PO (09:00)
[2020-07-16] MEDS: allopurinoL 100 MG TABLET 300 MG PO (09:00)
[2020-07-16] MEDS: Cholecalciferol (Vitamin D3) 25 MCG TABLET PO (09:00)
[2020-07-16] MEDS: Atorvastatin Calcium 40 MG TABLET PO (09:00)
[2020-07-16] MEDS: Ferrous Sulfate 324 MG TABLET.DR PO (09:00)
[2020-07-16] MEDS: Loratadine 10 MG TABLET PO (09:01)
[2020-07-16] MEDS: Topiramate 25 MG TABLET 50 MG PO ×2 (09:01→20:16)
[2020-07-16 09:16] VITALS: BP 119/77; PULSE 89; RESP 16; TEMP 36.6; O2SAT 97
--- NOTE | 2020-07-16 14:28 | MHC.CM.PN ---
EMR REVIEWED, PT REMAINS IN ED, PT HAS HAD NO NEGATIVE BEHAVIORS OVER WEEKEND PER NURSING NOTES, PT REMAINS A DIFFICULT PLACEMENT, CM WILL CONT TO MONITOR D/C NEEDS.
[2020-07-16 16:31] LABS: COVID-19 Test Negative (Negative)
[2020-07-16 18:32] VITALS: BP 137/69; PULSE 94; RESP 19; TEMP 36.6; O2SAT 100
[2020-07-16] MEDS: Amitriptyline HCl 50 MG TABLET 100 MG PO (20:17)
[2020-07-17] MEDS: hydrOXYzine HCL 25 MG TABLET PO ×2 (05:08→20:37)
--- NOTE | 2020-07-17 05:10 | PC.NURSE ---
pt began stripping off clothes and c/o itchiness. medicated with prn atarax. monitoring for effect.
[2020-07-17 06:23] VITALS: BP 128/88; PULSE 84; RESP 16; O2SAT 100
--- NOTE | 2020-07-17 06:41 | PC.NURSE ---
2 episodes of urinating on floor. pt verbally redirectable. no other incidents.
--- NOTE | 2020-07-17 07:29 | PC.NURSE ---
Report received from Luzmaria RN - pt awake, resp unlabored, no concerns reported. 1:1 at bedside.
[2020-07-17 08:07] VITALS: BP 121/78; PULSE 91; RESP 20; TEMP 36.8
[2020-07-17 09:00] VITALS: BP 109/63; PULSE 90; RESP 16; TEMP 36.3; O2SAT 99
[2020-07-17] MEDS: Sertraline HCL 50 MG TABLET 150 MG PO (10:19)
[2020-07-17] MEDS: Topiramate 25 MG TABLET 50 MG PO ×2 (10:20→20:37)
[2020-07-17] MEDS: Ferrous Sulfate 324 MG TABLET.DR PO (10:20)
[2020-07-17] MEDS: allopurinoL 100 MG TABLET 300 MG PO (10:21)
[2020-07-17] MEDS: Loratadine 10 MG TABLET PO (10:22)
[2020-07-17] MEDS: Omeprazole 40 MG CAPSULE.DR PO ×2 (10:22→20:37)
[2020-07-17] MEDS: Cholecalciferol (Vitamin D3) 25 MCG TABLET PO (10:22)
[2020-07-17] MEDS: Atorvastatin Calcium 40 MG TABLET PO (10:22)
--- NOTE | 2020-07-17 10:59 | PC.NURSE ---
Pt currently resting, 1:1 at bedside. Awakened for medications- denies any concerns at this time.
--- NOTE | 2020-07-17 12:13 | MHC.CM.ED ---
Patient remains in ER. Placement has been difficult due to behaviors and being a level 2 sex offender. T/W reached out to [facility]. They will not be able to accept him because he is a level 2 sex offender. Continue to monitor for d/c needs.
--- NOTE | 2020-07-17 12:13 | PC.NURSE ---
Pt awake, directed to bathroom, no episodes of incontinence at this time.
[2020-07-17 14:00] VITALS: RESP 20
--- NOTE | 2020-07-17 15:55 | PC.NURSE ---
Pt resting, resp unlabored.
--- NOTE | 2020-07-17 18:23 | PC.NURSE ---
Pt resting, resp unlabored.
--- NOTE | 2020-07-17 18:33 | PC.NURSE ---
pt resting, resp unlabored
--- NOTE | 2020-07-17 18:54 | MHC.CM.ED ---
CM received a telephone call from Christina Alfaro ([phone]), Director of Patient Access Services at [facility], in regards to Joe Gibson. Expressed concerns that pt is still waiting for placement and offered to assist in any way possible. Explained that Our Director has been in contact with [facility] and that pt is on the waiting list at [facility]. Christina asked that we reach out to her if there is anything she can do. CM continues to follow for d/c needs.
[2020-07-17] MEDS: Amitriptyline HCl 50 MG TABLET 100 MG PO (20:37)
--- NOTE | 2020-07-17 21:01 | PC.NURSE ---
Patient is in his bed lying, watching TV, calm and quiet, compliant with HS PO medication, no distress observed/reported, will continue to monitor 1:1 for safety.
[2020-07-17 22:00] VITALS: RESP 16
--- NOTE | 2020-07-17 22:19 | PC.NURSE ---
Patient refused vitals at this time ,rn aware
[2020-07-18 05:40] VITALS: BP 119/80; PULSE 78; RESP 17; TEMP 36.9; O2SAT 98
--- NOTE | 2020-07-18 07:11 | PC.NURSE ---
Report received from CB Mcmillan. Pt awake, guided to bathroom, currently eating breakfast. No concerns reported.
[2020-07-18] MEDS: Topiramate 25 MG TABLET 50 MG PO ×2 (08:07→20:42)
[2020-07-18] MEDS: Cholecalciferol (Vitamin D3) 25 MCG TABLET PO (08:07)
[2020-07-18] MEDS: Ferrous Sulfate 324 MG TABLET.DR PO (08:07)
[2020-07-18] MEDS: Sertraline HCL 50 MG TABLET 150 MG PO (08:07)
[2020-07-18] MEDS: Omeprazole 40 MG CAPSULE.DR PO ×2 (08:07→20:42)
[2020-07-18] MEDS: allopurinoL 100 MG TABLET 300 MG PO (08:07)
[2020-07-18] MEDS: Atorvastatin Calcium 40 MG TABLET PO (08:08)
[2020-07-18] MEDS: Loratadine 10 MG TABLET PO (08:08)
[2020-07-18 08:47] VITALS: BP 139/91; PULSE 91; RESP 18; TEMP 36.6; O2SAT 98
--- NOTE | 2020-07-18 11:07 | PC.NURSE ---
. Spoke w/ provider re: observation status, ? discontinue. Pt was found drinking urine out of cup- coordinator aware, pt to remain observed until further notice.
--- NOTE | 2020-07-18 12:30 | PC.NURSE ---
Pt to be maintained on constant observation per clinical coordinator due to recent event; pt currently resting, resp unlabored.
--- NOTE | 2020-07-18 13:29 | MHC.CM.ED ---
Patient remains in ER. Kellie Saravia has escalated the case with [facility]. Clinical information faxed to Chadwick Whitman at [facility]. Patient was previously denied by the liaison. Chadwick is the [facility] admissions senior database administrator. Continue to monitor for d/c needs.
[2020-07-18 14:00] VITALS: RESP 20
--- NOTE | 2020-07-18 14:55 | PC.NURSE ---
Pt resting, resp unlabored
--- NOTE | 2020-07-18 16:31 | PC.NURSE ---
Pt resting, resp unlabored- no further incidents of incontinence.
[2020-07-18 17:10] VITALS: BP 106/54; PULSE 77; RESP 16; TEMP 36.3; O2SAT 99
--- NOTE | 2020-07-18 18:06 | PC.NURSE ---
Pt awake, directed to toilet as needed, no incontinence, cooperative w/ care, watching television.
--- NOTE | 2020-07-18 19:49 | PC.NURSE ---
Patient is in his room watching TV, intermittently comes out of his room, looking into other's room with patient in, patient is constantly being followed or watched by staff member for his intrusiveness, will continue to monitor.
[2020-07-18 20:11] VITALS: BP 116/77; PULSE 88; RESP 20; TEMP 37.1; O2SAT 94
[2020-07-18] MEDS: hydrOXYzine HCL 25 MG TABLET PO (20:42)
[2020-07-18] MEDS: Amitriptyline HCl 50 MG TABLET 100 MG PO (20:42)
[2020-07-19 00:09] VITALS: BP 124/73; PULSE 87; RESP 17; TEMP 37.3; O2SAT 98
[2020-07-19] MEDS: Nicotine Polacrilex 2 MG GUM BUCCAL (04:26)
[2020-07-19 06:41] VITALS: BMI 28.5
[2020-07-19] MEDS: Ferrous Sulfate 324 MG TABLET.DR PO (08:22)
[2020-07-19] MEDS: allopurinoL 100 MG TABLET 300 MG PO (08:22)
[2020-07-19] MEDS: Topiramate 25 MG TABLET 50 MG PO ×2 (08:22→20:44)
[2020-07-19] MEDS: Sertraline HCL 50 MG TABLET 150 MG PO (08:22)
[2020-07-19] MEDS: Atorvastatin Calcium 40 MG TABLET PO (08:23)
[2020-07-19] MEDS: Loratadine 10 MG TABLET PO (08:23)
[2020-07-19] MEDS: Cholecalciferol (Vitamin D3) 25 MCG TABLET PO (08:23)
[2020-07-19] MEDS: Omeprazole 40 MG CAPSULE.DR PO ×2 (08:23→20:44)
--- NOTE | 2020-07-19 08:25 | PC.NURSE ---
UP IN COMMON AREA. CLOSE OBS MAINTAINED. BKFST EATEN
[2020-07-19 08:52] VITALS: BP 137/88; PULSE 108; RESP 18; TEMP 37.1; O2SAT 99
--- NOTE | 2020-07-19 14:47 | MHC.CM.ED ---
Patient remains in ER. Placement has not been found. Stephanie Glover has escalated this case with [facility]. Continue to monitor for d/c needs.
--- NOTE | 2020-07-19 15:03 | MHC.CM.PN ---
Message left with Kimberli Hassan ([phone]) at [facility] for inquiry into [facility] availability. Unsure if they continue to accept persons with a level 2 history. Will await callback.
--- NOTE | 2020-07-19 15:13 | PC.NURSE ---
Report received. Asleep at current. No signs of distress. Respirations even and unlabored.
--- NOTE | 2020-07-19 17:34 | PC.NURSE ---
Pt asleep at current. No signs of distress. Respirations even and unlabored.
--- NOTE | 2020-07-19 19:09 | PC.NURSE ---
Patient in his room watching TV and socializing well with staff member, good behavioral control, no distress observed/reported, patient is being watched watched on 1:1 for safety and behavior unpredictability, will continue to monitor.
[2020-07-19] MEDS: Amitriptyline HCl 50 MG TABLET 100 MG PO (20:44)
[2020-07-19] MEDS: hydrOXYzine HCL 25 MG TABLET PO (20:44)
[2020-07-20 06:00] VITALS: BP 133/92; PULSE 98; RESP 18; TEMP 36.8; O2SAT 99
--- NOTE | 2020-07-20 07:02 | PC.NURSE ---
Report received. PT currently sleeping, respirations even and unlabored, in no apparent distress. PT is case management bedsearch.
[2020-07-20 08:59] VITALS: BP 115/73; PULSE 83; RESP 16; TEMP 36.6; O2SAT 98
[2020-07-20] MEDS: allopurinoL 100 MG TABLET 300 MG PO (09:20)
[2020-07-20] MEDS: Sertraline HCL 50 MG TABLET 150 MG PO (09:20)
[2020-07-20] MEDS: Loratadine 10 MG TABLET PO (09:21)
[2020-07-20] MEDS: Omeprazole 40 MG CAPSULE.DR PO ×2 (09:21→21:44)
[2020-07-20] MEDS: Atorvastatin Calcium 40 MG TABLET PO (09:21)
[2020-07-20] MEDS: Ferrous Sulfate 324 MG TABLET.DR PO (09:21)
[2020-07-20] MEDS: Topiramate 25 MG TABLET 50 MG PO ×2 (09:21→21:44)
[2020-07-20] MEDS: Cholecalciferol (Vitamin D3) 25 MCG TABLET PO (09:21)
[2020-07-20 14:03] VITALS: BP 119/71; PULSE 77; RESP 18; TEMP 36.6; O2SAT 98
--- NOTE | 2020-07-20 14:31 | MHC.CM.ED ---
Received notification from Kellie Saravia that [facility] is currently accepting admissions. Spoke with Loretat Eason for admissions via telephone at [phone]. Sonia will call T/W back. Continue to monitor for d/c needs.
--- NOTE | 2020-07-20 17:46 | PC.NURSE ---
PT resting, calm and cooperative throughout shift. Pleasantly confused, easily redirectible.
[2020-07-20] MEDS: Amitriptyline HCl 50 MG TABLET 100 MG PO (21:44)
--- NOTE | 2020-07-20 21:47 | PC.NURSE ---
pt awake up having a sandwhich, asking to watch a football game. pt calm cooperative. pt is in good spirits.
[2020-07-20 22:00] VITALS: BP 121/71; RESP 18; TEMP 36.9; O2SAT 98
--- NOTE | 2020-07-21 07:01 | PC.NURSE ---
Report received, pt currently walking around unit, calm and cooperative, pleasantly confused. PT is case management bedsearch.
--- NOTE | 2020-07-21 08:44 | MHC.CM.ED ---
Patient remains in ER. [facility] is reviewing patient to see if admission would be appropriate. Continue to monitor for d/c needs.
[2020-07-21] MEDS: Topiramate 25 MG TABLET 50 MG PO ×2 (09:42→20:39)
[2020-07-21] MEDS: Sertraline HCL 50 MG TABLET 150 MG PO (09:42)
[2020-07-21] MEDS: Omeprazole 40 MG CAPSULE.DR PO ×2 (09:42→20:39)
[2020-07-21] MEDS: allopurinoL 100 MG TABLET 300 MG PO (09:42)
[2020-07-21] MEDS: Loratadine 10 MG TABLET PO (09:42)
[2020-07-21] MEDS: Atorvastatin Calcium 40 MG TABLET PO (09:42)
[2020-07-21] MEDS: Ferrous Sulfate 324 MG TABLET.DR PO (09:42)
[2020-07-21] MEDS: Cholecalciferol (Vitamin D3) 25 MCG TABLET PO (09:42)
[2020-07-21 09:53] VITALS: BP 122/80; PULSE 84; RESP 18; TEMP 36.3; O2SAT 100
--- NOTE | 2020-07-21 14:53 | MHC.CM.ED ---
Spoke with Elin via [facility] for patient. She can be reached via telephone at [phone]. Clinical questions answered. She will review patient's info and have an answer on Friday. Kellie Saravia aware. Continue to monitor for d/c needs.
--- NOTE | 2020-07-21 17:40 | PC.NURSE ---
PT currently resting, calm and cooperative. Pleasantly confused, easily redirected.
[2020-07-21 17:50] VITALS: BP 108/46; PULSE 68; RESP 18; TEMP 36.6; O2SAT 96
[2020-07-21] MEDS: Amitriptyline HCl 50 MG TABLET 100 MG PO (20:39)
[2020-07-21] MEDS: hydrOXYzine HCL 25 MG TABLET PO (20:39)
[2020-07-22 06:17] VITALS: BP 125/84; PULSE 83; RESP 17; TEMP 36.6; O2SAT 99
--- NOTE | 2020-07-22 07:35 | PC.NURSE ---
Report received from CB Mcmillan. Pt awake on arrival, affect even, no concerns reported.
[2020-07-22] MEDS: allopurinoL 100 MG TABLET 300 MG PO (08:16)
[2020-07-22] MEDS: Atorvastatin Calcium 40 MG TABLET PO (08:16)
[2020-07-22] MEDS: Topiramate 25 MG TABLET 50 MG PO ×2 (08:16→20:57)
[2020-07-22] MEDS: Omeprazole 40 MG CAPSULE.DR PO ×2 (08:17→20:58)
[2020-07-22] MEDS: Sertraline HCL 50 MG TABLET 150 MG PO (08:17)
[2020-07-22] MEDS: Cholecalciferol (Vitamin D3) 25 MCG TABLET PO (08:18)
[2020-07-22] MEDS: Loratadine 10 MG TABLET PO (08:18)
[2020-07-22] MEDS: Ferrous Sulfate 324 MG TABLET.DR PO (08:18)
[2020-07-22 09:00] VITALS: BP 123/80; PULSE 86; RESP 16; TEMP 36.9; O2SAT 100
--- NOTE | 2020-07-22 10:46 | PC.NURSE ---
Pt resting, watching television. Offered shower, toileting- pt declined both. Observation maintained as ordered, reviewed w/ provider.
--- NOTE | 2020-07-22 11:11 | PC.NURSE ---
Report received from CB Marshall. Pt asleep at current. No signs of distress. Respirations even and unlabored.
--- NOTE | 2020-07-22 12:55 | PC.NURSE ---
Resting in bed, watching TV. Calm and cooperative. No complaints at this time.
[2020-07-22 16:25] VITALS: BP 120/80; PULSE 78; RESP 20; TEMP 36.8; O2SAT 96
--- NOTE | 2020-07-22 16:33 | PC.NURSE ---
Pt resting in bed at current. No complaints at this time. Calm and cooperative.
--- NOTE | 2020-07-22 19:55 | PC.NURSE ---
Patient in bed appears sleeping at this time, no distress observed/reported, respiration +/=/non-labored bilaterally, will continue to monitor.
[2020-07-22] MEDS: hydrOXYzine HCL 25 MG TABLET PO (20:58)
[2020-07-22] MEDS: Amitriptyline HCl 50 MG TABLET 100 MG PO (20:58)
--- NOTE | 2020-07-23 07:07 | PC.NURSE ---
Report received from CB Mcmillan. Pt resting, resp unlabored. Observation status maintained as ordered.
[2020-07-23] MEDS: Ferrous Sulfate 324 MG TABLET.DR PO (08:31)
[2020-07-23] MEDS: Loratadine 10 MG TABLET PO (08:32)
[2020-07-23] MEDS: allopurinoL 100 MG TABLET 300 MG PO (08:32)
[2020-07-23] MEDS: Topiramate 25 MG TABLET 50 MG PO ×2 (08:32→20:59)
[2020-07-23] MEDS: Cholecalciferol (Vitamin D3) 25 MCG TABLET PO (08:32)
[2020-07-23] MEDS: Atorvastatin Calcium 40 MG TABLET PO (08:33)
[2020-07-23] MEDS: Sertraline HCL 50 MG TABLET 150 MG PO (08:33)
[2020-07-23] MEDS: Omeprazole 40 MG CAPSULE.DR PO ×2 (08:33→20:59)
--- NOTE | 2020-07-23 08:47 | PC.NURSE ---
Pt awake, briefly restless, pacing, attempting to leave. Redirected, currently in room, eating breakfast.
[2020-07-23 09:31] VITALS: BP 116/82; PULSE 116; RESP 20; TEMP 36.3; O2SAT 97
--- NOTE | 2020-07-23 10:15 | PC.NURSE ---
Pt restless at times, requiring re-direction but able to redirect. Pt reminded to use bathroom at regular intervals, has maintained continence at this point.
--- NOTE | 2020-07-23 12:30 | PC.NURSE ---
Pt alert, watching television. No concerns reported.
[2020-07-23 14:00] VITALS: RESP 20
--- NOTE | 2020-07-23 14:18 | PC.NURSE ---
Pt alert, watching television in room, engaging in conversation with staff occasionally. Pt requires occasional redirection, going into another room thinking it is his. Pt easily redirected.
--- NOTE | 2020-07-23 17:01 | PC.NURSE ---
Pt resting, watching television. Continues to require occasional redirection, reminded to toilet, no episodes of incontinence at this time.
[2020-07-23 17:14] VITALS: BP 121/72; PULSE 86; RESP 18; TEMP 36.8; O2SAT 96
--- NOTE | 2020-07-23 18:42 | PC.NURSE ---
Pt resting, resp unlabored
--- NOTE | 2020-07-23 19:03 | PC.NURSE ---
Patient currently in bed appears sleeping, no distress observed/reported, patient is continuously maintained on 1:1 for safety check, per report patient had an uneventful day with no update on bed search, will continue to monitor.
[2020-07-23] MEDS: Amitriptyline HCl 50 MG TABLET 100 MG PO (20:58)
[2020-07-23] MEDS: hydrOXYzine HCL 25 MG TABLET PO (20:59)
[2020-07-24 06:00] VITALS: BP 121/90; PULSE 97; RESP 18; TEMP 36.2; O2SAT 100
--- NOTE | 2020-07-24 06:56 | PC.NURSE ---
Report recieved. PT currently eating breakfast, calm and cooperative, pleasantly confused. PT is case management bedsearch.
[2020-07-24] MEDS: Sertraline HCL 50 MG TABLET 150 MG PO (09:28)
[2020-07-24] MEDS: Ferrous Sulfate 324 MG TABLET.DR PO (09:28)
[2020-07-24] MEDS: Topiramate 25 MG TABLET 50 MG PO ×2 (09:28→20:45)
[2020-07-24] MEDS: Loratadine 10 MG TABLET PO (09:28)
[2020-07-24] MEDS: allopurinoL 100 MG TABLET 300 MG PO (09:28)
[2020-07-24] MEDS: Omeprazole 40 MG CAPSULE.DR PO ×2 (09:29→20:45)
[2020-07-24] MEDS: Cholecalciferol (Vitamin D3) 25 MCG TABLET PO (09:29)
[2020-07-24] MEDS: Atorvastatin Calcium 40 MG TABLET PO (09:29)
[2020-07-24 09:48] VITALS: BP 106/84; PULSE 85; RESP 16; TEMP 36.8; O2SAT 98
--- NOTE | 2020-07-24 10:36 | MHC.CM.ED ---
Patient remains in ER. T/W reached out to [facility] to see if they are able to offer a bed. Waiting for call back. Also, reached out to Adeola at [facility]. Waiting for return telephone call. Continue to monitor for d/c needs.
[2020-07-24 16:57] VITALS: BP 112/70; PULSE 81; RESP 16; TEMP 36.8; O2SAT 98
[2020-07-24] MEDS: Amitriptyline HCl 50 MG TABLET 100 MG PO (20:44)
[2020-07-24 23:33] VITALS: RESP 16
[2020-07-25] MEDS: hydrOXYzine HCL 25 MG TABLET PO (02:42)
--- NOTE | 2020-07-25 03:27 | PC.NURSE ---
Pt medicated with prn atarax for itchiness upon waking from sleep scratching. patient remains in close obs while awake. patient given night time snack. no complaints offered.
[2020-07-25 06:00] VITALS: RESP 16
--- NOTE | 2020-07-25 07:06 | PC.NURSE ---
Report received. PT currently resting, calm and cooperative. Pleasantly confused. PT is case management bedsearch.
[2020-07-25] MEDS: Topiramate 25 MG TABLET 50 MG PO ×2 (08:04→22:38)
[2020-07-25] MEDS: Sertraline HCL 50 MG TABLET 150 MG PO (08:04)
[2020-07-25] MEDS: Omeprazole 40 MG CAPSULE.DR PO ×2 (08:04→22:38)
[2020-07-25] MEDS: Ferrous Sulfate 324 MG TABLET.DR PO (08:05)
[2020-07-25] MEDS: allopurinoL 100 MG TABLET 300 MG PO (08:05)
[2020-07-25] MEDS: Loratadine 10 MG TABLET PO (08:05)
[2020-07-25] MEDS: Atorvastatin Calcium 40 MG TABLET PO (08:05)
[2020-07-25] MEDS: Cholecalciferol (Vitamin D3) 25 MCG TABLET PO (08:05)
[2020-07-25 09:41] VITALS: BP 112/84; PULSE 82; RESP 18; TEMP 37; O2SAT 98
--- NOTE | 2020-07-25 12:27 | MHC.CM.ED ---
Patient remains in ER. [facility] has verified patient's insurance and is now reveiwing clinically to see if they can offer a bed. Left message for Adeola at [facility] to see if they can offer a bed. Continue to monitor for d/c needs.
[2020-07-25 17:18] VITALS: BP 127/79; PULSE 93; RESP 18; TEMP 36.8; O2SAT 100
[2020-07-25 22:00] VITALS: RESP 16
[2020-07-25] MEDS: Amitriptyline HCl 50 MG TABLET 100 MG PO (22:38)
--- NOTE | 2020-07-25 23:00 | PC.NURSE ---
Patient in his room sitting in his chair, calm and quiet, per report patient had uneventful day, will continue to monitor on 1:1 for safety.
[2020-07-25 23:36] VITALS: BP 140/83; PULSE 89; RESP 17; TEMP 36.5; O2SAT 99
[2020-07-26] MEDS: hydrOXYzine HCL 25 MG TABLET PO ×2 (00:56→20:45)
[2020-07-26] MEDS: Atorvastatin Calcium 40 MG TABLET PO (09:30)
[2020-07-26] MEDS: allopurinoL 100 MG TABLET 300 MG PO (09:30)
[2020-07-26] MEDS: Ferrous Sulfate 324 MG TABLET.DR PO (09:30)
[2020-07-26] MEDS: Cholecalciferol (Vitamin D3) 25 MCG TABLET PO (09:30)
[2020-07-26] MEDS: Sertraline HCL 50 MG TABLET 150 MG PO (09:31)
[2020-07-26] MEDS: Omeprazole 40 MG CAPSULE.DR PO ×2 (09:31→20:45)
[2020-07-26] MEDS: Topiramate 25 MG TABLET 50 MG PO ×2 (09:31→20:45)
[2020-07-26] MEDS: Loratadine 10 MG TABLET PO (09:31)
--- NOTE | 2020-07-26 10:17 | PC.NURSE ---
pt laying on bed, resting quietly. calm and cooperative
--- NOTE | 2020-07-26 14:33 | MHC.CM.ED ---
Patient remains in ER. Elin from [facility] will come see patient on 07/27. Continue to monitor for d/c needs.
--- NOTE | 2020-07-26 15:27 | PC.NURSE ---
Report received. Pt asleep at current. No signs of distress. RR even and unlabored.
[2020-07-26 18:25] VITALS: BP 132/83; PULSE 82; RESP 18; TEMP 36.8; O2SAT 99
--- NOTE | 2020-07-26 19:30 | PC.NURSE ---
Patient in bed appears sleeping, no distress observed/reported, patient's 1:1 order discontinued, will continue to monitor.
[2020-07-26] MEDS: Amitriptyline HCl 50 MG TABLET 100 MG PO (20:45)
[2020-07-26 21:10] VITALS: BP 138/92; PULSE 98; RESP 17; TEMP 36.6; O2SAT 99
--- NOTE | 2020-07-27 07:34 | PC.NURSE ---
Report received from CB Mcmillan. Pt awake, out in common area, conversing w/ staff.
[2020-07-27] MEDS: Cholecalciferol (Vitamin D3) 25 MCG TABLET PO (08:18)
[2020-07-27] MEDS: Atorvastatin Calcium 40 MG TABLET PO (08:18)
[2020-07-27] MEDS: allopurinoL 100 MG TABLET 300 MG PO (08:19)
[2020-07-27] MEDS: Omeprazole 40 MG CAPSULE.DR PO ×2 (08:19→20:21)
[2020-07-27] MEDS: Loratadine 10 MG TABLET PO (08:19)
[2020-07-27] MEDS: Topiramate 25 MG TABLET 50 MG PO ×2 (08:20→20:21)
[2020-07-27] MEDS: Sertraline HCL 50 MG TABLET 150 MG PO (08:21)
[2020-07-27] MEDS: Ferrous Sulfate 324 MG TABLET.DR PO (08:22)
[2020-07-27 08:30] VITALS: BP 123/85; PULSE 90; RESP 17; TEMP 36.7; O2SAT 99
--- NOTE | 2020-07-27 09:01 | PC.NURSE ---
Pt cooperative w/ medications and accepting reminders to use the toilet.
--- NOTE | 2020-07-27 10:18 | PC.NURSE ---
Elin from [facility] in to evaluate pt. Pt resting, resp unlabored.
--- NOTE | 2020-07-27 11:22 | PC.NURSE ---
Pt resting, resp unlabored.
--- NOTE | 2020-07-27 12:13 | MHC.CM.ED ---
Elin from [facility] on site to meet with patient. She will return to her office and speak to her military technology manager to see if a bed can be offered. Continue to monitor for d/c needs.
[2020-07-27 14:00] VITALS: RESP 20
--- NOTE | 2020-07-27 16:12 | PC.NURSE ---
Pt awake, alert, encouraged to toilet, did so. Pt pleasant, redirectable.
--- NOTE | 2020-07-27 18:40 | PC.NURSE ---
Pt offered to toilet, declined at this time, currently resting in room.
[2020-07-27] MEDS: Amitriptyline HCl 50 MG TABLET 100 MG PO (20:21)
[2020-07-27] MEDS: hydrOXYzine HCL 25 MG TABLET PO (20:21)
--- NOTE | 2020-07-27 21:57 | MHC.CM.ED ---
STAN received a call from Elin at [facility] ([phone])regarding some questions she had about pt. after reviewing his chart after her visit with him today. Questioned about 1:1 for safety documented last week, with d/c of 1:1 observation on 07/26. Per Elin, she feels they can care for pt. at their facility, but would need to see the notes for several days after the 1:1 has been d/c'd. Also concerned about the note about pt drinking urine from a cup. CM explained that pt was probably confused and did not realize that he had urinated in the cup. Per Elin, will follow and CM to call on Friday with notes uploaded into [facility] regarding bed acceptance. CM to follow for d/c needs.
--- NOTE | 2020-07-28 07:13 | PC.NURSE ---
Report received from CB Mcmillan. Pt awake, ate breakfast. Offered toileting, pt declined. No concerns reported.
[2020-07-28] MEDS: allopurinoL 100 MG TABLET 300 MG PO (08:16)
[2020-07-28] MEDS: Atorvastatin Calcium 40 MG TABLET PO (08:17)
[2020-07-28] MEDS: Omeprazole 40 MG CAPSULE.DR PO ×2 (08:17→20:47)
[2020-07-28] MEDS: Sertraline HCL 50 MG TABLET 150 MG PO (08:18)
[2020-07-28] MEDS: Ferrous Sulfate 324 MG TABLET.DR PO (08:19)
[2020-07-28] MEDS: Loratadine 10 MG TABLET PO (08:19)
[2020-07-28] MEDS: Cholecalciferol (Vitamin D3) 25 MCG TABLET PO (08:19)
[2020-07-28] MEDS: Topiramate 25 MG TABLET 50 MG PO ×2 (08:20→20:47)
[2020-07-28 08:21] VITALS: BP 125/74; PULSE 87; RESP 16; TEMP 36.6; O2SAT 98
--- NOTE | 2020-07-28 09:03 | PC.NURSE ---
Pt awake, alert, watching television
--- NOTE | 2020-07-28 10:06 | PC.NURSE ---
Pt resting, resp unlabored.
--- NOTE | 2020-07-28 12:32 | PC.NURSE ---
Pt alert, toileting himself. No concerns reported. Pt continues to be disorientation, unchanged. Currently eating lunch.
[2020-07-28 14:00] VITALS: RESP 20
--- NOTE | 2020-07-28 15:21 | PC.NURSE ---
Pt resting currently; previously pleasant, easily redirected as needed secondary to confusion.
[2020-07-28 16:15] VITALS: BP 124/79; PULSE 93; RESP 20; TEMP 36.8
--- NOTE | 2020-07-28 16:47 | PC.NURSE ---
Pt resting, resp unlabored
--- NOTE | 2020-07-28 18:15 | PC.NURSE ---
Pt resting, resp unlabored
[2020-07-28] MEDS: Amitriptyline HCl 50 MG TABLET 100 MG PO (20:47)
--- NOTE | 2020-07-29 04:33 | PC.NURSE ---
pt awake steady gait. pt asking to take a shower, pt is back to bed sitting on the edge of the bed. coffee being made. pt is calm and cooperative. no s/s of distress, pt visable on the monitor.
[2020-07-29 06:12] VITALS: BP 130/84; PULSE 91; RESP 18; TEMP 36.6; O2SAT 99
--- NOTE | 2020-07-29 06:56 | PC.NURSE ---
Report received. PT currently resting, calm and cooperative. PT is case management bedsearch.
[2020-07-29] MEDS: Omeprazole 40 MG CAPSULE.DR PO ×2 (08:17→20:09)
[2020-07-29] MEDS: Atorvastatin Calcium 40 MG TABLET PO (08:17)
[2020-07-29] MEDS: Cholecalciferol (Vitamin D3) 25 MCG TABLET PO (08:17)
[2020-07-29] MEDS: Topiramate 25 MG TABLET 50 MG PO ×2 (08:17→20:09)
[2020-07-29] MEDS: Loratadine 10 MG TABLET PO (08:17)
[2020-07-29] MEDS: Sertraline HCL 50 MG TABLET 150 MG PO (08:17)
[2020-07-29] MEDS: Ferrous Sulfate 324 MG TABLET.DR PO (08:17)
[2020-07-29] MEDS: allopurinoL 100 MG TABLET 300 MG PO (08:17)
[2020-07-29 09:28] VITALS: BP 104/66; PULSE 75; RESP 16; TEMP 36.3; O2SAT 96
--- NOTE | 2020-07-29 15:11 | PC.NURSE ---
Report received. Pt asleep at current. No signs of distress. RR even and unlabored.
--- NOTE | 2020-07-29 16:50 | PC.NURSE ---
Pt resting in bed at current, calm, and cooperative. No complaints at this time.
[2020-07-29 17:05] VITALS: BP 128/77; PULSE 91; RESP 18; TEMP 36.8; O2SAT 95
[2020-07-29] MEDS: Amitriptyline HCl 50 MG TABLET 100 MG PO (20:09)
[2020-07-30 06:35] VITALS: BP 119/79; PULSE 101; RESP 19; TEMP 36.2; O2SAT 96
--- NOTE | 2020-07-30 07:21 | PC.NURSE ---
Report received. PT currently eating breakfast, calm and cooperative, pleasantly confused. [facility]
[2020-07-30] MEDS: Ferrous Sulfate 324 MG TABLET.DR PO (08:54)
[2020-07-30] MEDS: Cholecalciferol (Vitamin D3) 25 MCG TABLET PO (08:54)
[2020-07-30] MEDS: Atorvastatin Calcium 40 MG TABLET PO (08:54)
[2020-07-30] MEDS: allopurinoL 100 MG TABLET 300 MG PO (08:54)
[2020-07-30] MEDS: Topiramate 25 MG TABLET 50 MG PO ×2 (08:54→20:19)
[2020-07-30] MEDS: Sertraline HCL 50 MG TABLET 150 MG PO (08:54)
[2020-07-30] MEDS: Omeprazole 40 MG CAPSULE.DR PO ×2 (08:54→20:18)
[2020-07-30] MEDS: Loratadine 10 MG TABLET PO (08:54)
[2020-07-30 09:32] VITALS: RESP 16
--- NOTE | 2020-07-30 19:01 | PC.NURSE ---
Report received. PT is sitting in his room quietly. Calm and cooperative. Case management is trying to find placement.
[2020-07-30 20:00] VITALS: BP 118/77; PULSE 83; RESP 14; TEMP 36.8; O2SAT 96
[2020-07-30] MEDS: Amitriptyline HCl 50 MG TABLET 100 MG PO (20:18)
--- NOTE | 2020-07-31 06:43 | PC.NURSE ---
PT slept most of the night, woke up and ambulated to the bathroom with self.
--- NOTE | 2020-07-31 07:15 | PC.NURSE ---
Report received from CB Young. Pt awake, eating breakfast, pleasant, no concerns reported.
[2020-07-31 07:43] VITALS: BP 113/69; PULSE 85; RESP 20; TEMP 36.7; O2SAT 96
[2020-07-31] MEDS: Topiramate 25 MG TABLET 50 MG PO ×2 (08:05→20:42)
[2020-07-31] MEDS: Cholecalciferol (Vitamin D3) 25 MCG TABLET PO (08:05)
[2020-07-31] MEDS: Sertraline HCL 50 MG TABLET 150 MG PO (08:05)
[2020-07-31] MEDS: Loratadine 10 MG TABLET PO (08:06)
[2020-07-31] MEDS: Atorvastatin Calcium 40 MG TABLET PO (08:06)
[2020-07-31] MEDS: Omeprazole 40 MG CAPSULE.DR PO ×2 (08:07→20:42)
[2020-07-31] MEDS: Ferrous Sulfate 324 MG TABLET.DR PO (08:07)
[2020-07-31] MEDS: allopurinoL 100 MG TABLET 300 MG PO (08:07)
--- NOTE | 2020-07-31 09:01 | PC.NURSE ---
Pt resting, resp unlabored. Pt reminded re: toileting prior to falling asleep- declined.
--- NOTE | 2020-07-31 10:14 | PC.NURSE ---
Pt declined to shower at this time. Will re-attempt.
--- NOTE | 2020-07-31 11:07 | PC.NURSE ---
Pt awake, showering. Room cleaned, linens changed. Pt cooperative w/ care, no concerns reported.
--- NOTE | 2020-07-31 12:03 | PC.NURSE ---
Pt awake, watching television, no concerns reported.
[2020-07-31 14:00] VITALS: RESP 20
--- NOTE | 2020-07-31 14:30 | PC.NURSE ---
Pt watching tel;evision, affect even.
--- NOTE | 2020-07-31 15:05 | MHC.CM.ED ---
[facility] was contacted twice today re: accepting patient, they are still review patient at this time. md and rn in e.d. are aware of dc plan. cm cont to follow.
--- NOTE | 2020-07-31 15:28 | PC.NURSE ---
Pt resting in bed, watching television.Denies any concerns at this time.
[2020-07-31 17:50] VITALS: BP 128/77; PULSE 82; RESP 20; TEMP 36.8; O2SAT 98
--- NOTE | 2020-07-31 18:32 | PC.NURSE ---
Pt alert, engaged w/ staff, affect even.
--- NOTE | 2020-07-31 19:14 | PC.NURSE ---
Patient in bed lying on his side, calm and quiet, no distress observed/reported, no update on patient's disposition, will continue to monitor.
[2020-07-31] MEDS: Amitriptyline HCl 50 MG TABLET 100 MG PO (20:41)
[2020-07-31] MEDS: hydrOXYzine HCL 25 MG TABLET PO (20:42)
[2020-08-01 01:46] VITALS: BP 114/87; PULSE 92; RESP 17; TEMP 36.7; O2SAT 99
--- NOTE | 2020-08-01 07:25 | PC.NURSE ---
Report received from CB Mcmillan. Pt awake on arrival, in common area, eating breakfast.
[2020-08-01 08:07] VITALS: BP 110/79; PULSE 100; RESP 15; TEMP 36.9; O2SAT 97
[2020-08-01] MEDS: Atorvastatin Calcium 40 MG TABLET PO (08:26)
[2020-08-01] MEDS: allopurinoL 100 MG TABLET 300 MG PO (08:27)
[2020-08-01] MEDS: Cholecalciferol (Vitamin D3) 25 MCG TABLET PO (08:27)
[2020-08-01] MEDS: Sertraline HCL 50 MG TABLET 150 MG PO (08:28)
[2020-08-01] MEDS: Ferrous Sulfate 324 MG TABLET.DR PO (08:29)
[2020-08-01] MEDS: Topiramate 25 MG TABLET 50 MG PO ×2 (08:29→21:05)
[2020-08-01] MEDS: Loratadine 10 MG TABLET PO (08:29)
[2020-08-01] MEDS: Omeprazole 40 MG CAPSULE.DR PO ×2 (08:30→21:05)
--- NOTE | 2020-08-01 10:18 | PC.NURSE ---
Pt out in common area, conversing w/ staff. No concerns reported.
--- NOTE | 2020-08-01 10:27 | MHC.CM.ED ---
Patient remains in ER. Spoke with Franki via telephone. Clinical updates provided verbally. She will speak with the building and get back to T/W. Stephanie Glover aware. Continue to monitor for d/c needs.
[2020-08-01 13:30] VITALS: BP 132/84; PULSE 94; RESP 19; TEMP 36.6; O2SAT 17
[2020-08-01] MEDS: traZODone HCL 25 MG HALFTAB 12.5 MG PO (13:44)
[2020-08-01 14:00] VITALS: RESP 20
--- NOTE | 2020-08-01 14:34 | PC.NURSE ---
Late entry: unit busy, pt increasingly restless as people discharged, asking to have his belongings so that he can leave. Pt redirected, and medicated as ordered for anxiety. Pt now resting in room.
--- NOTE | 2020-08-01 15:52 | PC.NURSE ---
Pt resting, resp unlabored.
--- NOTE | 2020-08-01 16:10 | MHC.CM.ED ---
Patient remains in ER. Reached out to Sonia from [facility] via [employer]. Their SOFTWARE IMPLEMENTATION SPECIALIST is still reviewing clinical info. Continue to monitor for d/c needs.
--- NOTE | 2020-08-01 17:18 | PC.NURSE ---
Pt pacing, requiring redirection at times, cooperative w/ redirection.
--- NOTE | 2020-08-01 18:50 | PC.NURSE ---
Pt alert, conversing w/ staff and patients, no concerns reported.
[2020-08-01] MEDS: hydrOXYzine HCL 25 MG TABLET PO (21:05)
[2020-08-01] MEDS: Amitriptyline HCl 50 MG TABLET 100 MG PO (21:05)
[2020-08-02 02:38] VITALS: BP 113/76; PULSE 86; RESP 17; TEMP 36.7; O2SAT 100
[2020-08-02 08:13] VITALS: BP 129/85; PULSE 78; RESP 18; TEMP 36.2; O2SAT 100
[2020-08-02] MEDS: Atorvastatin Calcium 40 MG TABLET PO (08:24)
[2020-08-02] MEDS: Topiramate 25 MG TABLET 50 MG PO ×2 (08:25→21:41)
[2020-08-02] MEDS: Loratadine 10 MG TABLET PO (08:25)
[2020-08-02] MEDS: Ferrous Sulfate 324 MG TABLET.DR PO (08:25)
[2020-08-02] MEDS: Sertraline HCL 50 MG TABLET 150 MG PO (08:25)
[2020-08-02] MEDS: Cholecalciferol (Vitamin D3) 25 MCG TABLET PO (08:25)
[2020-08-02] MEDS: allopurinoL 100 MG TABLET 300 MG PO (08:25)
[2020-08-02] MEDS: Omeprazole 40 MG CAPSULE.DR PO ×2 (08:26→21:41)
--- NOTE | 2020-08-02 08:39 | MHC.CM.ED ---
Patient remains in ER. T/W reached out to Sonia at [facility] via [employer]. Waiting to hear back. Continue to monitor for d/c needs.
--- NOTE | 2020-08-02 10:36 | PC.NURSE ---
Pt alert, calm/cooperative, rr even, speaks in full sentences, skin is pwdi, and he is in nad. He is awaiting inpt psych bed placement.
--- NOTE | 2020-08-02 15:04 | PC.NURSE ---
Report received. Pt asleep at current. No signs of distress. RR even and unlabored.
--- NOTE | 2020-08-02 17:00 | PC.NURSE ---
Pt resting in bed, watching TV. No complaints at this time. Calm and cooperative.
--- NOTE | 2020-08-02 19:05 | PC.NURSE ---
Report received. PT is resting quietly in his room. Calm and cooperative. PT is being taken care of by case management.
[2020-08-02] MEDS: Amitriptyline HCl 50 MG TABLET 100 MG PO (21:41)
[2020-08-03 06:00] VITALS: BP 112/66; PULSE 77; RESP 18; TEMP 36.3; O2SAT 97
--- NOTE | 2020-08-03 07:00 | PC.NURSE ---
Report received. PT currently eating breakfast, calm and cooperative. Pleasantly confused, easily redirectible. PT is case management bedsearch.
[2020-08-03] MEDS: Loratadine 10 MG TABLET PO (08:50)
[2020-08-03] MEDS: Sertraline HCL 50 MG TABLET 150 MG PO (08:50)
[2020-08-03] MEDS: Atorvastatin Calcium 40 MG TABLET PO (08:50)
[2020-08-03] MEDS: Omeprazole 40 MG CAPSULE.DR PO ×2 (08:50→21:25)
[2020-08-03] MEDS: Cholecalciferol (Vitamin D3) 25 MCG TABLET PO (08:50)
[2020-08-03] MEDS: Topiramate 25 MG TABLET 50 MG PO ×2 (08:50→21:25)
[2020-08-03] MEDS: Ferrous Sulfate 324 MG TABLET.DR PO (08:50)
[2020-08-03] MEDS: allopurinoL 100 MG TABLET 300 MG PO (08:50)
[2020-08-03 08:58] VITALS: BP 124/88; PULSE 90; RESP 18; TEMP 36.6; O2SAT 100
--- NOTE | 2020-08-03 09:11 | MHC.CM.ED ---
Received notification from Sonia of [facility] via [employer] that building is still reviewing. If they are able to offer a bed, it will not be available for another week. Kellie Saravia aware. Reached out to Ivana from [facility] since patient no longer has a sitter and behaviors have stabilized. Left message requesting return telephone call.
--- NOTE | 2020-08-03 12:54 | PC.NURSE ---
PT currently resting, calm and cooperative. PT denies complaints, pleasantly confused, easily redirectble.
--- NOTE | 2020-08-03 14:30 | MHC.CM.ED ---
Did not receive return telephone call from Ivana at [address] [place] [address]. Attempted to reach out again. However she is out of the building for the day. Will attempt to reach her tomorrow. Received telephone call from Kellie Saravia. [facility] has asked referral be made to [facility]. Referral has already been made. Spoke with admissions at [facility]. They verified patient is already on their waiting list and asked clinical updates be faxed. Clinicals faxed as requested. Continue to monitor for d/c needs.
[2020-08-03 18:14] VITALS: BP 125/81; PULSE 83; RESP 18; TEMP 36.6; O2SAT 97
--- NOTE | 2020-08-03 20:06 | PC.NURSE ---
Pt using bathroom appropriately, and remains in behavioral control at this time, and is easily directable. Requested & given apple juice and sandwich. Ambulates with steady gait. Will continue to monitor.
[2020-08-03] MEDS: Amitriptyline HCl 50 MG TABLET 100 MG PO (21:24)
[2020-08-03 22:00] VITALS: RESP 16
--- NOTE | 2020-08-03 23:10 | PC.NURSE ---
Patient is in his room sitting in his chair watching TV, calm and quiet, no distress reported, patient had decent shift so far, no update on placement, will continue to monitor.
[2020-08-04 00:25] VITALS: BP 125/88; PULSE 93; RESP 18; TEMP 36.3; O2SAT 98
--- NOTE | 2020-08-04 06:53 | PC.NURSE ---
Report received. Pt currently sleeping, respirations even and unlabored, in no apparent distress. Pt is case management bedsearch.
[2020-08-04] MEDS: Ferrous Sulfate 324 MG TABLET.DR PO (10:54)
[2020-08-04] MEDS: Topiramate 25 MG TABLET 50 MG PO ×2 (10:54→20:05)
[2020-08-04] MEDS: Loratadine 10 MG TABLET PO (10:54)
[2020-08-04] MEDS: Omeprazole 40 MG CAPSULE.DR PO ×2 (10:54→20:05)
[2020-08-04] MEDS: Atorvastatin Calcium 40 MG TABLET PO (10:54)
[2020-08-04] MEDS: allopurinoL 100 MG TABLET 300 MG PO (10:54)
[2020-08-04] MEDS: Cholecalciferol (Vitamin D3) 25 MCG TABLET PO (10:54)
[2020-08-04] MEDS: Sertraline HCL 50 MG TABLET 150 MG PO (10:54)
[2020-08-04 11:01] VITALS: BP 104/58; PULSE 87; RESP 16; TEMP 36.9
--- NOTE | 2020-08-04 11:50 | PC.NURSE ---
PT currently watching tv, calm and cooperative.
[2020-08-04] MEDS: hydrOXYzine HCL 25 MG TABLET PO (20:05)
[2020-08-04] MEDS: Amitriptyline HCl 50 MG TABLET 100 MG PO (20:05)
--- NOTE | 2020-08-04 20:10 | PC.NURSE ---
Patient in bed resting, calm and quiet, compliant with HS PO medication, no update on disposition, denied distress at this time, will continue to monitor.
--- NOTE | 2020-08-05 07:17 | PC.NURSE ---
Report received from CB Mcmillan. Pt resting, resp unlabored.
[2020-08-05] MEDS: Ferrous Sulfate 324 MG TABLET.DR PO (08:46)
[2020-08-05] MEDS: allopurinoL 100 MG TABLET 300 MG PO (08:46)
[2020-08-05 08:47] VITALS: BP 128/88; PULSE 100; RESP 16; TEMP 36.8; O2SAT 100
[2020-08-05] MEDS: Sertraline HCL 50 MG TABLET 150 MG PO (08:47)
[2020-08-05] MEDS: Cholecalciferol (Vitamin D3) 25 MCG TABLET PO (08:47)
[2020-08-05] MEDS: Topiramate 25 MG TABLET 50 MG PO ×2 (08:48→20:13)
[2020-08-05] MEDS: Atorvastatin Calcium 40 MG TABLET PO (08:48)
[2020-08-05] MEDS: Omeprazole 40 MG CAPSULE.DR PO ×2 (08:48→20:13)
[2020-08-05] MEDS: Loratadine 10 MG TABLET PO (08:48)
--- NOTE | 2020-08-05 10:58 | PC.NURSE ---
Pt resting, resp unlabored. No concerns reported. Pt cooperative w/ medications.
--- NOTE | 2020-08-05 11:28 | PC.NURSE ---
Report received. Pt showering at current. Calm and cooperative.
--- NOTE | 2020-08-05 13:14 | PC.NURSE ---
Pt resting in bed at current. No complaints at this time. Calm and cooperative.
--- NOTE | 2020-08-05 15:47 | PC.NURSE ---
Pt standing out in the common area at current, watching TV. No complaints at this time. Calm and cooperative.
[2020-08-05 17:49] VITALS: BP 140/88; PULSE 99; RESP 20; TEMP 36.7; O2SAT 98
--- NOTE | 2020-08-05 19:19 | PC.NURSE ---
Patient in bed resting quietly, no update on bed search, no distress reported, will continue to monitor.
[2020-08-05] MEDS: Amitriptyline HCl 50 MG TABLET 100 MG PO (20:13)
[2020-08-05] MEDS: hydrOXYzine HCL 25 MG TABLET PO (20:13)
[2020-08-06 05:41] VITALS: BP 111/82; PULSE 91; RESP 16; TEMP 36.3; O2SAT 99
--- NOTE | 2020-08-06 07:16 | PC.NURSE ---
Report received from CB Mcmillan. Pt awake, watching television, affect even. No concerns reported.
[2020-08-06 07:53] VITALS: BP 116/74; PULSE 82; RESP 16; TEMP 36.5; O2SAT 97
[2020-08-06] MEDS: Topiramate 25 MG TABLET 50 MG PO ×2 (08:00→20:03)
[2020-08-06] MEDS: Cholecalciferol (Vitamin D3) 25 MCG TABLET PO (08:00)
[2020-08-06] MEDS: Ferrous Sulfate 324 MG TABLET.DR PO (08:01)
[2020-08-06] MEDS: Omeprazole 40 MG CAPSULE.DR PO ×2 (08:01→20:03)
[2020-08-06] MEDS: Sertraline HCL 50 MG TABLET 150 MG PO (08:02)
[2020-08-06] MEDS: Loratadine 10 MG TABLET PO (08:03)
[2020-08-06] MEDS: allopurinoL 100 MG TABLET 300 MG PO (08:03)
[2020-08-06] MEDS: Atorvastatin Calcium 40 MG TABLET PO (08:04)
--- NOTE | 2020-08-06 11:19 | PC.NURSE ---
Pt resting, resp unlabored.
--- NOTE | 2020-08-06 12:03 | PC.NURSE ---
Pt resting, resp unlabored
--- NOTE | 2020-08-06 12:27 | PC.NURSE ---
Pt awoke, directed to bathroom, now resting in room, watching television.
[2020-08-06 14:00] VITALS: RESP 20
--- NOTE | 2020-08-06 14:37 | MHC.CM.ED ---
pt has a few facilities reviewing him for admissions; additionally he is on [facility] waiting list. no bed offers at this time. cm to cont. to follow.
--- NOTE | 2020-08-06 15:45 | PC.NURSE ---
Pt resting, out of room briefly, continues to be confused at times but redirectable.
[2020-08-06 17:43] VITALS: BP 128/74; PULSE 89; RESP 18; TEMP 36.1; O2SAT 96
--- NOTE | 2020-08-06 17:54 | PC.NURSE ---
Pt eating dinner, no concerns reported, easily redirected when he becomes confused re: location of room.
[2020-08-06] MEDS: Amitriptyline HCl 50 MG TABLET 100 MG PO (20:03)
[2020-08-06] MEDS: hydrOXYzine HCL 25 MG TABLET PO (20:03)
--- NOTE | 2020-08-06 21:27 | PC.NURSE ---
Patient memory seems debilitating, needed frequent redirection especially locating his room, patient defecated all over the bathroom floor again, compliant with his HS PO medication, currently resting quietly, will continue to monitor.
[2020-08-06] MEDS: Nicotine Polacrilex 2 MG GUM BUCCAL (22:58)
[2020-08-06 23:20] VITALS: BP 135/87; PULSE 87; RESP 18; TEMP 36.3; O2SAT 97
[2020-08-07 08:49] VITALS: BP 112/71; PULSE 79; RESP 18; TEMP 36.4; O2SAT 95
[2020-08-07] MEDS: Topiramate 25 MG TABLET 50 MG PO ×2 (09:09→21:08)
[2020-08-07] MEDS: Atorvastatin Calcium 40 MG TABLET PO (09:09)
[2020-08-07] MEDS: Sertraline HCL 50 MG TABLET 150 MG PO (09:10)
[2020-08-07] MEDS: Cholecalciferol (Vitamin D3) 25 MCG TABLET PO (09:10)
[2020-08-07] MEDS: allopurinoL 100 MG TABLET 300 MG PO (09:10)
[2020-08-07] MEDS: Loratadine 10 MG TABLET PO (09:10)
[2020-08-07] MEDS: Omeprazole 40 MG CAPSULE.DR PO ×2 (09:10→21:07)
[2020-08-07] MEDS: Ferrous Sulfate 324 MG TABLET.DR PO (09:10)
[2020-08-07 16:09] VITALS: BP 128/76; PULSE 77; RESP 18; TEMP 36.3; O2SAT 98
[2020-08-07] MEDS: hydrOXYzine HCL 25 MG TABLET PO (16:34)
[2020-08-07] MEDS: Nicotine Polacrilex 2 MG GUM BUCCAL (16:34)
--- NOTE | 2020-08-07 18:32 | PC.NURSE ---
patient calm and cooperative today. offered no complaints. short term memory impaired. patient re-directable.
--- NOTE | 2020-08-07 19:13 | PC.NURSE ---
Report received. PT is resting quietly in his room. Calm and cooperative. PT is case management.
[2020-08-07] MEDS: Amitriptyline HCl 50 MG TABLET 100 MG PO (21:09)
[2020-08-07 21:26] VITALS: BP 98/66; PULSE 78; RESP 12; O2SAT 97
[2020-08-08 00:38] VITALS: BP 100/51; PULSE 79; RESP 18; TEMP 35.9; O2SAT 96
--- NOTE | 2020-08-08 07:38 | PC.NURSE ---
Pt sleeping in room, respirations even/unlabored bilaterally. No sign of distress noted. Will continue to monitor.
[2020-08-08] MEDS: Omeprazole 40 MG CAPSULE.DR PO ×2 (09:10→21:22)
[2020-08-08] MEDS: Sertraline HCL 50 MG TABLET 150 MG PO (09:10)
[2020-08-08] MEDS: Loratadine 10 MG TABLET PO (09:10)
[2020-08-08] MEDS: Topiramate 25 MG TABLET 50 MG PO ×2 (09:10→21:22)
[2020-08-08] MEDS: Cholecalciferol (Vitamin D3) 25 MCG TABLET PO (09:10)
[2020-08-08] MEDS: Atorvastatin Calcium 40 MG TABLET PO (09:10)
[2020-08-08] MEDS: allopurinoL 100 MG TABLET 300 MG PO (09:10)
[2020-08-08] MEDS: Ferrous Sulfate 324 MG TABLET.DR PO (09:10)
[2020-08-08 09:24] VITALS: BP 100/63; PULSE 67; RESP 18; TEMP 37.1; O2SAT 99
--- NOTE | 2020-08-08 10:44 | MHC.CM.ED ---
Patient remains in ER. [facility] does not feel they will have a bed available. [facility] is reaching out to [facility] in [facility] to see if they have bed availability. Left voicemail for Ivana at [facility] in [place]. Continue to monitor for d/c needs.
[2020-08-08 14:00] VITALS: RESP 18
--- NOTE | 2020-08-08 15:13 | MHC.CM.ED ---
Spoke with Ivana at [address] [place] [address] in [facility]. They're also associated with [facility]. Ivana is deverting to Elin and Sonia at [facility] for placement. Continue to monitor for d/c needs.
[2020-08-08 18:44] VITALS: BP 126/85; PULSE 92; RESP 17; TEMP 36.7; O2SAT 99
--- NOTE | 2020-08-08 19:30 | PC.NURSE ---
Report received. PT is laying in bed watching TV. Calm and cooperative. PT is case management.
[2020-08-08] MEDS: Amitriptyline HCl 50 MG TABLET 100 MG PO (21:22)
[2020-08-09 01:04] VITALS: BP 120/78; PULSE 94; RESP 20; TEMP 36.8; O2SAT 96
--- NOTE | 2020-08-09 07:06 | PC.NURSE ---
report received from Hipolito. Pt sleeping at this time. BERNADETTE.
[2020-08-09 08:11] VITALS: BP 112/72; PULSE 80; RESP 16; TEMP 36.5; O2SAT 98
[2020-08-09] MEDS: allopurinoL 100 MG TABLET 300 MG PO (08:16)
[2020-08-09] MEDS: Sertraline HCL 50 MG TABLET 150 MG PO (08:16)
[2020-08-09] MEDS: Topiramate 25 MG TABLET 50 MG PO ×2 (08:16→20:28)
[2020-08-09] MEDS: Omeprazole 40 MG CAPSULE.DR PO ×2 (08:16→20:28)
[2020-08-09] MEDS: Ferrous Sulfate 324 MG TABLET.DR PO (08:16)
[2020-08-09] MEDS: Atorvastatin Calcium 40 MG TABLET PO (08:16)
[2020-08-09] MEDS: Cholecalciferol (Vitamin D3) 25 MCG TABLET PO (08:16)
[2020-08-09] MEDS: Loratadine 10 MG TABLET PO (08:16)
--- NOTE | 2020-08-09 14:45 | MHC.CM.ED ---
Patient remains in ER. Spoke with [facility]. They're still looking for a bed for patient. Continue to monitor for d/c needs.
[2020-08-09] MEDS: hydrOXYzine HCL 25 MG TABLET PO (20:28)
[2020-08-09] MEDS: Amitriptyline HCl 50 MG TABLET 100 MG PO (20:28)
[2020-08-09] MEDS: traZODone HCL 25 MG HALFTAB 12.5 MG PO (23:24)
[2020-08-10 00:11] VITALS: BP 116/75; PULSE 95; RESP 17; TEMP 36.9; O2SAT 96
--- NOTE | 2020-08-10 07:17 | PC.NURSE ---
Report received from CB Mcmillan. Pt resting, resp unlabored.
[2020-08-10] MEDS: Topiramate 25 MG TABLET 50 MG PO ×2 (08:03→20:31)
[2020-08-10] MEDS: Sertraline HCL 50 MG TABLET 150 MG PO (08:05)
[2020-08-10] MEDS: Omeprazole 40 MG CAPSULE.DR PO ×2 (08:06→20:31)
[2020-08-10] MEDS: allopurinoL 100 MG TABLET 300 MG PO (08:06)
[2020-08-10] MEDS: Atorvastatin Calcium 40 MG TABLET PO (08:07)
[2020-08-10] MEDS: Ferrous Sulfate 324 MG TABLET.DR PO (08:07)
[2020-08-10] MEDS: Loratadine 10 MG TABLET PO (08:08)
[2020-08-10] MEDS: Cholecalciferol (Vitamin D3) 25 MCG TABLET PO (08:09)
[2020-08-10 08:17] VITALS: BP 116/78; PULSE 82; RESP 18; TEMP 36.3; O2SAT 97
--- NOTE | 2020-08-10 08:19 | PC.NURSE ---
Pt awake, alert, denies any concerns, eating breakfast, cooperative w/ medications.
--- NOTE | 2020-08-10 10:52 | PC.NURSE ---
Pt resting, resp unlabored
--- NOTE | 2020-08-10 12:40 | PC.NURSE ---
Pt resting, resp unlabored.
--- NOTE | 2020-08-10 14:01 | PC.NURSE ---
Pt awake, resting in bed, no concerns reported.
[2020-08-10 15:40] VITALS: BP 116/86; PULSE 91; RESP 16; TEMP 36.7; O2SAT 99
--- NOTE | 2020-08-10 16:02 | PC.NURSE ---
Pt awake, out of bed briefly, using bathroom as needed with little reminding.
--- NOTE | 2020-08-10 16:02 | MHC.CM.ED ---
Spoke with [facility]. [facility] is still interested in offering a bed. They have had to make multiple bed changes at the facility due to patient personality issues. Continue to monitor for d/c needs.
--- NOTE | 2020-08-10 16:59 | PC.NURSE ---
Pt increasingly irritable per [facility]. This evening, pt looking for sneakers (as he does frequently despite re-orientation) becoming increasingly frustrated. C Lacy aware of change in behavior as witnessed and reported.
[2020-08-10] MEDS: hydrOXYzine HCL 25 MG TABLET PO (17:08)
--- NOTE | 2020-08-10 17:58 | PC.NURSE ---
Pt medicated for increasing restlessness and irritability. Pt currently eating dinner.
[2020-08-10 20:16] VITALS: BP 134/86; PULSE 103; RESP 17; TEMP 36.6; O2SAT 98
[2020-08-10] MEDS: Amitriptyline HCl 50 MG TABLET 100 MG PO (20:31)
[2020-08-10] MEDS: traZODone HCL 25 MG HALFTAB 12.5 MG PO (23:21)
[2020-08-11 01:01] VITALS: BP 110/75; PULSE 83; RESP 17; TEMP 36.8; O2SAT 99
--- NOTE | 2020-08-11 07:16 | PC.NURSE ---
Report received from CB Mcmillan. Pt awake, eating breakfast, no concerns reported.
--- NOTE | 2020-08-11 07:58 | PC.NURSE ---
Pt alert, denies any pain or physical concerns. Pt appears to be aware that he becomes angrier in the evening but unable to articulate why.
[2020-08-11 07:59] VITALS: BP 108/71; PULSE 79; RESP 20; TEMP 36.5; O2SAT 98
[2020-08-11] MEDS: Topiramate 25 MG TABLET 50 MG PO ×2 (08:00→20:09)
[2020-08-11] MEDS: allopurinoL 100 MG TABLET 300 MG PO (08:01)
[2020-08-11] MEDS: Atorvastatin Calcium 40 MG TABLET PO (08:02)
[2020-08-11] MEDS: Cholecalciferol (Vitamin D3) 25 MCG TABLET PO (08:03)
[2020-08-11] MEDS: Loratadine 10 MG TABLET PO (08:03)
[2020-08-11] MEDS: Omeprazole 40 MG CAPSULE.DR PO ×2 (08:03→20:09)
[2020-08-11] MEDS: Ferrous Sulfate 324 MG TABLET.DR PO (08:03)
[2020-08-11] MEDS: Sertraline HCL 50 MG TABLET 150 MG PO (08:04)
--- NOTE | 2020-08-11 09:34 | PC.NURSE ---
Pt resting, resp unlabored.
--- NOTE | 2020-08-11 10:54 | PC.NURSE ---
Pt resting, resp unlabored
--- NOTE | 2020-08-11 12:34 | MHC.CM.ED ---
i have called [facility] admissions dept at ph: [phone] looking for an update on patient's review for acceptance. left message, still waiting to hear back. cm to cont .to follow.
--- NOTE | 2020-08-11 13:27 | PC.NURSE ---
Pt resting, ate lunch, affect even, redirectable at this time.
[2020-08-11 14:00] VITALS: RESP 18
--- NOTE | 2020-08-11 16:37 | PC.NURSE ---
Pt resting, resp unlabored
[2020-08-11 16:50] VITALS: BP 120/79; PULSE 91; RESP 16; TEMP 36.7; O2SAT 98
--- NOTE | 2020-08-11 18:16 | PC.NURSE ---
Pt awake, eatiung dinner, affect even, pleasant- offered toileting, pt declined.
--- NOTE | 2020-08-11 19:11 | PC.NURSE ---
Report received. PT is sitting in his room watching TV. Calm and cooperative. Case management is looking for placement.
[2020-08-11] MEDS: Amitriptyline HCl 50 MG TABLET 100 MG PO (20:09)
[2020-08-11] MEDS: hydrOXYzine HCL 25 MG TABLET PO (23:31)
--- NOTE | 2020-08-11 23:33 | PC.NURSE ---
PT becoming agitated and yelling at staff. Continues to ask to go upstairs . PRN med given to help agitation.
[2020-08-12 01:23] VITALS: BP 118/88; PULSE 107; RESP 18; TEMP 36.3; O2SAT 98
[2020-08-12] MEDS: Nicotine Polacrilex 2 MG GUM BUCCAL ×2 (02:19→21:08)
--- NOTE | 2020-08-12 07:06 | PC.NURSE ---
Report received. PT currently eating breakfast, calm and cooperative. PT pleasantly confused, easily redirectible. PT is case management bedsearch.
[2020-08-12 09:11] VITALS: BP 111/72; PULSE 75; RESP 17; TEMP 36.9; O2SAT 97
[2020-08-12] MEDS: Topiramate 25 MG TABLET 50 MG PO ×2 (09:44→21:08)
[2020-08-12] MEDS: Cholecalciferol (Vitamin D3) 25 MCG TABLET PO (09:44)
[2020-08-12] MEDS: Sertraline HCL 50 MG TABLET 150 MG PO (09:44)
[2020-08-12] MEDS: Atorvastatin Calcium 40 MG TABLET PO (09:44)
[2020-08-12] MEDS: Omeprazole 40 MG CAPSULE.DR PO ×2 (09:44→21:08)
[2020-08-12] MEDS: Ferrous Sulfate 324 MG TABLET.DR PO (09:44)
[2020-08-12] MEDS: Loratadine 10 MG TABLET PO (09:45)
[2020-08-12] MEDS: allopurinoL 100 MG TABLET 300 MG PO (09:45)
--- NOTE | 2020-08-12 16:48 | PC.NURSE ---
PT currently on the phone with his sister, calm and cooperative. PT confused, easily redirectible
[2020-08-12 17:59] VITALS: BP 146/87; PULSE 102; RESP 20; TEMP 36.3; O2SAT 96
--- NOTE | 2020-08-12 20:05 | PC.NURSE ---
Report received. PT is using the shower. Calm and cooperative. Case management is looking for placement.
[2020-08-12] MEDS: Amitriptyline HCl 50 MG TABLET 100 MG PO (21:08)
[2020-08-13 00:32] VITALS: BP 115/76; PULSE 93; RESP 16; TEMP 36.6; O2SAT 95
[2020-08-13 06:00] VITALS: RESP 16
--- NOTE | 2020-08-13 07:45 | PC.NURSE ---
Pt report received from CB Young. Pt resting quietly watching tv at this time.
[2020-08-13] MEDS: Ferrous Sulfate 324 MG TABLET.DR PO (08:14)
[2020-08-13] MEDS: allopurinoL 100 MG TABLET 300 MG PO (08:14)
[2020-08-13] MEDS: Loratadine 10 MG TABLET PO (08:14)
[2020-08-13] MEDS: Atorvastatin Calcium 40 MG TABLET PO (08:14)
[2020-08-13] MEDS: Sertraline HCL 50 MG TABLET 150 MG PO (08:14)
[2020-08-13] MEDS: Topiramate 25 MG TABLET 50 MG PO ×2 (08:14→21:04)
[2020-08-13] MEDS: Cholecalciferol (Vitamin D3) 25 MCG TABLET PO (08:14)
[2020-08-13] MEDS: Omeprazole 40 MG CAPSULE.DR PO ×2 (08:14→21:04)
--- NOTE | 2020-08-13 08:28 | MHC.CM.ED ---
Patient remains in ER. Message sent to Sonia at [facility] via mobileo about placement. Waiting to hear back. Continue to monitor for d/c needs.
[2020-08-13 09:36] VITALS: BP 126/86; PULSE 78; RESP 18; TEMP 37.1; O2SAT 98
--- NOTE | 2020-08-13 15:01 | PC.NURSE ---
Report received. PT currently sitting out on unit, calm and cooperative, interacting with other patients at this time. PT is case management [facility].
[2020-08-13 17:39] VITALS: BP 118/81; PULSE 105; RESP 18; TEMP 37.2; O2SAT 97
--- NOTE | 2020-08-13 19:13 | PC.NURSE ---
Report received. PT is resting quietly in bed. Calm and cooperative. Case management is working to find placement.
[2020-08-13] MEDS: Nicotine Polacrilex 2 MG GUM BUCCAL ×2 (21:04→23:45)
[2020-08-13] MEDS: Amitriptyline HCl 50 MG TABLET 100 MG PO (21:04)
[2020-08-14 01:41] VITALS: BP 138/93; PULSE 91; RESP 17; TEMP 36.6; O2SAT 99
--- NOTE | 2020-08-14 07:31 | PC.NURSE ---
Report received from CB Young. Pt awake, alert, eating breakfast in common area.
[2020-08-14] MEDS: allopurinoL 100 MG TABLET 300 MG PO (08:19)
[2020-08-14] MEDS: Cholecalciferol (Vitamin D3) 25 MCG TABLET PO (08:20)
[2020-08-14] MEDS: Topiramate 25 MG TABLET 50 MG PO ×2 (08:20→20:59)
[2020-08-14] MEDS: Ferrous Sulfate 324 MG TABLET.DR PO (08:21)
[2020-08-14] MEDS: Sertraline HCL 50 MG TABLET 150 MG PO (08:22)
[2020-08-14 08:23] VITALS: BP 123/78; PULSE 79; RESP 17; TEMP 36.6; O2SAT 99
[2020-08-14] MEDS: Loratadine 10 MG TABLET PO (08:23)
[2020-08-14] MEDS: Omeprazole 40 MG CAPSULE.DR PO ×2 (08:23→20:59)
[2020-08-14] MEDS: Atorvastatin Calcium 40 MG TABLET PO (08:25)
[2020-08-14 14:00] VITALS: RESP 18
--- NOTE | 2020-08-14 15:36 | PC.NURSE ---
Pt resting, resp unlabored.
[2020-08-14 16:10] VITALS: BP 131/87; PULSE 96; RESP 18; TEMP 36.6; O2SAT 98
--- NOTE | 2020-08-14 16:51 | PC.NURSE ---
Pt awake, alert, conversing w/ staff.
--- NOTE | 2020-08-14 18:33 | PC.NURSE ---
Pt appears to be in a good mood, pleasant, engaging in conversation w/ staff.
--- NOTE | 2020-08-14 20:00 | PC.NURSE ---
Patient quietly resting in his bed, no distress observed/reported, patient had a decent day per report, will continue to monitor.
[2020-08-14] MEDS: hydrOXYzine HCL 25 MG TABLET PO (20:59)
[2020-08-14] MEDS: Amitriptyline HCl 50 MG TABLET 100 MG PO (20:59)
[2020-08-14 23:43] VITALS: BP 129/92; PULSE 101; RESP 17; TEMP 36.6; O2SAT 99
--- NOTE | 2020-08-15 07:14 | PC.NURSE ---
Report received from CB Mcmillan. Pt awake, affect even, pleasant. No concerns reported.
[2020-08-15 07:50] VITALS: BP 118/70; PULSE 90; RESP 18; TEMP 36.6; O2SAT 98
[2020-08-15] MEDS: Ferrous Sulfate 324 MG TABLET.DR PO (08:05)
[2020-08-15] MEDS: Topiramate 25 MG TABLET 50 MG PO ×2 (08:06→21:32)
[2020-08-15] MEDS: Cholecalciferol (Vitamin D3) 25 MCG TABLET PO (08:06)
[2020-08-15] MEDS: Atorvastatin Calcium 40 MG TABLET PO (08:07)
[2020-08-15] MEDS: allopurinoL 100 MG TABLET 300 MG PO (08:07)
[2020-08-15] MEDS: Omeprazole 40 MG CAPSULE.DR PO ×2 (08:07→21:32)
[2020-08-15] MEDS: Loratadine 10 MG TABLET PO (08:08)
[2020-08-15] MEDS: Sertraline HCL 50 MG TABLET 150 MG PO (08:08)
--- NOTE | 2020-08-15 10:14 | MHC.CM.ED ---
Patient remains in ER. Per Sonia at [facility] has a bed for patient. They are in the process of getting insurance approval, since it is in [place] and he has [employer]. Attempted to speak to patient's sister/HCP, Mckayla via telephone at [phone]. Left message requesting return telephone call. Continue to monitor for d/c needs.
--- NOTE | 2020-08-15 10:43 | PC.NURSE ---
Pt awake, affect even, talkative at times. No concerns reported.
--- NOTE | 2020-08-15 10:58 | MHC.CM.ED ---
Received telephone call from patient's sister/HCP Mckayla. Mckayla verbalizes understanding to discharge plan at [facility]. Mckayla verbalizes understanding that patient's mental status may not ever be normal and he will essentially need long-term care. Mckayla will come see patient today. Continue to monitor for d/c needs.
[2020-08-15 14:00] VITALS: RESP 20
--- NOTE | 2020-08-15 17:37 | PC.NURSE ---
Pt restless, incontinent of urine, confused, stating bathroom is in his room. Pt redirected to shower, Currently appears slightly anxious, visible on the unit.
--- NOTE | 2020-08-15 18:17 | PC.NURSE ---
Pt appears less anxious, less irritable. Ate dinner.
[2020-08-15] MEDS: hydrOXYzine HCL 25 MG TABLET PO (21:32)
[2020-08-15] MEDS: Amitriptyline HCl 50 MG TABLET 100 MG PO (21:32)
[2020-08-15 22:00] VITALS: BP 128/90; PULSE 94; RESP 18; TEMP 36.4; O2SAT 98
[2020-08-16 00:10] VITALS: BP 123/87; PULSE 87; RESP 17; TEMP 36.3; O2SAT 100
[2020-08-16] MEDS: allopurinoL 100 MG TABLET 300 MG PO (09:01)
[2020-08-16] MEDS: Sertraline HCL 50 MG TABLET 150 MG PO (09:02)
[2020-08-16] MEDS: Ferrous Sulfate 324 MG TABLET.DR PO (09:02)
[2020-08-16] MEDS: Loratadine 10 MG TABLET PO (09:02)
[2020-08-16] MEDS: Atorvastatin Calcium 40 MG TABLET PO (09:02)
[2020-08-16] MEDS: Topiramate 25 MG TABLET 50 MG PO ×2 (09:02→20:45)
[2020-08-16] MEDS: Omeprazole 40 MG CAPSULE.DR PO ×2 (09:02→20:45)
[2020-08-16] MEDS: Cholecalciferol (Vitamin D3) 25 MCG TABLET PO (09:02)
[2020-08-16 09:16] VITALS: BP 137/93; PULSE 83; RESP 16; TEMP 37; O2SAT 98
--- NOTE | 2020-08-16 13:04 | MHC.CM.ED ---
Stacey Oliver has submitted for auth with [facility]. [facility] screens for [place] and [place] completed and sent to [facility]. Continue to monitor for d/c needs.
--- NOTE | 2020-08-16 15:09 | PC.NURSE ---
Report received. Pt asleep at current. No signs of distress. RR even and unlabored.
--- NOTE | 2020-08-16 16:58 | PC.NURSE ---
Playing JUAQUIN with other pts in the common area. Calm and cooperative. No complaints at this time.
[2020-08-16] MEDS: Amitriptyline HCl 50 MG TABLET 100 MG PO (20:45)
[2020-08-16] MEDS: hydrOXYzine HCL 25 MG TABLET PO (20:45)
[2020-08-17 00:06] VITALS: BP 116/77; PULSE 89; RESP 18; TEMP 37.1; O2SAT 98
--- NOTE | 2020-08-17 06:57 | PC.NURSE ---
Report received. PT currently eating breakfast, calm and cooperative. PT is case management [facility].
[2020-08-17 09:13] VITALS: BP 107/70; PULSE 75; RESP 16; TEMP 37.1; O2SAT 100
[2020-08-17] MEDS: Cholecalciferol (Vitamin D3) 25 MCG TABLET PO (10:32)
[2020-08-17] MEDS: allopurinoL 100 MG TABLET 300 MG PO (10:32)
[2020-08-17] MEDS: Loratadine 10 MG TABLET PO (10:32)
[2020-08-17] MEDS: Sertraline HCL 50 MG TABLET 150 MG PO (10:32)
[2020-08-17] MEDS: Topiramate 25 MG TABLET 50 MG PO ×2 (10:32→20:20)
[2020-08-17] MEDS: Atorvastatin Calcium 40 MG TABLET PO (10:32)
[2020-08-17] MEDS: Omeprazole 40 MG CAPSULE.DR PO ×2 (10:32→20:24)
[2020-08-17] MEDS: Ferrous Sulfate 324 MG TABLET.DR PO (10:32)
--- NOTE | 2020-08-17 12:56 | MHC.CM.ED ---
Patient remains in ER. Spoke with Sonia at [facility]. Authorization has been submitted to [facility] by [facility]. Continue to monitor for d/c needs.
[2020-08-17 16:14] VITALS: BP 111/53; PULSE 83; RESP 16; TEMP 37.1; O2SAT 97
--- NOTE | 2020-08-17 19:09 | PC.NURSE ---
Report received. PT is resting in bed. Calm and cooperative. PT is case management.
[2020-08-17] MEDS: Amitriptyline HCl 50 MG TABLET 100 MG PO (20:24)
[2020-08-17 23:53] VITALS: BP 119/72; PULSE 84; RESP 17; TEMP 36.2; O2SAT 95
[2020-08-18 06:31] VITALS: BP 129/88; PULSE 85; RESP 16; TEMP 36.2; O2SAT 99
--- NOTE | 2020-08-18 06:57 | PC.NURSE ---
Report recieved. Pt currently sleeping, respirations even and unlabored, in no apparent distress. Pt is case management [facility].
[2020-08-18 08:59] VITALS: BP 101/73; PULSE 82; RESP 16; TEMP 36.5; O2SAT 96
[2020-08-18] MEDS: Atorvastatin Calcium 40 MG TABLET PO (11:00)
[2020-08-18] MEDS: Ferrous Sulfate 324 MG TABLET.DR PO (11:00)
[2020-08-18] MEDS: Loratadine 10 MG TABLET PO (11:00)
[2020-08-18] MEDS: Cholecalciferol (Vitamin D3) 25 MCG TABLET PO (11:00)
[2020-08-18] MEDS: Topiramate 25 MG TABLET 50 MG PO ×2 (11:01→20:32)
[2020-08-18] MEDS: Omeprazole 40 MG CAPSULE.DR PO ×2 (11:01→20:32)
[2020-08-18] MEDS: allopurinoL 100 MG TABLET 300 MG PO (11:01)
[2020-08-18] MEDS: Sertraline HCL 50 MG TABLET 150 MG PO (11:01)
--- NOTE | 2020-08-18 14:11 | MHC.CM.ED ---
Patient remains in ER. Still waiting for [facility] to obtain insurance auth from [employer]. Continue to monitor for d/c needs.
[2020-08-18 16:47] VITALS: BP 133/79; PULSE 81; RESP 16; TEMP 36.6; O2SAT 100
[2020-08-18] MEDS: Amitriptyline HCl 50 MG TABLET 100 MG PO (20:32)
[2020-08-18] MEDS: hydrOXYzine HCL 25 MG TABLET PO (20:32)
[2020-08-19 06:53] VITALS: BP 113/75; PULSE 76; RESP 17; TEMP 36.7; O2SAT 97
--- NOTE | 2020-08-19 07:18 | PC.NURSE ---
Report received. Pt asleep at current. No signs of distress. RR even and unlabored.
[2020-08-19] MEDS: allopurinoL 100 MG TABLET 300 MG PO (09:29)
[2020-08-19] MEDS: Cholecalciferol (Vitamin D3) 25 MCG TABLET PO (09:29)
[2020-08-19] MEDS: Topiramate 25 MG TABLET 50 MG PO ×2 (09:30→20:41)
[2020-08-19] MEDS: Omeprazole 40 MG CAPSULE.DR PO ×2 (09:30→20:41)
[2020-08-19] MEDS: Loratadine 10 MG TABLET PO (09:30)
[2020-08-19] MEDS: Atorvastatin Calcium 40 MG TABLET PO (09:30)
[2020-08-19] MEDS: Ferrous Sulfate 324 MG TABLET.DR PO (09:30)
[2020-08-19] MEDS: Sertraline HCL 50 MG TABLET 150 MG PO (09:30)
--- NOTE | 2020-08-19 09:51 | PC.NURSE ---
Pt resting in bed at current. No complaints at this time. Calm and cooperative.
--- NOTE | 2020-08-19 12:05 | PC.NURSE ---
Patient in room resting at this time. No complaints offered. Watching tv, calm and cooperative.
--- NOTE | 2020-08-19 14:18 | PC.NURSE ---
Resting in bed at current time. No complaints offered. Calm and cooperative.
--- NOTE | 2020-08-19 16:17 | PC.NURSE ---
Resting in bed at current time. No complaints offered. Calm and cooperative.
--- NOTE | 2020-08-19 18:19 | PC.NURSE ---
Patient in room eating dinner. Calm, cooperative. Offers no complaints at this time.
--- NOTE | 2020-08-19 19:41 | PC.NURSE ---
Patient in hallway wandering gregariously, no distress reported, will continue to monitor.
[2020-08-19] MEDS: Amitriptyline HCl 50 MG TABLET 100 MG PO (20:40)
[2020-08-19] MEDS: hydrOXYzine HCL 25 MG TABLET PO (20:41)
[2020-08-19 20:47] VITALS: BP 127/91; PULSE 100; RESP 18; TEMP 36.8; O2SAT 97
[2020-08-20] MEDS: traZODone HCL 25 MG HALFTAB 12.5 MG PO (02:06)
[2020-08-20 03:55] VITALS: BP 118/78; PULSE 88; RESP 16; TEMP 36.6; O2SAT 97
--- NOTE | 2020-08-20 07:23 | PC.NURSE ---
Report received from CB Mcmillan. Pt resting, resp unlabored.
[2020-08-20] MEDS: Sertraline HCL 50 MG TABLET 150 MG PO (08:40)
[2020-08-20] MEDS: Atorvastatin Calcium 40 MG TABLET PO (08:42)
[2020-08-20] MEDS: Loratadine 10 MG TABLET PO (08:42)
[2020-08-20] MEDS: Cholecalciferol (Vitamin D3) 25 MCG TABLET PO (08:43)
[2020-08-20] MEDS: Omeprazole 40 MG CAPSULE.DR PO ×2 (08:43→20:19)
[2020-08-20] MEDS: Ferrous Sulfate 324 MG TABLET.DR PO (08:43)
[2020-08-20] MEDS: allopurinoL 100 MG TABLET 300 MG PO (08:44)
[2020-08-20] MEDS: Topiramate 25 MG TABLET 50 MG PO ×2 (08:44→20:19)
[2020-08-20 08:48] VITALS: BP 107/65; PULSE 85; RESP 16; TEMP 36.4; O2SAT 97
--- NOTE | 2020-08-20 08:52 | PC.NURSE ---
Patient sleeping in bed. Respirations even and unlabored.
--- NOTE | 2020-08-20 10:40 | PC.NURSE ---
Patient sleeping in bed. Respirations even and unlabored.
--- NOTE | 2020-08-20 10:41 | PC.NURSE ---
Pt resting, resp unlabored.
--- NOTE | 2020-08-20 11:56 | PC.NURSE ---
Pt awake, directed to bathroom, cooperative w/ direction. No concerns reported. Eating snack.
[2020-08-20 14:00] VITALS: RESP 18
--- NOTE | 2020-08-20 14:13 | PC.NURSE ---
Patient in room watching tv. Offers no complaints at this time.
--- NOTE | 2020-08-20 15:11 | PC.NURSE ---
Pt awake, toileted himself, pleasant w/ staff, no concerns reported.
[2020-08-20 15:57] VITALS: BP 124/93; PULSE 93; RESP 18; TEMP 36.8; O2SAT 96
--- NOTE | 2020-08-20 16:14 | PC.NURSE ---
Patient visible in common area. Offers no complaints at this time. Quietly watching tv.
--- NOTE | 2020-08-20 16:23 | MHC.CM.ED ---
Pt remains holding for transfer to LTC center, [facility] who is pursuing [facility] authorization. No changes to D/C plan at this time. [facility] offices are closed on weekends
--- NOTE | 2020-08-20 16:47 | PC.NURSE ---
Pt alert, watching television in common area, currently concerned that his 'sneakers' are missing. Pt redirectable, conversing w/ staff.
--- NOTE | 2020-08-20 18:01 | PC.NURSE ---
Patient visible in common area watching television. No complaints offered at this time. Provided snack at patient request.
[2020-08-20] MEDS: hydrOXYzine HCL 25 MG TABLET PO (20:19)
[2020-08-20] MEDS: Amitriptyline HCl 50 MG TABLET 100 MG PO (20:19)
[2020-08-21 00:59] VITALS: BP 132/84; PULSE 107; RESP 16; TEMP 36.6; O2SAT 99
--- NOTE | 2020-08-21 06:53 | PC.NURSE ---
Report recieved. PT currently in his room, calm and cooperative, pleasantly confused. PT remains case management [facility].
[2020-08-21] MEDS: Omeprazole 40 MG CAPSULE.DR PO ×2 (08:19→21:36)
[2020-08-21] MEDS: Topiramate 25 MG TABLET 50 MG PO ×2 (08:19→21:36)
[2020-08-21] MEDS: Sertraline HCL 50 MG TABLET 150 MG PO (08:19)
[2020-08-21] MEDS: allopurinoL 100 MG TABLET 300 MG PO (08:19)
[2020-08-21] MEDS: Loratadine 10 MG TABLET PO (08:19)
[2020-08-21] MEDS: Cholecalciferol (Vitamin D3) 25 MCG TABLET PO (08:19)
[2020-08-21] MEDS: Ferrous Sulfate 324 MG TABLET.DR PO (08:19)
[2020-08-21] MEDS: Atorvastatin Calcium 40 MG TABLET PO (08:19)
[2020-08-21 09:25] VITALS: BP 122/78; PULSE 78; RESP 16; TEMP 36.6; O2SAT 99
[2020-08-21 16:08] VITALS: BP 111/68; PULSE 91; RESP 18; TEMP 37.1; O2SAT 96
--- NOTE | 2020-08-21 19:06 | PC.NURSE ---
Report received. PT is standing at the nurse's station, agitated and asking to go home. PT is case management.
[2020-08-21] MEDS: Amitriptyline HCl 50 MG TABLET 100 MG PO (21:36)
[2020-08-22] VITALS: BP 115/73; PULSE 89; RESP 16; TEMP 36.8; O2SAT 99
--- NOTE | 2020-08-22 07:07 | PC.NURSE ---
Report recieved. PT currently eating breakfast, calm and cooperative. PT is case management bedsearch.
[2020-08-22] MEDS: allopurinoL 100 MG TABLET 300 MG PO (08:17)
[2020-08-22] MEDS: Sertraline HCL 50 MG TABLET 150 MG PO (08:17)
[2020-08-22] MEDS: Loratadine 10 MG TABLET PO (08:17)
[2020-08-22] MEDS: Cholecalciferol (Vitamin D3) 25 MCG TABLET PO (08:17)
[2020-08-22] MEDS: Atorvastatin Calcium 40 MG TABLET PO (08:17)
[2020-08-22] MEDS: Ferrous Sulfate 324 MG TABLET.DR PO (08:17)
[2020-08-22] MEDS: Topiramate 25 MG TABLET 50 MG PO ×2 (08:17→20:57)
[2020-08-22] MEDS: Omeprazole 40 MG CAPSULE.DR PO ×2 (08:18→20:57)
[2020-08-22 08:52] VITALS: BP 104/59; PULSE 77; RESP 16; TEMP 36.5; O2SAT 98
--- NOTE | 2020-08-22 11:00 | MHC.CM.ED ---
call made to [facility] admissions dept to request update on their acceptance of this patient. ph: [phone]. message left. at this time we understand the snf is requesting auth from [employer] . cm to cont. to follow.
[2020-08-22 16:58] VITALS: BP 117/81; PULSE 92; RESP 18; TEMP 36.8; O2SAT 97
[2020-08-22] MEDS: traZODone HCL 25 MG HALFTAB 12.5 MG PO (17:03)
--- NOTE | 2020-08-22 19:43 | PC.NURSE ---
Report received. PT pacing around the unit. Asking to go to the other unit . PT was redirected to his room. Calm and cooperative. PT is case management.
[2020-08-22] MEDS: Amitriptyline HCl 50 MG TABLET 100 MG PO (20:57)
[2020-08-22 23:45] VITALS: BP 145/97; PULSE 89; RESP 18; TEMP 36.2; O2SAT 97
[2020-08-23 08:40] VITALS: BP 103/60; PULSE 87; RESP 16; TEMP 36.8; O2SAT 97
[2020-08-23] MEDS: allopurinoL 100 MG TABLET 300 MG PO (09:16)
[2020-08-23] MEDS: Loratadine 10 MG TABLET PO (09:16)
[2020-08-23] MEDS: Omeprazole 40 MG CAPSULE.DR PO ×2 (09:16→20:42)
[2020-08-23] MEDS: Cholecalciferol (Vitamin D3) 25 MCG TABLET PO (09:16)
[2020-08-23] MEDS: Sertraline HCL 50 MG TABLET 150 MG PO (09:16)
[2020-08-23] MEDS: Atorvastatin Calcium 40 MG TABLET PO (09:16)
[2020-08-23] MEDS: Ferrous Sulfate 324 MG TABLET.DR PO (09:16)
[2020-08-23] MEDS: Topiramate 25 MG TABLET 50 MG PO ×2 (09:17→20:42)
[2020-08-23 10:35] VITALS: RESP 18
[2020-08-23 13:00] VITALS: BP 127/99; PULSE 100; O2SAT 96
--- NOTE | 2020-08-23 15:29 | PC.NURSE ---
Report received. Pt awake at current, standing in doorway, calm and cooperative. No complaints at this time.
--- NOTE | 2020-08-23 16:08 | MHC.CM.ED ---
i spoke bry lugo at [employer], ph: [phone]. she said she still needs to speak c a person named azucena at [facility] as she thinks pt may have other insurance that require auth. also she needs to check bed availability . elizabeth said it may take 1-2 days before he can be admitted. cm to cont. to follow.
--- NOTE | 2020-08-23 18:47 | PC.NURSE ---
Currently resting in room, no complaints at this time, calm and cooperative
[2020-08-23] MEDS: Amitriptyline HCl 50 MG TABLET 100 MG PO (20:41)
[2020-08-23] MEDS: hydrOXYzine HCL 25 MG TABLET PO (20:42)
[2020-08-23 22:00] VITALS: BP 114/81; PULSE 98; RESP 16; TEMP 36.5; O2SAT 100
[2020-08-24] MEDS: traZODone HCL 25 MG HALFTAB 12.5 MG PO (00:41)
--- NOTE | 2020-08-24 07:18 | PC.NURSE ---
Report received from CB Mcmillan. Pt resting on arrival, now awake, no concerns reported.
[2020-08-24 07:52] VITALS: BP 126/82; PULSE 88; RESP 16; TEMP 36.6; O2SAT 96
[2020-08-24] MEDS: Sertraline HCL 50 MG TABLET 150 MG PO (08:25)
[2020-08-24] MEDS: Cholecalciferol (Vitamin D3) 25 MCG TABLET PO (08:25)
[2020-08-24] MEDS: Atorvastatin Calcium 40 MG TABLET PO (08:26)
[2020-08-24] MEDS: allopurinoL 100 MG TABLET 300 MG PO (08:26)
[2020-08-24] MEDS: Ferrous Sulfate 324 MG TABLET.DR PO (08:26)
[2020-08-24] MEDS: Topiramate 25 MG TABLET 50 MG PO ×2 (08:26→20:42)
[2020-08-24] MEDS: Loratadine 10 MG TABLET PO (08:26)
[2020-08-24] MEDS: Omeprazole 40 MG CAPSULE.DR PO ×2 (08:26→20:42)
--- NOTE | 2020-08-24 08:45 | PC.NURSE ---
Late entry ~ 0751 per report [facility] heard a 'thud' and checked on patient- pt was lying on the floor, attempting to get up. Pt able to get himself up, currently ambulating, denies pain. No evidence of injury to head- pt initially reported pain left foot- no injury noted when evaluated, pt able to bear weight. Pt currently denies any pain, but unable to remember fall due to chronic short term memory loss. Dariela Onofre notified of fall, Erasmo Cassidy notified of fall.
--- NOTE | 2020-08-24 11:20 | PC.NURSE ---
Late entry: pt evaluated at 0900, 1000 for pain or discofort. Pt laying on bed, affect even, denies any pain or discomfort. Pt offered toileting- pt declined. No concerns reported, pt currently resting in room.
--- NOTE | 2020-08-24 12:31 | PC.NURSE ---
Pt awake, ambulating without difficulty, gait steady.
--- NOTE | 2020-08-24 13:45 | MHC.CM.PN ---
STAN spoke to Sonia at [facility] ([phone]) who reports she spoke to [facility] and the pt is all set with insurance auth. She reports she was informed the pt would need a MDS completed and an approval letter from [facility]. STAN will ensure the MDS was completed and Sonia reports she will call the facility and determine how soon a bed can be opened.
--- NOTE | 2020-08-24 13:51 | PC.NURSE ---
Pt awake, alert. no report of pain, declines opportunity to use the bathroom at this time.
[2020-08-24 14:00] VITALS: RESP 18
--- NOTE | 2020-08-24 18:05 | PC.NURSE ---
Pt found standing on his desk again, reaching for lights. Pt counseled to step down- was able to do so safely, redirectable.
--- NOTE | 2020-08-24 18:34 | PC.NURSE ---
Pt resting, resp unlabored
[2020-08-24] MEDS: Amitriptyline HCl 50 MG TABLET 100 MG PO (20:42)
[2020-08-24] MEDS: hydrOXYzine HCL 25 MG TABLET PO (20:42)
[2020-08-25 06:37] VITALS: BP 108/63; PULSE 63; RESP 17; TEMP 36.4; O2SAT 98
--- NOTE | 2020-08-25 07:14 | PC.NURSE ---
Report received from Hipolito RN, RN. Pt awake, eating breakfast, affect even.
[2020-08-25 08:18] VITALS: BP 102/63; PULSE 81; RESP 16; TEMP 36.5; O2SAT 96
[2020-08-25] MEDS: Sertraline HCL 50 MG TABLET 150 MG PO (08:25)
[2020-08-25] MEDS: Cholecalciferol (Vitamin D3) 25 MCG TABLET PO (08:26)
[2020-08-25] MEDS: allopurinoL 100 MG TABLET 300 MG PO (08:27)
[2020-08-25] MEDS: Ferrous Sulfate 324 MG TABLET.DR PO (08:27)
[2020-08-25] MEDS: Omeprazole 40 MG CAPSULE.DR PO ×2 (08:28→21:12)
[2020-08-25] MEDS: Topiramate 25 MG TABLET 50 MG PO ×2 (08:28→21:12)
[2020-08-25] MEDS: Atorvastatin Calcium 40 MG TABLET PO (08:28)
[2020-08-25] MEDS: Loratadine 10 MG TABLET PO (08:29)
--- NOTE | 2020-08-25 09:36 | MHC.CM.PN ---
Addendum entered by Rose Marie Manzanares 08/27/20 08:48: Per Sonia from [facility], she will check in with CM on Friday to ensure everything is prepared for pt to transfer to them on Friday (08/29/20). Addendum entered by Rose Marie Manzanares 08/25/20 15:46: Sonia at [facility] called CM asking pts COVID status. She was informed the pt is COVID recovered and not vaccinated. She reports she will speak to the facility regarding bed management but she expects the pt to be admitted Friday or Friday. CM awaiting return call to confirm admission date. Original Note: left for Sonia at [facility] ([phone]) confirming that the PASRR and MDS have been done. CM currently awaiting a return call to determine bed availability.
--- NOTE | 2020-08-25 10:20 | PC.NURSE ---
Pt resting, resp unlabored. Pt offered opportunity to toilet but declined.
[2020-08-25 10:49] VITALS: BMI 30.7
[2020-08-25 11:44] LABS: MANUAL DIFF FLAG NO
[2020-08-25 11:48] LABS: Basophils Percent Auto 0.6 % (0-2); Eosinophils Absolute Auto 0.2 X10*3/uL (0.0-0.4); Eosinophils Percent Auto 2.3 % (0-4); Hematocrit 42.8 % (42-52); Hemoglobin 13.8 g/dl (14.0-18.0); Imm Gran Abs Auto 0.03 X10*3/uL (0.00-0.03); Imm Gran Pct Auto 0.4 % (0.0-0.4); Lymphocytes Absolute Auto 2.6 X10*3/uL (1.2-4.9); Lymphocytes Percent Auto 36.6 % (20-40); Mean Corpuscular HGB Conc 32.2 g/dl (31.0-36.0); Mean Corpuscular Hemoglobin 29.6 pg (27.0-33.0); Mean Corpuscular Volume 91.8 fL (80-98); Mean Platelet Volume 10.5 fL (9.4-12.4); Monocytes Absolute Auto 0.9 X10*3/uL (0.1-1.2); Monocytes Percent Auto 12.5 % (2-11); Neutrophils Absolute Auto 3.4 X10*3/uL (2.0-8.3); Neutrophils Percent Auto 47.6 % (45-73); Platelet Count 258 X10*3/uL (160-400); Red Blood Count 4.66 X10*6/uL (4.60-5.80); Red Cell Distribution Width 13.7 % (11.0-16.0)
[2020-08-25 11:53] LABS: Prothrombin Time 12.4 SEC (10.8-13.0)
--- NOTE | 2020-08-25 11:54 | PC.NURSE ---
Pt watching television, showered, linens changed- no concerns reported.
[2020-08-25 12:04] LABS: Ammonia 44 umol/L (13-55)
[2020-08-25 12:04] LABS: COVID-19 Test Negative (Negative)
[2020-08-25 12:16] LABS: Alanine Aminotransferase 23 U/L (0-40); Albumin Level 4.4 g/dL (3.5-5.0); Alkaline Phosphatase 117 U/L (39-117); Anion Gap 14 (12-20); Aspartate Amino Transferase 18 U/L (5-37); Bilirubin Total 0.3 mg/dL (0.0-1.0); Blood Urea Nitrogen 22 mg/dL (9-16); Calcium 8.7 mg/dL (8.4-10.2); Carbon Dioxide 21 mmol/L (22-29); Chloride 109 mmol/L (96-108); Creatinine Clr Calc Pharmacy 106.6; Estimated Glomerular Filt Rate > 60; Glucose Random 105 mg/dL (60-115); Lipase 35 U/L (8-78); Potassium 3.7 mmol/L (3.3-5.1); Sodium 140 mmol/L (135-145); Total Protein 7.4 g/dL (6.5-8.0)
[2020-08-25 14:00] VITALS: RESP 18
--- NOTE | 2020-08-25 16:22 | PC.NURSE ---
Pt awake, appears to be talking to himself in room- when asked, pt denied any concerns.
--- NOTE | 2020-08-25 18:29 | PC.NURSE ---
Pt continues to be alert, confused, requiring direction and redirection re: toileting. Pt currently showering.
--- NOTE | 2020-08-25 19:07 | PC.NURSE ---
Report received. PT is sitting in his room quietly. Calm and cooperative. PT is case management.
[2020-08-25] MEDS: Amitriptyline HCl 50 MG TABLET 100 MG PO (21:12)
[2020-08-25 23:48] VITALS: BP 118/94; PULSE 90; RESP 18; TEMP 36.7; O2SAT 99
[2020-08-26 06:33] LABS: Glucose Urine UA NEG (NEG); Leukocyte Esterase Urine NEG (NEG); Nitrite Urine NEG (NEG); Specific Gravity - Urine 1.025 (1.005-1.025); Urine Blood NEG (NEG); Urine Ketones NEG (NEG); Urine Protein NEG (NEG-TRACE)
[2020-08-26 06:35] LABS: Appearance Urine CLEAR; Color Urine YELLOW; UACC Culture Trigger NO
--- NOTE | 2020-08-26 07:12 | PC.NURSE ---
Report recieved. PT currently eating breakfast, calm and cooperative, pleasantly confused. Pt is case management bedsearch.
[2020-08-26 09:04] VITALS: BP 100/58; PULSE 73; RESP 18; TEMP 36.6; O2SAT 95
[2020-08-26] MEDS: Cholecalciferol (Vitamin D3) 25 MCG TABLET PO (09:28)
[2020-08-26] MEDS: Sertraline HCL 50 MG TABLET 150 MG PO (09:28)
[2020-08-26] MEDS: Omeprazole 40 MG CAPSULE.DR PO ×2 (09:28→21:25)
[2020-08-26] MEDS: Atorvastatin Calcium 40 MG TABLET PO (09:28)
[2020-08-26] MEDS: Topiramate 25 MG TABLET 50 MG PO ×2 (09:28→21:25)
[2020-08-26] MEDS: allopurinoL 100 MG TABLET 300 MG PO (09:28)
[2020-08-26] MEDS: Ferrous Sulfate 324 MG TABLET.DR PO (09:28)
[2020-08-26] MEDS: Loratadine 10 MG TABLET PO (09:28)
[2020-08-26 17:03] VITALS: BP 117/97; PULSE 85; RESP 18; TEMP 36.8; O2SAT 96
--- NOTE | 2020-08-26 19:32 | PC.NURSE ---
Report received. PT is sleeping in bed. Respirations even and unlabored. PT is case management.
[2020-08-26] MEDS: Amitriptyline HCl 50 MG TABLET 100 MG PO (21:26)
[2020-08-27 01:41] VITALS: BP 143/83; PULSE 104; RESP 18; TEMP 36.2; O2SAT 96
[2020-08-27] MEDS: Nicotine Polacrilex 2 MG GUM BUCCAL (02:02)
--- NOTE | 2020-08-27 02:27 | PC.NURSE ---
PT was agitated and constantly asking for a cigarette. PT offered Nicorette gum to help his cravings.
--- NOTE | 2020-08-27 07:03 | PC.NURSE ---
Report received. Pt currently eating breakfast, calm, pleasantly confused. PT remains case management bedsearch.
[2020-08-27 09:49] VITALS: BP 110/61; PULSE 77; RESP 16; TEMP 36.8; O2SAT 95
[2020-08-27] MEDS: Sertraline HCL 50 MG TABLET 150 MG PO (10:09)
[2020-08-27] MEDS: Cholecalciferol (Vitamin D3) 25 MCG TABLET PO (10:10)
[2020-08-27] MEDS: Loratadine 10 MG TABLET PO (10:10)
[2020-08-27] MEDS: Atorvastatin Calcium 40 MG TABLET PO (10:10)
[2020-08-27] MEDS: Omeprazole 40 MG CAPSULE.DR PO ×2 (10:10→20:59)
[2020-08-27] MEDS: Ferrous Sulfate 324 MG TABLET.DR PO (10:10)
[2020-08-27] MEDS: Topiramate 25 MG TABLET 50 MG PO ×2 (10:10→20:59)
[2020-08-27] MEDS: allopurinoL 100 MG TABLET 300 MG PO (10:10)
--- NOTE | 2020-08-27 13:10 | PC.NURSE ---
Pt resting in bed at current, calm and cooperative, no complaints at this time.
--- NOTE | 2020-08-27 16:02 | PC.NURSE ---
Pt asleep at current, no signs of distress, RR even and unlabored.
[2020-08-27 16:10] VITALS: RESP 15
--- NOTE | 2020-08-27 17:55 | PC.NURSE ---
Pt eating dinner at current, calm and cooperative, no complaints at this time.
--- NOTE | 2020-08-27 18:56 | PC.NURSE ---
Report received. PT is sitting in his room. Calm and cooperative. PT is case management.
[2020-08-27] MEDS: Amitriptyline HCl 50 MG TABLET 100 MG PO (20:59)
[2020-08-28 06:17] VITALS: RESP 16
--- NOTE | 2020-08-28 07:15 | PC.NURSE ---
Report received from CB Young. Pt resting, resp unlabored.
[2020-08-28 07:44] VITALS: BP 122/81; PULSE 74; RESP 16; TEMP 36.6; O2SAT 97
[2020-08-28] MEDS: Sertraline HCL 50 MG TABLET 150 MG PO (07:51)
[2020-08-28] MEDS: Cholecalciferol (Vitamin D3) 25 MCG TABLET PO (07:52)
[2020-08-28] MEDS: Omeprazole 40 MG CAPSULE.DR PO ×2 (07:52→20:08)
[2020-08-28] MEDS: Loratadine 10 MG TABLET PO (07:52)
[2020-08-28] MEDS: Ferrous Sulfate 324 MG TABLET.DR PO (07:52)
[2020-08-28] MEDS: Topiramate 25 MG TABLET 50 MG PO ×2 (07:52→20:08)
[2020-08-28] MEDS: Atorvastatin Calcium 40 MG TABLET PO (07:53)
[2020-08-28] MEDS: allopurinoL 100 MG TABLET 300 MG PO (07:53)
--- NOTE | 2020-08-28 12:21 | PC.NURSE ---
Pt showered, linens changed, currently sitting on bed, working on word search puzzle.
[2020-08-28 14:00] VITALS: RESP 18
--- NOTE | 2020-08-28 14:52 | MHC.CM.ED ---
Spoke with [facility] [place] [facility]. Because patient is Covid recovered, additional Covid screen is not necessary. Patient is a Level 2 sex offender. Sonia requested probation office information. T/W spoke with patient's sister/HCP, Mckayla via telephone at [phone]. Mckayla called the probation office. Patient is not on probation. He is required to check in with [place] [employer] monthly. Sonia aware of this. Continue to monitor for d/c needs.
--- NOTE | 2020-08-28 15:14 | MHC.CM.ED ---
Received return telephone call from Sonia jeong [facility]. Patient can leave the ER on 08/30 at 1pm. [facility] booked. Med nec with chart. Alejandra TSANG and Joanna VIVAR aware. Continue to monitor for d/c needs.
--- NOTE | 2020-08-28 15:25 | PC.NURSE ---
Pt's sister in to see pt. Sister notified that he will be discharged tomorrow and wanted to see him prior to discharge.
[2020-08-28 16:51] VITALS: BP 118/88; PULSE 85; RESP 16; TEMP 36.1
--- NOTE | 2020-08-28 17:57 | PC.NURSE ---
Pt resting, resp unlabored.
--- NOTE | 2020-08-28 19:21 | PC.NURSE ---
Patient calm and quiet, no distress reported, good behavioral control, per report patient had decent day possible d/c tomorrow, will continue to monitor.
[2020-08-28] MEDS: hydrOXYzine HCL 25 MG TABLET PO (20:08)
[2020-08-28] MEDS: Amitriptyline HCl 50 MG TABLET 100 MG PO (20:08)
[2020-08-28] MEDS: traZODone HCL 25 MG HALFTAB 12.5 MG PO (20:50)
--- NOTE | 2020-08-29 07:22 | PC.NURSE ---
Report received from CB Mcmillan. Pt resting, resp unlabored.
[2020-08-29] MEDS: allopurinoL 100 MG TABLET 300 MG PO (07:49)
[2020-08-29] MEDS: Sertraline HCL 50 MG TABLET 150 MG PO (07:57)
[2020-08-29] MEDS: Topiramate 25 MG TABLET 50 MG PO (07:58)
[2020-08-29] MEDS: Loratadine 10 MG TABLET PO (07:59)
[2020-08-29] MEDS: Ferrous Sulfate 324 MG TABLET.DR PO (07:59)
[2020-08-29] MEDS: Omeprazole 40 MG CAPSULE.DR PO (07:59)
[2020-08-29] MEDS: Cholecalciferol (Vitamin D3) 25 MCG TABLET PO (08:00)
[2020-08-29] MEDS: Atorvastatin Calcium 40 MG TABLET PO (08:00)
[2020-08-29 10:10] VITALS: BP 127/88; PULSE 81; RESP 18; TEMP 36.8; O2SAT 95
--- NOTE | 2020-08-29 11:02 | MHC.CM.ED ---
Patient remains in ER. Anticipate patient will go to [facility] at 1pm today. Recieved voicemail from patient's sister/HCP Mckayla, that the family wants to take the patient home. T/W returned her telephone call and explained that would not be safe or feasible at this time. Explained Mckayla and family could work with the dialysis social worker at [facility] to try to get patient discharged home with appropriate services in place. Mckayla verbalized understanding and agreeable to 1pm transfer to [facility]. Continue to monitor for d/c needs.
--- NOTE | 2020-08-29 11:31 | PC.NURSE ---
Pt awake, affect even, pleasant. Offered toileting, pt declined.
--- NOTE | 2020-08-29 13:07 | PC.NURSE ---
EMS in to transfer pt to SNF. Pt alert, aware he is being transported, cooperative w/ plan, no concerns reported.
== END 2020-08-29 13:22 | disposition skilled nursing facility (03) ==
PROVIDERS: Emergency Medicine; Nurse Practitioner Family; Nurse Practitioner Primary Care; Physician Assistant; Physician Assistant Medical; Student in an Organized Health Care Education/Training Program; Emergency Provider Emergency Medicine
DX: U07.1 COVID-19 (principal); R41.0 Disorientation, unspecified; R22.0 Localized swelling, mass and lump, head; M25.552 Pain in left hip; S79.912A Unspecified injury of left hip, initial encounter; S09.90XA Unspecified injury of head, initial encounter; F14.90 Cocaine use, unspecified, uncomplicated; F17.210 Nicotine dependence, cigarettes, uncomplicated; I10 Essential (primary) hypertension; W01.0XXA Fall on same level from slipping, tripping and stumbling without subsequent striking against object, initial encounter; Y93.9 Activity, unspecified; Y92.239 Unspecified place in hospital as the place of occurrence of the external cause; Y99.9 Unspecified external cause status; Z71.6 Tobacco abuse counseling; Z79.899 Other long term (current) drug therapy; G93.9 Disorder of brain, unspecified; Z69.0 Encounter for mental health services for child abuse problems; Z72.89 Other problems related to lifestyle
CPT/HCPCS: 0241U; 36415; 70553; 73502; 80048; 80053; 80076; 81003; 82140; 83690; 83735; 85025; 85610; 85730; 87635; 96365; 96372; 96374; 96375; 97162; 99282; 99284; 99285; A9585

== ENCOUNTER 2020-09-27 14:41 | Emergency (ER) | payer MEDICAID, SELFPAY ==
[2020-09-27 14:52] VITALS: BMI 30.8
[2020-09-27 15:04] VITALS: BP 117/78; PULSE 91; RESP 16; TEMP 36.8; O2SAT 96
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
[2020-09-27 17:09] LABS: Basophils Percent Auto 0.4 % (0-2); Eosinophils Absolute Auto 0.2 X10*3/uL (0.0-0.4); Eosinophils Percent Auto 2.4 % (0-4); Hemoglobin 13.6 g/dl (14.0-18.0); Imm Gran Abs Auto 0.02 X10*3/uL (0.00-0.03); Imm Gran Pct Auto 0.3 % (0.0-0.4); Lymphocytes Absolute Auto 2.2 X10*3/uL (1.2-4.9); Lymphocytes Percent Auto 31.6 % (20-40); Mean Corpuscular HGB Conc 31.6 g/dl (31.0-36.0); Mean Corpuscular Hemoglobin 28.3 pg (27.0-33.0); Mean Corpuscular Volume 89.6 fL (80-98); Mean Platelet Volume 9.4 fL (9.4-12.4); Monocytes Absolute Auto 0.6 X10*3/uL (0.1-1.2); Monocytes Percent Auto 9.1 % (2-11); Neutrophils Absolute Auto 3.9 X10*3/uL (2.0-8.3); Neutrophils Percent Auto 56.2 % (45-73); Platelet Count 320 X10*3/uL (160-400); Red Cell Distribution Width 12.7 % (11.0-16.0); White Blood Count 6.9 X10*3/uL (4.8-10.8)
[2020-09-27 17:36] LABS: Anion Gap 14 (12-20); Blood Urea Nitrogen 14 mg/dL (9-16); Calcium 8.9 mg/dL (8.4-10.2); Carbon Dioxide 23 mmol/L (22-29); Chloride 108 mmol/L (96-108); Creatinine Clr Calc Pharmacy 91.6; Estimated Glomerular Filt Rate > 60; Glucose Random 95 mg/dL (60-115); Potassium 3.8 mmol/L (3.3-5.1); Sodium 141 mmol/L (135-145)
[2020-09-27 18:06] LABS: COVID-19 Test Negative (Negative); IDNOW Serial# 08D9AD1C
[2020-09-27 18:25] LABS: MANUAL DIFF FLAG NO
[2020-09-27] MEDS: traZODone HCL 50 MG TABLET PO (20:15)
[2020-09-27] MEDS: Topiramate 25 MG TABLET 50 MG PO (20:15)
[2020-09-27] MEDS: Amitriptyline HCl 50 MG TABLET 100 MG PO (20:15)
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
[2020-09-28 00:31] VITALS: BP 105/75; PULSE 73; RESP 18; TEMP 35.9; O2SAT 97
--- NOTE | 2020-09-28 06:52 | PC.NURSE ---
patient appears to remain asleep at present with even unlabored breaths, appears in no distress at present
[2020-09-28] MEDS: Sertraline HCL 50 MG TABLET 150 MG PO (08:13)
[2020-09-28] MEDS: allopurinoL 300 MG TABLET PO (08:13)
[2020-09-28] MEDS: Atorvastatin Calcium 40 MG TABLET PO (08:14)
[2020-09-28] MEDS: Topiramate 25 MG TABLET 50 MG PO ×2 (08:14→21:07)
[2020-09-28] MEDS: Cholecalciferol (Vitamin D3) 25 MCG TABLET PO (08:15)
[2020-09-28] MEDS: traZODone HCL 25 MG HALFTAB PO ×2 (08:16→13:22)
--- NOTE | 2020-09-28 08:52 | MHC.CM.ED ---
Patient remains in ER. Reached out to liaison at [facility]. Received confirmation patient will not be allowed back. Referral broadcasted in [employer]. 242 referrals placed. Anticipate patient will be difficult to place due to behaviors and being a registered sex offender. Continue to monitor for d/c needs.
[2020-09-28 09:47] VITALS: BP 116/72; PULSE 70; RESP 16; TEMP 36.4; O2SAT 95
--- NOTE | 2020-09-28 12:26 | MHC.CM.ED ---
Addendum entered by Magdalena Patton 09/28/20 12:29: Referral sent to [facility] as well. Original Note: Clinical info faxed to [facility] after speaking with Freya in their admissions office. Spoke with the rehabilitation coordinator at [facility] via telephone at [phone]. The only way for patient to be admitted to their facility is through a caption writer's order. Spoke with La at [place]. Clinical info faxed to [phone]. They currently have 17 male patients waiting for a bed. Continue to monitor for d/c needs.
--- NOTE | 2020-09-28 13:21 | MHC.CM.ED ---
Received telephone call from Adeola at [facility]. They currently have a wait list and will not be able to offer a bed.
--- NOTE | 2020-09-28 17:42 | PC.NURSE ---
PT noted to urinate in a milk container in his room. Pt encouraged to utilize the bathroom in the future. Pt apologetic, calm and cooperative.
[2020-09-28 20:20] VITALS: BP 109/77; PULSE 104; RESP 18; TEMP 36.6; O2SAT 100
[2020-09-28] MEDS: traZODone HCL 50 MG TABLET PO (21:07)
[2020-09-28] MEDS: Amitriptyline HCl 50 MG TABLET 100 MG PO (21:07)
--- NOTE | 2020-09-28 21:09 | PC.NURSE ---
Patient medicated per emar as noted. Patient visible on unit. Calm and cooperative
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
--- NOTE | 2020-09-28 23:22 | PC.NURSE ---
Patient in bed appears sleeping, no distress observed/reported, respiration +/=/non-labored bilaterally, will continue to monitor
[2020-09-29 07:16] VITALS: BP 108/78; PULSE 87; RESP 16; TEMP 36.6; O2SAT 97
--- NOTE | 2020-09-29 08:51 | MHC.CM.ED ---
Patient remains in ER. 247 referrals have been broadcasted. No bed offers have been made at this time. Elin Cruz CM manager sterile aware. Continue to monitor for d/c needs.
[2020-09-29] MEDS: Ferrous Sulfate 324 MG TABLET.DR PO (08:53)
[2020-09-29] MEDS: Cholecalciferol (Vitamin D3) 25 MCG TABLET PO (08:53)
[2020-09-29] MEDS: Sertraline HCL 50 MG TABLET 150 MG PO (08:53)
[2020-09-29] MEDS: traZODone HCL 25 MG HALFTAB PO ×2 (08:54→14:40)
[2020-09-29] MEDS: Topiramate 25 MG TABLET 50 MG PO ×2 (08:54→20:51)
[2020-09-29] MEDS: allopurinoL 300 MG TABLET PO (08:54)
[2020-09-29] MEDS: Atorvastatin Calcium 40 MG TABLET PO (08:54)
--- NOTE | 2020-09-29 09:49 | PC.NURSE ---
report taken from gabe harmon pt ate breakfast, has been compliant w morning medications, ambulated to restroom w steady gait w prompting d/t memory issues. pt calm and cooperative. appropriate in interactions w staff. wctm for dc needs.
--- NOTE | 2020-09-29 15:05 | PC.NURSE ---
Report received. Pt resting comfortably in bed at current. Calm. No complaints at this time.
[2020-09-29] MEDS: Amitriptyline HCl 50 MG TABLET 100 MG PO (20:50)
[2020-09-29] MEDS: traZODone HCL 50 MG TABLET PO (21:18)
[2020-09-29 21:54] VITALS: BP 139/84; PULSE 70; RESP 17; TEMP 36.6; O2SAT 96
[2020-09-30 02:50] VITALS: BP 104/77; PULSE 79; RESP 17; TEMP 36.4; O2SAT 97
[2020-09-30] MEDS: Atorvastatin Calcium 40 MG TABLET PO (09:01)
[2020-09-30] MEDS: Sertraline HCL 50 MG TABLET 150 MG PO (09:01)
[2020-09-30] MEDS: Cholecalciferol (Vitamin D3) 25 MCG TABLET PO (09:01)
[2020-09-30] MEDS: allopurinoL 300 MG TABLET PO (09:01)
[2020-09-30] MEDS: Topiramate 25 MG TABLET 50 MG PO ×2 (09:01→21:27)
[2020-09-30] MEDS: traZODone HCL 25 MG HALFTAB PO ×2 (09:01→13:32)
[2020-09-30] MEDS: traZODone HCL 50 MG TABLET PO (21:27)
[2020-09-30] MEDS: Amitriptyline HCl 50 MG TABLET 100 MG PO (21:27)
[2020-10-01 04:24] VITALS: BP 105/80; PULSE 75; RESP 17; TEMP 36.6; O2SAT 98
[2020-10-01] MEDS: Atorvastatin Calcium 40 MG TABLET PO (08:03)
[2020-10-01] MEDS: allopurinoL 300 MG TABLET PO (08:03)
[2020-10-01] MEDS: Sertraline HCL 50 MG TABLET 150 MG PO (08:03)
[2020-10-01] MEDS: Ferrous Sulfate 324 MG TABLET.DR PO (08:03)
[2020-10-01] MEDS: Topiramate 25 MG TABLET 50 MG PO ×2 (08:03→20:14)
[2020-10-01] MEDS: traZODone HCL 25 MG HALFTAB PO ×2 (08:03→14:08)
[2020-10-01] MEDS: Cholecalciferol (Vitamin D3) 25 MCG TABLET PO (08:03)
[2020-10-01 08:08] VITALS: BP 105/75; PULSE 91; RESP 18; TEMP 36.8; O2SAT 100
[2020-10-01 14:12] VITALS: RESP 18
--- NOTE | 2020-10-01 15:10 | PC.NURSE ---
patient has been awake and out watching tv most of the day. mood mainly calm, sometimes referring to things that don't make sense, saying he has to get to the other unit, leave, asks for his sneakers. paces at times around POD. has been able to be viewed by staff at all times. patient has tried to enter other patients rooms but redirected by staff to his own room. patient not 1:1 at this time due to staffing. patient currently in room eating and watching tv. no updates today for dc plan.
[2020-10-01] MEDS: traZODone HCL 50 MG TABLET PO (20:14)
[2020-10-01] MEDS: Amitriptyline HCl 50 MG TABLET 100 MG PO (20:14)
--- NOTE | 2020-10-01 20:15 | PC.NURSE ---
Patient compliant with HS PO medication, per report patient was hyper and restless during day shift, patient continued restlessness, intermittently asking for his sneakers or for smoke, currently in his room watching, observed on 1:1 for safety, will continue to monitor.
[2020-10-02 06:15] VITALS: BP 140/96; PULSE 74; RESP 16; TEMP 36.6; O2SAT 96
--- NOTE | 2020-10-02 07:02 | PC.NURSE ---
patient awake off and on at present, appears in no distress, asks unusual questions periodically you like fishing? even regular respirations
[2020-10-02 07:26] VITALS: BP 147/89; PULSE 68; RESP 14; TEMP 36.2; O2SAT 98
[2020-10-02] MEDS: Sertraline HCL 50 MG TABLET 150 MG PO (08:48)
[2020-10-02] MEDS: Topiramate 25 MG TABLET 50 MG PO ×2 (08:48→20:59)
[2020-10-02] MEDS: traZODone HCL 25 MG HALFTAB PO ×2 (08:48→14:39)
[2020-10-02] MEDS: allopurinoL 300 MG TABLET PO (08:49)
[2020-10-02] MEDS: Atorvastatin Calcium 40 MG TABLET PO (08:49)
[2020-10-02] MEDS: Cholecalciferol (Vitamin D3) 25 MCG TABLET PO (08:49)
--- NOTE | 2020-10-02 11:06 | MHC.CM.ED ---
Patient remains in ER. No bed offers have been made. Kellie, co director aware. Continue to monitor for d/c needs.
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
--- NOTE | 2020-10-02 19:06 | PC.NURSE ---
Report received. PT is sitting watching TV. Calm and cooperative. PT is case management.
[2020-10-02] MEDS: traZODone HCL 50 MG TABLET PO (20:59)
[2020-10-02] MEDS: Amitriptyline HCl 50 MG TABLET 100 MG PO (20:59)
[2020-10-02 21:59] VITALS: BP 116/79; PULSE 98; RESP 14; TEMP 36.5; O2SAT 95
[2020-10-02 23:36] VITALS: BP 106/76; PULSE 94; RESP 18; TEMP 36.1; O2SAT 98
--- NOTE | 2020-10-03 08:26 | PC.NURSE ---
Pt sleeping at this time. NAD. Resp reg and even
[2020-10-03 09:28] VITALS: BP 126/67; PULSE 87; RESP 16; TEMP 37.1; O2SAT 97
[2020-10-03] MEDS: Topiramate 25 MG TABLET 50 MG PO (09:38)
[2020-10-03] MEDS: Ferrous Sulfate 324 MG TABLET.DR PO (09:38)
[2020-10-03] MEDS: Sertraline HCL 50 MG TABLET 150 MG PO (09:38)
[2020-10-03] MEDS: Cholecalciferol (Vitamin D3) 25 MCG TABLET PO (09:39)
[2020-10-03] MEDS: allopurinoL 300 MG TABLET PO (09:39)
[2020-10-03] MEDS: Atorvastatin Calcium 40 MG TABLET PO (09:39)
[2020-10-03] MEDS: traZODone HCL 25 MG HALFTAB PO ×2 (09:39→13:19)
--- NOTE | 2020-10-03 13:30 | MHC.CM.PN ---
This film writer placed call to Francois (HCP) to obtain verbal consent to contact [place] [employer] regarding pt. She provided consent to call and to provide any documentation regarding patient. This conversation was witnessed by Erin Diaz RN. This film writer placed call to Officer Ti @ [facility],left VM- awaiting return call.
--- NOTE | 2020-10-03 16:57 | PC.NURSE ---
Plan per CM is for pt to be d/c into police custody. Pt currently in room. NAD. Awaiting [employer] arrival.
--- NOTE | 2020-10-03 17:07 | MHC.CM.ED ---
Pt is discharged. Plan for d/c, agreed upon by senior management, Captain Assistant Kellie Patel and sister/HCP Jovana Gibson, is to call [employer] upon d/c ane report that pt is being d/c and [facility] believes there is a warrant for his arrest. This securities underwriter called [employer]. Per [employer], there are 2 outstanding warrants for arrest for this patient. They are on route to ED to last picker patient. Charge nurse aware. Charge nurse to alert RN and Security. Charge nurse to alert CM when pt leaves and is police custody. CM will notify pt sister and Director Kellie Saravia. CM to follow for d/c needs.
--- NOTE | 2020-10-03 18:10 | MHC.CM.ED ---
Pt was d/c and [employer] picked up pt. Pt has 2 outstanding warrants for his arrest.Directors Trang Hernandez and Kellie Saravia aware. CM called pt sister and HCP Mckayla to inform her of d/c and pt arrest.
--- NOTE | 2020-10-04 07:11 | MHC.CM.PN ---
LATE ENTRY for 10/03/2020 @ 1430- This publications writer placed call to pt's HCP @ 1430 w/ Erin Diaz RN as witness. Discussed with HCP that plan will be to discharge pt and at time of discharge call [facility] to notify them of pt's discharge. HCP in agreement with plan, she requested we place call to her with outcome. This publications writer agreed. Plan discussed with Risk Management and Senior Leadership team, all in agreement. Plan discussed with ED CM team, verbalized understanding.
== END 2020-10-03 19:23 | disposition home or self-care (01) ==
PROVIDERS: Nurse Practitioner Family; Emergency Provider Emergency Medicine Emergency Medical Services
DX: G40.909 Epilepsy, unspecified, not intractable, without status epilepticus (principal); R41.0 Disorientation, unspecified; F14.10 Cocaine abuse, uncomplicated; I10 Essential (primary) hypertension; R22.0 Localized swelling, mass and lump, head; Z20.822 Contact with and (suspected) exposure to COVID-19; Z79.899 Other long term (current) drug therapy; F17.210 Nicotine dependence, cigarettes, uncomplicated; Z71.6 Tobacco abuse counseling
CPT/HCPCS: 36415; 80048; 85025; 87635; 99285